=== PATIENT | male | born 1965 | race Caucasian/White ===

== ENCOUNTER 2017-11-13 15:03 | Outpatient (REF) | payer OTHER, SELFPAY ==
[2017-11-13 21:27] LABS: HCT 40.1 % (40.0-50.0); HGB 13.3 g/dL (13.5-17.5); Mean Corp. HGB Concentration 33.2 g/dL (32.0-36.0); Mean Corpuscular Hemoglobin 30.7 pg (27.0-33.0); Mean Corpuscular Volume 92.6 fL (80-95); Mean Platelet Volume 10.5 fL (8.0-11.0); Platelet Count 230 x1000/uL (130-400); RBC 4.33 m/cumm (4.50-6.00); RBC Distribution Width 15.9 % (11.8-14.1); White Blood Cell Count 6.69 k/cumm (4.4-10.8)
[2017-11-13 21:29] LABS: Magnesium 2.5 mg/dL (1.8-2.4)
== END 2017-11-13 15:23 ==
LOC: NCHCN 15:03
PROVIDERS: PCP Internal Medicine; Visit Provider Family Medicine
DX: E83.42 Hypomagnesemia (principal); D50.0 Iron deficiency anemia secondary to blood loss (chronic)
CPT/HCPCS: 85027; 83735

== ENCOUNTER 2019-12-20 12:36 | Outpatient (REF) | payer MEDICAID, SELFPAY ==
[2019-12-20 20:07] LABS: Abs Immature Grans 0.03 10^3/uL (0.0-0.06); Absolute Basophil Count 0.08 10^3/uL (0.0-0.2); Absolute Lymphocyte Count 2.28 10^3/uL (1.2-3.4); Absolute Monocyte Count 0.83 10^3/uL (0.1-0.8); Absolute Neutrophil Count 7.46 10^3/uL (1.2-6.7); Basophils % 0.7; Eosinophils % 1.8; HCT 43.8 % (40.0-50.0); Immature Grans % 0.3; MCH 30.7 pg (27.0-33.0); MCHC 34.2 % (32.0-36.0); MCV 89.6 fL (80-95); MPV 10.2 fL (8.0-11.0); Monocytes % 7.6; Neutrophils % 68.6; Nucleated RBC 0 %; Platelet Count 344 10^3/uL (130-400); RBC 4.89 10^6/uL (4.36-5.78); RDW 12.8 % (11.8-14.1); RDW-SD 42.2 fL; WBC 10.88 10^3/uL (4.4-10.8)
[2019-12-20 20:29] LABS: ALT 21 U/L (16-63); AST 18 U/L (15-37); Alkaline Phosphatase 86 U/L (46-116); BUN 11 mg/dL (7-18); Bilirubin, Total 0.7 mg/dL (0.2-1.0); CREATININE 0.96 mg/dL (0.70-1.30); Calcium 9.6 mg/dL (8.5-10.1); Calculated LDL 77 mg/dL (<100); Chloride 100 mmol/L (98-107); Cholesterol 166 mg/dL (<200); Glucose 109 mg/dL (74-106); HDL Cholesterol 80 mg/dL (40-60); Magnesium 2.2 mg/dL (1.8-2.4); Potassium 4.6 mmol/L (3.5-5.1); Sodium 137 mmol/L (136-145); TSH (W/Ref FT4) 1.24 uIU/mL (0.36-3.74); Total Protein 7.5 g/dL (6.4-8.2); Triglyceride 46 mg/dL (<150)
== END 2019-12-20 12:56 ==
LOC: NCHCN 12:36
PROVIDERS: PCP Internal Medicine; Visit Provider Physician Assistant
DX: I10 Essential (primary) hypertension (principal); D50.0 Iron deficiency anemia secondary to blood loss (chronic); E83.42 Hypomagnesemia; Z86.79 Personal history of other diseases of the circulatory system
CPT/HCPCS: 80053; 80061; 83735; 84443; 85025

== ENCOUNTER 2020-02-05 15:22 | Outpatient (REF) | payer MEDICAID, SELFPAY ==
[2020-02-05 20:54] LABS: Hemoglobin A1C 5.2 % (<5.7)
== END 2020-02-05 15:42 ==
LOC: NCHCN 15:22
PROVIDERS: PCP Internal Medicine; Visit Provider Physician Assistant
DX: R73.9 Hyperglycemia, unspecified (principal); R63.4 Abnormal weight loss; F10.10 Alcohol abuse, uncomplicated
CPT/HCPCS: 83036

== ENCOUNTER 2020-02-06 20:07 | Outpatient (REF) | payer MEDICAID, SELFPAY ==
[2020-02-06 19:20] LABS: Amylase 63 U/L (25-115); Anion Gap 8.5 mmol/L (3-11); BUN 12 mg/dL (7-18); CO2 27.5 mmol/L (21.0-32.0); CREATININE 0.94 mg/dL (0.70-1.30); Calcium 9.7 mg/dL (8.5-10.1); Chloride 102 mmol/L (98-107); Glucose 131 mg/dL (74-106); Lipase 127 U/L (73-393); Potassium 3.8 mmol/L (3.5-5.1); Sodium 138 mmol/L (136-145)
== END 2020-02-06 20:27 ==
LOC: NCHCN 20:07
PROVIDERS: PCP Internal Medicine; Visit Provider Physician Assistant
DX: R63.4 Abnormal weight loss (principal); R73.9 Hyperglycemia, unspecified; F10.10 Alcohol abuse, uncomplicated
CPT/HCPCS: 80048; 83690; 82150

== ENCOUNTER 2020-02-13 16:22 | Inpatient (IN) | payer MEDICAID, SELFPAY ==
[2020-02-13] VITALS (29 sets, daily range): BP systolic 137–211; BP diastolic 56–180; PULSE 68–90; RESP 14–21; TEMP 36–36.7; O2SAT 93–99
--- NOTE | 2020-02-13 16:15 | RT.EKG_ITS ---
APPROVED REPORT Exam: Resting ECG Patient Location: E HR:82 bpm ECG Measurements Heart Rate 82 AXIS DE 149 P 76 QRSd 103 QRS 63 QT 401 T 75 QTc 469 Conclusion Sinus rhythm...normal P axis early repol pattern.
--- NOTE | 2020-02-13 16:41 | W.ED.GENAD ---
Discharge Plan Disposition Patient Disposition: OTHER Condition: Serious Discharge Details Clinical Impression: Peripheral neuropathy, Weight loss, Weakness, Ataxia Primary Care Provider: Grant Chacon ED Provider: Kade Sanchez Medical Decision Making 54-year-old male, past medical history of tobacco use, alcohol abuse, A. fib, COPD, cardiomyopathy, hypertension, cirrhosis, prediabetes, presents to the ER after already being evaluated by neurology. Sent to the ER for further evaluation and subsequent admission. Nerve study conduction test performed earlier were quite worrisome. Differential includes but not excluded to Warnicke's encephalopathy, Guillain-[place], metabolic cephalopathy, other demyelinating process. Will obtain a cardiac work-up, CT imaging of head, C-spine, abdomen, chest, pelvis. He did present quite hypertensive, without any therapy his blood pressure began to trend down nicely. Laboratory values were unremarkable for any obvious emergent process. CT imaging of chest, abdomen, pelvis read by radiology as no acute findings. CT imaging of head and C-spine without contrast read by radiology as no acute intracranial abnormality. Chronic Shanta report in the bilateral basal ganglia and left thalamus. No acute cervical spine fracture. Degenerative changes of the cervical spine. Work-up in the ER completed, will reach out to our hospitalist team for admission. Medical Records Medical records reviewed: Yes I reviewed the patient's medical records. Lab Data Lab results reviewed: Yes I reviewed the patient's lab results. Lab results narrative: Laboratory Tests Range/Units 02/13/20 02/13/20 02/13/20 16:35 16:35 16:35 WBC (4.4-10.8) 10^3/uL RBC (4.36-5.78) 10^6/uL Hgb (13.5-17.5) g/dL Hct (40.0-50.0) % MCV (80-95) fL MCH (27.0-33.0) pg MCHC (32.0-36.0) % RDW (11.8-14.1) % Plt Count (130-400) 10^3/uL MPV (8.0-11.0) fL Immature Gran % Neutrophils % Lymphocytes % Monocytes % Eosinophils % Basophils % Nucleated RBC % % Absolute Neutrophils (1.2-6.7) 10^3/uL Absolute Lymphocytes (1.2-3.4) 10^3/uL Absolute Monocytes (0.1-0.8) 10^3/uL Absolute Eosinophils (0.0-0.7) 10^3/uL Absolute Basophils (0.0-0.2) 10^3/uL PT (9.3-11.0) sec 10.5 INR (0.9-1.1) 1.0 APTT (21.0-27.5) sec 22.5 Sodium (136-145) mmol/L 136 Potassium (3.5-5.1) mmol/L 4.3 Chloride (98-107) mmol/L 100 Carbon Dioxide (21.0-32.0) mmol/L 28.5 Anion Gap (3-11) mmol/L 7.5 BUN (7-18) mg/dL 15 Creatinine (0.70-1.30) mg/dL 0.82 Estimated GFR/1.73 m2 (mL/min/1.73m2) >= 60.00 Glucose (74-106) mg/dL 89 Calcium (8.5-10.1) mg/dL 9.4 Magnesium (1.8-2.4) mg/dL 2.3 Total Bilirubin (0.2-1.0) mg/dL 0.5 AST (15-37) U/L 19 ALT (16-63) U/L 30 Alkaline Phosphatase (46-116) U/L 74 Troponin I (<0.06) ng/mL < 0.05 Total Protein (6.4-8.2) g/dL 7.7 Albumin (3.4-5.0) g/dL 3.6 TSH (0.36-3.74) uIU/mL 1.51 Urine Color (Yellow) Urine Clarity (Clear) Urine pH (5-8) Ur Specific [place] (1.005-1.025) Urine Protein (Negative) mg/dL Urine Ketones (Negative) mg/dL Urine Blood (Negative) Urine Nitrite (Negative) Urine Bilirubin (Negative) Urine Urobilinogen (Up TO 0.2) EU/dL Ur Leukocyte Esterase (Negative) Urine Glucose (Negative) mg/dL Urine Opiates Screen (Negative) Urine Methadone Screen (Negative) Ur Barbiturates Screen (Negative) Ur Tricyclics Screen (Negative) Ur Amphetamines Screen (Negative) U Benzodiazepines Scrn (Negative) Urine Cocaine Screen (Negative) Ur THC Screen (Negative) Ethyl Alcohol (<3) mg/dL < 3.0 Range/Units 02/13/20 02/13/20 02/13/20 16:35 17:30 17:30 WBC (4.4-10.8) 10^3/uL 8.41 RBC (4.36-5.78) 10^6/uL 4.77 Hgb (13.5-17.5) g/dL 14.4 Hct (40.0-50.0) % 42.2 MCV (80-95) fL 88.5 MCH (27.0-33.0) pg 30.2 MCHC (32.0-36.0) % 34.1 RDW (11.8-14.1) % 11.8 Plt Count (130-400) 10^3/uL 350 MPV (8.0-11.0) fL 9.4 Immature Gran % 0.4 Neutrophils % 63.6 Lymphocytes % 25.3 Monocytes % 7.8 Eosinophils % 2.4 Basophils % 0.5 Nucleated RBC % % 0 Absolute Neutrophils (1.2-6.7) 10^3/uL 5.35 Absolute Lymphocytes (1.2-3.4) 10^3/uL 2.13 Absolute Monocytes (0.1-0.8) 10^3/uL 0.66 Absolute Eosinophils (0.0-0.7) 10^3/uL 0.20 Absolute Basophils (0.0-0.2) 10^3/uL 0.04 PT (9.3-11.0) sec INR (0.9-1.1) APTT (21.0-27.5) sec Sodium (136-145) mmol/L Potassium (3.5-5.1) mmol/L Chloride (98-107) mmol/L Carbon Dioxide (21.0-32.0) mmol/L Anion Gap (3-11) mmol/L BUN (7-18) mg/dL Creatinine (0.70-1.30) mg/dL Estimated GFR/1.73 m2 (mL/min/1.73m2) Glucose (74-106) mg/dL Calcium (8.5-10.1) mg/dL Magnesium (1.8-2.4) mg/dL Total Bilirubin (0.2-1.0) mg/dL AST (15-37) U/L ALT (16-63) U/L Alkaline Phosphatase (46-116) U/L Troponin I (<0.06) ng/mL Total Protein (6.4-8.2) g/dL Albumin (3.4-5.0) g/dL TSH (0.36-3.74) uIU/mL Urine Color (Yellow) Yellow Urine Clarity (Clear) Clear Urine pH (5-8) 6.5 Ur Specific [place] (1.005-1.025) 1.025 Urine Protein (Negative) mg/dL Negative Urine Ketones (Negative) mg/dL Negative Urine Blood (Negative) Negative Urine Nitrite (Negative) Negative Urine Bilirubin (Negative) Negative Urine Urobilinogen (Up TO 0.2) EU/dL 0.2 Ur Leukocyte Esterase (Negative) Negative Urine Glucose (Negative) mg/dL Negative Urine Opiates Screen (Negative) Negative Urine Methadone Screen (Negative) Negative Ur Barbiturates Screen (Negative) Negative Ur Tricyclics Screen (Negative) Negative Ur Amphetamines Screen (Negative) Negative U Benzodiazepines Scrn (Negative) Negative Urine Cocaine Screen (Negative) Negative Ur THC Screen (Negative) Negative Ethyl Alcohol (<3) mg/dL ECG Data Attestation: I personally reviewed and interpreted this ECG (s) as follows: Interpretation: Please see official report by Dr. Johnson. Sinus rhythm, ventricular of 82. Early repolarization. No STEMI HPI General Date/Time Provider Initiated Documentation: 02/13/20 16:29. Limitations to Documentation: no limitations. Information obtained by: patient. HPI Narrative: This is a 54-year-old gentleman, history of alcohol abuse, has not drank alcohol in 1 month. Cirrhosis, COPD, hypertension, current smoker, atrial fibrillation, cardiomyopathy, prediabetes, sent to the ER by neurology. He has had a 50 pound weight loss over the past few months. He reports at least 2 months of bilateral upper extremity weakness pacifically in his first and second digits. He was initially seen by orthopedics, Dr. Benites, in December, and specifically referred to neurology for nerve conduction studies. After being evaluated by neurology today, they recommended transfer to the ER, hospitalization for further work-up. Dr. Jeronimo has already spoken with Dr. Nolan, hospitalist, and Dr. Johnson, ER attending. Patient lives at home alone, states that he is typically very active but has had difficulty with daily living over the past couple of months. He reports ataxia, causing him to fall a few times although denies any distinct injuries from his fall. He denies any pain currently whatsoever. Denies recent illness. He denies headache, visual change, neck pain, chest pain, abdominal pain, nausea, vomiting, urinary or bowel incontinence and/or retention. Related Data Home Medications Medication Instructions Recorded Confirmed magnesium oxide 400 mg PO HS 07/01/16 02/13/20 thiamine HCl (vitamin B1) 100 mg PO DAILY 05/09/17 02/13/20 carvedilol 25 mg tablet 25 mg PO BID 02/13/20 02/13/20 ferrous sulfate 325 mg (65 mg 325 mg PO DAILY 02/13/20 02/13/20 iron) tablet lisinopril 20 mg tablet 20 mg PO DAILY 02/13/20 02/13/20 Allergies Allergy/AdvReac Type Severity Reaction Status Date / Time No Known Allergies Allergy Unverified 02/13/20 14:12 General Stated Complaint: GenMedical ANGIE: 3 Review of Systems Constitutional Constitutional: Denies fatigue, Denies fever(s), Denies headache(s), Reports weakness and Reports weight loss Eyes Eyes: Denies change in vision ENT Ears, Nose, Mouth, and Throat: Denies headache(s) Cardiovascular Cardiovascular: Denies chest pain and Denies dyspnea Respiratory Respiratory: Denies cough and Denies dyspnea Gastrointestinal Gastrointestinal: Denies abdominal pain, Denies nausea and Denies vomiting Genitourinary Genitourinary: Denies dysuria Musculoskeletal Musculoskeletal: Denies back pain, Denies arthralgias, Reports muscle weakness, Denies numbness, Reports stiffness and Denies tingling Integumentary/Breasts Skin/Breast: Denies rash Neurologic Neurologic: Denies headache(s), Denies numbness, Denies tingling and Reports weakness Endocrine Endocrine: Denies fatigue Hematologic/Lymphatic Hematologic/Lymphatic: Denies easy bleeding and Denies easy bruising FOR[facility]LY [facility] Medical History Alcoholism Ataxic gait Atrial fibrillation Cardiomyopathy Cirrhosis COPD with asthma GI bleed Hypertension Nicotine abuse Peripheral neuropathy Prediabetes Weakness Weight loss Social History Smoking/Tobacco Use Status: Current every day Smoking risk assessment performed?: Yes Alcohol Intake: former Drug use: Never Substance use type: does not use Household members: none Housing: house Number of Children: 3 number of grandchildren: 2 Pets and animals: Yes Pets and animals: dog(s) Current gender identity: male What type of physical activity do you participate in: none Seatbelt use: always Do you feel safe at home: Yes Do you feel safe in your relationship?: Yes Exam Const General: cooperative, comfortable and no acute distress Orientation: alert, awake and oriented x3 HENMT Head: normal to inspection, normocephalic and atraumatic Face and sinus: normal facial exam Mouth: moist mucous membranes Eyes General: appearance normal, both eyes and all related structures Alignment and Position: alignment normal Periorbital: periorbital findings normal Eyelids: eyelids normal Conjunctivae: conjunctivae normal Sclera: sclerae normal Cornea: corneas normal Pupils: PERRL EOM: EOM intact bilaterally Direct ophthalmoscopy: normal light reflex Neck Neck: normal visual inspection, full ROM, no meningeal signs, trachea midline, supple and nontender Resp Effort & Inspection: normal respiratory effort and able to speak in complete sentences Auscultation: clear to auscultation bilaterally Cardio Rate: regular rate Rhythm: regular rhythm GI Inspection: normal to inspection Palpation: soft and nontender Back/Spine/Pelvis Back: No back tenderness Skin General skin exam: no rashes or lesions noted Neuro General: patient alert, patient awake, patient oriented x3 and moves all extremities Cranial Nerves: CN's II-XI intact bilaterally Cognition: normal cognition Speech: abnormal speech (Slow, delayed, delivery fluids) Gait: other (Not tested) Motor: no pronator drift, no fasciculations and muscle tone abnormal (Bilat hand, first and second digit profound weakness) Sensory Exam: no sensory deficits noted Coordination: Does not sway with eyes open Extrem General: capillary refill normal, no pedal edema and no calf tenderness Psych Appearance: grossly normal Mental Status: mental status grossly normal Course Vital Signs Vital signs: Vital Signs Temperature 36.7 C 02/13/20 16:25 Pulse 81 02/13/20 16:25 Pulse Oximetry 98 02/13/20 16:25 Temperature 36.7 C 02/13/20 16:25 Temperature Source Temporal Artery Scan 02/13/20 16:25 Pulse 81 02/13/20 16:25 Respiratory Effort Non-Labored 02/13/20 16:32 Blood Pressure Position Sitting 02/13/20 16:25 Pulse Oximetry 98 02/13/20 16:25 Oxygen Delivery Method Room Air 02/13/20 16:25 Oxygen Flow Rate 0 02/13/20 16:25 Pain Level 1 02/13/20 16:25
[2020-02-13 17:02] LABS: Abs Immature Grans 0.03 10^3/uL (0.0-0.06); Absolute Basophil Count 0.04 10^3/uL (0.0-0.2); Absolute Lymphocyte Count 2.13 10^3/uL (1.2-3.4); Absolute Monocyte Count 0.66 10^3/uL (0.1-0.8); Absolute Neutrophil Count 5.35 10^3/uL (1.2-6.7); Basophils % 0.5; Eosinophils % 2.4; HCT 42.2 % (40.0-50.0); HGB 14.4 g/dL (13.5-17.5); Immature Grans % 0.4; Lymphocytes % 25.3; MCH 30.2 pg (27.0-33.0); MCHC 34.1 % (32.0-36.0); MCV 88.5 fL (80-95); MPV 9.4 fL (8.0-11.0); Monocytes % 7.8; Neutrophils % 63.6; Nucleated RBC 0 %; Platelet Count 350 10^3/uL (130-400); RBC 4.77 10^6/uL (4.36-5.78); RDW 11.8 % (11.8-14.1); RDW-SD 37.6 fL; WBC 8.41 10^3/uL (4.4-10.8)
[2020-02-13 17:15] LABS: PTT Activated 22.5 sec (21.0-27.5); Prothrombin Time 10.5 sec (9.3-11.0)
--- NOTE | 2020-02-13 17:15 | DI.CT_ITS ---
EXAM: CT HEAD CERVICAL SPINE WO CLINICAL HISTORY: Ataxia, multiple falls. TECHNIQUE: Imaging Protocol: Axial computed tomography images with coronal and sagittal reformatted images were created and reviewed COMPARISON: No exams were available for comparison FINDINGS: CT Head: Ventricles and Extra axial spaces: There is prominence of the ventricles and sulci consistent with gl obal cerebral atrophy. Hemorrhage: None. Cerebral parenchyma: There are areas of decreased attenuation in the white matter consistent with sma ll vessel ischemic disease. Several bilateral chronic lacunar infarcts are seen. No acute territori al infarct is seen. Midline shift: None. Brainstem/Cerebellum: Normal. Calvarium: Normal. Visualized Paranasal sinuses/Mastoids: Clear. Soft Tissues: Unremarkable. CT Cervical Spine: Bones: No acute fracture or subluxation. Multilevel degenerative changes are present with central spi nal canal and neural foraminal stenosis noted at various levels. Soft Tissues: Unremarkable. Lung Apices: Clear. IMPRESSION: 1. No acute intracranial process. 2. No acute fracture or subluxation in the cervical spine. RADIATION DOSE DELIVERED: 1,327.48mGy.cm Total DLP DATA REPOSITORY: All CT scans at this facility are submitted to the National Radiology Data Registry (NRDR) Dose Index Registry (DIR) with the [employer] (A[employer]). RADIATION OPTIMIZATION: All CT scans at this facility use at least one of these dose optimization te chniques: automated exposure control; mA and/or kV adjustment per patient size (includes targeted exa ms where dose is matched to clinical indication); or iterative reconstruction.
--- NOTE | 2020-02-13 17:15 | DI.CT_ITS ---
EXAM: CT CHEST/ABD/PEL W CLINICAL HISTORY: 50 pound weight loss, upper extremity weakness TECHNIQUE: Imaging Protocol: Axial computed tomography images with coronal and sagittal reformatted images were created and reviewed CONTRAST MATERIAL: Intravenous: Omnipaque 350 Contrast volume:100 mL Oral: No COMPARISON: CT CHEST ABD PELVIS WITH CONTRAST from 05/09/2017 FINDINGS: The examination is limited due to patient motion artifact. CHEST: Tracheobronchial tree: Patent where visualized. Pulmonary parenchyma: No consolidation or dominant measurable mass. Centrilobular emphysema. Visualized thyroid gland: Unremarkable. Mediastinum and Haylie: No dominant adenopathy or fluid collection. Pleura: No effusion or pneumothorax. Heart: The heart is not dilated. Moderate coronary artery calcification. No pericardial effusion. Aorta: Mild atherosclerosis. Lymph nodes: Within normal limits. Bones:Degenerative changes. Old left rib fractures. Soft tissues: Unremarkable. ABDOMEN: Liver: Normal density. The low-density circumscribed lesion in the liver measures 3.1 x 2.1 cm. This compares to 3 x 2.3 on the prior examination. No new hepatic lesion is identified. Portal, Superior Mesenteric, and Splenic Veins: Unremarkable. Gallbladder and Biliary Tract: No radiodense calculus or dilation. Pancreas: Normal density, no abnormal calcifications or inflammatory process. Spleen: Normal. Adrenals: No masses seen. Kidneys: Normal size, contour and axis. No radiodense stones or obstructive uropathy. Stable simple r enal cysts. Abdominal Aorta: Abdominal portion non-dilated. Atherosclerosis. Bowel: No obstruction or bowel wall thickening. Appendix is unremarkable. There is a moderate amount of stool throughout the colon. Peritoneal Cavity: No ascites, collection or mesenteric inflammatory response. No free air. Lymph Nodes: Within normal limits. Bones: Degenerative changes. Soft Tissues: Unremarkable. PELVIS: Bladder: Symmetric distention, no gross wall thickening. Reproductive Organs: Unremarkable as visualized. Lymph Nodes: Within normal limits. Bones: Degenerative changes. IMPRESSION: 1. No acute abdominal or pelvic process. 2. No acute pulmonary process. RADIATION DOSE DELIVERED: 975.27mGy.cm Total DLP DATA REPOSITORY: All CT scans at this facility are submitted to the National Radiology Data Registry (NRDR) Dose Index Registry (DIR) with the [employer] (ACR). RADIATION OPTIMIZATION: All CT scans at this facility use at least one of these dose optimization te chniques: automated exposure control; mA and/or kV adjustment per patient size (includes targeted exa ms where dose is matched to clinical indication); or iterative reconstruction.
[2020-02-13 17:17] LABS: ALT 30 U/L (16-63); AST 19 U/L (15-37); Albumin 3.6 g/dL (3.4-5.0); Alkaline Phosphatase 74 U/L (46-116); Anion Gap 7.5 mmol/L (3-11); BUN 15 mg/dL (7-18); Bilirubin, Total 0.5 mg/dL (0.2-1.0); CO2 28.5 mmol/L (21.0-32.0); CREATININE 0.82 mg/dL (0.70-1.30); Calcium 9.4 mg/dL (8.5-10.1); Chloride 100 mmol/L (98-107); Glucose 89 mg/dL (74-106); Magnesium 2.3 mg/dL (1.8-2.4); Potassium 4.3 mmol/L (3.5-5.1); Sodium 136 mmol/L (136-145); Total Protein 7.7 g/dL (6.4-8.2)
[2020-02-13 17:19] LABS: Troponin I < 0.05 ng/mL (<0.06)
[2020-02-13 17:20] LABS: TSH (W/Ref FT4) 1.51 uIU/mL (0.36-3.74)
[2020-02-13] MEDS: MAGNESIUM SULFATE 8.12 MEQ, MULTIVITAMIN 10 ML, THIAMINE 100 MG, FOLIC ACID 1 MG in Nor... 168.867 MG IV (17:25)
[2020-02-13 17:29] LABS: ETHANOL BLOOD < 3.0 mg/dL (<3)
[2020-02-13 17:39] LABS: Bilirubin Negative (Negative); Blood Negative (Negative); Clarity Clear (Clear); Glucose Negative (Negative); Ketones Negative (Negative); Leukocyte Esterase Negative (Negative); Nitrite Negative (Negative); Specific Gravity 1.025 (1.005-1.025); Urobilinogen 0.2 EU/dL (Up TO 0.2); pH 6.5 (5-8)
[2020-02-13 17:56] LABS: *AMPHETAMINES SCREEN URINE Negative (Negative); *BARBITURATES SCREEN URINE Negative (Negative); *BENZODIAZEPINES SCREEN URINE Negative (Negative); Cannabinoids THC Negative (Negative); Cocaine Screen,Urine Negative (Negative); METHADONE URINE SCREEN Negative (Negative); OPIATES URINE SCREEN Negative (Negative)
[2020-02-13 17:58] LABS: Tricyclic Antidepressants Negative (Negative)
[2020-02-13] MEDS: Omnipaque 350 MG/ML 100 ML BTL IJ (18:02)
[2020-02-13] MEDS: Normal Saline - Diluent 50 ML VIAL IV (18:03)
[2020-02-13] MEDS: Normal Saline Flush 10 ML SYR IVP (18:03)
--- NOTE | 2020-02-13 18:08 | DI.VRAD_ITS ---
PROCEDURE INFORMATION: Exam: CT Head Without Contrast Exam date and time: 02/13/2020 5:46 PM Age: 54 years old Clinical indication: Other: Ataxia; Weakness TECHNIQUE: Imaging protocol: Computed tomography of the head without contrast. COMPARISON: No relevant prior studies available. FINDINGS: Brain: No acute large territorial infarction or intracranial hemorrhage. Mild parenchymal volume loss and moderate a nonspecific white matter hypodensity, likely chronic microangiopathy. No mass effect or midline shift. Chronic lacunar infarcts in the bilateral basal ganglia and left thalamus. Cerebral ventricles: No hydrocephalus. Bones/joints: No displaced calvarial fracture. Paranasal sinuses: Visualized sinuses are unremarkable. No fluid levels. Mastoid air cells: Visualized mastoid air cells are well aerated. Vasculature: Intracranial atherosclerosis. Soft tissues: Unremarkable. IMPRESSION: 1. No acute intracranial abnormality. 2. Chronic senescent changes. Chronic lacunar infarcts in the bilateral basal ganglia and left thalamus. PROCEDURE INFORMATION: Exam: CT Cervical Spine Without Contrast Exam date and time: 02/13/2020 5:46 PM Age: 54 years old Clinical indication: Other: Ataxia; Weakness TECHNIQUE: Imaging protocol: Computed tomography images of the cervical spine without contrast. COMPARISON: No relevant prior studies available. FINDINGS: Bones/joints: No acute fracture. The vertebral body heights are within normal limits. Straightening of cervical alignment with dextroscoliosis. Discs/Spinal canal/Neural foramina: Multilevel degenerative changes of the cervical spine with disc height loss, worse at C5-C6 with broad-based central disc protrusion causing probable moderate spinal canal stenosis. Multilevel neural foraminal narrowing from facet and uncovertebral joint arthrosis, severe at left C3-C4 and bilateral C5-C6. Oropharynx: Incidental tonsilliths. Lungs: The visualized lung apex is unremarkable. Vasculature: Atherosclerotic disease at the bilateral carotid bifurcations. Soft tissues: No prevertebral soft tissue swelling. IMPRESSION: 1. No acute cervical spine fracture. 2. Degenerative changes of the cervical spine. 3. Atherosclerotic disease. Dictated and Authenticated by: Aylin Howard MD. Ordering:BOOM Braun MD
--- NOTE | 2020-02-13 19:06 | DI.VRAD_ITS ---
PROCEDURE INFORMATION: Exam: CT Chest With Contrast; Diagnostic Exam date and time: 02/13/2020 5:27 PM Age: 54 years old Clinical indication: Other: Weakness, weight loss TECHNIQUE: Imaging protocol: Diagnostic computed tomography of the chest with intravenous contrast. COMPARISON: CT CHEST ABD PELVIS WITH CONTRAST 05/09/2017 2:43 PM FINDINGS: Lungs: Mild emphysema. No consolidation. No masses. Pleural space: Unremarkable. No pneumothorax. No pleural effusion. Heart: Unremarkable. No cardiomegaly. No pericardial effusion. Aorta: Unremarkable. No aortic aneurysm. Lymph nodes: Unremarkable. No enlarged lymph nodes. Bones/joints: Unremarkable. No acute fracture. Soft tissues: Unremarkable. IMPRESSION: No acute findings. PROCEDURE INFORMATION: Exam: CT Abdomen And Pelvis With Contrast Exam date and time: 02/13/2020 5:27 PM Age: 54 years old Clinical indication: Other: Weakness, weight loss TECHNIQUE: Imaging protocol: Computed tomography of the abdomen and pelvis with intravenous contrast. COMPARISON: CT CHEST ABD PELVIS WITH CONTRAST 05/09/2017 2:43 PM FINDINGS: Liver: Cirrhosis. Stable hypoattenuating lesion measuring approximately 3 cm. Gallbladder and bile ducts: Normal. No calcified stones. No ductal dilation. Pancreas: Normal. No ductal dilation. Spleen: Normal. No splenomegaly. Adrenal glands: Normal. No mass. Kidneys and ureters: Small left renal cyst. No hydronephrosis. Stomach and bowel: Unremarkable. No obstruction. No mucosal thickening. Appendix: Normal appendix. Intraperitoneal space: Unremarkable. No free air. No significant fluid collection. Vasculature: Unremarkable. No abdominal aortic aneurysm. Lymph nodes: Unremarkable. No enlarged lymph nodes. Urinary bladder: Unremarkable as visualized. Reproductive: Unremarkable as visualized. Bones/joints: Unremarkable. No acute fracture. Soft tissues: Unremarkable. IMPRESSION: No acute findings. Dictated and Authenticated by: Brady Bull MD. Ordering:BOOM Braun MD
--- NOTE | 2020-02-13 19:48 | HPE_ITS ---
Date of service: 02/13/20 Time of Service: 19:48 Assessment and Plan Assessment and plan (1) Ataxia: Start date: 02/13/20 Status: Acute Assessment and plan: This is a 54-year-old gentleman with progressive weakness and ataxia is into the ED for evaluation with only positive imaging being bilateral lunar infarcts with left thalamus infarct which did not appear to be acute. He appeared bilaterally and diffusely weak and unable to take care of self with evidence of lack of self-care for days or months. He has lost 50 pounds. He did drink alcohol previously but has not drank for 1 month. He appears to be low risk for alcohol withdrawal. He is on thiamine but needs his vitamin B12 checked. (2) Peripheral neuropathy: Start date: 02/13/20 Status: Acute Assessment and plan: Patient has had recent onset of numbness with neurological symptoms progressing with diffuse weakness. Ongoing and neurological evaluation. Qualifiers: Peripheral neuropathy type: polyneuropathy, alcohol-induced Qualified Code(s): G62.1 - Alcoholic polyneuropathy (3) CVA (cerebral vascular accident): Status: Chronic Assessment and plan: Patient appears to have old infarcts but CT scan of the head and needs MRI of the brain in the morning. Neurology consultation is in place. Qualifiers: CVA mechanism: thrombosis Precerebral and cerebral artery: unspecified cerebral artery Qualified Code(s): I63.30 - Cerebral infarction due to thrombosis of unspecified cerebral artery (4) Weight loss: Status: Chronic Assessment and plan: Weight loss appears to have occurred over several months since the summer 2019. This most likely secondary to inability to care for self and feed self rather than the underlying disease process. Patient needs assisted living and feeding. History of Present Illness History of Present Illness Chief Complaint: Ataxia Narrative: This is a 54-year-old male patient who lives alone and has a history of alcohol abuse not drinking for the last month. He has lost about 50 pounds the last several month s since the summer. He does have a history of cirrhosis, cardiomyopathy with atrial fibrillation and hypertension, prediabetic state and COPD with smoking. He recently has had increasing problems walking with increased falls secondary to ataxia. He complains of numbness in his upper extremities bilaterally in both of his first and second digits and was being seen by orthopedics and then referred to neurology for EMGs with Dr. Jeronimo sending the patient to the ED for evaluation because of his overall deterioration and inability to live alone. The patient would become aggressive weak over his upper more than lower extremities but did have increasing motor deficits. In the ED evaluation was benign for any acute processes and suggestion was made that he be observed overnight with MRI of the brain in the morning. CT of the head did show bilateral lacunar infarcts and infarct in the left thalamus which may be contributing to the patient's aggressive neurological symptoms bilaterally. Patient has had no injuries with falls. He has not been able to do self-care such as wiping himself after going to the bathroom and has been unable to clean himself. Before the progression of neurological symptoms the patient was very active. Review of Systems Narrative: As per HPI, 13 point review of systems otherwise unrevealing or stable with patient chronically ill and failing self-care at home. [facility] Medical History Alcoholism Ataxic gait Atrial fibrillation Cardiomyopathy Cirrhosis COPD with asthma GI bleed Hypertension Nicotine abuse Peripheral neuropathy Prediabetes Weakness Weight loss Social History Smoking/Tobacco Use Status: Current every day Smoking risk assessment performed?: Yes Alcohol Intake: former Drug use: Never Substance use type: does not use Household members: none Housing: house Number of Children: 3 number of grandchildren: 2 Pets and animals: Yes Pets and animals: dog(s) Current gender identity: male What type of physical activity do you participate in: none Seatbelt use: always Do you feel safe at home: Yes Do you feel safe in your relationship?: Yes Meds Home Medications and Allergies Home Medications Medication Instructions Recorded Confirmed Type magnesium oxide 400 mg PO HS 07/01/16 02/13/20 History thiamine HCl (vitamin B1) 100 mg PO DAILY 05/09/17 02/13/20 History carvedilol 25 mg tablet 25 mg PO BID 02/13/20 02/13/20 History ferrous sulfate 325 mg (65 mg 325 mg PO DAILY 02/13/20 02/13/20 History iron) tablet lisinopril 20 mg tablet 20 mg PO DAILY 02/13/20 02/13/20 History Allergies Allergy/AdvReac Type Severity Reaction Status Date / Time No Known Allergies Allergy Unverified 02/13/20 14:12 Exam Narrative Exam Narrative: General: Patient appears older than stated age with slightly dysarthric speech, he appears alert and oriented to person place and time and is in no acute distress. He appears chronically ill and is unkempt. HEENT: Normocephalic, coarsened facial features with patient yawning occasionally during conversation, eyes with pupils equal and reactive to light symmetrically, extraocular movement intact and sclera anicteric. Oropharynx with moist mucosa and poor dentition with discoloration and multiple caries. External ears and nose normal. Neck: Supple without JVD. Back: Stooped posture without CVA tenderness. Lungs: Fair aeration and clear to auscultation and percussion. Heart: Regular rate and rhythm with no murmurs gallops appreciated. groundwater monitoring technician reveals sinus rhythm. Abdomen: Scaphoid contour, soft and nontender to palpation with no palpable hepatosplenomegaly. Genitalia: Normal external genitalia with rectal deferred. Nurse reports patient covered an old dried stool upon presentation. He is wearing adult diaper. Extremities: Without clubbing, cyanosis or pitting edema. Diffuse muscle wasting and atrophy. Peripheral pulses intact. Fingernails and toenails are opaque, long and unkempt. Skin: Decreased turgor, unkempt with old dirt over most of his body, normal color, warm and dry. Neuro: Cranial nerves II through XII appear to be grossly intact. Patient has decreased motor strength been able to move against gravity but not against resistance over his upper and lower extremities with symmetrical weakness. There are no Babinski's. Speech is dysarthric. Patient was not examined standing but appears that he is unable to walk or stand though emergency room exam stated negative Romberg. Psych: Flattened affect with depressed mood, not normal thought processes. Remote and recent memory appear intact. Results Imaging Imaging Studies: Exam: CT Chest With Contrast; Diagnostic Exam date and time: 02/13/2020 5:27 PM Age: 54 years old Clinical indication: Other: Weakness, weight loss TECHNIQUE: Imaging protocol: Diagnostic computed tomography of the chest with intravenous contrast. COMPARISON: CT CHEST ABD PELVIS WITH CONTRAST 05/09/2017 2:43 PM FINDINGS: Lungs: Mild emphysema. No consolidation. No masses. Pleural space: Unremarkable. No pneumothorax. No pleural effusion. Heart: Unremarkable. No cardiomegaly. No pericardial effusion. Aorta: Unremarkable. No aortic aneurysm. Lymph nodes: Unremarkable. No enlarged lymph nodes. Bones/joints: Unremarkable. No acute fracture. Soft tissues: Unremarkable. IMPRESSION: No acute findings. PROCEDURE INFORMATION: Exam: CT Abdomen And Pelvis With Contrast Exam date and time: 02/13/2020 5:27 PM Age: 54 years old Clinical indication: Other: Weakness, weight loss TECHNIQUE: Imaging protocol: Computed tomography of the abdomen and pelvis with intravenous contrast. COMPARISON: CT CHEST ABD PELVIS WITH CONTRAST 05/09/2017 2:43 PM FINDINGS: Liver: Cirrhosis. Stable hypoattenuating lesion measuring approximately 3 cm. Gallbladder and bile ducts: Normal. No calcified stones. No ductal dilation. Pancreas: Normal. No ductal dilation. Spleen: Normal. No splenomegaly. Adrenal glands: Normal. No mass. Kidneys and ureters: Small left renal cyst. No hydronephrosis. Stomach and bowel: Unremarkable. No obstruction. No mucosal thickening. Appendix: Normal appendix. Intraperitoneal space: Unremarkable. No free air. No significant fluid collection. Vasculature: Unremarkable. No abdominal aortic aneurysm. Lymph nodes: Unremarkable. No enlarged lymph nodes. Urinary bladder: Unremarkable as visualized. Reproductive: Unremarkable as visualized. Bones/joints: Unremarkable. No acute fracture. Soft tissues: Unremarkable. IMPRESSION: No acute findings. Dictated and Authenticated by: Brady Bull MD. Exam: CT Head Without Contrast Exam date and time: 02/13/2020 5:46 PM Age: 54 years old Clinical indication: Other: Ataxia; Weakness TECHNIQUE: Imaging protocol: Computed tomography of the head without contrast. COMPARISON: No relevant prior studies available. FINDINGS: Brain: No acute large territorial infarction or intracranial hemorrhage. Mild parenchymal volume loss and moderate a nonspecific white matter hypodensity, likely chronic microangiopathy. No mass effect or midline shift. Chronic lacunar infarcts in the bilateral basal ganglia and left thalamus. Cerebral ventricles: No hydrocephalus. Bones/joints: No displaced calvarial fracture. Paranasal sinuses: Visualized sinuses are unremarkable. No fluid levels. Mastoid air cells: Visualized mastoid air cells are well aerated. Vasculature: Intracranial atherosclerosis. Soft tissues: Unremarkable. IMPRESSION: 1. No acute intracranial abnormality. 2. Chronic senescent changes. Chronic lacunar infarcts in the bilateral basal ganglia and left thalamus. PROCEDURE INFORMATION: Exam: CT Cervical Spine Without Contrast Exam date and time: 02/13/2020 5:46 PM Age: 54 years old Clinical indication: Other: Ataxia; Weakness TECHNIQUE: Imaging protocol: Computed tomography images of the cervical spine without contrast. COMPARISON: No relevant prior studies available. FINDINGS: Bones/joints: No acute fracture. The vertebral body heights are within normal limits. Straightening of cervical alignment with dextroscoliosis. Discs/Spinal canal/Neural foramina: Multilevel degenerative changes of the cervical spine with disc height loss, worse at C5-C6 with broad-based central disc protrusion causing probable moderate spinal canal stenosis. Multilevel neural foraminal narrowing from facet and uncovertebral joint arthrosis, severe at left C3-C4 and bilateral C5-C6. Oropharynx: Incidental tonsilliths. Lungs: The visualized lung apex is unremarkable. Vasculature: Atherosclerotic disease at the bilateral carotid bifurcations. Soft tissues: No prevertebral soft tissue swelling. IMPRESSION: 1. No acute cervical spine fracture. 2. Degenerative changes of the cervical spine. 3. Atherosclerotic disease. Dictated and Authenticated by: Aylin Howard MD. Labs Result diagrams: 02/13/20 16:35 02/13/20 16:35 Labs: Laboratory Results - last 24 hr 02/13/20 02/13/20 02/13/20 16:35 16:35 16:35 WBC RBC Hgb Hct MCV MCH MCHC RDW Plt Count MPV Immature Gran % Neutrophils % Lymphocytes % Monocytes % Eosinophils % Basophils % Nucleated RBC % Absolute Neutrophils Absolute Lymphocytes Absolute Monocytes Absolute Eosinophils Absolute Basophils PT 10.5 INR 1.0 APTT 22.5 Sodium 136 Potassium 4.3 Chloride 100 Carbon Dioxide 28.5 Anion Gap 7.5 BUN 15 Creatinine 0.82 Estimated GFR/1.73 m2 >= 60.00 Glucose 89 Calcium 9.4 Magnesium 2.3 Total Bilirubin 0.5 AST 19 ALT 30 Alkaline Phosphatase 74 Troponin I < 0.05 Total Protein 7.7 Albumin 3.6 TSH 1.51 Urine Color Urine Clarity Urine pH Ur Specific [place] Urine Protein Urine Ketones Urine Blood Urine Nitrite Urine Bilirubin Urine Urobilinogen Ur Leukocyte Esterase Urine Glucose Urine Opiates Screen Urine Methadone Screen Ur Barbiturates Screen Ur Tricyclics Screen Ur Amphetamines Screen U Benzodiazepines Scrn Urine Cocaine Screen Ur THC Screen Ethyl Alcohol < 3.0 02/13/20 02/13/20 02/13/20 16:35 17:30 17:30 WBC 8.41 RBC 4.77 Hgb 14.4 Hct 42.2 MCV 88.5 MCH 30.2 MCHC 34.1 RDW 11.8 Plt Count 350 MPV 9.4 Immature Gran % 0.4 Neutrophils % 63.6 Lymphocytes % 25.3 Monocytes % 7.8 Eosinophils % 2.4 Basophils % 0.5 Nucleated RBC % 0 Absolute Neutrophils 5.35 Absolute Lymphocytes 2.13 Absolute Monocytes 0.66 Absolute Eosinophils 0.20 Absolute Basophils 0.04 PT INR APTT Sodium Potassium Chloride Carbon Dioxide Anion Gap BUN Creatinine Estimated GFR/1.73 m2 Glucose Calcium Magnesium Total Bilirubin AST ALT Alkaline Phosphatase Troponin I Total Protein Albumin TSH Urine Color Yellow Urine Clarity Clear Urine pH 6.5 Ur Specific [place] 1.025 Urine Protein Negative Urine Ketones Negative Urine Blood Negative Urine Nitrite Negative Urine Bilirubin Negative Urine Urobilinogen 0.2 Ur Leukocyte Esterase Negative Urine Glucose Negative Urine Opiates Screen Negative Urine Methadone Screen Negative Ur Barbiturates Screen Negative Ur Tricyclics Screen Negative Ur Amphetamines Screen Negative U Benzodiazepines Scrn Negative Urine Cocaine Screen Negative Ur THC Screen Negative Ethyl Alcohol Last Vital Signs Temp 36.7 C 02/13/20 16:25 Pulse 68 02/13/20 19:16 Resp 15 02/13/20 19:16 BP 141/83 H 02/13/20 19:16 Pulse Ox 93 02/13/20 19:16 COVID-19 Screening Have you, or household traveled for leisure in last 14 days?: No Had IN PERSON contact w/suspected or confirmed C-19 person: No
--- NOTE | 2020-02-13 21:10 | W.NEUROCONSU ---
Assessment and Plan Assessment and plan (1) Weakness: Status: Acute Assessment and plan: Mr. Herrera is a 54 year-old, right-handed man who was admitted with failure to thrive/inability to be cared for at home: #1. Generalized weakness, with more severe distal weakness in all extremities. He was noted to have a severe PN on NCS and by exam. 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 I recommend LP with cell count, protein, glucose, and culture looking for elevated protein. I also recommend further laboratory work-up including A1c, B12, SPEP, and HIV - pending SPEP may need anti-MAG ab. Consider initiation of IVIG 0.4g/kg daily x 5 days given clinical suspicion (not utilizing prednisone due to pre-DM history but this would also be an acceptable first line treatment at 1000mg daily IV methylprednisolone x 5 days). Needs PT and OT. Cognitive loss would not be explained by CIDP. The weight loss could be explained by muscle mass but seems excessive. #2. Abnormal CT. Appears to show numerous prior infarcts. I agree with MRI brain w/wo as further work-up. He has significant claustrophobia. Pending MRI, consider initiation of anticoagulation given known afib +/- antiplatelet agent. Would also recommend carotid ultrasound and updated TTE as further work-up. Does he need telemetry or are we certain he needs life long anticoagulation from afib? #3. Confusion/cognitive loss. This could be secondary to apparent cerebrovascular disease seen on head imaging. A Wernekce-Korsokoff's remains in the differential given know ETOH abuse and complicated by significant weight loss. I would recommend high dose thiamine supplementation. Vascular treatment as above. #4. Placement. Both he and his brother are interested in placement as he is no longer able to care for himself. Pending response to IVIG, may consider inpatient rehab. History of Present Illness Narrative: Handedness: right. Mr. Herrera is a 54 year-old man with atrial fibrillation, not on anticoagulation, s/p cardioversion in 2017 (may have f/up at [facility]), hypertension, cardiomyopathy (dialted, non-ischemic, tachy-arrhythmia related?, last EF 20-25% in 2018), COPD, prior GI bleed, and a long history of alcohol abuse. He has had no medical care in the last 2+ years. 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 Around summer 2019, he began to slow down (fatigue) and develop weakness. This progressed over time so much so that he can no longer move his hands for perform ADLs. With this he has also become significantly imbalance with falls. He had lost ~50# despite good appetite. More recently his brother has noted confusion along with dysarthria. He stopped drinking ETOH about 1 month ago. He has become increasingly reliant on his brother for care and his brother is currently struggling to care for him. He was seen in the neurology clinic yesterday after being referred for ? carpal tunnel syndrome. His exam was notable for generalized weakness, worse distally in all extremities, reduced sensation below the knees and elbows bilaterally, hyporeflexia, and an ataxic gait. NCS were performed. There was no reproducible responses in the RUE. EMG showed diffusely acute and chronic neuropathic changes. Work-up: -NCS/EMG (02/13/20): absent RUE motor and sensory response. Diffuse neuropathic changes on EMG. -Labs: normal CBC, CMP, TSH, UDS, ETOH -CT C/A/P (02/13/20): no acute/concerning findings. Stable liver lesion compared to 2018. -CT head (02/13/20): no acute findings. numerous old infarcts R casie, L brachium pontis, L thalamus x2, R BG x 2 (one rather large for a lacune), R periventricular, and then several small scattered T2 holes in the centrum semiovale/subcortex bilaterally. Mild generalized atrophy. [facility] Medical History Alcoholism Ataxic gait Atrial fibrillation Cardiomyopathy Cirrhosis COPD with asthma GI bleed Hypertension Nicotine abuse Peripheral neuropathy Prediabetes Weakness Weight loss Social History Smoking/Tobacco Use Status: Current every day Smoking risk assessment performed?: Yes Alcohol Intake: former Drug use: Never Substance use type: does not use Household members: none Housing: house Number of Children: 3 number of grandchildren: 2 Pets and animals: Yes Pets and animals: dog(s) Current gender identity: male What type of physical activity do you participate in: none Seatbelt use: always Do you feel safe at home: Yes Do you feel safe in your relationship?: Yes Visit Medication and Allergies Active Medications Generic Name Dose Route Start Last Admin Trade Name Freq PRN Reason Stop Dose Admin Acetaminophen 650 mg 02/13/20 19:40 Acetaminophen 325 Mg Tab PO Q4H PRN PRN Al Hydrox/Mg Hydrox/Simethicone 30 ml 02/13/20 19:40 Mylanta Suspension 30 Ml Cup PO Q2H PRN PRN Carvedilol 25 mg 02/13/20 20:00 Carvedilol 25 Mg Tab PO BID BLADIMIR Dimethicone/Zinc Oxide 0 gm 02/13/20 19:36 Bello Protect Cream 142 Gm Tube TP PRN PRN Docusate Sodium 100 mg 02/13/20 19:40 Docusate Sodium 100 Mg Cap PO TID PRN PRN Ferrous Sulfate 325 mg 02/14/20 08:30 Ferrous Sulfate 325 Mg Tab PO DAILY [facility] Heparin Sodium (Porcine) 5,000 units 02/13/20 19:45 Heparin 5,000 Units/Ml Vial SC Q8H [facility] Magnesium Sulfate 8.12 meq/ 1,013.2 mls @ 168.867 mls/hr 02/13/20 16:43 02/13/20 17:25 Multivitamins 10 ml/ Thiamine IV 02/13/20 22:42 168.867 mls/hr HCl 100 mg/ Folic Acid 1 mg/ INFUSION ONE Administration Sodium Chloride IV Miscellaneous Supplies 1 each 02/13/20 16:45 Iv Access IV DIRECTED [facility] Iohexol 100 ml 02/13/20 18:15 02/13/20 18:02 Omnipaque 350 Mg/Ml 100 Ml Btl IJ 03/14/20 23:59 100 ml DIRECTED [facility] Administration Lisinopril 20 mg 02/14/20 08:30 Lisinopril 20 Mg Tab PO DAILY BLADIMIR Magnesium Hydroxide 30 ml 02/13/20 19:40 Milk Of Magnesia 30 Ml Cup PO DAILY PRN PRN Magnesium Oxide 400 mg 02/13/20 22:00 Magnesium Oxide 400 Mg Tab PO HS [facility] Non-Formulary Medication 100 mg 02/14/20 08:30 Thiamine Hcl (Vitamin B1) PO DAILY [facility] Polyethylene Glycol 17 gm 02/13/20 19:40 Polyethylene Glycol 3350 17 Gm Packet PO DAILY PRN PRN Constipation Sodium Chloride 0 ml 02/13/20 16:43 02/13/20 18:03 Normal Saline Flush 10 Ml Syr IVP 10 ml PRN PRN Administration Sodium Chloride 50 ml 02/13/20 18:15 02/13/20 18:03 Normal Saline - Diluent 50 Ml Vial IV 50 ml .FOR DI USE BLADIMIR Administration Allergies No Known Allergies Allergy (Unverified 02/13/20 14:12) Results Last Vital Signs Temp 36.7 C 02/13/20 16:25 Pulse 68 02/13/20 20:13 Resp 21 02/13/20 20:13 BP 137/56 L 02/13/20 20:13 Pulse Ox 93 02/13/20 19:16 Labs Result diagrams: 02/13/20 16:35 02/13/20 16:35 Labs: Laboratory Results - last 24 hr 02/13/20 02/13/20 02/13/20 16:35 16:35 16:35 WBC RBC Hgb Hct MCV MCH MCHC RDW Plt Count MPV Immature Gran % Neutrophils % Lymphocytes % Monocytes % Eosinophils % Basophils % Nucleated RBC % Absolute Neutrophils Absolute Lymphocytes Absolute Monocytes Absolute Eosinophils Absolute Basophils PT 10.5 INR 1.0 APTT 22.5 Sodium 136 Potassium 4.3 Chloride 100 Carbon Dioxide 28.5 Anion Gap 7.5 BUN 15 Creatinine 0.82 Estimated GFR/1.73 m2 >= 60.00 Glucose 89 Calcium 9.4 Magnesium 2.3 Total Bilirubin 0.5 AST 19 ALT 30 Alkaline Phosphatase 74 Troponin I < 0.05 Total Protein 7.7 Albumin 3.6 TSH 1.51 Urine Color Urine Clarity Urine pH Ur Specific [place] Urine Protein Urine Ketones Urine Blood Urine Nitrite Urine Bilirubin Urine Urobilinogen Ur Leukocyte Esterase Urine Glucose Urine Opiates Screen Urine Methadone Screen Ur Barbiturates Screen Ur Tricyclics Screen Ur Amphetamines Screen U Benzodiazepines Scrn Urine Cocaine Screen Ur THC Screen Ethyl Alcohol < 3.0 02/13/20 02/13/20 02/13/20 16:35 17:30 17:30 WBC 8.41 RBC 4.77 Hgb 14.4 Hct 42.2 MCV 88.5 MCH 30.2 MCHC 34.1 RDW 11.8 Plt Count 350 MPV 9.4 Immature Gran % 0.4 Neutrophils % 63.6 Lymphocytes % 25.3 Monocytes % 7.8 Eosinophils % 2.4 Basophils % 0.5 Nucleated RBC % 0 Absolute Neutrophils 5.35 Absolute Lymphocytes 2.13 Absolute Monocytes 0.66 Absolute Eosinophils 0.20 Absolute Basophils 0.04 PT INR APTT Sodium Potassium Chloride Carbon Dioxide Anion Gap BUN Creatinine Estimated GFR/1.73 m2 Glucose Calcium Magnesium Total Bilirubin AST ALT Alkaline Phosphatase Troponin I Total Protein Albumin TSH Urine Color Yellow Urine Clarity Clear Urine pH 6.5 Ur Specific [place] 1.025 Urine Protein Negative Urine Ketones Negative Urine Blood Negative Urine Nitrite Negative Urine Bilirubin Negative Urine Urobilinogen 0.2 Ur Leukocyte Esterase Negative Urine Glucose Negative Urine Opiates Screen Negative Urine Methadone Screen Negative Ur Barbiturates Screen Negative Ur Tricyclics Screen Negative Ur Amphetamines Screen Negative U Benzodiazepines Scrn Negative Urine Cocaine Screen Negative Ur THC Screen Negative Ethyl Alcohol
[2020-02-13] MEDS: Carvedilol 25 MG TAB PO (21:37)
[2020-02-13] MEDS: Magnesium Oxide 400 MG TAB PO (21:37)
[2020-02-13] MEDS: Heparin 5,000 UNITS/ML VIAL 5000 UNITS SC (21:37)
[2020-02-13 21:59] LABS: Troponin I < 0.05 ng/mL (<0.06)
[2020-02-14] VITALS (15 sets, daily range): BP systolic 117–205; BP diastolic 80–135; PULSE 55–75; RESP 14–18; TEMP 36.3–36.9; O2SAT 95–100
--- NOTE | 2020-02-14 | DI.MRI_ITS ---
EXAM: MR BRAIN WO/W CLINICAL HISTORY: Advancing ataxia TECHNIQUE: Multiplanar multisequence MRI of the brain was performed. CONTRAST MATERIAL: IV Contrast: 11 ML of Dotarem contrast administered. COMPARISON: CT CT HEAD CERVICAL SPINE WO from 02/13/2020 FINDINGS: The examination is limited due to patient motion artifact. VENTRICLES AND EXTRA AXIAL SPACES: There is prominence of the ventricles and sulci consistent with ce rebral and cerebellar atrophy HEMORRHAGE: On the gradient images, there are several areas of hypointense signal in the subcortical white matter distributed throughout the cerebrum. CEREBRAL PARENCHYMA: There are few scattered areas of restricted diffusion noted. Areas include both cerebellar hemispheres the brainstem and both cerebellar hemispheres. These are consistent with multi ple acute/subacute infarcts. No space-occupying lesion identified. There is extensive hyperintense si gnal in the white matter on the T2 and FLAIR images consistent with microvascular ischemic change. Ol d bilateral lacunar infarcts are seen. MIDLINE SHIFT: None. BRAINSTEM/CEREBELLUM: Normal. CALVARIUM: Normal. ENHANCEMENT: No suspicious enhancement identified. VISUALIZED PARANASAL SINUSES/MASTOIDS: Clear. [place]: Normal flow void. PITUITARY GLAND: Unremarkable. OTHER FINDINGS: IMPRESSION: 1. Multiple foci of restricted diffusion in the brain consistent with multiple acute/subacute infarct . 2. Multiple areas of hypointense signal on the gradient images throughout the cerebrum. 3. These findings raise a question of multiple infarcts. This may related to hypertensive microhemorr hages or cerebral amyloid disease. Multiple emboli or thrombotic disease should be considered. 4. Global cerebral and cerebellar atrophy with extensive small vessel ischemic disease. 5. Old bilateral lacunar infarcts. 6. Findings were discussed with the primary care provider on the date of the examination. DATA REPOSITORY:
[2020-02-14] MEDS: Normal Saline Flush 10 ML SYR IVP ×3 (00:15→09:21)
[2020-02-14] MEDS: Lisinopril 20 MG TAB PO ×2 (04:08→08:19)
[2020-02-14] MEDS: Heparin 5,000 UNITS/ML VIAL 5000 UNITS SC (05:50)
[2020-02-14 06:47] LABS: Abs Immature Grans 0.02 10^3/uL (0.0-0.06); Absolute Basophil Count 0.04 10^3/uL (0.0-0.2); Absolute Eosinophil Count 0.26 10^3/uL (0.0-0.7); Absolute Lymphocyte Count 1.91 10^3/uL (1.2-3.4); Absolute Monocyte Count 0.64 10^3/uL (0.1-0.8); Absolute Neutrophil Count 4.89 10^3/uL (1.2-6.7); Basophils % 0.5; Eosinophils % 3.4; HCT 37.7 % (40.0-50.0); HGB 12.9 g/dL (13.5-17.5); Immature Grans % 0.3; Lymphocytes % 24.6; MCH 30.3 pg (27.0-33.0); MCHC 34.2 % (32.0-36.0); MCV 88.5 fL (80-95); MPV 9.4 fL (8.0-11.0); Monocytes % 8.2; Nucleated RBC 0 %; Platelet Count 299 10^3/uL (130-400); RBC 4.26 10^6/uL (4.36-5.78); RDW 11.5 % (11.8-14.1); RDW-SD 37.2 fL; WBC 7.76 10^3/uL (4.4-10.8)
[2020-02-14 07:03] LABS: ALT 25 U/L (16-63); AST 17 U/L (15-37); Albumin 2.9 g/dL (3.4-5.0); Alkaline Phosphatase 65 U/L (46-116); Anion Gap 8.6 mmol/L (3-11); BUN 15 mg/dL (7-18); Bilirubin, Total 0.3 mg/dL (0.2-1.0); CO2 26.4 mmol/L (21.0-32.0); CREATININE 0.72 mg/dL (0.70-1.30); Calcium 8.6 mg/dL (8.5-10.1); Chloride 104 mmol/L (98-107); Glucose 89 mg/dL (74-106); Potassium 3.6 mmol/L (3.5-5.1); Sodium 139 mmol/L (136-145); Total Protein 6.5 g/dL (6.4-8.2)
[2020-02-14 07:47] LABS: Vitamin B12 631 pg/mL (193-986)
--- NOTE | 2020-02-14 08:07 | W.PM.PROGNOT ---
Date of Service Date of service: 02/14/20 Time of Service: 08:07 Assessment and Plan Assessment and plan (1) CVA (cerebral vascular accident): Status: Chronic Assessment and plan: Patient appears to have old infarcts on CT scan of the head MRI shows multiple areas of infarct most consistent with cardioembolic. will start on heparin drip and transition to oral when appropriate continue telemetry monitoring Neurology consultation, see note -continue asa daily -will need statin Qualifiers: CVA mechanism: thrombosis Precerebral and cerebral artery: unspecified cerebral artery Qualified Code(s): I63.30 - Cerebral infarction due to thrombosis of unspecified cerebral artery (2) CIDP (chronic inflammatory demyelinating polyneuropathy): Status: Acute Assessment and plan: neurology following with recommendations. LP results pending IVIG daily for 5 days. (3) Ataxia: Status: Acute Assessment and plan: This is a 54-year-old gentleman with progressive weakness and ataxia is into the ED for evaluation with only positive imaging being bilateral lunar infarcts with left thalamus infarct which did not appear to be acute. He appeared bilaterally and diffusely weak and unable to take care of self with evidence of lack of self-care for days or months. He has lost 50 pounds. He did drink alcohol previously but has not drank for 1 month. He appears to be low risk for alcohol withdrawal. high dose thiamine b12 level pending (4) Weight loss: Status: Chronic Assessment and plan: Weight loss appears to have occurred over several months since the summer 2019. This most likely secondary to inability to care for self and feed self rather than the underlying disease process. Patient needs assisted living and feeding. chest/abd/pelvis CT negative for obvious source, will need further outpatient workup: ie colonoscopy, etc. (5) Hypertension: Status: Acute Assessment and plan: will monitor continue with carvedilol and lisinopril, adjust as needed (6) Discharge planning issues: Status: Acute Assessment and plan: case management following. anticipate placement need. discussed with Dr Nolan Subjective Subjective Patient reports: no new complaints Interval history since last seen: sedate from ativan given as premed for claustrophobia prior ot MRI. no new reported issues Exam Const General: comfortable, no acute distress, frail appearing and ill appearing chronically Nutritional Appearance: cachectic Orientation: oriented x3 HENMT Head: normal to inspection, normocephalic and atraumatic Resp Effort & Inspection: normal respiratory effort Auscultation: clear to auscultation bilaterally Cardio Rate: regular rate Rhythm: regular rhythm (SR in 60-70) GI Inspection: normal to inspection Palpation: soft Auscultation: normal bowel sounds Extrem General: abnormal to inspection (bilateral foot drop, ) and muscle atrophy (profound weakness) of the right upper extremity, of the right lower extremity, of the left upper extremity and of the left lower extremity Objective Last Vital Signs Temp 36.9 C 02/14/20 07:57 Pulse 68 02/14/20 07:57 Resp 18 02/14/20 07:57 BP 178/98 H 02/14/20 07:57 Pulse Ox 97 02/14/20 07:57 Laboratory Results - last 24 hr 02/13/20 02/13/20 02/13/20 16:35 16:35 16:35 WBC RBC Hgb Hct MCV MCH MCHC RDW Plt Count MPV Immature Gran % Neutrophils % Lymphocytes % Monocytes % Eosinophils % Basophils % Nucleated RBC % Absolute Neutrophils Absolute Lymphocytes Absolute Monocytes Absolute Eosinophils Absolute Basophils PT 10.5 INR 1.0 APTT 22.5 Sodium 136 Potassium 4.3 Chloride 100 Carbon Dioxide 28.5 Anion Gap 7.5 BUN 15 Creatinine 0.82 Estimated GFR/1.73 m2 >= 60.00 Glucose 89 Calcium 9.4 Magnesium 2.3 Total Bilirubin 0.5 AST 19 ALT 30 Alkaline Phosphatase 74 Troponin I < 0.05 Total Protein 7.7 Albumin 3.6 Vitamin B12 TSH 1.51 Urine Color Urine Clarity Urine pH Ur Specific [place] Urine Protein Urine Ketones Urine Blood Urine Nitrite Urine Bilirubin Urine Urobilinogen Ur Leukocyte Esterase Urine Glucose Urine Opiates Screen Urine Methadone Screen Ur Barbiturates Screen Ur Tricyclics Screen Ur Amphetamines Screen U Benzodiazepines Scrn Urine Cocaine Screen Ur THC Screen Ethyl Alcohol < 3.0 02/13/20 02/13/20 02/13/20 16:35 17:30 17:30 WBC 8.41 RBC 4.77 Hgb 14.4 Hct 42.2 MCV 88.5 MCH 30.2 MCHC 34.1 RDW 11.8 Plt Count 350 MPV 9.4 Immature Gran % 0.4 Neutrophils % 63.6 Lymphocytes % 25.3 Monocytes % 7.8 Eosinophils % 2.4 Basophils % 0.5 Nucleated RBC % 0 Absolute Neutrophils 5.35 Absolute Lymphocytes 2.13 Absolute Monocytes 0.66 Absolute Eosinophils 0.20 Absolute Basophils 0.04 PT INR APTT Sodium Potassium Chloride Carbon Dioxide Anion Gap BUN Creatinine Estimated GFR/1.73 m2 Glucose Calcium Magnesium Total Bilirubin AST ALT Alkaline Phosphatase Troponin I Total Protein Albumin Vitamin B12 TSH Urine Color Yellow Urine Clarity Clear Urine pH 6.5 Ur Specific [place] 1.025 Urine Protein Negative Urine Ketones Negative Urine Blood Negative Urine Nitrite Negative Urine Bilirubin Negative Urine Urobilinogen 0.2 Ur Leukocyte Esterase Negative Urine Glucose Negative Urine Opiates Screen Negative Urine Methadone Screen Negative Ur Barbiturates Screen Negative Ur Tricyclics Screen Negative Ur Amphetamines Screen Negative U Benzodiazepines Scrn Negative Urine Cocaine Screen Negative Ur THC Screen Negative Ethyl Alcohol 02/13/20 02/14/20 02/14/20 21:31 06:18 06:18 WBC 7.76 RBC 4.26 L Hgb 12.9 L Hct 37.7 L MCV 88.5 MCH 30.3 MCHC 34.2 RDW 11.5 L Plt Count 299 MPV 9.4 Immature Gran % 0.3 Neutrophils % 63.0 Lymphocytes % 24.6 Monocytes % 8.2 Eosinophils % 3.4 Basophils % 0.5 Nucleated RBC % 0 Absolute Neutrophils 4.89 Absolute Lymphocytes 1.91 Absolute Monocytes 0.64 Absolute Eosinophils 0.26 Absolute Basophils 0.04 PT INR APTT Sodium 139 Potassium 3.6 Chloride 104 Carbon Dioxide 26.4 Anion Gap 8.6 BUN 15 Creatinine 0.72 Estimated GFR/1.73 m2 >= 60.00 Glucose 89 Calcium 8.6 Magnesium Total Bilirubin 0.3 AST 17 ALT 25 Alkaline Phosphatase 65 Troponin I < 0.05 Total Protein 6.5 Albumin 2.9 L Vitamin B12 TSH Urine Color Urine Clarity Urine pH Ur Specific [place] Urine Protein Urine Ketones Urine Blood Urine Nitrite Urine Bilirubin Urine Urobilinogen Ur Leukocyte Esterase Urine Glucose Urine Opiates Screen Urine Methadone Screen Ur Barbiturates Screen Ur Tricyclics Screen Ur Amphetamines Screen U Benzodiazepines Scrn Urine Cocaine Screen Ur THC Screen Ethyl Alcohol 02/14/20 06:18 WBC RBC Hgb Hct MCV MCH MCHC RDW Plt Count MPV Immature Gran % Neutrophils % Lymphocytes % Monocytes % Eosinophils % Basophils % Nucleated RBC % Absolute Neutrophils Absolute Lymphocytes Absolute Monocytes Absolute Eosinophils Absolute Basophils PT INR APTT Sodium Potassium Chloride Carbon Dioxide Anion Gap BUN Creatinine Estimated GFR/1.73 m2 Glucose Calcium Magnesium Total Bilirubin AST ALT Alkaline Phosphatase Troponin I Total Protein Albumin Vitamin B12 631 TSH Urine Color Urine Clarity Urine pH Ur Specific [place] Urine Protein Urine Ketones Urine Blood Urine Nitrite Urine Bilirubin Urine Urobilinogen Ur Leukocyte Esterase Urine Glucose Urine Opiates Screen Urine Methadone Screen Ur Barbiturates Screen Ur Tricyclics Screen Ur Amphetamines Screen U Benzodiazepines Scrn Urine Cocaine Screen Ur THC Screen Ethyl Alcohol
[2020-02-14] MEDS: LORazepam 2 MG/ML VIAL 1 MG IVP (08:19)
[2020-02-14] MEDS: Carvedilol 25 MG TAB PO ×2 (08:20→18:04)
[2020-02-14] MEDS: Ferrous Sulfate 325 MG TAB PO (08:20)
[2020-02-14] MEDS: Gadoterate meglumine 20 ML VIAL 11 ML IVP (09:22)
[2020-02-14] MEDS: THIAMINE 500 MG in Normal Saline 100 ML 200 MG IVPB ×2 (09:47→16:41)
[2020-02-14] MEDS: Aspirin 81 MG CHEW 324 MG CH (09:55)
--- NOTE | 2020-02-14 09:55 | NCONE_ITS ---
Date of service: 02/14/20 Time of Service: 09:55 Assessment and Plan Assessment and plan (1) CIDP (chronic inflammatory demyelinating polyneuropathy): Status: Acute (2) Weight loss: Status: Chronic (3) Weakness: Status: Acute (4) Ataxia: Status: Acute (5) Atrial fibrillation: Status: Acute (6) Alcohol abuse: Status: Chronic Assessment and plan: Mr. Herrera is a 54 year-old, right-handed man who was admitted with failure to thrive/inability to be cared for at home: #1. Generalized weakness, with more severe distal weakness in all extremities. He was noted to have a severe PN on NCS and by exam. 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 I recommend LP with cell count, protein, glucose, and culture looking for elevated protein. I also recommend further laboratory work-up including A1c, B12, SPEP, and HIV - pending SPEP may need anti-MAG ab and paraneoplastic panel. Consider initiation of IVIG 0.4g/kg daily x 5 days given clinical suspicion and not waiting for LP to be done (not utilizing prednisone due to pre-DM history but this would also be an acceptable first line treatment at 1000mg daily IV methylprednisolone x 5 days). Needs PT and OT. Cognitive loss would not be explained by CIDP. The weight loss could be explained by muscle mass but seems excessive. #2. Abnormal CT. Appears to show numerous prior infarcts. I agree with MRI brain w/wo as further work-up. He has significant claustrophobia. Pending MRI, consider initiation of anticoagulation given known afib +/- antiplatelet agent. Would also recommend carotid ultrasound and updated TTE as further work-up. Does he need telemetry or are we certain he needs life long anticoagulation from afib? #3. Confusion/cognitive loss. This could be secondary to apparent cerebrovascular disease seen on head imaging. A Wernekce-Korsokoff's remains in the differential given know ETOH abuse and complicated by significant weight loss. I would recommend high dose thiamine supplementation. Vascular treatment as above. #4. Placement. Both he and his brother are interested in placement as he is no longer able to care for himself. Pending response to IVIG, may consider inpatient rehab. History of Present Illness History of Present Illness Chief Complaint: weakness Narrative: Handedness: right. Mr. Herrera is a 54 year-old man with atrial fibrillation, not on anticoagulation, s/p cardioversion in 2017 (may have f/up at [facility]???), hypertension, cardiomyopathy (dialted, non-ischemic, tachy-arrhythmia related?, last EF 20-25% in 2018), COPD, prior GI bleed, and a long history of alcohol abuse. He has had no medical care in the last 2+ years. 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 Around summer 2019, he began to slow down (fatigue) and develop weakness. This progressed over time so much so that he can no longer move his hands for perform ADLs. With this he has also become significantly imbalance with falls. He had lost ~50# despite good appetite. More recently his brother has noted confusion along with dysarthria. He stopped drinking ETOH about 1 month ago. He has become increasingly reliant on his brother for care and his brother is currently struggling to care for him. He was seen in the neurology clinic yesterday after being referred for ? carpal tunnel syndrome. His exam was notable for generalized weakness, worse distally in all extremities, reduced sensation below the knees and elbows bilaterally, hyporeflexia, and an ataxic gait. NCS were performed. There was no reproducible responses in the RUE. EMG showed diffusely acute and chronic neuropathic changes. Work-up: -NCS/EMG (02/13/20): absent RUE motor and sensory response. Diffuse neuropathic changes on EMG. -Labs: normal CBC, CMP, TSH, UDS, ETOH -CT C/A/P (02/13/20): no acute/concerning findings. Stable liver lesion compared to 2018. -CT head (02/13/20): no acute findings. numerous old infarcts R casie, L brachium pontis, L thalamus x2, R BG x 2 (one rather large for a lacune), R periventricular, and then several small scattered T2 holes in the centrum semiovale/subcortex bilaterally. Mild generalized atrophy. Consults Requesting physician: Armand Rutledge Review of Systems All systems reviewed & are unremarkable except as noted in HPI and below COUNT INCLUDES THE [facility] Medical History Alcoholism Ataxic gait Atrial fibrillation Cardiomyopathy Cirrhosis COPD with asthma GI bleed Hypertension Nicotine abuse Peripheral neuropathy Prediabetes Weakness Weight loss Social History Smoking/Tobacco Use Status: Current every day Smoking risk assessment performed?: Yes Alcohol Intake: former Drug use: Never Substance use type: does not use Household members: none Housing: house Number of Children: 3 number of grandchildren: 2 Pets and animals: Yes Pets and animals: dog(s) Current gender identity: male What type of physical activity do you participate in: none Seatbelt use: always Do you feel safe at home: Yes Do you feel safe in your relationship?: Yes Visit Medication and Allergies Active Medications Generic Name Dose Route Start Last Admin Trade Name Freq PRN Reason Stop Dose Admin Acetaminophen 650 mg 02/13/20 19:40 Acetaminophen 325 Mg Tab PO Q4H PRN PRN Al Hydrox/Mg Hydrox/Simethicone 30 ml 02/13/20 19:40 Mylanta Suspension 30 Ml Cup PO Q2H PRN PRN Carvedilol 25 mg 02/13/20 20:00 02/14/20 08:20 Carvedilol 25 Mg Tab PO 25 mg BID@0830,1700 BLADIMIR Administration Dimethicone/Zinc Oxide 0 gm 02/13/20 19:36 Bello Protect Cream 142 Gm Tube TP PRN PRN Docusate Sodium 100 mg 02/13/20 19:40 Docusate Sodium 100 Mg Cap PO TID PRN PRN Ferrous Sulfate 325 mg 02/14/20 08:30 02/14/20 08:20 Ferrous Sulfate 325 Mg Tab PO 325 mg DAILY BLADIMIR Administration Gadoterate Meglumine 11 ml 02/14/20 09:30 02/14/20 09:22 Gadoterate Meglumine 20 Ml Vial IVP 02/14/20 16:00 11 ml DIRECTED BLADIMIR Administration Thiamine HCl 500 mg/ Sodium 105 mls @ 200 mls/hr 02/14/20 08:00 02/14/20 09:47 Chloride IVPB 02/17/20 00:32 200 mls/hr Q8H BLADIMIR Administration IV Miscellaneous Supplies 1 each 02/13/20 16:45 Iv Access IV DIRECTED BLADIMIR Iohexol 100 ml 02/13/20 18:15 02/13/20 18:02 Omnipaque 350 Mg/Ml 100 Ml Btl IJ 03/14/20 23:59 100 ml DIRECTED BLADIMIR Administration Lisinopril 20 mg 02/14/20 08:30 02/14/20 08:19 Lisinopril 20 Mg Tab PO 20 mg DAILY BLADIMIR Administration Lorazepam 1 mg 02/14/20 08:06 Lorazepam 2 Mg/Ml Vial IVP 02/14/20 12:00 DIRECTED PRN Magnesium Hydroxide 30 ml 02/13/20 19:40 Milk Of Magnesia 30 Ml Cup PO DAILY PRN PRN Magnesium Oxide 400 mg 02/13/20 22:00 02/13/20 21:37 Magnesium Oxide 400 Mg Tab PO 400 mg HS BLADIMIR Administration Polyethylene Glycol 17 gm 02/13/20 19:40 Polyethylene Glycol 3350 17 Gm Packet PO DAILY PRN PRN Constipation Sodium Chloride 0 ml 02/13/20 16:43 02/14/20 08:20 Normal Saline Flush 10 Ml Syr IVP 20 ml PRN PRN Administration Sodium Chloride 50 ml 02/13/20 18:15 02/13/20 18:03 Normal Saline - Diluent 50 Ml Vial IV 50 ml .FOR DI USE BLADIMIR Administration Sodium Chloride 10 ml 02/14/20 09:21 02/14/20 09:21 Normal Saline Flush 10 Ml Syr IVP 02/14/20 16:00 10 ml PRN PRN Administration Allergies No Known Allergies Allergy (Unverified 02/13/20 14:12) Exam Narrative Exam Narrative: Physical Exam: Constitutional: Patient appears older than stated age, no acute distress, sleeping restfully s/p Ativan for MRI; emaciated Neck: Supple, no meningismus CV: RRR, S1, S2, no murmur Resp: CTAB Abd: Soft, nontender, nondistended Neuro: MS/Language/Speech: sleeping Reflexes: absent reflexes throughout except at R brachioradialis Motor: atrophy of the hands and feet bilaterally Results Last Vital Signs Temp 36.9 C 02/14/20 07:57 Pulse 68 02/14/20 07:57 Resp 18 02/14/20 07:57 BP 178/98 H 02/14/20 07:57 Pulse Ox 97 02/14/20 07:57 Labs Result diagrams: 02/14/20 06:18 02/14/20 06:18 Labs: Laboratory Results - last 24 hr 02/13/20 02/13/20 02/13/20 16:35 16:35 16:35 WBC RBC Hgb Hct MCV MCH MCHC RDW Plt Count MPV Immature Gran % Neutrophils % Lymphocytes % Monocytes % Eosinophils % Basophils % Nucleated RBC % Absolute Neutrophils Absolute Lymphocytes Absolute Monocytes Absolute Eosinophils Absolute Basophils PT 10.5 INR 1.0 APTT 22.5 Sodium 136 Potassium 4.3 Chloride 100 Carbon Dioxide 28.5 Anion Gap 7.5 BUN 15 Creatinine 0.82 Estimated GFR/1.73 m2 >= 60.00 Glucose 89 Calcium 9.4 Magnesium 2.3 Total Bilirubin 0.5 AST 19 ALT 30 Alkaline Phosphatase 74 Troponin I < 0.05 Total Protein 7.7 Albumin 3.6 Vitamin B12 TSH 1.51 Urine Color Urine Clarity Urine pH Ur Specific [place] Urine Protein Urine Ketones Urine Blood Urine Nitrite Urine Bilirubin Urine Urobilinogen Ur Leukocyte Esterase Urine Glucose Urine Opiates Screen Urine Methadone Screen Ur Barbiturates Screen Ur Tricyclics Screen Ur Amphetamines Screen U Benzodiazepines Scrn Urine Cocaine Screen Ur THC Screen Ethyl Alcohol < 3.0 02/13/20 02/13/20 02/13/20 16:35 17:30 17:30 WBC 8.41 RBC 4.77 Hgb 14.4 Hct 42.2 MCV 88.5 MCH 30.2 MCHC 34.1 RDW 11.8 Plt Count 350 MPV 9.4 Immature Gran % 0.4 Neutrophils % 63.6 Lymphocytes % 25.3 Monocytes % 7.8 Eosinophils % 2.4 Basophils % 0.5 Nucleated RBC % 0 Absolute Neutrophils 5.35 Absolute Lymphocytes 2.13 Absolute Monocytes 0.66 Absolute Eosinophils 0.20 Absolute Basophils 0.04 PT INR APTT Sodium Potassium Chloride Carbon Dioxide Anion Gap BUN Creatinine Estimated GFR/1.73 m2 Glucose Calcium Magnesium Total Bilirubin AST ALT Alkaline Phosphatase Troponin I Total Protein Albumin Vitamin B12 TSH Urine Color Yellow Urine Clarity Clear Urine pH 6.5 Ur Specific [place] 1.025 Urine Protein Negative Urine Ketones Negative Urine Blood Negative Urine Nitrite Negative Urine Bilirubin Negative Urine Urobilinogen 0.2 Ur Leukocyte Esterase Negative Urine Glucose Negative Urine Opiates Screen Negative Urine Methadone Screen Negative Ur Barbiturates Screen Negative Ur Tricyclics Screen Negative Ur Amphetamines Screen Negative U Benzodiazepines Scrn Negative Urine Cocaine Screen Negative Ur THC Screen Negative Ethyl Alcohol 02/13/20 02/14/20 02/14/20 21:31 06:18 06:18 WBC 7.76 RBC 4.26 L Hgb 12.9 L Hct 37.7 L MCV 88.5 MCH 30.3 MCHC 34.2 RDW 11.5 L Plt Count 299 MPV 9.4 Immature Gran % 0.3 Neutrophils % 63.0 Lymphocytes % 24.6 Monocytes % 8.2 Eosinophils % 3.4 Basophils % 0.5 Nucleated RBC % 0 Absolute Neutrophils 4.89 Absolute Lymphocytes 1.91 Absolute Monocytes 0.64 Absolute Eosinophils 0.26 Absolute Basophils 0.04 PT INR APTT Sodium 139 Potassium 3.6 Chloride 104 Carbon Dioxide 26.4 Anion Gap 8.6 BUN 15 Creatinine 0.72 Estimated GFR/1.73 m2 >= 60.00 Glucose 89 Calcium 8.6 Magnesium Total Bilirubin 0.3 AST 17 ALT 25 Alkaline Phosphatase 65 Troponin I < 0.05 Total Protein 6.5 Albumin 2.9 L Vitamin B12 TSH Urine Color Urine Clarity Urine pH Ur Specific [place] Urine Protein Urine Ketones Urine Blood Urine Nitrite Urine Bilirubin Urine Urobilinogen Ur Leukocyte Esterase Urine Glucose Urine Opiates Screen Urine Methadone Screen Ur Barbiturates Screen Ur Tricyclics Screen Ur Amphetamines Screen U Benzodiazepines Scrn Urine Cocaine Screen Ur THC Screen Ethyl Alcohol 02/14/20 06:18 WBC RBC Hgb Hct MCV MCH MCHC RDW Plt Count MPV Immature Gran % Neutrophils % Lymphocytes % Monocytes % Eosinophils % Basophils % Nucleated RBC % Absolute Neutrophils Absolute Lymphocytes Absolute Monocytes Absolute Eosinophils Absolute Basophils PT INR APTT Sodium Potassium Chloride Carbon Dioxide Anion Gap BUN Creatinine Estimated GFR/1.73 m2 Glucose Calcium Magnesium Total Bilirubin AST ALT Alkaline Phosphatase Troponin I Total Protein Albumin Vitamin B12 631 TSH Urine Color Urine Clarity Urine pH Ur Specific [place] Urine Protein Urine Ketones Urine Blood Urine Nitrite Urine Bilirubin Urine Urobilinogen Ur Leukocyte Esterase Urine Glucose Urine Opiates Screen Urine Methadone Screen Ur Barbiturates Screen Ur Tricyclics Screen Ur Amphetamines Screen U Benzodiazepines Scrn Urine Cocaine Screen Ur THC Screen Ethyl Alcohol
--- NOTE | 2020-02-14 11:26 | PHA.REVIEW ---
Pharmacy Admission Review - Admission Clinical Review (Last Reviewed 02/14/20 @ 09:56 by Amina Jeronimo MD) CIDP (chronic inflammatory demyelinating polyneuropathy) (Acute) Discharge planning issues (Acute) Peripheral neuropathy (Acute) Weakness (Acute) Ataxia (Acute) Atrial fibrillation (Acute) No Known Allergies Allergy (Unverified 02/13/20 14:12) Height 5 ft 8 in Weight 55 kg - Renal Dosing Renal Dosing: BUN 15 mg/dL (7-18) 02/14/20 06:18 Creatinine 0.72 mg/dL (0.70-1.30) 02/14/20 06:18 Medications needing adjustments: Reviewed (Crcl ~84 mL/min current meds okay) - Anticoagulation Anticoagulation: Hgb 12.9 g/dL (13.5-17.5) L 02/14/20 06:18 Hct 37.7 % (40.0-50.0) L 02/14/20 06:18 Plt Count 299 10^3/uL (130-400) 02/14/20 06:18 INR 1.0 (0.9-1.1) 02/13/20 16:35 Creatinine 0.72 mg/dL (0.70-1.30) 02/14/20 06:18 DVT Prohphylaxis: Reviewed Medications: Heparin (Discontinued due to LP today, watch for resumption following this (see neurology consult for more info).) Therapeutic Anticoagulation: N/A - Opiate Usage Evaluate Pain Scale/Pains Meds: N/A - Relevant Labs Sodium 139 mmol/L (136-145) 02/14/20 06:18 Potassium 3.6 mmol/L (3.5-5.1) 02/14/20 06:18 Chloride 104 mmol/L (98-107) 02/14/20 06:18 Magnesium 2.3 mg/dL (1.8-2.4) 02/13/20 16:35 Electrolytes, C-Reactive P, ESR: Reviewed - DM Control DM Control: Glucose 89 mg/dL (74-106) 02/14/20 06:18 Insulin Dosing: N/A (Prediabetes noted in pt's medical history, A1c pending.) - Heart Failure/MO Heart Failure/MO: Troponin I < 0.05 ng/mL (<0.06) 02/13/20 21:31 EF%, SADE's, B-Blockers, Diuretics: Reviewed - BP Control BP Control: Blood Pressure 178/98 Blood Pressure 175/125 Blood Pressure 193/135 Blood Pressure 205/100 If elevated: Reviewed (BP has been elevated so far this admisson, provider aware. Pt has carvedilol order.) - Qtc Review If Elevated: N/A (QTc 469) - IV to PO Switch IV Medications: Reviewed - Home Meds Home Med List reviewed: Intervened (Updated pt's home med list, got med list from PCP office and talked to pharmacy about meds ordered from cardiology.) Relevent Home Meds Not ordered & why?: dapagliflozin and spironolactone (just added to home med list) - Current meds Current Medication Order Review: Intervened (IVIG ordered 0.4 gram/kg/day for 5 days. I talked to the provider about dosing. Given vial sizes if IVIG, the pt is to get 30 grams today then 20 grams for 4 days. Acetaminophen ordered as premedication for IVIG. DI meds discontinued as they had already been given.) - Comments Comments/Follow Ups: Watch BP, BG, labs, SCr, and for med changes (possible BP med adjustments, IV to PO).
[2020-02-14] MEDS: Acetaminophen 325 MG TAB 650 MG PO (11:55)
[2020-02-14] MEDS: Normal Saline 500 ML IV (12:18)
--- NOTE | 2020-02-14 12:26 | INITIAL_ITS ---
- If Service Date Differs Date of service: 02/14/20 Time of Service: 14:52 Care Management Initial Assess REASON FOR HOSPITALIZATION:: Ataxia PAST MEDICAL HISTORY/PAST SURGICAL HISTORY:: Alcoholism, Ataxic gait, Atrial fibrillation, Cardiomyopathy, Cirrhosis, COPD with asthma, GI bleed, Hypertension, Nicotine abuse, Peripheral neuropathy, Prediabetes, Weakness, Weight loss PREVIOUS FUNCTIONAL STATUS/SOCIAL/FAMILY SUPPORTS:: Bonifacio resides in [place], alone. His brother, Lorne has been providing his care (P#[phone], c#[phone]). He was previously very active at baseline. He is noted to have alcohol use disorder, has not had a drink in the last thirty days. He presents with inability to care for self due to increased weakness and has required multimedia services coordinator care. CURRENT FUNCTIONAL STATUS:: Bonifacio is having a full work up for acute stroke; LP planned for today. CM was unable to connect with [facility], though MD documented he and his brother are agreeable to placement. ADVANCE DIRECTIVES:: Not interested at this time. Has patient been provided with info about the portal/API?: Yes Did the patient sign up for the portal?: Yes (Previously) CODE STATUS:: Full Code INSURANCE COVERAGE / FINANCIAL ISSUES:: Medicaid PRIMARY CARE PHYSICIAN:: Grant Chacon MD. [facility]. POTENTIAL DISCHARGE NEEDS:: Neurology consult, LP, evaluation of functioning to determine discharge planning considerations. PATIENT/FAMILY EDUCATION NEEDS:: Review of discharge instructions, discuss Ask Me Three. ANTICIPATED BARRIERS TO DISCHARGE:: None identified. TRANSPORTATION:: TBD by disposition. PLAN:: Bonifacio continues work up for acute stroke likely cardioembolic etiology; per . He will have an LP this afternoon and begin IV anticoagulation. Anticipate he may require acute rehab; dependent on ability to engage in therapy. CM continues to follow.
[2020-02-14] MEDS: IMMUNE GLOBULIN 10 GM/100 ML BTL IVPB (13:14)
[2020-02-14] MEDS: IMMUNE GLOBULIN 20 GM/200 ML BTL IVPB (13:15)
[2020-02-14 13:42] LABS: PTT Activated 23.3 sec (21.0-27.5)
[2020-02-14 13:45] LABS: Hemoglobin A1C 5.2 % (<5.7)
[2020-02-14 14:22] LABS: Glucose (CSF) 53 mg/dL (40-70); Total Protein (CSF) 87 mg/dL (15-45)
[2020-02-14 14:33] LABS: Clarity Clear; RBC 2 /mm3 (0-5); WBC 0 /uL (0-5); Xanthochromia Absent
[2020-02-14 14:46] LABS: Tube # 2
--- NOTE | 2020-02-14 16:00 | PT.INNT ---
Date of service: 02/14/20 Time of Service: 16:00 PT Notes Visit Reasons: Ataxia Attempted to see patient three times for PT evalaution today. He remained sedated and not appropriate for any kind of assessment. Patient had been given a dose of Ativan at noon for his lumbar tap and MRI testing. Will apprise weekend on-call PT about re-attempting PT evaluation tomorrow morning, as ordered. Thank you for the opportunity to participate in the care of this patient. Binta Mayes PT, DPT, CLT [facility] [place], [place]
[2020-02-14] MEDS: Normal Saline Flush 10 ML SYR 20 ML IVP (19:57)
[2020-02-14 19:58] LABS: COVID-19 RT-PCR UVMMC Result Negative (Negative)
[2020-02-14 20:38] LABS: PTT Activated 29.9 sec (21.0-27.5)
[2020-02-14] MEDS: Magnesium Oxide 400 MG TAB PO (22:04)
[2020-02-15] VITALS (13 sets, daily range): BP systolic 133–178; BP diastolic 90–130; PULSE 64–81; RESP 16–18; TEMP 35.2–36.9; O2SAT 94–100
[2020-02-15] MEDS: THIAMINE 500 MG in Normal Saline 100 ML 200 MG IVPB ×3 (00:12→16:29)
[2020-02-15] MEDS: Normal Saline Flush 10 ML SYR IVP ×4 (00:13→16:40)
[2020-02-15 03:15] LABS: PTT Activated 38.1 sec (21.0-27.5)
[2020-02-15] MEDS: Normal Saline Flush 10 ML SYR 20 ML IVP ×2 (07:51→21:09)
[2020-02-15] MEDS: Lisinopril 20 MG TAB PO (07:52)
[2020-02-15] MEDS: Carvedilol 25 MG TAB PO ×2 (07:52→10:12)
[2020-02-15] MEDS: Ferrous Sulfate 325 MG TAB PO (07:52)
[2020-02-15 09:57] LABS: PTT Activated 49.2 sec (21.0-27.5)
--- NOTE | 2020-02-15 10:18 | CMPROGNOTE_ITS ---
- If Service Date Differs Date of service: 02/15/20 Time of Service: 10:18 Care Management Progress Note S/O: Bonifacio is laying in bed when CM comes to meet with him. He is pleasant and easily engages in conversation. He reports he lives alone in [place] and his brother, Lorne, helps care for him. Bonifacio has three children - 2 daughters (17 and 15 years old) and an adult son who live nearby with their mother. Bonifacio states he is looking forward to working with physical therapy, as his hope is to regain enough strength to once again be independent in the community. We talk about the possible need for rehab once he is medically cleared by provider. Bonifacio states he wishes to discuss this further with his brother and doctor before making a decision. His preference at this time is to return home. CM will continue to follow. A: Bonifacio is a 54 year old male admitted to [facility] on 02/14/20 for ataxia. P: Anticipate Bonifacio will require placement once he is medically stable, dependent on his ability to care for himself. Will await Physical Therapy's evaluation and recommendations to determine discharge planning needs. CM will continue to support patient and discharge planning considerations.
--- NOTE | 2020-02-15 11:15 | IN_ITS ---
Date of service: 02/15/20 Time of Service: 10:30 PT Notes Visit Reasons: Ataxia Inpatient Physical Therapy Evaluation Date: 02/15/20 Referring Doctor: Dr. Rutledge PT Orders: PT CONSULT: limited ability to ambulate Precautions: fall, standard Patient Profile/Admitting Diagnosis: Patient admitted from ER 02/13/20, after presenting to neurology appointment with severe weakness and ataxia. Current diagnosis of CIDP and CVA. PMHX: Alcoholism Ataxic gait Atrial fibrillation Cardiomyopathy Cirrhosis COPD with asthma GI bleed Hypertension Nicotine abuse Peripheral neuropathy Prediabetes Weakness Weight loss Social History/Home Situation: Patient lives alone in private home with 4STE. 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 He relied on a friend to complete much of the work. He admits to struggling at home for the past several weeks. He's had 2-3 significant falls, all of which occurred while attempting to manage stairs. He has never relied on an assistive device, but admits that he is fearful of falling again. Equipment Owned/DME: none Subjective: Patient states that he's been noticing progressive weakness and imbalance over the past few months. He admits to 2-3 falls at home, and progress ing difficulty walking and managing stairs. He denies pain currently, but admits to burning pain in his hands when he tries to do anything strenuous. States that he's having a hard time dealing with his current impairments, as he considers himself a very active person. Objective: General Observation: Resting in bed with IV in RUE. Patient positioned in partial right sidelying. Significant muscle wasting noted throughout the UEs, distal>proximal, L>R. Trophic changes noted distally in bilat UEs and LEs. Mental Status: A&Ox3. Pleasant and cooperative, although with notable dysarthria. Pain: none at present, although c/o burning in hands with exertion Vital Signs: monitored on telemetry throughout ROM: Right Upper Extremity: Shoulder flexion to 100 degrees, limited by pain. Elbow and wrist ROM both WNL, although with significant rigidity with passive attempts to extend elbow and flex wrist. Hand ROM is WNL passively, with tone noted on initial attempts to flex digits (most significantly 2nd digit) and oppose thumb. Forearm supination 3-/5. Pronation 3/5. Left Upper Extremity: as above- ROM and tone symmetrical, with the exception of forearm pronation and supination, which are each 3/5 on the left. Right Lower Extremity: Ankle DF allows 0 degrees, met with rigidity bilat. Ankle PF WNL. Hip and knee motion grossly WNL. Left Lower Extremity: Ankle DF allows 0 degrees, met with rigidity bilat. Ankle PF WNL. Hip and knee motion grossly WNL. Strength: Right Upper Extremity: Shoulder flexion 3-/5. Biceps 3-/5. Triceps 3+/5 Wrist extension 3-/5. Wrist flexion 3-/5. Partial active internal controls analyst, with patient unable to assist with flexion of the 2nd digit. Thumb opposition 0/5. Thumb adduction 3- /5. Left Upper Extremity: Shoulder flexion 3-/5. Biceps 3-/5. Triceps 3+/5 Wrist extension 3-/5. Wrist flexion 3-/5. Partial active internal controls analyst, with patient unable to assist with flexion of the 2nd digit. Thumb opposition 0/5. Thumb adduction 3- /5. Right Lower Extremity: Hip flexion 3/5. Quads 3-/5. HS 3+/5. Ankle DF 0/5. Left Lower Extremity: Hip flexion 3/5. Quads 3+/5. HS 3+/5. Ankle DF trace active movement, with palpable firing of the anterior tib. Sensation: patient able to identify light touch to plantar aspect of bilat feet. Bed Mobility/Transfers: scooting up in bed: independent, although with increased time to perform rolling to side: independent supine-sit: supervision, with HOB at 35 degrees Gait: unable Balance: Static Sitting: good Dynamic Sitting: good Static Standing: unable Dynamic Standing: unable Special Tests: Mobility Limitations Standardized Measure [facility] AM-PAC 6 clicks Basic Mobility Inpatient Short Form: Raw Score: 12 CMS Score: 69% impairment Informed Consent/Education: Patient instructed in purpose of PT consult and plan of care. Treatment: Today's session consisted of evaluation, followed by passive stretching and instruction in early therex activities. Patient completed seated perturbations for postural control, and completed seated LAQ for 10 reps each. He performed AA internal controls analyst activities, as well as stretching to the digits and into ankle DF. Additionally performed passive overpressure to the legs in sitting position to introduce early WBing in controlled position, with focus on achieving neutral DF during weight bearing. Assessment: Patient is a 54 year old male referred to physical therapy services with the diagnosis of CIPD. Patient presents with clinical signs and symptoms consistent with diagnosis, with severe weakness and limitations in mobility. Due to his severe limitations, combined with social factors and progressive nature of diagnosis, patient will likely require computer terminal operator care once medically stable. He currently demonstrates the following impairment level findings: 1. Severe weakness of UEs and LEs 2. UE and LE rigidity 3. muscle atrophy 4. history of multiple falls Impairments are contributing to the following functional limitations: 1. unable to ambulate 2. unable to transfer independently 3. unable to perform self-care activities requiring grasping (brushing hair, teeth, etc) 4. high fall risk Patient is assessed as Moderate 62831 complexity based on the following: History: 54 year old male presenting with severe weakness and rigidity, with diagnosis of CIPD. Complicating factors include extensive medical history, including h/o CVA, EtOH abuse, and atrial fibrillation. Social factors include patient living independently in a private home, without family present to assist with care. Examination: functional limitations as noted above Presentation: evolving Decision Making: moderate complexity Goals: Goals X1 week 1. Supine-Sit : independent 2. Sit-Supine : independent 3. Sit-Stand : mod A x 1 4. Stand-Sit : mod A x 1 5. Bed-Chair : mod A x 1 6. Chair-Bed : mod A x 1 7. Gait: mod A x 1 with LRD Plan of Care/Treatment Plan: 1-2x/day, 7 days/week x 1 week. Plan of care has been reviewed with the WHEELCHAIR VAN DRIVER providing the service under Physical Therapy direction. Initiate Physical Therapy intervention for strengthening, bed mobility, transfers, gait, stairs, balance training, use of assistive device. Recommend utilization of lift for transfers at this time, due to patient's sign ificant LE weakness, rigidity, and insufficient UE strength to manage assistive device. Patient would also benefit from Occupational Therapy consultation to address limitations in independence with ADLs. DISCHARGE RECOMMENDATIONS: Patient will likely require LTC upon discharge. TREATMENT CODE/TIME: 10:30-11:10 ([id number], [id number]) Emerita Shin, PT, DPT [facility]
[2020-02-15] MEDS: Acetaminophen 325 MG TAB 650 MG PO (11:46)
--- NOTE | 2020-02-15 11:57 | NUR.NOTE ---
Nursing Note: Called and expressed concern about infusing the patient with IVIG despite his elevated BP. Provider responded by saying to administer the medication
--- NOTE | 2020-02-15 12:02 | PGE_ITS ---
Date of Service Date of service: 02/15/20 Time of Service: 12:02 Assessment and Plan Assessment and plan (1) CVA (cerebral vascular accident): Status: Chronic Assessment and plan: Patient appears to have old infarcts on CT scan of the head MRI shows multiple areas of infarct most consistent with cardioembolic. will start on heparin drip and transition to oral when appropriate continue telemetry monitoring Neurology consultation, see note -continue asa daily -will need statin, will start the patient on low-dose atorvastatin 10 mg nightly. He just had a lipid panel done in December with a total cholesterol level of 166 and Qualifiers: CVA mechanism: thrombosis Precerebral and cerebral artery: unspecified cerebral artery Qualified Code(s): I63.30 - Cerebral infarction due to thrombosis of unspecified cerebral artery (2) CIDP (chronic inflammatory demyelinating polyneuropathy): Status: Acute Assessment and plan: neurology following with recommendations. LP results pending IVIG d#2 of 5 (3) Ataxia: Status: Acute Assessment and plan: multifactorial including alcohol, multiple strokes including cerebellar strokes. cont. P.T., I have requested O.T. consult to evaluate for adaptive strategies for feeding/dressing etc. (4) Weight loss: Status: Chronic Assessment and plan: Weight loss appears to have occurred over several months since the summer 2019. This most likely secondary to inability to care for self and feed self rather than the underlying disease process. Patient needs assisted living and feeding. chest/abd/pelvis CT negative for obvious source, will need further outpatient workup: ie colonoscopy, etc. (5) Hypertension: Status: Acute Assessment and plan: will monitor continue with carvedilol and lisinopril, adjust as needed. Carvedilol increased to 50 mg bid, lisinopril remains at 20 mg daily. We are allowing some passive hypertension in setting of acute/subacute CVA, however, he also has lacunar infarcts and microvascular ischemic changes which are d/t hypertension. Over the next 48 hr, I will try to adjust his antihypertensive regimen to bring his bp down 15%, i.e. SBP down by 15 to 20 mm. Qualifiers: Hypertension type: essential hypertension Qualified Code(s): I10 - Essential (primary) hypertension (6) Discharge planning issues: Status: Acute Assessment and plan: case management following. anticipate placement need. Subjective Subjective Interval history since last seen: Patient states that he is doing better in terms of his weakness compared to when he first came in here although his nurse feels that he is declined. Patient is able to feed himself but is very clumsy does not have fine motor control of his hands. He has left-handed and had to use a fork with a handle of fork close within the palm of his hand rather than using his fingers to hold a fork. With his right hand he can raise his hand and arm up against gravity is able to open and close his hand but has no fine motor control over his fingers or his right hand. Exam Narrative Exam Narrative: Alert and oriented x3. Lungs are clear to auscultation Heart regular rate and rhythm Abdomen soft nontender Neuro exam. Patient has significant bilateral upper and lower extremity weakness distal worse than his proximal strength. He is able to raise both arms up against gravity although the left arm is stronger than his right arm. He has no fine motor control in his hands. However he is able to use his left hand to cross fingers around eating utensils holding the fork in the palm of his hand and using a stabbing type motion is able to get the food on the fork and feed himself. With his right arm he is able to lift it up against gravity but not able to control his right hand other than close his fingers. With his legs he can not lift them off the bed or hold up against gravity. Can wiggle his feet in a plantar and dorsiflexion manner but not able to resist any force against his feet Objective Last Vital Signs Temp 36.5 C 02/15/20 11:19 Pulse 68 02/15/20 11:19 Resp 18 02/15/20 11:19 BP 152/106 H 02/15/20 11:19 Pulse Ox 98 02/15/20 11:19 Laboratory Results - last 24 hr 02/13/20 02/14/20 02/14/20 20:25 11:35 11:35 Xanthochromia APTT Hemoglobin A1c CSF Tube Number CSF Color CSF Clarity CSF WBC CSF RBC CSF Diff Comment CSF Glucose 53 CSF Total Protein 87 H SARS-CoV-2 (PCR) Negative Nasopharyn COVID-19 PCR Not Applicable Ref Test Perform Site [facility] 02/14/20 02/14/20 02/14/20 11:35 13:02 13:02 Xanthochromia Absent APTT 23.3 Hemoglobin A1c 5.2 CSF Tube Number 2 CSF Color Colorless CSF Clarity Clear CSF WBC 0 CSF RBC 2 CSF Diff Comment CSF Glucose CSF Total Protein SARS-CoV-2 (PCR) Nasopharyn COVID-19 PCR Ref Test Perform Site 02/14/20 02/15/20 02/15/20 19:50 02:50 09:34 Xanthochromia APTT 29.9 H D 38.1 H D 49.2 H D Hemoglobin A1c CSF Tube Number CSF Color CSF Clarity CSF WBC CSF RBC CSF Diff Comment CSF Glucose CSF Total Protein SARS-CoV-2 (PCR) Nasopharyn COVID-19 PCR Ref Test Perform Site
[2020-02-15] MEDS: IMMUNE GLOBULIN 20 GM/200 ML BTL IVPB (12:25)
--- NOTE | 2020-02-15 12:50 | NUR.NOTE ---
Nursing Note: increase titration on IVIG, no adverse effects
[2020-02-15] MEDS: Carvedilol 25 MG TAB 50 MG PO (16:27)
[2020-02-15] MEDS: Atorvastatin 10 MG TAB PO (21:08)
[2020-02-15] MEDS: Magnesium Oxide 400 MG TAB PO (21:09)
[2020-02-16] VITALS (12 sets, daily range): BP systolic 130–184; BP diastolic 80–128; PULSE 60–87; RESP 16–18; TEMP 36.3–36.9; O2SAT 96–99
[2020-02-16] MEDS: THIAMINE 500 MG in Normal Saline 100 ML 200 MG IVPB ×4 (00:33→23:36)
[2020-02-16] MEDS: Normal Saline Flush 10 ML SYR IVP ×4 (00:34→23:35)
[2020-02-16 07:08] LABS: HCT 36.5 % (40.0-50.0); HGB 12.3 g/dL (13.5-17.5); MCH 29.9 pg (27.0-33.0); MCHC 33.7 % (32.0-36.0); MCV 88.6 fL (80-95); MPV 9.9 fL (8.0-11.0); Platelet Count 284 10^3/uL (130-400); RBC 4.12 10^6/uL (4.36-5.78); RDW 11.8 % (11.8-14.1); RDW-SD 37.6 fL; WBC 6.63 10^3/uL (4.4-10.8)
[2020-02-16] MEDS: Normal Saline Flush 10 ML SYR 20 ML IVP ×2 (08:15→20:16)
[2020-02-16] MEDS: Carvedilol 25 MG TAB 50 MG PO ×2 (08:16→16:33)
[2020-02-16] MEDS: Lisinopril 20 MG TAB PO (08:16)
[2020-02-16] MEDS: Ferrous Sulfate 325 MG TAB PO (08:16)
--- NOTE | 2020-02-16 10:08 | CMPROGNOTE_ITS ---
- If Service Date Differs Date of service: 02/16/20 Time of Service: 10:08 Care Management Progress Note S/O: Bonifacio is laying in bed watching television when CM comes to meet with him. His breakfast tray is on a table next to him and he does not appear to have touched it. When CM inquires about the food, he states he just hasn't gotten to it yet. Nursing staff report later on in the morning that he ate approximately 75% of his food. Bonifacio had a physical therapy evaluation yesterday. PT will continue working with him while he is inpatient but they are in agreement that Bonifacio will likely require nursing home care upon discharge. Today, Bonifacio refuses PT in the morning as he is tired. Monday is day 3 of a 5-day course of IV Immune Globulin. CM will continue to follow. A: Bonifacio is a 54 year old male admitted to [facility] on 02/14/20 for ataxia. P: No change in plan. Anticipate Bonifacio will require placement once he is medically stable. CM briefly discussed LTC with him on Monday and he expressed a desire to talk with his brother and doctor further before making a decision. CM will continue to support patient and discharge planning considerations.
--- NOTE | 2020-02-16 10:27 | PT.INTREAT ---
PT Notes Visit Reasons: Ataxia Inpatient Physical Therapy Treatment Note [facility] Date: 02/16/20 PRECAUTIONS: SUBJECTIVE: Pt reports that he is tired today. OBJECTIVE: Sit-stand:Pt refused to get OOB and states that he would try later in the day. GAIT THEREX: Pt completed UE and LE strengthening ther ex as per flow sheet. ASSESSMENT: Pt fatigues fairly quickly. We will monitor pt's response and progress accordingly. PLAN: Cont as per PT POC. TREATMENT CODE/TIME: 9:55-10:20 (98) TPx2
[2020-02-16] MEDS: Spironolactone 25 MG TAB PO (10:30)
[2020-02-16] MEDS: Acetaminophen 325 MG TAB 650 MG PO (11:32)
[2020-02-16] MEDS: IMMUNE GLOBULIN 20 GM/200 ML BTL IVPB (12:26)
--- NOTE | 2020-02-16 12:55 | PGE_ITS ---
Date of Service Date of service: 02/16/20 Time of Service: 12:55 Assessment and Plan Assessment and plan (1) CVA (cerebral vascular accident): Status: Chronic Assessment and plan: MRI scan of the brain consistent with multiple areas of infarct consistent with cardioembolic. Patient is currently on heparin drip which we he will transition over to oral apixaban this evening. Rhythm is currently sinus rhythm in the 60s. Patient was started on atorvastatin 10 mg nightly yesterday. Patient was supposed to be on daily aspirin and he did receive 324 mg of aspirin on Monday but did not get a aspirin yesterday. I have corrected this and is now on 81 mg aspirin and as of this evening will be on apixaban 5 mg twice a day. Continue with PT and OT. Neurology will continue to follow patient. Qualifiers: CVA mechanism: thrombosis Precerebral and cerebral artery: unspecified cerebral artery Qualified Code(s): I63.30 - Cerebral infarction due to thrombosis of unspecified cerebral artery (2) CIDP (chronic inflammatory demyelinating polyneuropathy): Status: Acute Assessment and plan: neurology following with recommendations. LP results pending IVIG d#3 of 5 (3) Ataxia: Status: Acute Assessment and plan: multifactorial including alcohol, multiple strokes including cerebellar strokes. cont. P.T., I have requested O.T. consult to evaluate for adaptive strategies for feeding/dressing etc. (4) Weight loss: Status: Chronic Assessment and plan: Weight loss appears to have occurred over several months since the summer 2019. This most likely secondary to inability to care for self and feed self rather than the underlying disease process. Patient needs assisted living and feeding. chest/abd/pelvis CT negative for obvious source, will need further outpatient workup: ie colonoscopy, etc. (5) Hypertension: Status: Acute Assessment and plan: Carvedilol dose has been increased to 50 mg twice a day. He had a spironolactone to his regimen along with lisinopril. We will continue to monitor his blood pressure. Qualifiers: Hypertension type: essential hypertension Qualified Code(s): I10 - Essential (primary) hypertension (6) Cardiomyopathy: Status: Inactive Assessment and plan: Per hospital discharge summary from May 11, 2017 patient has a nonischemic cardiomyopathy however his last echocardiogram performed here at [facility] was from July 05, 2016. At that time his LVEF was 20 to 25% with severe diffuse hypokinesis with regional wall motion variations including akinesis and scarring of the apical myocardium and severe hypokinesis of the anteroseptal, inferior, inferoseptal myocardium with possible apical thrombus associated with an akinetic segment. I will repeat his echocardiogram tomorrow morning as part of his stroke work-up. Patient is already on a beta- carolynn carvedilol along with lisinopril and I have added spironolactone. Left carefully monitor his BUN and creatinine and electrolytes after initiation of the spironolactone. Patient will be started on apixaban. Apparently had been on apixaban before and had a GI bleed. I will put him on a good GI protection regimen of Carafate and a PPI in order to avoid complications of another GI bleed. Qualifiers: Cardiomyopathy type: unspecified Qualified Code(s): I42.9 - Car diomyopathy, unspecified (7) Discharge planning issues: Status: Acute Assessment and plan: case management following. anticipate placement need. Subjective Subjective Patient reports: no new complaints Interval history since last seen: Patient has not noticed a significant change in his strength. He uses his left hand which is his dominant side to feed himself. He lives alone and I explained to him that he will need to go for SNF for continued therapy. He is still getting IVIG for his CDIP. He remains on heparin drip for afib and embolic strokes. However he has been on this for 48 hrs and I am going to switch him to oral Apixaban this evening. I reviewed his home meds and he had been on Farxigis. However he does not have DM. His last A1c in January and again this month are 5.2%. I have request O.T. consult to assist P.T. in evaluation for adaptive devices to help him w/ his ADL's skills. Exam Narrative Exam Narrative: Middle-age male who was napping when I walked to the room. He awakens and he is alert and oriented. Lungs are clear to auscultation Heart regular rate and rhythm Abdomen soft and nontender nondistended normal bowel sounds Neuro exam normal speech pattern no facial asymmetry. Left hand and arm strength is fair although he has poor fine motor control of his left hand but he is able to open and close the hand at well and hold onto objects such as utensils. Right hand and arm is less strong than the left hand and arm but he i s able to raise the right arm up against gravity and give some mild resistance to me. He is able to curl his fingers over my hand. Again fine motor control is lacking. With respect to his legs he is unable to lift his legs up off the bed he is able to wiggle his toes of both feet. Objective Last Vital Signs Temp 36.5 C 02/16/20 12:44 Pulse 63 02/16/20 12:44 Resp 16 02/16/20 12:44 BP 143/106 H 02/16/20 12:44 Pulse Ox 97 02/16/20 12:44 Laboratory Results - last 24 hr 02/16/20 02/16/20 06:20 06:20 WBC 6.63 RBC 4.12 L Hgb 12.3 L Hct 36.5 L MCV 88.6 MCH 29.9 MCHC 33.7 RDW 11.8 Plt Count 284 MPV 9.9 APTT 63.0 H
[2020-02-16] MEDS: Aspirin E.C. 81 MG TABEC PO (14:22)
[2020-02-16 14:49] LABS: PTT Activated 71.3 sec (21.0-27.5)
[2020-02-16] MEDS: Sucralfate 1 GM TAB PO ×2 (16:33→21:39)
[2020-02-16] MEDS: Atorvastatin 10 MG TAB PO (19:22)
[2020-02-16] MEDS: Pantoprazole 40 MG TABCR PO (19:22)
[2020-02-16] MEDS: Apixaban 5 MG TAB PO (20:15)
[2020-02-16] MEDS: Magnesium Oxide 400 MG TAB PO (21:39)
[2020-02-17] VITALS (11 sets, daily range): BP systolic 124–168; BP diastolic 74–115; PULSE 53–100; RESP 17–20; TEMP 35–36.7; O2SAT 96–98
[2020-02-17 07:14] LABS: HCT 36.8 % (40.0-50.0); HGB 12.3 g/dL (13.5-17.5); MCH 30.1 pg (27.0-33.0); MCHC 33.4 % (32.0-36.0); MPV 9.8 fL (8.0-11.0); Platelet Count 260 10^3/uL (130-400); RBC 4.09 10^6/uL (4.36-5.78); RDW 11.8 % (11.8-14.1); RDW-SD 38.9 fL; WBC 7.29 10^3/uL (4.4-10.8)
[2020-02-17 07:32] LABS: Anion Gap 4.2 mmol/L (3-11); BUN 16 mg/dL (7-18); CO2 27.8 mmol/L (21.0-32.0); CREATININE 0.78 mg/dL (0.70-1.30); Calcium 8.5 mg/dL (8.5-10.1); Chloride 103 mmol/L (98-107); Glucose 78 mg/dL (74-106); Sodium 135 mmol/L (136-145)
--- NOTE | 2020-02-17 08:13 | OT.INIE ---
Occupational Therapy Notes Inpatient Occupational Therapy Evaluation Date: 02/17/20 Referring Doctor: Kade Maxwell MD OT Orders: Urgent- Eval for assistive device Precautions: fall, standard, full PATIENT PROFILE/ADMITTING DIAGNOSIS: Pt is a 54 year old male who presented to the ED with c/o weakness. Pt was admitted to [facility] with a medical dx of alcohol abuse, CIDP, CVA, peripheral neuropathy, weight loss, weakness, ataxia, HTN and A-fib. Past Medical History- Alcoholism Ataxic gait Atrial fibrillation Cardiomyopathy Cirrhosis COPD with asthma GI bleed Hypertension Nicotine abuse Peripheral neuropathy Prediabetes Weakness Weight loss Social History/Home Situation: Pt lives alone in a private home, he notes that he has a dog. Over the past couple months he has made significant modifications in his ADL routines. He notes that he has no movement of his IF and thumb of (B) UE. He states that he has been (I) over the past couple months but states that this involves wearing loose fitting clothing, decreased UE dressing he states that he has not been able to don his shirts without help. His eating routine has significantly declined as his decreased fine and gross motor has been causing notable deficits in his functional ADLs. He reports that he has 4 steps to enter in the back of his home and that he then has to go up multiple stairs to get to the first floor. Equipment owned/DME: None SUBJECTIVE: Pt was sitting in bed when OT arrived and returned after testing. He notes that he just needs some weights to be able to perform strengthening for his UE and he thinks that he will be all set. OBJECTIVE: General Observation: (B) IF/thumbs in extension able to achieve PROM when attempted, decreased UE strength. Mental Status: Cognitively declined, slower processing Pain: no c/o pain ROM: RUE IF/thumb in extension with no AROM, decreased wrist flexion/extension, elbow WNL, shoulder flexion limited but able to achieve limited shoulder flexion. L UE IF/thumb in extension with no AROM, decreased wrist flexion/extension, elbow WNL, shoulder flexion limited but able to achieve limited shoulder flexion. STRENGTH: RUE 3-/5 throughout LUE 3-/5 throughout FUNCTIONAL MOBILITY/ADLS: Transfers with fermin lift at this time BATHING NT as pt was eating post testing when OT arrived. He has (B) UE movement and is able to perform his UE movements for a light bathing. OT and pt discuss the functional control of hands/UE DRESSING NT but OT and pt discuss adaptive equipment with UE/LE which pt is receptive to. EATING sitting in bed with max (A) opening and closing containers, pt is unable to hold utensils in either UE. He licks his finger to stick the pill to his finger to place into his mouth. He is unable to cut his food, he is unable to hold a cup without a handle, and he is not able to utilize a tip pinch. He utilizes a straw for his liquids. BALANCE: Static sitting Good Dynamic Sitting Good SPECIAL TESTS: Daily Activity Limitations Standardized Measure [facility] AM -PAC ?6 clicks? Daily Activity Inpatient Short Form: Raw score: 11 Standardized score: 29.04 CMS score: 70.42% INFORMED CONSENT/EDUCATION: Pt instructed in purpose of OT Consult and plan of care. ASSESSMENT: Patient is a 54-year-old male referred to occupational therapy services with diagnosis of alcohol abuse, CIDP, CVA, peripheral neuropathy, weight loss, weakness, ataxia, HTN, A-fib. Patient presents with clinical signs and symptoms consistent with dx, as demonstrated by the following impairment level findings: Impairments in ADL/IADL And leisure impairments, decreased gross and fine motor control of (B) UE, decreased strength (B) UE, decreased AROM of (B) UE, decreased PROM of digits, no AROM of (B) IF/thumbs, decreased functional activity tolerance of (B) UE. Impairments are contributing to the following functional limitations: Decreased (B) LE dressing or bathing, decreased functional mobility, rigidity of (B) UE, cognitive decline, ataxia. AMPAC score 11 Patient is assessed as a high 68506 complexity based on the following: History: see above Examination: see functional limitations as noted above Presentation: evolving Decision Making: AMPAC score 11 GOALS Goals x1 week 1. Grooming- sitting in bed, pt will be able to brush his teeth with max (A) set up/clean up 2. Dressing- sitting in bed pt will be able to perform UE with mod (A) and LE dressing with mod (A) 3. Bathing- sitting in bed with max (A) set up/clean up pt will be (I) with UE and mod (A) with LE 4. Toileting- On commode with mod (A) 5. Eating- Pt will be able to perform eating routine with adaptive equipment (I) PLAN OF CARE/TREATMENT PLAN: 1x/day, 5 days/ week x 1week Initiate Occupational Therapy Services for bathing, dressing, grooming, toileting, eating, transfer training. DISCHARGE RECOMMENDATIONS OT recommends that pt go to [facility] vs[facility] when medically cleared per MD. Adaptive Equipment Recommendations: OT recommends that pt used a handled cup with a straw for drinking OT recommends that pt utilize utensils with handles/ foam for better facilitation of grasp patterns An outpatient evaluation for resting hand splints to decrease risk of contractures If pt does return home he will need care to assist with bathing, dressing, meals, home prep, toileting, eating. Along with a shower bench for safety for bathing routine, grab bars, raised toilet seat, meals on wheels, 24 hour care to (A) pt with his functional ADLs/IADLs on a daily basis. TREATMENT TIME/MINUTES/CODES 75990, 45 minutes (08:30) Daisy Cortez OTR/[facility]
[2020-02-17] MEDS: Aspirin E.C. 81 MG TABEC PO (08:26)
[2020-02-17] MEDS: Apixaban 5 MG TAB PO ×2 (08:27→19:25)
[2020-02-17] MEDS: Sucralfate 1 GM TAB PO ×3 (08:27→16:52)
[2020-02-17] MEDS: Lisinopril 20 MG TAB PO ×2 (08:27→11:48)
[2020-02-17] MEDS: Spironolactone 25 MG TAB PO (08:27)
[2020-02-17] MEDS: Carvedilol 25 MG TAB 50 MG PO ×2 (08:27→16:52)
[2020-02-17] MEDS: Ferrous Sulfate 325 MG TAB PO (08:28)
[2020-02-17] MEDS: Pantoprazole 40 MG TABCR PO ×2 (08:28→19:25)
[2020-02-17] MEDS: Normal Saline Flush 10 ML SYR 20 ML IVP ×2 (08:29→19:26)
--- NOTE | 2020-02-17 09:30 | PT.INTREAT ---
Date of service: 02/17/20 Time of Service: 09:30 PT Notes Visit Reasons: Ataxia Inpatient Physical Therapy Treatment Note [facility] Date: 02/17/20 PRECAUTIONS: Fall. Standard. Activity as tolerated. EF 20%-25% as of June 2016 echo. SUBJECTIVE: Patient is agreeable to participating and getting out of bed today. 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 [place] the progressive weakening and tiredness towards the end of summer. Elaborates that he feels more weak proximally in B UE with severely affected shoulders. States that the intermittent dull aching pain that he feels through his wrist and running down his fingers can get so intense it stops him at his tracks often. Agreeable to placement in a facility as needed. OBJECTIVE: General observation: Telemetry monitoring in place. IV acesss in B UE. Seems to take time being able to respond to questions. Requires prompting to finish responses. Trophic changes to R fingernails and in R palm. Strength: Weak edi programmer analyst with B thenar and hypothenar eminence, B forearm, B arm atrophy noted Bed mobility/Transfers: Rolling independent Supine to sit independent Sit to supine supervision Sit to stand CGA Stand to sit CGA Bed to chair CGA GAIT: Guided patient through in-room short distance ambulation using a FWW requiring CGA and minimal verbal cueing for hand placement, AD maneuvering/mc, and over all safety. MARGOTH Elizabeth present in room for safety. Gait slow and ataxic. Mild to moderate SOB noted. R hand slides off the R walker handle due to weak edi programmer analyst. Denies headache, dizziness, chest pain through out. Also tolerated another 5 steps forward and backward with L PF installed on FWW and handles padded. R hand continues to slide down R walker handle despite added padding and use of rubberized edi programmer analyst surface. THEREX/THERA ACT: To minimize stiffness, increase core angagement, and increase overall range 1. Gentle passive stretch to B PF'ors held for 20 seconds x 5 reps each. 2. Supine hip flexion and extension x 10 3. Supine hip abduction x 10 4. Sit<>stand x 3 from EOB 5. Bridging x 3 ASSESSMENT: Able to tolerate more today. Requires frequent, longer rests in between activity due to decreased activity tolerance. Will require bilateral platform placement to maximize walker management and increase mobility independence. PLAN: Continue with PT POC to progress functional mobility, increase strength, and reduce fall risk. may need to break treatment sessions in to two in the mornign and in the afternoon due to easy fatigability. TREATMENT CODE/TIME: 39394 x55 minutes, 59161 x 30 minutes beginning at 9:30 AM.
[2020-02-17 10:22] LABS: HIV-1/2 Ag & Ab Screen Negative (Negative)
--- NOTE | 2020-02-17 11:25 | PGE_ITS ---
Date of Service Date of service: 02/17/20 Time of Service: 11:25 Assessment and Plan Assessment and plan (1) CVA (cerebral vascular accident): Status: Chronic Assessment and plan: Multiple bilateral infarcts consistent with cardioembolic. He also has small vessel ischemic changes consistent with his history of hypertension. Given his history of cardiomyopathy and atrial fi brillation patient should remain on anticoagulation. He is now on apixaban 5 mg twice a day. Is also aspirin 81 mg daily. Neurology to continue following with further recommendations pending. I discussed with the patient the need for an intensive skilled rehabilitation stay such as [facility]. Qualifiers: CVA mechanism: thrombosis Precerebral and cerebral artery: unspecified cerebral artery Qualified Code(s): I63.30 - Cerebral infarction due to thrombosis of unspecified cerebral artery (2) CIDP (chronic inflammatory demyelinating polyneuropathy): Status: Acute Assessment and plan: neurology following with recommendations. LP results pending IVIG d#4 of 5 (3) Ataxia: Status: Acute Assessment and plan: multifactorial including alcohol, multiple strokes including cerebellar strokes. cont. P.T., I have requested O.T. consult to evaluate for adaptive strategies for feeding/dressing etc. (4) Cardiomyopathy: Status: Chronic Assessment and plan: Per hospital discharge summary from May 11, 2017 patient has a nonischemic cardiomyopathy however his last echocardiogram performed here at [facility] was from July 05, 2016. At that time his LVEF was 20 to 25% with severe diffuse hypokinesis with regional wall motion variations including akinesis and scarring of the apical myocardium and severe hypokinesis of the anteroseptal, inferior, inferoseptal myocardium with possible apical thrombus associated with an akinetic segment. I adjusted his lisinopril to 40 mg daily in addition to the adjustment of his carvedilol to 50 mg twice a day and addition of spironolactone 25 mg daily. We will consult with his primary automotive parts person Dr. Dejan Talbot at [facility] as the patient seems to think that Dr. Tablot had taken him off lisinopril. Patient should remain on anticoagulation in the setting of paroxysmal atrial fibrillation and prior LV thrombus. Qualifiers: Cardiomyopathy type: unspecified Qualified Code(s): I42.9 - Cardiomyopathy, unspecified (5) Hypertension: Status: Chronic Assessment and plan: Carvedilol dose has been increased to 50 mg twice a day. He had a spironolactone to his regimen along with lisinopril. We will continue to monitor his blood pressure. Qualifiers: Hypertension type: essential hypertension Qualified Code(s): I10 - Essential (primary) hypertension (6) Weight loss: Status: Chronic Assessment and plan: Weight loss appears to have occurred over several months since the summer 2019. This most likely secondary to inability to care for self and feed self rather than the underlying disease process. Patient needs assisted living and feeding. chest/abd/pelvis CT negative for obvious source, will need further outpatient workup: ie colonoscopy, etc. (7) Discharge planning issues: Status: Acute Assessment and plan: case management following. anticipate placement need. I am recommending referral to skilled rehab center Subjective Subjective Interval history since last seen: Patient continues to improve from his chronic demyelinating polyneuropathy. He has had improve use of his hands. He has begun PT and OT and ambulate with use of a platform walker. He denies any dyspnea or chest pain. He indicated to me that he has been seeing Dr. Dejan Talbot, automotive parts person at [facility] and reports that Dr. Talbot had taken him off lisinopril and plan to put him on new medication for his blood pressure. He also says that Dr. Talbot increase his carvedilol from once a day to twice a day. I explained to Bonifacio that I been titrating his blood pressure medicines to treat both his cardiomyopathy and his hypertension. I have increased his carvedilol to 50 mg twice a day and added spironolactone over the weekend. I am increasing his lisinopril to 40 mg daily however I told Bonifacio that I would speak with Dr. Talbot. I asked the patient if Dr. Talbot was taken him off lisinopril to put him on Entresto and he said that sounded familiar but he was not sure. With respect to his apixaban he previously been on this about 3 years ago when he was found to have the cardiomyopathy and had a left ventricular apical thrombus. However in the interim he had a GI bleed for which she was evaluated at [facility] where he says he underwent EGD and colonoscopy and was never found a source of his GI bleed. Apparently after the GI bleeding resolved he was never put back on the apixaban. He has paroxysmal atrial fibrillation and that along with his cardiomyopathy set him up for his CVAs. He is now off the heparin drip and back on apixaban. I have put him on intensive GI protection regimen so he does not have a recurrent GI bleed. Exam Narrative Exam Narrative: Middle-age male who awakened sitting up in his recliner chair Lungs are clear to auscultation Heart regular rate and rhythm Abdomen soft and nontender nondistended normal bowel sounds Neuro exam patient is able to hold both arms up against gravity and give me some resistance particularly with the proximal muscle group. Right hand is still very clumsy and weak but he is able to grasp my hand with his hand. 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 He is able to resist me. With respect to his legs still has lack of fine motor control of his feet but he is able to resist to some degree with dorsiflexion plantarflexion. Hip flexion is much stronger than his distal muscle groups. Objective Last Vital Signs Temp 36.7 C 02/17/20 07:22 Pulse 71 02/17/20 07:22 Resp 18 02/17/20 07:22 BP 168/100 H 02/17/20 07:22 Pulse Ox 97 02/17/20 07:22 Laboratory Results - last 24 hr 02/14/20 02/16/20 02/16/20 13:02 13:36 14:34 WBC RBC Hgb Hct MCV MCH MCHC RDW Plt Count MPV APTT Cancelled 71.3 H Sodium Potassium Chloride Carbon Dioxide Anion Gap BUN Creatinine Estimated GFR/1.73 m2 Glucose Calcium HIV 1&2 Ag/Ab, 4th Gen Negative 02/17/20 02/17/20 06:28 06:28 WBC 7.29 RBC 4.09 L Hgb 12.3 L Hct 36.8 L MCV 90.0 MCH 30.1 MCHC 33.4 RDW 11.8 Plt Count 260 MPV 9.8 APTT Sodium 135 L Potassium 4.0 Chloride 103 Carbon Dioxide 27.8 Anion Gap 4.2 BUN 16 Creatinine 0.78 Estimated GFR/1.73 m2 >= 60.00 Glucose 78 Calcium 8.5 HIV 1&2 Ag/Ab, 4th Gen
[2020-02-17] MEDS: Acetaminophen 325 MG TAB 650 MG PO (11:48)
[2020-02-17] MEDS: IMMUNE GLOBULIN 20 GM/200 ML BTL IVPB (12:47)
--- NOTE | 2020-02-17 14:29 | PDOC.CMPRO ---
Care Management Progress Note S/O: Bonifacio continues to be closely monitored and will have an ECHO today, per MD. CM faxed referrals for SNF/Acute Rehab on Terrence's behalf. Anticipate he will need to apply for detention medicaid as well. 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 He would like to return home and care for himself but acknowledges that he will require a period of rehab prior to returning home. CM continues to follow. A: Bonifacio is a 54 year old male admitted to [facility] on 02/14/20 for ataxia. P: Bonifacio will require placement once medically stable, CM faxed referrals to [facility]. CM will continue to support patient and discharge planning considerations.
--- NOTE | 2020-02-17 15:00 | CHAPLAIN ---
Bonifacio was sitting up in a chair when I visited. He was not watching tv, and said he bored. He lives in [place], and told me that he hasn't been in touch with family by phone since he's been her. He would like to go home, but isn't sure what the plan is currently.
[2020-02-17 15:09] LABS: Albumin 53.2 % (55.8-66.1); Comment (See Note); Total Protein 5.6 g/dL (6.3-8.2)
--- NOTE | 2020-02-17 15:32 | PT.INTREAT ---
Date of service: 02/17/20 Time of Service: 14:10 PT Notes Visit Reasons: Ataxia Inpatient Physical Therapy Treatment Note [facility] Date: 02/17/2020 PRECAUTIONS: Fall SUBJECTIVE: Bonifacio is pleasant and agreeable to participating in PT. He reports a significant fear of falling, which he attributes to his recent history of multiple falls at home. OBJECTIVE: PAIN: Patient complained of shooting pain across R palm with gentle stretching to R hand and digits. BED MOBILITY/TRANSFERS Sit-stand: CGA Stand-sit: CGA GAIT: Assistive Device: MICROSOFT ACCESS DEVELOPER x2 Weight bearing: Full Assist: CGA x2 Distance: 50' Deviation: Fear of falling, LOB x1 requiring Min A for recovery, wide MARSHA THEREX: Patient was instructed in LAQ, standing shoulder flexion, and functional hjc-[id number] exercises, as per flow sheet. He requires seated rest between exercises due to increased fatigue with activity. Performed calf stretching 3x20 seconds and PROM into flexion/extension x5 on all digits. ASSESSMENT: Patient tolerated session with increased fatigue with activity. He was able to tolerate a progression in gait distance with MICROSOFT ACCESS DEVELOPER x2 and CGA x2, although continues to demonstrate poor gait mechanics, likely due in part to his significant fear of falling. He demonstrates global weakness and would benefit from continued global strengthening and gait and transfer training. PLAN: Continue with global strengthening and gait and transfer training for continued progression toward baseline level of function. TREATMENT CODE/TIME: Session 1: 40 minutes; 45658 x2, [id number]
--- NOTE | 2020-02-17 15:39 | PGE_ITS ---
Date of Service Date of service: 02/17/20 Time of Service: 15:39 Assessment and Plan Assessment and plan (1) CVA (cerebral vascular accident): Status: Chronic Qualifiers: CVA mechanism: thrombosis Precerebral and cerebral artery: unspecified cerebral artery Qualified Code(s): I63.30 - Cerebral infarction due to thrombosis of unspecified cerebral artery (2) CIDP (chronic inflammatory demyelinating polyneuropathy): Status: Acute (3) Weight loss: Status: Chronic (4) Weakness: Status: Acute (5) Ataxia: Status: Acute (6) Atrial fibrillation: Status: Acute (7) Alcohol abuse: Status: Chronic Assessment and plan: Mr. Herrera is a 54 year-old, right-handed man who was admitted with failure to thrive/inability to be cared for at home: #1. Subacute generalized weakness, worse distally. He was noted to have a severe PN on NCS and by exam. 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 LP with elevated protein which supports dx. SPEP abnormal with BARRY pending. Pending SPEP may need anti-MAG ab and paraneoplastic panel. Perhaps subtle improvement since starting IVIG. He will get fifth dose tomorrow. Discussed that I think we should go ahead and proceed with IV 1000mg daily methylprednisolone x 5 days as well given significant weakness. Of interest, now that he has improved, he is starting to demonstrate a right hemiparesis, which is likely related to his cerebrovascular disease. Continue PT/OT. Assessment for placement: rehab vs LTAC. He should keep his [facility] Neurology outpatient appointment for March. #2. Acute and chronic stroke findings. Acute punctate ischemia in multiple vascular territory concerning for cardioemoblic phenomena. History of p. atrial fibrillation s/p ablation x 2. TTE today with normal EF and LA. No afib on tele. Still needs CUS. Consider GRAZYNA as further work-up. Continue apixaban 5mg BID with aspirin 81mg daily for stroke prevention. #3. Confusion/cognitive loss. This could be secondary to apparent cerebrovascular disease seen on head imaging. A Wernekce-Korsokoff's remains in the differential given known ETOH abuse and complicated by significant weight loss. Completed 5 days of high-dose thiamine tomorrow. Ok to transition to maintenance dose. Vascular treatment as above. #4. Placement. He knows he cannot go home. Interested in rehab if he can qualify. I spent a total of 65 minutes in in-person discussion with Mr. Herrera and phone conversation with his brother. Subjective Subjective Interval history since last seen: I was able to see Terrence again today. He is day 4/5 of IVIG. On aspirin 81mg daily and apixaban for stroke prevention - presumed etiology cardioembolic from p. afib. Though TTE as below... Believes he has had mild/subtle improvement in strength. Now demonstrating a right hemiparesis, additionally.... -TTE (02/17/20): EF 65%, no wall motion abnormalities. LA normal. No bubble study. -CUS:??? -A1c 5.2, B12 631, HIV neg -SPEP abnml with too small to quant M-spike. BARRY reflexed and pending. -LP (02/14/20): 0 WBC, 2 RBC, 87 protein, 53 glucose -B1 pending -tele: no afib Prior Work-up: -NCS/EMG (02/13/20): absent RUE motor and sensory response. Diffuse neuropathic changes on EMG. -Labs: normal CBC, CMP, TSH, UDS, ETOH -CT C/A/P (02/13/20): no acute/concerning findings. Stable liver lesion compared to 2018. -CT head (02/13/20): no acute findings. numerous old infarcts R casie, L brachium pontis, L thalamus x2, R BG x 2 (one rather large for a lacune), R periventricular, and then several small scattered T2 holes in the centrum semiovale/subcortex bilaterally. Mild generalized atrophy. -MRI brain (02/14/20): multiple areas of acute punctate ischemia in the R cerebellum, L brachium pontic, R casie, R anterior temporal lobe, and R interior frontal lobe near the ventricle. Evidence of prior infarcts as detailed in [facility] report. Severe chronic vascular disease changes. Also evidence for a few remote scattered microhemorrhages with a notable one in the right cerebellum. Exam Narrative Exam Narrative: Physical Exam: Constitutional: Patient of apparent stated age, thin/cachectic, no acute distress Resp: rare wheezing Neuro: MS/Language/Speech: Alert, oriented, clear language (fluency and comprehension), no dysarthria Motor: Signficant atrophy of the hand intrinsics with some ulnar clawing of the right hand vs contracture. Able to finger tap bilaterally now, albeit very slowly and very minimally on the right compared to the left. Deltoid 5/5 bilaterally. R biceps 4+, L 3+. Triceps R 4, L 4-. FDI 3-/5 bilaterally. R ABP 2-3-/5, L 3/5. Hip flexors R 3-, L 4-. Ankle dorsiflexion 3/5 bilaterally. Objective Last Vital Signs Temp 35.0 C L 02/17/20 11:30 Pulse 66 02/17/20 11:30 Resp 18 02/17/20 11:30 BP 150/115 H 02/17/20 11:30 Pulse Ox 97 02/17/20 11:30 Laboratory Results - last 24 hr 02/14/20 02/17/20 02/17/20 13:02 06:28 06:28 WBC 7.29 RBC 4.09 L Hgb 12.3 L Hct 36.8 L MCV 90.0 MCH 30.1 MCHC 33.4 RDW 11.8 Plt Count 260 MPV 9.8 Sodium 135 L Potassium 4.0 Chloride 103 Carbon Dioxide 27.8 Anion Gap 4.2 BUN 16 Creatinine 0.78 Estimated GFR/1.73 m2 >= 60.00 Glucose 78 Calcium 8.5 HIV 1&2 Ag/Ab, 4th Gen Negative
[2020-02-17 15:44] LABS: Immunotyping, Serum (See Note)
[2020-02-17] MEDS: Atorvastatin 10 MG TAB PO (19:25)
[2020-02-18] VITALS (15 sets, daily range): BP systolic 113–154; BP diastolic 72–107; PULSE 55–78; RESP 16–20; TEMP 36.3–36.7; O2SAT 96–100
--- NOTE | 2020-02-18 07:00 | DI.US_ITS ---
EXAM: US CAROTID CLINICAL HISTORY: CVA. TECHNIQUE: Ultrasound carotids performed using grayscale, color-flow, and spectral Doppler imaging. COMPARISON: No exams were available for comparison FINDINGS: RIGHT CAROTID ARTERY: Plaque: Minimal. Velocity elevation: None. LEFT CAROTID ARTERY: Plaque: Minimal. Velocity elevation: None. VERTEBRAL ARTERIES: Antegrade flow. Measurements: R Bulb: 31.5cm/s PS / 10.4cm/s ED R CCA: 35.2cm/s PS / 11cm/s ED R ECA: 38.7cm/s PS / 13.4cm/s ED R ICA Prox: 30.4cm/s PS /12.3cm/s ED R ICA Mid: 57.8cm/s PS / 24.5cm/s ED R ICA Distal: 61.1cm/s PS /27.3cm/s ED R Vert: 30.1cm/s PS / 9.9cm/s ED R SVR: 1.74 R DVR: 2.48 L Bulb: 19.7cm/s PS /7.4cm/s ED L CCA: 41.2cm/s PS / 14.5cm/s ED L ECA: 29.2cm/s PS /9.3cm/s ED L ICA Prox:48.1cm/s PS / 23.1cm/s ED L ICA Mid: 60.2cm/sPS / 29.5cm/s ED L ICA Distal: 81.7cm/s PS / 39cm/s ED L Vert: 45.1cm/s PS / 16.2cm/s ED L SVR: 1.98 L DVR: 2.69 IMPRESSION: No evidence for hemodynamically significant carotid stenosis. Criteria for Carotid Stenosis: Normal: ICA PSV <125 cm/s no plaque or intimal thickening is visible. <50% stenosis: ICA PSV <125 cm/s and plaque or intimal thickening is visible. 50-69% stenosis: ICA PSV is 125-250 cm/s and plaque is visible. >70% stenosis to near occlusion: ICA PSV >250 cm/s with visible plaque and luminal narrowing. DATA REPOSITORY:
[2020-02-18 07:15] LABS: Anion Gap 5.6 mmol/L (3-11); BUN 19 mg/dL (7-18); CO2 27.4 mmol/L (21.0-32.0); CREATININE 0.79 mg/dL (0.70-1.30); Calcium 8.4 mg/dL (8.5-10.1); Chloride 102 mmol/L (98-107); Glucose 90 mg/dL (74-106); Sodium 135 mmol/L (136-145)
[2020-02-18] MEDS: Sucralfate 1 GM TAB PO ×4 (07:59→21:37)
[2020-02-18] MEDS: Aspirin E.C. 81 MG TABEC PO (07:59)
[2020-02-18] MEDS: Ferrous Sulfate 325 MG TAB PO (07:59)
[2020-02-18] MEDS: Lisinopril 20 MG TAB 40 MG PO (07:59)
[2020-02-18] MEDS: Carvedilol 25 MG TAB 50 MG PO ×2 (08:00→17:19)
[2020-02-18] MEDS: Spironolactone 25 MG TAB PO (08:00)
[2020-02-18] MEDS: Apixaban 5 MG TAB PO ×2 (08:00→19:12)
[2020-02-18] MEDS: Pantoprazole 40 MG TABCR PO ×2 (08:00→19:11)
[2020-02-18] MEDS: Normal Saline Flush 10 ML SYR 20 ML IVP ×2 (08:01→19:11)
--- NOTE | 2020-02-18 08:44 | OT.INTREAT ---
Date of service: 02/18/20 Time of Service: 07:50 Occupational Therapy Notes Occupational Therapy Inpatient Treatment Note Date: 02/18/20 PRECAUTIONS: Fall, Standard, Full SUBJECTIVE: Pt was lying in bed when OT arrived. He was agreeable to OT session although required vc throughout for performance of his ADL routines. OBJECTIVE: PAIN:no c/o pain FUNCTIONAL MOBILITY Supine-sit: Min (A) Sit-stand: CGA Stand-sit: CGA BATHING: sitting on side of the bed with max (A) Set up/clean up Upper Body: Mod vc throughout (I) face, (B) UE and abdomen Lower Body: max (A) [place] area, min (A) (B) LE DRESSING: sitting on side of the bed Upper Extremity: Mod (A) [facility] gown Lower Extremity: NT GROOMING: Pt required max (A) with brushing hair as he had significant knots in his hair that he needed assistance with. TOILETING: Device: Urinal Assist: (I) *Pt was incontinent prior to OT arrival. He required max (A) for toileting hygiene. EATING: sitting in chair pt requires max (A) opening and closing containers, OT went and provided pt with a handled silverware for his eating routines. This will help with his lack of functional strength, lack of functional pinch mobility. OT will continue to monitor pts functional use of his (B) UE. OT does recommend that pt use a handled cup and silverware. ASSESSMENT/PLAN: Pt was resistant to standing ADLs today. He was able to demonstrate better control of his (B) UE for his bathing and dressing routines, however he demonstrates decreased functional activity tolerance, decrease safety awareness and decreased dynamic stability required for standing ADLs. TREATMENT CODES/TIME: [id number], 50 minutes (07:50) Daisy Cortez OTR/[facility]
[2020-02-18 10:26] LABS: Thiamine (Vitamin B1), WB 154 nmol/L (70-180)
--- NOTE | 2020-02-18 11:22 | CMPROGNOTE_ITS ---
Care Management Progress Note S/O: Bonifacio continues to be closely monitored, per MD. CM faxed referrals for SNF/Acute Rehab on Terrence's behalf. Anticipate he will need to apply for [place] medicaid as well. Terrence was talkative and fully engaged with this writer editor. He would like to return home and care for himself but acknowledges that he will require a period of rehab prior to returning home. CM discussed referral with [facility] who at first declined Terrence due to disposition concerns. They will review tomorrow, if approved for admission conditions would require [facility] contract to accept Terrence back in [facility] for disposition support for LTC planning, in the event his physical progression plateaus. CM continues to follow. A: Bonifacio is a 54 year old male admitted to [facility] on 02/14/20 for ataxia. P: Bonifacio will require placement once medically stable, CM faxed referrals to [facility], [facility], [facility], [facility], and [facility]. CM will continue to support patient and discharge planning considerations.
--- NOTE | 2020-02-18 11:22 | PDOC.CMPRO ---
Care Management Progress Note S/O: Bonifacio continues to be closely monitored, per MD. CM faxed referrals for SNF/Acute Rehab on Terrence's behalf. Anticipate he will need to apply for nursing home medicaid as well. Terrence was talkative and fully engaged with this global technical writer. He would like to return home and care for himself but acknowledges that he will require a period of rehab prior to returning home. CM discussed referral with [facility] who at first declined Terrence due to disposition concerns. They will review tomorrow, if approved for admission conditions would require [facility] contract to accept Terrence back in [facility] for disposition support for LTC planning, in the event his physical progression plateaus. CM continues to follow. A: Bonifacio is a 54 year old male admitted to [facility] on 02/14/20 for ataxia. P: Bonifacio will require placement once medically stable, CM faxed referrals to [facility], [facility], [facility], [facility], and [facility]. CM will continue to support patient and discharge planning considerations.
--- NOTE | 2020-02-18 11:59 | W.PM.PROGNOT ---
Date of Service Date of service: 02/18/20 Time of Service: 11:59 Assessment and Plan Assessment and plan (1) CVA (cerebral vascular accident): Status: Chronic Assessment and plan: Continue Eliquis 5 mg p.o. twice daily along with atorvastatin 10 mg every afternoon. Continue with PT and OT. Case management is making referrals to rehab center. Qualifiers: CVA mechanism: thrombosis Precerebral and cerebral artery: unspecified cerebral artery Qualified Code(s): I63.30 - Cerebral infarction due to thrombosis of unspecified cerebral artery (2) CIDP (chronic inflammatory demyelinating polyneuropathy): Status: Acute Assessment and plan: Patient completed day 5 out of 5 of IV immunoglobulin. We will start on prednisone 60 mg daily. Of note his SPEP is showing increased alpha-1 alpha-2 immune globulins and protein electrophoresis demonstrates an IgM kappa monoclonal protein. (3) Ataxia: Status: Acute Assessment and plan: multifactorial including alcohol, multiple strokes including cerebellar strokes. cont. P.T., I have requested O.T. consult to evaluate for adaptive strategies for feeding/dressing etc. (4) Cardiomyopathy: Status: Chronic Assessment and plan: As noted above his repeat echocardiogram from yesterday demonstrated normal left ventricular size and function and right ventricular size and function. LVEF is 65% with no wall motion abnormalities. Per my discussion with Dr. 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 Patient should be resumed on Farxiga not for diabetes mellitus but for treatment of cardiomyopathy. He also agrees with starting the patient on Entresto. Present time patient is on high-dose lisinopril as Entresto is not available here in the hospital. Upon discharge I will order Entresto to be started 3 days after discontinuation of lisinopril. He will need to have close monitoring of his BMP to ensure that he does not develop azotemia or hyperkalemia once he starts on the Entresto. Patient remains on higher dose carvedilol 50 mg twice a day along with spironolactone [address] Talbot agrees with current treatment plan and will follow up with the patient upon discharge. Because the patient has paroxysmal atrial fibrillation he should have a follow-up Holter upon discharge to assess stability of his heart rhythm. Qualifiers: Cardiomyopathy type: unspecified Qualified Code(s): I42.9 - Cardiomyopathy, unspecified (5) Atrial fibrillation: Status: Acute Assessment and plan: Patient is doing well on increased dose of carvedilol. Continue Eliquis for stroke prevention. Patient previously had been on amiodarone however given his liver disease from his alcoholism I am reluctant to put him on amiodarone for maintenance therapy. If the patient shows recurrent episodes of atrial fibrillation despite maximal carvedilol dose and consideration could be given for initiation of dofetilide. I would avoid amiodarone given his liver dysfunction. Qualifiers: Atrial fibrillation type: paroxysmal Qualified Code(s): I48.0 - Paroxysmal atrial fibrillation (6) Hypertension: Status: Chronic Assessment and plan: Carvedilol dose has been increased to 50 mg twice a day. He had a spironolactone to his regimen along with lisinopril. We will continue to monitor his blood pressure. Change to Entresto as an outpatient and discontinue lisinopril upon discharge. Qualifiers: Hypertension type: essential hypertension Qualified Code(s): I10 - Essential (primary) hypertension (7) Weight loss: Status: Chronic Assessment and plan: Weight loss appears to have occurred over several months since the summer 2019. This most likely secondary to inability to care for self and feed self rather than the underlying disease process. Patient needs assisted living and feeding. chest/abd/pelvis CT negative for obvious source, will need further outpatient workup: ie colonoscopy, etc. (8) Discharge planning issues: Status: Acute Assessment and plan: case management following. anticipate placement need. I am recommending referral to skilled rehab center Subjective Subjective Interval history since last seen: Patient continues to improve daily. I discussed this case with Dr. Jeronimo last night and she recommends that he go on corticosteroids in addition to his IV immunoglobulin. I have ordered prednisolone 60 mg daily. Today was day 5 out of 5 of his IV immunoglobulin. With respect to his strokes he is back on his Eliquis for stroke prevention. Patient has a history of GI bleeding for which I now have him on Protonix and Carafate for dual protection since the patient clearly needs anticoagulation to prevent further strokes. He has a history of paroxysmal atrial fibrillation but is currently in sinus rhythm. Rate is well controlled in the 60s to 70s. Echocardiogram from yesterday showed normal left ventricular size and function with an ejection fraction of 65%. No regional wall motion abnormalities. Right ventricular size and function was normal with normal PA systolic pressure. He has only mild aortic regurgitation and mild tricuspid regurgitation. Patient had carotid duplex study this morning that showed no hemodynamically significant stenoses. Patient has indicated interest in entering into a rehabilitation facility. Case management is making referrals. Exam Narrative Exam Narrative: Patient is alert and oriented person place time circumstance sitting up in his chair eating lunch. OT is given him some adaptive tools to use with his silverware however he continues to choose to use regular silverware to feed himself. He has left-handed but seems to be getting some of his coordination back in his left hand and is able to adequately get his food on his fork and get it into his mouth. Right hand and arm are still very paretic but he is able to lift the right arm up against gravity is able to close his hand but is not able to grasp and hold onto things. He has no fine motor control in his right hand. Lungs are clear to auscultation Heart regular rate and rhythm Objective Last Vital Signs Temp 36.3 C L 02/18/20 08:35 Pulse 73 02/18/20 08:35 Resp 16 02/18/20 08:35 BP 154/107 H 02/18/20 08:35 Pulse Ox 97 02/18/20 08:35 Laboratory Results - last 24 hr 02/13/20 02/14/20 02/18/20 16:35 13:02 06:13 Sodium 135 L Potassium 4.0 Chloride 102 Carbon Dioxide 27.4 Anion Gap 5.6 BUN 19 H Creatinine 0.79 Estimated GFR/1.73 m2 >= 60.00 Glucose 90 Calcium 8.4 L Total Protein (PEP) 5.6 L Albumin % (PEP) 53.2 L Xerkd-1-Ikrwgzdsy (%) 6.2 H Yhtaz-5-Enkohtaus (%) 15.2 H Beta Globulins (%) 11.4 Gamma Globulins (%) 14.0 M-Alverto % Not Applicable PEP Comment (see note) Whole Bld Vitamin B1 154 Serum Immunofixation (see note)
[2020-02-18] MEDS: Acetaminophen 325 MG TAB 650 MG PO (12:09)
[2020-02-18] MEDS: IMMUNE GLOBULIN 20 GM/200 ML BTL IVPB (13:22)
--- NOTE | 2020-02-18 13:22 | W.INDIABCONS ---
Date of service: 02/18/20 Time of Service: 13:22 Diabetes Inpatient Consult DESCRIPTION/ASSESSMENT: 54 year old male admitted with ataxia, ETOH abuse, CVA, polyneuropathy, cirrohsis with 50 lbs weight loss in last 6 months. Following heart healthy diet with adequate intake. Met with Terrence today. He does not want any additional supplements at this time and would like to regain his weight with food. Appetite has been good, finishing most meals. BMI and weight loss indicates severe malnutrition with muscle wasting and loss of subcutaneous fat. Terrence reports no food insecurity and states he lost weight because he was drinking heavily. Estimated needs: 1135-1056 kcal, 55-65 g protein. Currently meeting nutrient and fluid needs. recent labs indicate DM2 in remision (02/14/20 A1c: 5.2%) Diagnosis: severe malnutrition in view of significant weight loss, low BMI, muscle wasting and loss of subcutaneous fat INTERVENTION: continue current meal plan educated Terrence on nutrient needs for weight regain PLAN: monitor weight, po intake, labs Time Spent in Nutritional Counseling and Treatment: 20 min
--- NOTE | 2020-02-18 13:51 | PT.INTREAT ---
Date of service: 02/18/20 Time of Service: 11:05 PT Notes Visit Reasons: Ataxia Inpatient Physical Therapy Treatment Note [facility] Date: 02/18/2020 PRECAUTIONS: Fall SUBJECTIVE: Bonifacio reports that he is feeling better today, although he feels that he is being rushed. He states it's going to take time to rehab. OBJECTIVE: PAIN: No c/o pain BED MOBILITY/TRANSFERS Sit-supine: I with HOB flat Sit-stand: SBA Stand-sit: SBA Chair-bed: CGA x2 GAIT: Assistive Device: TEST ENG[employer]MENT x2 Weight bearing: Full Assist: CGA x2 Distance: 300' Deviation: Fear of falling, wide MARSHA, slow pace, ataxic gait THEREX: Patient was instructed in standing shoulder flexion and functional [id number] exercises, as per flow sheet. He was not able to perform standing hip flexion as he was not able to lift foot off of floor due to anxiety. ASSESSMENT: Patient tolerated session with increased fatigue with activity. He was able to tolerate a progression in gait distance with [employer] x2 and CGA x2, he demonstrates somewhat improved gait mechanics today versus yesterday. He demonstrates global weakness and ataxic gait and would benefit from continued global strengthening and gait and transfer training. PLAN: Continue with global strengthening and gait and transfer training for continued progression toward baseline level of function. TREATMENT CODE/TIME: 40 minutes; 21143 x2, [id number]
--- NOTE | 2020-02-18 16:49 | PGE_ITS ---
Date of Service Date of service: 02/18/20 Time of Service: 16:50 Assessment and Plan Assessment and plan (1) CVA (cerebral vascular accident): Status: Chronic Qualifiers: CVA mechanism: thrombosis Precerebral and cerebral artery: unspecified cerebral artery Qualified Code(s): I63.30 - Cerebral infarction due to thrombosis of unspecified cerebral artery (2) CIDP (chronic inflammatory demyelinating polyneuropathy): Status: Acute (3) Weight loss: Status: Chronic (4) Weakness: Status: Acute (5) Ataxia: Status: Acute (6) Atrial fibrillation: Status: Acute Qualifiers: Atrial fibrillation type: paroxysmal Qualified Code(s): I48.0 - Paroxysmal atrial fibrillation (7) Alcohol abuse: Status: Chronic Assessment and plan: Mr. Herrera is a 54 year-old, right-handed man who was admitted with failure to thrive/inability to be cared for at home: #1. Subacute generalized weakness, worse distally. He was noted to have a severe PN on NCS and by exam. 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 LP with elevated protein which supports dx. SPEP abnormal with iGM kappa vs gamma seen. Will discuss need for anti-MAG ab and paraneoplastic panel with [facility] Neuro (unclear if IVIG will affect results). He has had some improvement since starting IVIG. As discussed given profound weakness, we will go ahead with prednisone as well. I prefer IV 1000mg daily methylprednisolone x 5 days. Of interest, now that he has improved, he is starting to demonstrate a right hemiparesis, which is likely related to his cerebrovascular disease. Continue PT/OT. Assessment for placement: rehab vs LTAC. He should keep his [facility] Neurology outpatient appointment for March. #2. Acute and chronic stroke findings. Acute punctate ischemia in multiple vascular territory concerning for cardioemoblic phenomena. History of p. atrial fibrillation s/p ablation x 2. TTE today with normal EF and LA. No afib on tele. CUS with no stenosis. Per hospitalist ainsley with cardiology, he needs life long anticoagulation. Thus no need for GRAZYNA as further work-up. Continue apixaban 5mg BID with aspirin 81mg daily for stroke prevention. #3. Confusion/cognitive loss. This could be secondary to apparent cerebrovascular disease seen on head imaging. Amanule Fleming-Korcolekoff's remains in the differential given known ETOH abuse and complicated by significant weight loss. Completed 5 days of high-dose thiamine . Ok to transition to maintenance dose. Vascular treatment as above. #4. Placement. He knows he cannot go home. Interested in rehab if he can qualify. Subjective Subjective Interval history since last seen: I was able to see Terrence again today. He is day 5/5 of IVIG. He continues to make slow gains. PT agrees. Proximal strength most apparent. Given 60mg oral prednisolone today instead of IV MPred.... Maybe that's ok. -CUS: no significant stenosis -SPEP: IgM [place] that migrates in the gamma region Prior Work-up: -NCS/EMG (02/13/20): absent RUE motor and sensory response. Diffuse neuropathic changes on EMG. -Labs: normal CBC, CMP, TSH, UDS, ETOH -CT C/A/P (02/13/20): no acute/concerning findings. Stable liver lesion compared to 2018. -CT head (02/13/20): no acute findings. numerous old infarcts R casie, L brachium pontis, L thalamus x2, R BG x 2 (one rather large for a lacune), R periventricular, and then several small scattered T2 holes in the centrum semiovale/subcortex bilaterally. Mild generalized atrophy. -MRI brain (02/14/20): multiple areas of acute punctate ischemia in the R cerebellum, L brachium pontic, R casie, R anterior temporal lobe, and R interior frontal lobe near the ventricle. Evidence of prior infarcts as detailed in [facility] report. Severe chronic vascular disease changes. Also evidence for a few remote scattered microhemorrhages with a notable one in the right cerebellum. -TTE (02/17/20): EF 65%, no wall motion abnormalities. LA normal. No bubble study. -A1c 5.2, B12 631, HIV neg -SPEP abnml with too small to quant M-spike. BARRY reflexed and pending. -LP (02/14/20): 0 WBC, 2 RBC, 87 protein, 53 glucose -B1 pending -tele: no afib Exam Narrative Exam Narrative: Physical Exam: Constitutional: Patient of apparent stated age, thin/cachectic, no acute distress Resp: no wheezing today Neuro: MS/Language/Speech: Alert, oriented, clear language (fluency and comprehension), no dysarthria Motor: Significant atrophy of the hand intrinsics with some ulnar clawing of the right hand vs contracture. Deltoid 5/5 bilaterally. R biceps 4, L 4++. Triceps R 4-, L 4+. FDI 3/5 bilaterally. R ABP 3+/5, L 4-/5. Hip flexors R 4++, L 4++. Ankle dorsiflexion 3-/5 bilaterally. Objective Last Vital Signs Temp 36.7 C 02/18/20 15:26 Pulse 68 02/18/20 15:26 Resp 18 02/18/20 15:26 BP 129/92 H 02/18/20 15:26 Pulse Ox 98 02/18/20 15:26 Laboratory Results - last 24 hr 02/13/20 02/18/20 16:35 06:13 Sodium 135 L Potassium 4.0 Chloride 102 Carbon Dioxide 27.4 Anion Gap 5.6 BUN 19 H Creatinine 0.79 Estimated GFR/1.73 m2 >= 60.00 Glucose 90 Calcium 8.4 L Whole Bld Vitamin B1 154
--- NOTE | 2020-02-18 17:33 | PTTR_ITS ---
Date of service: 02/18/20 Time of Service: 13:21 PT Notes Visit Reasons: Ataxia Inpatient Physical Therapy Treatment Note [facility] Date: 02/18/2020 PRECAUTIONS: Fall. Standard. Activity as tolerated. SUBJECTIVE: Bonifacio is agreeable to a second PT session this afternoon. Appears to be more cheerful and energetic today compared to yesterday. Did not have any episode of tingling in B hands/feet throughout the session. Did indicate being fatigued from all that he did during the session. OBJECTIVE: PAIN: None reported BED MOBILITY/TRANSFERS Sit-stand: SBA Stand-sit: SBA Chair-bed: CGA GAIT: Assistive Device: None, but did hold onto IV pole for support with L hand. Weight bearing: Full Assist: CGA. Patient's R hand resting onto PT's hand. Distance: 260 feet + 80 feet Deviation: Mild steppage noted on R LE. Minimal pressure felt from patient's R hand throughout. Hip flexion/knee flexion decreased on L side during swing, increased on R due to mild equinus of R foot. Mild ataxia seen. Stairs: Instructed patient on negotiating 6 x 4 inch steps while holding onto B rails with CGA of 2 for safety with step-to gait pattern. R hand required manual assistance due to poor operations administrative assistant throughout. THERA EX: Guided patient with performance of bilateral leg raises with trunk unsupported on mat table x 10 and alternate hip flexion x 10 with no report of fatigue. THERA ACT: Facilitated trunk and B LE major muscle group recruitment with sit<>stand activity x 10 while seated onmat table with trunk unsupported, SBA provided. ASSESSMENT: Recovers better if given adequate rests in between tasks. Improved activity tolerance was demonstrated despite amount of tasks performed this afternoon. Continues to require assessment for best assistive device that will promote independence due to balance issues. PLAN: Will require continued skilling for exercise/strength progression, balance retraining, neuro re-education, and functional mobility retraining. DISCHARGE RECOMMENDATION: Patient will benefit from long-term facility placement for continued skilled physical therapy services in order to progress mobility level, strength, and balance in preparation for a safe discharge to home. TREATMENT CODE/TIME: 41343 x 55 minutes, 58129 x 16 minutes beginning at 13:21 PM. INCIDENT REPORT: Patient wanted his half-filled cup of coffee rewarmed so he could finish it after PT session. PT volunteered to do it for patient. Terrence appeared mildly shaky as he tried to reach for the cup from the table with his L hand. PT offered strongly to do it for him but patient was adamant that he could do it. Patient was able to lift cup and bring it group home but spilled it accidentally on himself. The hospital gown was immediately removed, a clean gown redonned, and a cold pack placed on area on patient's anterior right thigh to minimize any potential skin issue. Chair sheets were replaced and floor was cleaned afterwards. Nurse Zayda was immediately informed of said incident. SQSS incident report was also completed per protocol.
[2020-02-18] MEDS: Atorvastatin 10 MG TAB PO (19:11)
[2020-02-18] MEDS: Magnesium Oxide 400 MG TAB PO (21:37)
[2020-02-19] VITALS (9 sets, daily range): BP systolic 124–143; BP diastolic 80–97; PULSE 69–97; RESP 16–19; TEMP 36.3–37.1; O2SAT 93–98
[2020-02-19] MEDS: Pantoprazole 40 MG TABCR PO ×2 (07:52→20:03)
[2020-02-19] MEDS: Sucralfate 1 GM TAB PO ×4 (07:52→21:09)
--- NOTE | 2020-02-19 07:57 | OTTR_ITS ---
Date of service: 02/19/20 Time of Service: 07:30 Occupational Therapy Notes Occupational Therapy Inpatient Treatment Note Date: 02/18/19 PRECAUTIONS: Fall, Standard, full SUBJECTIVE: Pt was sitting in the chair when OT arrived. He was agreeable to OT session and notes that he is tired this morning. OBJECTIVE: PAIN:no c/o pain BATHING: sitting in chair with max (A) set up/clean up Upper Body: (I) face, min (A) (B) UE due to decreased ROM, (I) abdomen, max (A) back Lower Body: (I) (B) thighs and to ankles, pt denies (B) feet. Pt required mod (A) to open towel for drying an positioning for his (B) hand use. DRESSING: sitting in chair Upper Extremity: Mod (A) [facility] gown Lower Extremity: (I) (B) socks EATING: OT went over adaptive equipment for eating which pt was not receptive to. He states that he is too old for changes and he has modified for a while now. He does not like the adaptive forks and he is receptive to a cup with a cover however he states that this is bothersome to him. ASSESSMENT/PLAN: Pt is able to demonstrate his bathing and dressing routines with increased performance time. He has decreased fine motor control which is hard for him to perform his eating, dressing and bathing. Functionally pt requires adaptive equipment, however he is not always receptive to training in adaptive equipment. TREATMENT CODES/TIME: [id number], 30 minutes (07:30) Daisy Cortez OTR/L [facility]
[2020-02-19] MEDS: Aspirin E.C. 81 MG TABEC PO (08:50)
[2020-02-19] MEDS: Lisinopril 20 MG TAB 40 MG PO (08:51)
[2020-02-19] MEDS: Docusate Sodium 100 MG CAP PO (08:51)
[2020-02-19] MEDS: Spironolactone 25 MG TAB PO (08:51)
[2020-02-19] MEDS: Ferrous Sulfate 325 MG TAB PO (08:51)
[2020-02-19] MEDS: Carvedilol 25 MG TAB 50 MG PO ×2 (08:52→16:45)
[2020-02-19] MEDS: Apixaban 5 MG TAB PO ×2 (08:52→20:03)
[2020-02-19] MEDS: Normal Saline Flush 10 ML SYR IVP (08:53)
[2020-02-19] MEDS: Normal Saline Flush 10 ML SYR 20 ML IVP ×2 (09:51→20:04)
--- NOTE | 2020-02-19 11:07 | CMPROGNOTE_ITS ---
Care Management Progress Note S/O: CHERYL spoke with Aster of admissions at [facility]. She advised that she had outreached to the SALES SUPPORT CONSULTANT to prepare contract for Terrence's admission and possible return to [facility], if needed. She requested additional clinical information which CM faxed. CM will continue to provide updated clinicals as available and await notification of determination. Aster provided contract, which CM reviewed with Calista and Olayinka. Olayinka, SALES SUPPORT CONSULTANT signed contract, CM returned to Aster. The plan will be for Terrence to return to [facility] after he has completed acute rehab at [facility], if needed for disposition support and attainment of LTC Medicaid. CHERYL reviewed discharge plan with Terrence, who expressed gratitude for his admission to [facility]. He requested this headline writer notify his brother and request Lorne bring some additional belongings. Lorne also expressed gratitude and agreed to bring some personal clothing for Terrence, and his home medication, Farxiga if he is able to find it in Terrence's home. Terrence reported applying for [facility] through [facility], he remembered working closely with Griselda Appiah, and encouraged this headline writer to seek financial info rmation for LTC Medicaid through Griselda. CHERYL will follow up with Griselda to begin process of applying for LTC Medicaid. A: Bonifacio is a 54 year old male admitted to [facility] on 02/14/20 for ataxia. P: Bonifacio will transfer to [facility] acute rehab tomorrow, 02/19/19@1100. CHERYL coordinated transport with RCT private shag truck driver at [facility] advisement.
--- NOTE | 2020-02-19 11:07 | PDOC.CMPRO ---
Care Management Progress Note S/O: CHERYL spoke with Aster of admissions at [facility]. She advised that she had outreached to the MAILROOM COORDINATOR to prepare contract for Terrence's admission and possible return to [facility], if needed. She requested additional clinical information which CM faxed. CM will continue to provide updated clinicals as available and await notification of determination. Aster provided contract, which CM reviewed with Calista and Olayinka. Olayinka, MAILROOM COORDINATOR signed contract, CM returned to Aster. The plan will be for Terrence to return to [facility] after he has completed acute rehab at [facility], if needed for disposition support and attainment of LTC Medicaid. CHERYL reviewed discharge plan with Terrence, who expressed gratitude for his admission to [facility]. He requested this repairer typewriter notify his brother and request Lorne bring some additional belongings. Lorne also expressed gratitude and agreed to bring some personal clothing for Terrence, and his home medication, Farxiga if he is able to find it in Terrence's home. Terrence reported applying for [facility] through [facility], he remembered working closely with Griselda Appiah, and encouraged this repairer typewriter to seek financial information for LTC Medicaid through Griselda. CHERYL will follow up with Griselda to begin process of applying for LTC Medicaid. A: Bonifacio is a 54 year old male admitted to [facility] on 02/14/20 for ataxia. P: Bonifacio will transfer to [facility] acute rehab tomorrow, 02/19/19@1100. CHERYL coordinated transport with RCT private regional driver at [facility] advisement.
--- NOTE | 2020-02-19 11:19 | PGE_ITS ---
Date of Service Date of service: 02/19/20 Time of Service: 11:19 Assessment and Plan Assessment and plan (1) CVA (cerebral vascular accident): Status: Chronic Assessment and plan: Continue Eliquis 5 mg p.o. twice daily along with atorvastatin 10 mg every afternoon. Continue with PT and OT. Case management is making referrals to rehab center. Qualifiers: CVA mechanism: thrombosis Precerebral and cerebral artery: unspecified cerebral artery Qualified Code(s): I63.30 - Cerebral infarction due to thrombosis of unspecified cerebral artery (2) CIDP (chronic inflammatory demyelinating polyneuropathy): Status: Acute Assessment and plan: Continue methylprednisolone 1000 mg IV daily x5 days then methylprednisolone 1000 mg IV once a week for 4 weeks. Continue physical therapy and Occupational Therapy as above. (3) Ataxia: Status: Acute Assessment and plan: multifactorial including alcohol, multiple strokes including cerebellar strokes. Therapy as above. (4) Cardiomyopathy: Status: Chronic Assessment and plan: Continue high-dose lisinopril along with spironolactone and carvedilol. Consider switching his lisinopril to Entresto at discharge. Qualifiers: Cardiomyopathy type: unspecified Qualified Code(s): I42.9 - Cardiomyopathy, unspecified (5) Atrial fibrillation: Status: Acute Assessment and plan: Continue carvedilol for rate control. Rhythm remains in normal sinus rhythm. At this point we will discontinue further telemetry monitoring unless his pulse becomes tachycardic or irregular. Continue Eliquis for stroke prevention. No plans at this time to proceed with GRAZYNA. 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 Dr. Jeronimo is consulting with [facility] neurology regarding further work-up with paraneoplastic panel and anti-myelin associated antibody. I will proceed w/ urine PEP. I will also discuss w/ heme/onc as to whether he ought to have BM bx. However, I will await, Dr. Jeronimo[place] discussion w/ [place] [facility] (7) Hypertension: Status: Chronic Assessment and plan: Carvedilol dose has been increased to 50 mg twice a day. He had a spironolactone to his regimen along with lisinopril. We will continue to monitor his blood pressure. Change to Entresto as an outpatient and discontinue lisinopril upon discharge. Qualifiers: Hypertension type: essential hypertension Qualified Code(s): I10 - Essential (primary) hypertension (8) Weight loss: Status: Chronic Assessment and plan: Weight loss appears to have occurred over several months since the summer 2019. This most likely secondary to inability to care for self and feed self rather than the underlying disease process. Patient needs assisted living and feeding. chest/abd/pelvis CT negative for obvious source, will need further outpatient workup: ie colonoscopy, etc. (9) Discharge planning issues: Status: Acute Assessment and plan: case management following. anticipate placement need. I am recommending referral to skilled rehab center Subjective Subjective Interval history since last seen: Patient continues to improve daily. Methylprednisolone 1000 mg IV daily has been added. This will be continued daily for 3 days and then patient will receive 1000 mg once a week for 4 weeks. Case management is looking into referral to a skilled rehab facility such as [facility] or [facility]. However the patient needs to be able to to lerate 4 hours of physical therapy a day and furthermore if he plateaus in his therapy they want reassurance that we would take him back into our swing bed program. Patient states that prior to this hospitalization was having tingling and burning in his hands which she still gets when he uses his hands to push himself up of the chair. This seems to come and go. This is part of his polyneuropathy. I will give him a trial of gabapentin 100 mg 3 times daily. I went over his echocardiogram results and told him that I spoke with his dance costume designer Dr. Dejan Talbot who is in agreement in my management of his cardiomyopathy. Exam Narrative Exam Narrative: Middle-age male alert and oriented person place time circumstance sitting up in his chair watching TV. Lungs few end expiratory wheezes no rhonchi or rales. Heart is regular rate and rhythm. Neuro exam he continues to demonstrate increased strength particularly in his proximal muscles of his legs and his arms. Still has some issues with fine motor control in his hands but even that is getting better particularly in his left hand compared to his right hand. Objective Last Vital Signs Temp 36.8 C 02/19/20 11:14 Pulse 69 02/19/20 11:14 Resp 19 02/19/20 11:14 BP 143/89 H 02/19/20 11:14 Pulse Ox 98 02/19/20 11:14 Laboratory Results - last 24 hr 02/13/20 16:35 Whole Bld Vitamin B1 154
--- NOTE | 2020-02-19 13:48 | PTTR_ITS ---
Date of service: 02/19/20 Time of Service: 13:48 PT Notes Visit Reasons: Ataxia Inpatient Physical Therapy Treatment Note [facility] Date: 02/19/2020 PRECAUTIONS: Fall. Standard. Activity as tolerated. SUBJECTIVE: Agreeable to afternoon session. OBJECTIVE: General observation: Redness seen on R groin area where patient spilled warm coffeee. Nursing staff monitoring and treating. PAIN: None reported BED MOBILITY/TRANSFERS Sit-stand: SBA Stand-sit: SBA Chair-bed: SBA GAIT: Assistive Device: None Weight bearing: Full Assist: CGA. Patient's R hand resting onto PT's hand. Distance: 80 feet + 80 feet Deviation: Mild steppage noted on R LE. Minimal pressure felt from patient's R hand throughout. Hip flexion/knee flexion decreased on L side during swing, increased on R due to mild equinus of R foot. Mild ataxia seen. THERA EX: Guided patient with performance of exercises to maximize B UE/LE flexibility and range per flow sheet. NUStep x 15 minutes with resistance of 7 and with R hand secured by elastic netting gauze onto R handle. No increase in SOB nor complaints of pain. THERA ACT: Facilitated trunk and B LE major muscle group recruitment with static standing activity while doing B UE range of motion. Toe tapping to increase range and awareness of DF in R. Stimulated stand<>squat, squat<>scoot to R and then L while on mat table to waork on B UE/LE strength and movement transitions. ASSESSMENT: Continued improvement in B UE/LE strength, slow improvement with type disk quality control supervisor in B sides but remains lacking grasp skills which limits assistive device use. B UE/LE strength improving. Balance skills/awareness increasing. Cognitive level, motivation, and alertness level limits activity focus/performance. PLAN: Will require continued skilling for exercise/strength progression, balance retraining, neuro re-education, and functional mobility retraining. DISCHARGE RECOMMENDATION: Patient will benefit from acute rehabilitation vs. halfway facility placement for continued skilled physical therapy services in order to progress mobility level, strength, and balance in preparation for a safe discharge to home. He will require a hand specialist in order to maximize hand dexterity for increased efficiency with mobility aid management. TREATMENT CODE/TIME: 32921 x 55 minutes, 13455 x 25 minutes beginning at 13:48 PM.
[2020-02-19] MEDS: Gabapentin 100 MG CAP PO ×2 (14:07→20:03)
--- NOTE | 2020-02-19 15:11 | PTTR_ITS ---
Date of service: 02/19/20 Time of Service: 11:45 PT Notes Visit Reasons: Ataxia Inpatient Physical Therapy Treatment Note [facility] Date: 02/19/2020 PRECAUTIONS:Fall SUBJECTIVE: Terrence is agreeable to participating in PT. OBJECTIVE: PAIN: No c/o pain BED MOBILITY/TRANSFERS Sit-stand: SBA Stand-sit: SBA GAIT Assistive Device: FWW with R platform SILL WORKER x1 Weight bearing: Full Assist: CGA Distance: 6' with FWW with R PF 250' with SILL WORKER x1 Deviation: Slow pace, R foot drop ASSESSMENT: Patient continues to demonstrate unsteady gait, requiring SILL WORKER x1 and CGA. He is unable to maintain appropriate telecommunications network engineer on FWW with platform on R, as well as on SPC. PLAN: Continue with global strengthening and gait training, as well as balance retraining. TREATMENT CODE/TIME: 45 minutes; 72833 x3
--- NOTE | 2020-02-19 17:16 | W.PM.PROGNOT ---
Date of Service Date of service: 02/19/20 Time of Service: 17:16 Assessment and Plan Assessment and plan (1) CVA (cerebral vascular accident): Status: Chronic Qualifiers: CVA mechanism: thrombosis Precerebral and cerebral artery: unspecified cerebral artery Qualified Code(s): I63.30 - Cerebral infarction due to thrombosis of unspecified cerebral artery (2) CIDP (chronic inflammatory demyelinating polyneuropathy): Status: Acute (3) Weight loss: Status: Chronic (4) Weakness: Status: Acute (5) Ataxia: Status: Acute (6) Atrial fibrillation: Status: Acute Qualifiers: Atrial fibrillation type: paroxysmal Qualified Code(s): I48.0 - Paroxysmal atrial fibrillation (7) Alcohol abuse: Status: Chronic Assessment and plan: Mr. Herrera is a 54 year-old, right-handed man who was admitted with failure to thrive/inability to be cared for at home: #1. Subacute generalized weakness, worse distally. He was noted to have a severe PN on NCS and by exam. 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 LP with elevated protein which supports dx. SPEP abnormal with iGM kappa vs gamma seen. Will discuss need for anti-MAG ab and paraneoplastic panel with [facility] Neuro (unclear if IVIG will affect results). He has had some improvement since starting IVIG, mainly proximally, but now able to move fingers which he could not do at admission. Given profound weakness, treated with IV steroids as well. D/c to rehab tomorrow. Ok to give 3rd dose tomorrow and leave it at that - no need for 5 full doses. Long-term treatment is to continue IVIG 0.4g/kg daily x 5 days every 6 weeks for the next 3-6 months after which we can start spacing out treatments pending response. Next 5 day treatment to be week of 03/30/20. He should keep his [facility] Neurology outpatient appointment in March. #2. Acute and chronic stroke findings. Acute punctate ischemia in multiple vascular territory concerning for cardioemoblic phenomena. History of p. atrial fibrillation s/p ablation x 2. Updated TTE with normal EF and LA. No afib on tele. CUS with no stenosis. Per hospitalist covno with cardiology, he needs life long anticoagulation. Thus no need for GRAZYNA as further work-up. Continue apixaban 5mg BID with aspirin 81mg daily for stroke prevention. No statin due to significant weakness. #3. Confusion/cognitive loss. This could be secondary to apparent cerebrovascular disease seen on head imaging. A Wernekce-Korsokoff's remains in the differential given known ETOH abuse and complicated by significant weight loss. Completed 5 days of high-dose thiamine . Ok to transition to maintenance dose 100mg daily. Vascular treatment as above. #4. SW/CM. Patient needs assistance with applying for disabilty, unemployment, and related services. He should follow-up in the [facility] Neurology clinic in ~3months (will be seen at [facility] in interim). Subjective Subjective Interval history since last seen: I was able to see Terrence again today. He is s/p 5/5 of IVIG. Day 2 of high dose IV steroids. No changes overnight. He has been accepted at [facility] for inpatient rehab. Neuropathy Work-up: -NCS/EMG (02/13/20): absent RUE motor and sensory response. Diffuse neuropathic changes on EMG. -Labs: normal CBC, CMP, TSH, UDS, ETOH -CT C/A/P (02/13/20): no acute/concerning findings. Stable liver lesion compared to 2018. -A1c 5.2, B12 631, HIV neg -SPEP abnml with too small to quant M-spike. BARRY reflexed: IgM [place] that migrates in the gamma region -LP (02/14/20): 0 WBC, 2 RBC, 87 protein, 53 glucose -B1 154 Stroke Work-up: -CT head (02/13/20): no acute findings. numerous old infarcts R casie, L brachium pontis, L thalamus x2, R BG x 2 (one rather large for a lacune), R periventricular, and then several small scattered T2 holes in the centrum semiovale/subcortex bilaterally. Mild generalized atrophy. -MRI brain (02/14/20): multiple areas of acute punctate ischemia in the R cerebellum, L brachium pontic, R casie, R anterior temporal lobe, and R interior frontal lobe near the ventricle. Evidence of prior infarcts as detailed in [facility] report. Severe chronic vascular disease changes. Also evidence for a few remote scattered microhemorrhages with a notable one in the right cerebellum. -TTE (02/17/20): EF 65%, no wall motion abnormalities. LA normal. No bubble study. -tele: no afib -CUS: no significant stenosis Exam Narrative Exam Narrative: Physical Exam: Constitutional: Patient of apparent stated age, thin/cachectic, no acute distress Resp: some wheezing again today Neuro: MS/Language/Speech: Alert, oriented, clear language (fluency and comprehension), no dysarthria Motor: Significant atrophy of the hand intrinsics with some ulnar clawing of the right hand vs contracture. Deltoid 5/5 bilaterally. R biceps 4, L 4++. Triceps R 4-, L 4+. FDI 3/5 bilaterally. R ABP 3+/5, L 4-/5. Hip flexors R 4++, L 4++. Ankle dorsiflexion 2-3-/5 bilaterally. Objective Last Vital Signs Temp 36.3 C L 02/19/20 15:28 Pulse 97 H 02/19/20 16:44 Resp 18 02/19/20 15:28 BP 126/97 H 02/19/20 16:44 Pulse Ox 98 02/19/20 15:28
[2020-02-19] MEDS: Atorvastatin 10 MG TAB PO (20:03)
[2020-02-19] MEDS: Magnesium Oxide 400 MG TAB PO (21:09)
[2020-02-20] MEDS: Normal Saline Flush 10 ML SYR IVP (05:39)
[2020-02-20] MEDS: Normal Saline Flush 10 ML SYR 20 ML IVP ×2 (07:36→20:29)
[2020-02-20] MEDS: Pantoprazole 40 MG TABCR PO ×2 (07:37→20:29)
[2020-02-20] MEDS: Aspirin E.C. 81 MG TABEC PO (07:37)
[2020-02-20] MEDS: Spironolactone 25 MG TAB PO (07:38)
[2020-02-20] MEDS: Carvedilol 25 MG TAB 50 MG PO ×2 (07:38→16:17)
[2020-02-20] MEDS: Sucralfate 1 GM TAB PO ×4 (07:38→21:22)
[2020-02-20] MEDS: Apixaban 5 MG TAB PO ×2 (07:38→20:29)
[2020-02-20] MEDS: Lisinopril 20 MG TAB 40 MG PO (07:38)
[2020-02-20] MEDS: Gabapentin 100 MG CAP PO ×3 (07:38→20:29)
[2020-02-20] MEDS: Ferrous Sulfate 325 MG TAB PO (07:39)
[2020-02-20 07:58] VITALS: BP 160/110; PULSE 72; RESP 19; TEMP 36.7; O2SAT 98
--- NOTE | 2020-02-20 08:00 | DI.CT_ITS ---
EXAM: CT HEAD - STROKE PROTOCOL CLINICAL HISTORY: acute mental status change, hx CVA. TECHNIQUE: Imaging Protocol: Axial computed tomography images with coronal and sagittal reformatted images were created and reviewed COMPARISON: CT CT HEAD CERVICAL SPINE WO from 02/13/2020 FINDINGS: There is moderate generalized cerebral atrophy and there are patchy areas of decreased attenuation in periventricular white matter bilaterally consistent with microvascular ischemic changes. There are small bilateral lacunar infarcts noted. No evidence of acute intracranial hemorrhage, mass effect, or midline shift. The orbital structures are unremarkable. The temporal bone structures appear intact. Calvarium: Normal. Visualized Paranasal sinuses/Mastoids: Clear. IMPRESSION: No evidence of acute intracranial process. No gross interval change from February 12 study. RADIATION DOSE DELIVERED: 733.35mGy.cm Total DLP 733.35mGy.cm Total DLP DATA REPOSITORY: All CT scans at this facility are submitted to the National Radiology Data Registry (NRDR) Dose Index Registry (DIR) with the [employer] (A[employer]). RADIATION OPTIMIZATION: All CT scans at this facility use at least one of these dose optimization te chniques: automated exposure control; mA and/or kV adjustment per patient size (includes targeted exa ms where dose is matched to clinical indication); or iterative reconstruction.
--- NOTE | 2020-02-20 10:21 | W.PM.PROGNOT ---
Date of Service Date of service: 02/20/20 Time of Service: 10:22 Assessment and Plan Assessment and plan (1) Transient confusion: Status: Acute Assessment and plan: It is unclear whether the episode was real or not but talking with his nurse it sounds like it was a very real event. I cannot discount that he may have been fooling around with the nurse and making a joke out of it. It also could be that he is trying to mask this at the present time by presenting is being coherent. I think it is a little early in his steroid course to be exhibiting steroid-induced metabolic encephalopathy as the event happened shortly after the infusion of the methylprednisolone. Nevertheless I think it bears watching him for 24 hours before discharging him to a rehab facility. At this point he has had 3 days worth of corticosteroids I am going to stop the high-dose steroids. Per my discussion with Dr. Jeronimo he is supposed to have 5 days of IV corticosteroids every 6 weeks for 6 months. (2) CVA (cerebral vascular accident): Status: Chronic Assessment and plan: Continue Eliquis 5 mg p.o. twice daily along with atorvastatin 10 mg every afternoon. Continue with PT and OT. Patient has been referred to [facility] and was accepted for transfer was delayed as noted above.. Qualifiers: CVA mechanism: thrombosis Precerebral and cerebral artery: unspecified cerebral artery Qualified Code(s): I63.30 - Cerebral infarction due to thrombosis of unspecified cerebral artery (3) CIDP (chronic inflammatory demyelinating polyneuropathy): Status: Acute Assessment and plan: Methylprednisolone has been discontinued. I will talk with Dr. Jeronimo about continuing treatments. Continue physical therapy and Occupational Therapy as above. (4) Ataxia: Status: Acute Assessment and plan: multifactorial including alcohol, multiple strokes including cerebellar strokes. Therapy as above. (5) Cardiomyopathy: Status: Chronic Assessment and plan: Continue high-dose lisinopril along with spironolactone and carvedilol. Consider switching his lisinopril to Entresto at discharge. Qualifiers: Cardiomyopathy type: unspecified Qualified Code(s): I42.9 - Cardiomyopathy, unspecified (6) Atrial fibrillation: Status: Acute Assessment and plan: Continue carvedilol for rate control. Rhythm remains in normal sinus rhythm. At this point we will discontinue further telemetry monitoring unless his pulse becomes tachycardic or irregular. Continue Eliquis for stroke prevention. No plans at this time to proceed with GRAZYNA. Qualifiers: Atrial fibrillation type: paroxysmal Qualified Code(s): I48.0 - Paroxysmal atrial fibrillation (7) Monoclonal gammopathy: Status: Acute Assessment and plan: SPEP demonstrated a kappa light chain monoclonal gammopathy. Dr. Jeronimo is consulting with [facility] neurology regarding further work-up with paraneoplastic panel and anti-myelin associated antibody. I will proceed w/ urine PEP. I will also discuss w/ heme/onc as to whether he ought to have BM bx. However, I will await, Dr. Jeronimo's discussion w/ neuro at [facility]. (8) Hypertension: Status: Chronic Assessment and plan: Carvedilol dose has been increased to 50 mg twice a day. He had a spironolactone to his regimen along with lisinopril. We will continue to monitor his blood pressure. Change to Entresto as an outpatient and discontinue lisinopril upon discharge. Qualifiers: Hypertension type: essential hypertension Qualified Code(s): I10 - Essential (primary) hypertension (9) Weight loss: Status: Chronic Assessment and plan: Weight loss appears to have occurred over several months since the summer 2019. This most likely secondary to inability to care for self and feed self rather than the underlying disease process. Patient needs assisted living and feeding. chest/abd/pelvis CT negative for obvious source, will need further outpatient workup: ie colonoscopy, etc. (10) Discharge planning issues: Status: Acute Assessment and plan: case management following. Transfer to [facility] on hold for 24 hours. Subjective Subjective Interval history since last seen: Patient's nurse reports that he was confused this morning. Unable to answer her questions about his name or where he was at and that he was just sit and stare at the toilet when he got up to the bathroom. Because of his prior history of multiple CVAs and being on Eliquis he was sent for stat CT scan of the head without contrast to rule out an intracranial bleed. Noncontrast CT scan of the head showed no acute changes. When he came back to the room I evaluated him and he seems to be acting totally appropriate. He is oriented to person place time and circumstance. When I asked him if he was having any visual or auditory hallucinations he laughed and said no. When I asked him why the nurse thought he was confused he indicated to me he was just playing with her. I explained to him that this is not a choking matter and that I have some concerns that perhaps the high-dose methylprednisolone may be causing some confusion. At this point I am to discontinue the high-dose methylprednisolone. He has had 3 days of corticosteroids. Unfortunately this is necessitated canceling his transfer to [facility] for today. If his mental status remains clear throughout the rest of today he could potentially be a transfer to [facility] tomorrow. Exam Narrative Exam Narrative: Patient is alert and oriented x3 Lungs are clear to auscultation Heart regular rate and rhythm Abdomen is soft nondistended nontender Neuro exam speech is clear and coherent he has no facial asymmetry no dysarthric speech. Extremities show improvement in his proximal muscle strength. He is able to raise his arms up over gravity above his head and even able to resist my pulling his arms down to some degree although the right arm is weaker than the left and does give way when I give him some added resistance. As far as distal muscle strength he still somewhat clumsy but the left hand is improving. I think his right-sided deficits are related to his strokes. With respect to his legs proximal muscle strength again is improving faster than the distal muscle groups. Objective Last Vital Signs Temp 36.7 C 02/20/20 07:58 Pulse 72 02/20/20 07:58 Resp 19 02/20/20 07:58 BP 160/110 H 02/20/20 07:58 Pulse Ox 98 02/20/20 07:58
--- NOTE | 2020-02-20 12:50 | CMPROGNOTE_ITS ---
Care Management Progress Note S/O: Discharge delay due to concerns around Terrence's presentation this morning, per RN and MD report Bonifacio had a period of confusion. He will be monitored through the day to observe his mental status. CM spoke with Aster of admissions at [facility], who advised if Terrence remains stable through the day, he could possibly still admit to their facility tomorrow. CM will follow up with Aster at the beginning of the day tomorrow to ensure he is medically ready, and the facility is able to accept him in transfer. Terrence reported applying for [place]AM through [facility], he remembered working closely with Griselda Appiah, and encouraged this marketing underwriter to seek financial information for LTC Medicaid through Griselda. CHERYL attempted to follow up with Griselda to begin process of applying for LTC Medicaid, and was advised that Griselda is no longer an insurance navigator. CHERYL completed long term acute care registered nurse medicaid application, collected Terrence's signature and submitted to [facility]. A: Bonifacio is a 54 year old male admitted to [facility] on 02/14/20 for ataxia. P: CM continues to coordinate Bonifacio will transfer to [facility] acute rehab tomorrow. CM will coordinate transport with [facility] for facility to facility transfer.
--- NOTE | 2020-02-20 15:23 | PTTR_ITS ---
Date of service: 02/20/20 Time of Service: 11:15 PT Notes Visit Reasons: Ataxia Inpatient Physical Therapy Treatment Note [facility] Date: 02/20/2020 PRECAUTIONS: Fall SUBJECTIVE: Terrence is agreeable to participating in PT. Terrence discusses being discouraged by his current functional limitations. 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 OBJECTIVE: PAIN: No complaints of pain BED MOBILITY/TRANSFERS Sit-stand: SBA Stand-sit: SBA GAIT Assistive Device: OFFICE MACHINE PUNCH OPERATOR in a.m.; OFFICE MACHINE PUNCH OPERATOR x2 in p.m. Weight bearing: Full Assist: CGA in a.m.; CGA x2 in p.m. Distance: 200' +350' in a.m.; 150' x2 in p.m. Deviation: Path deviation, right foot drop, LOB x2 requiring min a for recovery due to distraction in a.m.; patient donned sneakers in p.m. causing LOB x3 requiring min a for recovery as well as constant cueing for increased step height on right for safety THEREX: Patient completed a lower extremity strengthening program, in both a.m. and p.m., while standing on Airex pad with B UE support, as per flow sheet. Encouraged focus on B pedigree researcher strength with all exercises. Patient also completes NuStep biking on level 7 x 10 minutes, requiring SBA and occasionally min a to recover R hand on handle due to weak pedigree researcher. Patient also performs functional step ups on 4 step x5 each. NEURO RE-ED: Patient was instructed in a dynamic balance retraining program, including lateral high step and walking lunges, requiring CGA and B UE support for safety. STAIRS: Up/down 3x4 and 2x6 using B rails and a step to pattern with CGA ASSESSMENT: Patient tolerated session without complaint. He required several seated rests between activities due to fatigue. He continues to demonstrate path deviation and LOB with gait training. He is still unable to grasp handle of SPC or FWW for effective use with gait training. PLAN: Continue with balance reeducation, gait training, and global strengthening for improved mobility TREATMENT CODE/TIME: Session 1: 45 minutes; 24128, [id number] x2 Session 2: 55 minutes; 65127, [id number] x3
[2020-02-20 15:39] VITALS: BP 156/95; PULSE 60; RESP 18; TEMP 36.3; O2SAT 98
--- NOTE | 2020-02-20 16:58 | W.PM.PROGNOT ---
Date of Service Date of service: 02/20/20 Time of Service: 16:59 Assessment and Plan Assessment and plan (1) Transient confusion: Status: Acute (2) CVA (cerebral vascular accident): Status: Chronic Qualifiers: CVA mechanism: thrombosis Precerebral and cerebral artery: unspecified cerebral artery Qualified Code(s): I63.30 - Cerebral infarction due to thrombosis of unspecified cerebral artery (3) CIDP (chronic inflammatory demyelinating polyneuropathy): Status: Acute (4) Weight loss: Status: Chronic (5) Weakness: Status: Acute (6) Ataxia: Status: Acute (7) Atrial fibrillation: Status: Acute Qualifiers: Atrial fibrillation type: paroxysmal Qualified Code(s): I48.0 - Paroxysmal atrial fibrillation (8) Alcohol abuse: Status: Chronic Assessment and plan: Mr. Herrera is a 54 year-old, right-handed man who was admitted with failure to thrive/inability to be cared for at home: #1. Subacute generalized weakness, worse distally. He was noted to have a severe PN on NCS and by exam. 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 LP with elevated protein which supports dx. SPEP abnormal with iGM kappa vs gamma seen. Will discuss need for anti-MAG ab and paraneoplastic panel with [facility] Neuro (unclear if IVIG will affect results). He has had some improvement since starting IVIG, mainly proximally, but now able to move fingers which he could not do at admission. Given profound weakness, treated with IV steroids as well x 3 days. Event this am. See description below. I agree stopping steroids is the right thing to do. D/c to rehab tomorrow. Long-term treatment is to continue IVIG 0.4g/kg daily x 5 days every 6 weeks for the next 3-6 months after which we can start spacing out treatments pending response. Next 5 day treatment to be week of 03/30/20. He should keep his [facility] Neurology outpatient appointment in March. #2. Acute and chronic stroke findings. Acute punctate ischemia in multiple vascular territory concerning for cardioemoblic phenomena. History of p. atrial fibrillation s/p ablation x 2. Updated TTE with normal EF and LA. No afib on tele. CUS with no stenosis. Per hospitalist covno with cardiology, he needs life long anticoagulation. Thus no need for GRAZYNA as further work-up. Continue apixaban 5mg BID with aspirin 81mg daily for stroke prevention. No statin due to significant weakness. #3. Confusion/cognitive loss. This could be secondary to apparent cerebrovascular disease seen on head imaging. A Wernekce-Korsokoff's remains in the differential given known ETOH abuse and complicated by significant weight loss. Completed 5 days of high-dose thiamine . Ok to transition to maintenance dose 100mg daily. Vascular treatment as above. Will plan to perform cognitive testing as an outpatient. #4. Spell this am. Not sure what to make of this. It doesn't sound like seizure and too short to be ADR from steroids. Behavioral? Agree with d/c to rehab if stable. #5. SW/CM. Patient needs assistance with applying for disabilty, unemployment, and related services. He should follow-up in the [facility] Neurology clinic in ~3months (will be seen at [facility] in interim). Subjective Subjective Interval history since last seen: I was able to see Terrence again today. He is s/p 5/5 of IVIG. Day 3 of high dose IV steroids. This am had an event. Nurse witnessed odd behavior - laughing at the wall, confused, could only remember his name. Symptoms lasted only a few minutes. Back to normal once hospitalist arrived. No staring. No post-ictal symptoms. When asked about it, he says that the thought the nurse was joking and so he was joking around with her... Apparently has had similar behavior at home per brother. PT overheard patient mumble not if I am crazy again when told plan is to go to rehab tomorrow. Underwent stat CT head this am because of event. I reviewed the images personally. No acute findings. Neuropathy Work-up: -NCS/EMG (02/13/20): absent RUE motor and sensory response. Diffuse neuropathic changes on EMG. -Labs: normal CBC, CMP, TSH, UDS, ETOH -CT C/A/P (02/13/20): no acute/concerning findings. Stable liver lesion compared to 2018. -A1c 5.2, B12 631, HIV neg -SPEP abnml with too small to quant M-spike. BARRY reflexed: IgM [place] that migrates in the gamma region -LP (02/14/20): 0 WBC, 2 RBC, 87 protein, 53 glucose -B1 154 Stroke Work-up: -CT head (02/13/20): no acute findings. numerous old infarcts R casie, L brachium pontis, L thalamus x2, R BG x 2 (one rather large for a lacune), R periventricular, and then several small scattered T2 holes in the centrum semiovale/subcortex bilaterally. Mild generalized atrophy. -MRI brain (02/14/20): multiple areas of acute punctate ischemia in the R cerebellum, L brachium pontic, R casie, R anterior temporal lobe, and R interior frontal lobe near the ventricle. Evidence of prior infarcts as detailed in [facility] report. Severe chronic vascular disease changes. Also evidence for a few remote scattered microhemorrhages with a notable one in the right cerebellum. -TTE (02/17/20): EF 65%, no wall motion abnormalities. LA normal. No bubble study. -tele: no afib -CUS: no significant stenosis Exam Narrative Exam Narrative: Physical Exam: Constitutional: Patient of apparent stated age, thin/cachectic, no acute distress Resp: some wheezing again today Neuro: MS/Language/Speech: Alert, oriented, clear language (fluency and comprehension), no dysarthria Motor: Significant atrophy of the hand intrinsics with some ulnar clawing of the right hand vs contracture. Deltoid 5/5 bilaterally. R biceps 4, L 4++. Triceps R 4-, L 4+. FDI 3/5 bilaterally. R ABP 3+/5, L 4-/5. Hip flexors R 4++, L 4++. Ankle dorsiflexion 2/5 on right and 3/5 on left. Objective Last Vital Signs Temp 36.3 C L 02/20/20 15:39 Pulse 60 02/20/20 15:39 Resp 18 02/20/20 15:39 BP 156/95 H 02/20/20 15:39 Pulse Ox 98 02/20/20 15:39
[2020-02-20] MEDS: Atorvastatin 10 MG TAB PO (20:29)
[2020-02-20] MEDS: Magnesium Oxide 400 MG TAB PO (21:22)
[2020-02-20 23:59] VITALS: BP 154/78; PULSE 63; RESP 20; TEMP 36.3; O2SAT 98
[2020-02-21 05:37] VITALS: BP 145/88; PULSE 60; RESP 18; TEMP 36; O2SAT 95
[2020-02-21 06:43] LABS: BUN 24 mg/dL (7-18); Calcium 8.9 mg/dL (8.5-10.1); Chloride 105 mmol/L (98-107); Glucose 100 mg/dL (74-106); Potassium 3.8 mmol/L (3.5-5.1); Sodium 139 mmol/L (136-145)
[2020-02-21 07:22] VITALS: BP 167/94; PULSE 64; RESP 19; TEMP 36.7; O2SAT 98
--- NOTE | 2020-02-21 07:52 | OTTR_ITS ---
Date of service: 02/21/20 Time of Service: 07:35 Occupational Therapy Notes Occupational Therapy Inpatient Treatment Note Date: 02/21/20 PRECAUTIONS: fall, standard, Full SUBJECTIVE: Pt was lying in bed when OT arrived. He was resistant to performance of ADLs although agreed to washing his face and (B) UE. He states that he was woken up multiple times throughout the night and washed up. OBJECTIVE: PAIN:no c/o pain FUNCTIONAL MOBILITY Rolling L/R: (I) BATHING: Lying in bed, pt was (I) with washing face and with vc throughout washed his (B) UE DRESSING: Pt refused at this time, reporting that he has washed himself multiple times this morning and already changed his gown. EATING: (I) with holding cup and bringing to mouth to drink his coffee, He does require a handled cup in order to perform this (I). ASSESSMENT/PLAN: Pt is not receptive to performing his ADLs fully today, he was able to wash his face and (B) UE. He required max (A) for opening up the washcloth as well as mod (A) for placing on his body due to decreased gross and fine motor control of (B) UE. TREATMENT CODES/TIME: 10906, 15 minutes (07:35) Daisy Cortez OTR/[facility]
[2020-02-21] MEDS: Aspirin E.C. 81 MG TABEC PO (08:18)
[2020-02-21] MEDS: Gabapentin 100 MG CAP PO (08:19)
[2020-02-21] MEDS: Carvedilol 25 MG TAB 50 MG PO (08:19)
[2020-02-21] MEDS: Lisinopril 20 MG TAB 40 MG PO (08:19)
[2020-02-21] MEDS: Sucralfate 1 GM TAB PO ×2 (08:19→11:21)
[2020-02-21] MEDS: Spironolactone 25 MG TAB PO (08:19)
[2020-02-21] MEDS: Pantoprazole 40 MG TABCR PO (08:19)
[2020-02-21] MEDS: Apixaban 5 MG TAB PO (08:20)
[2020-02-21] MEDS: Ferrous Sulfate 325 MG TAB PO (08:20)
[2020-02-21] MEDS: Normal Saline Flush 10 ML SYR 20 ML IVP (08:20)
[2020-02-21 08:22] VITALS: O2SAT 98
--- NOTE | 2020-02-21 09:58 | DSE_ITS ---
Date of service: 02/21/20 Time of Service: 09:58 DS: Diagnosis Discharge Diagnosis (1) Transient confusion: Status: Acute (2) CVA (cerebral vascular accident): Status: Chronic (3) CIDP (chronic inflammatory demyelinating polyneuropathy): Status: Acute (4) Weight loss: Status: Chronic (5) Weakness: Status: Acute (6) Ataxia: Status: Acute (7) Atrial fibrillation: Status: Acute (8) Alcohol abuse: Status: Chronic Discharge Plan Disposition Patient Disposition: OTHER Condition: Serious Discharge Details Reason For Visit: ATAXIA Admit Date/Time: 02/14/20 15:03 Admit Provider: Armand Rutledge Attending Provider: Armand Rutledge Primary Care Provider: Charley Joseph Hospital Course Hospital Course: This is a 54 year old male with history of alcohol abuse who was referred to the ED with failure to thrive and inability to care for himself at home after presenting for a neurology appointment for his symptoms which were most concerning for CIDP. His work up included CT scans, MRI brain as well as a cardiac work up. HIs symptoms started slowly improving after starting IVIG. Long-term treatment is to continue IVIG 0.4g/kg daily x 5 days every 6 weeks for the next 3-6 months after which can be spaced out by neurology pending response. Next 5 day treatment to be week of 03/30/20. He should keep his [facility] Neurology outpatient appointment scheduled in March. His imaging showed acute punctate ischemia in multiple vascular territory concerning for cardioemoblic phenomena. He has a history of paroxysmal atrial fibrillation s/p ablation x 2 and had no evidence of atrial fibrillation on telemetry while hospitalized. TTE showed normal left ventricular function with no significant valvular disease. Cartotid ultrasound with no stenosis. He will need life long anticoagulation per cardiology, thus no need for GRAZYNA as further work-up. He should continue apixaban 5mg BID with aspirin 81mg daily for stroke prevention. He has been medically stable and is ready for discharge to rehabilitation. He has been eating and drinking and bowels and bladder functioning. He will be discharged to [facility] for acute rehabilitation. discharge discussed with Dr Maxwell. Home Meds and New Rx's Prescriptions: New sucralfate 1 gram Tablet 1 g PO AC & HS Qty: 120 RF: 0 pantoprazole 40 mg Tablet,Delayed Release (Dr/Ec) 40 mg PO BID@0730,2000 Qty: 60 RF: 0 gabapentin 100 mg Capsule 100 mg PO TID Qty: 90 RF: 0 atorvastatin [Lipitor] 10 mg Tablet 10 mg PO QPM Qty: 30 RF: 0 aspirin 81 mg Tablet,Delayed Release (Dr/Ec) 81 mg PO DAILY Qty: 30 RF: 0 Eliquis 5 mg Tablet 5 mg PO BID Qty: 60 RF: 0 lisinopril 20 mg Tablet 40 mg PO DAILY Qty: 60 RF: 0 Continued ferrous sulfate 325 mg (65 mg iron) tablet 325 mg PO DAILY RF: 0 magnesium oxide 400 MG tablet 400 mg PO HS RF: 0 thiamine HCl (vitamin B1) 100 MG tablet 100 mg PO DAILY RF: 0 Changed carvedilol 25 mg tablet 50 mg PO BID Qty: 0 RF: 0 spironolactone 25 mg tablet 25 mg PO DAILY Qty: 0 RF: 0 Discontinued Farxiga 10 mg tablet 10 mg PO DAILY RF: 0 Discharge Instructions Instructions: Stroke (DC) Stand Alone Forms: Nursing Discharge Form Referrals: Amina Jeronimo MD [ [facility] STAFF PHYSICIAN] - (has neurology appointment in march at [facility] he should keep as well. ) Activity:: Activity as Tolerated Equipment/Supplies:: No Equipment Needed Diet:: Carb Counting Discharge Orders Discharge Orders: Discharge Order (Routine); Ordered 02/21/20 Ordered By: Carole Beth DS: Summary Status at Discharge Functional status at discharge: uses cane/walker Overall status at discharge: patient is not back to baseline Mental Status: mental status grossly normal Speech and Movement: speech and movement normal Mood: congruent mood Affect: normal affect Exam Const General: comfortable, no acute distress, frail appearing and ill appearing chronically Nutritional Appearance: cachectic Orientation: oriented x3 HENMT Head: normal to inspection, normocephalic and atraumatic Resp Effort & Inspection: normal respiratory effort Auscultation: clear to auscultation bilaterally Cardio Rate: regular rate Rhythm: regular rhythm (SR in 60-70) GI Inspection: normal to inspection Palpation: soft Auscultation: normal bowel sounds Extrem General: abnormal to inspection (bilateral foot drop, ) and muscle atrophy (profound weakness) of the right upper extremity, of the right lower extremity, of the left upper extremity and of the left lower extremity Psych Mental Status: mental status grossly normal Speech and Movement: speech and movement normal Mood: congruent mood Affect: normal affect DS: Data Vitals/I&O Vitals and I&O: Vital Signs Temperature 36.7 C 02/21/20 07:22 Temperature Source Tympanic 02/21/20 07:22 Pulse 64 02/21/20 07:22 Pulse Rhythm Regular 02/21/20 08:23 Respiratory Rate 19 02/21/20 07:22 Respiratory Effort Non-Labored 02/21/20 08:23 Respiratory Depth Normal 02/21/20 08:23 Respiratory Pattern Normal 02/21/20 08:23 Blood Pressure 167/94 H 02/21/20 07:22 Blood Pressure Mean 121 02/13/20 17:31 Blood Pressure Position Sitting 02/13/20 16:25 Pulse Oximetry 98 02/21/20 08:22 Oxygen Delivery Method Room Air 02/21/20 08:22 Oxygen Flow Rate 0 02/21/20 08:22 Pain Level 0 02/21/20 05:37 Comment 02/18/20 05:00 Intake & Output 02/20/20 02/20/20 02/21/20 11:59 23:59 11:59 Intake Total 600 / 1300 700 / 1300 140 / 140 Output Total 300 / 300 Balance 300 / 1000 700 / 1000 140 / 140 Weight 55.7 kg 55.6 kg Intake: IV 120 / 140 20 / 140 40 / 40 Oral 480 / 1160 680 / 1160 100 / 100 Output: Urine 300 / 300 Other: Urine Color Yellow Yellow Urine Appearance Clear Clear Clear Urine Odor Normal Stool Occult Blood Negative Stool Size Small Large Stool Characteristics Soft Soft Black Voiding Methods Diaper Toilet Incontinent Diaper Incontinent Data Completed and Pending Labs on day of discharge: Labs from last 24 hours 02/21/20 06:20 Sodium 139 Potassium 3.8 Chloride 105 Carbon Dioxide 28.0 Anion Gap 6.0 BUN 24 H Creatinine 0.80 Estimated GFR/1.73 m2 >= 60.00 Glucose 100 Calcium 8.9 PFSH Medical History (Updated 02/20/20 @ 10:26 by Kade Maxwell) Alcoholism Ataxic gait Atrial fibrillation Cardiomyopathy Cirrhosis COPD with asthma GI bleed Hypertension Nicotine abuse Peripheral neuropathy Prediabetes Weakness Weight loss Social History Smoking/Tobacco Use Status: Current every day Smoking risk assessment performed?: Yes Alcohol Intake: former Drug use: Never Substance use type: does not use Household members: none Housing: house Number of Children: 3 number of grandchildren: 2 Pets and animals: Yes Pets and animals: dog(s) Current gender identity: male What type of physical activity do you participate in: none Seatbelt use: always Do you feel safe at home: Yes Do you feel safe in your relationship?: Yes
--- NOTE | 2020-02-21 11:04 | PT.INTREAT ---
Date of service: 02/21/20 Time of Service: 09:50 PT Notes Visit Reasons: Ataxia Inpatient Physical Therapy Treatment Note [facility] Date: 02/21/2020 PRECAUTIONS: Fall SUBJECTIVE: Terrence is agreeable to participating in PT. Terrence reports that he is feeling frustrated today. OBJECTIVE: Per patient request, assist with donning pants and shirt, patient required set up for the shirt and Mod A for his pants. PAIN: Patient c/o burning pain in R hand with use of handle on NuStep BED MOBILITY/TRANSFERS Sit-stand: SBA Stand-sit: SBA GAIT Assistive Device: No AD Weight bearing: Full Assist: CGA Distance: 350' x2 Deviation: Path deviation, right foot drop requiring cueing for increased step height on R, LOB x3 (when turning corners) requiring CGA for recovery THEREX: Patient completed a lower extremity strengthening program, as per flow sheet. Encouraged focus on B working manager strength with all exercises. Patient also completes NuStep biking on level 5 x 10 minutes, requiring cueing to recover R hand on handle due to weak working manager. Patient also performs functional step ups on 6 step x5 each and functional [id number]. ASSESSMENT: Patient tolerated session with complaint of burning in R hand. He continues to demonstrate path deviation and LOB with gait training. He is still unable to grasp handle of SPC or FWW for effective use with gait training. PLAN: Continue with balance reeducation, gait training, and global strengthening for improved mobility TREATMENT CODE/TIME: 70 minutes; 94368 x3, [id number] x2
[2020-02-21] MEDS: Bacitracin 1 PACKET TP (11:21)
--- NOTE | 2020-02-21 11:36 | CMDISCH_ITS ---
LACE Index Scoring Tool - Questions: Length of Stay (in days): 7 - 13 Acuity (Admit via E.D.?): Yes Comorbidities: Chronic Pulmonary Disease, Liver or Renal Disease E.D. Visits: 1 - Answers: Total Score: 14 Risk of Readmission: High Risk Care Management Discharge Reason for Hospitalization: Ataxia Discharge Plan: Terrence will discharge to [facility] for acute rehab, he will tranport via [facility] W/C van, coordinated by this copywriter. Anticipate Terrence will return to [facility] once he has met his goals at [facility] if unable to safely return home. Patient/Family Education Needs: Review discharge instructions, discuss acute rehab placement, petroleum terminal plant operator medicaid, placement options, self care needs, Ask Me Three. Services Needed at Discharge: [facility] ([facility])
--- NOTE | 2020-02-21 11:36 | PDOC.CMDIS ---
LACE Index Scoring Tool - Questions: Length of Stay (in days): 7 - 13 Acuity (Admit via E.D.?): Yes Comorbidities: Chronic Pulmonary Disease, Liver or Renal Disease E.D. Visits: 1 - Answers: Total Score: 14 Risk of Readmission: High Risk Care Management Discharge Reason for Hospitalization: Ataxia Discharge Plan: Terrence will discharge to [facility] for acute rehab, he will tranport via [facility] W/C van, coordinated by this typewriter assembler. Anticipate Terrence will return to [facility] once he has met his goals at [facility] if unable to safely return home. Patient/Family Education Needs: Review discharge instructions, discuss acute rehab placement, terminal superintendent medicaid, placement options, self care needs, Ask Me Three. Services Needed at Discharge: [facility] ([facility])
--- NOTE | 2020-02-21 12:55 | PT.INDS ---
Date of service: 02/21/20 Time of Service: 12:55 PT Notes Visit Reasons: Ataxia Physical Therapy Inpatient Discharge Summary Date: 02/21/2020 Dates of service 02/15/2020 through 02/21/2020 This is a clinical summary of care provided on the duration of dates listed above. No charge was made in the completion of this documentation. Referring Doctor: Dr. Rutledge PT Orders: PT CONSULT: limited ability to ambulate Precautions: fall, standard Patient Profile/Admitting Diagnosis: Patient admitted from ER 02/13/20, after presenting to neurology appointment with severe weakness and ataxia. Current diagnosis of CIDP and CVA. PMHX: Alcoholism Ataxic gait Atrial fibrillation Cardiomyopathy Cirrhosis COPD with asthma GI bleed Hypertension Nicotine abuse Peripheral neuropathy Prediabetes Weakness Weight loss Social History/Home Situation: Patient lives alone in private home with 4STE. 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 He relied on a friend to complete much of the work. He admits to struggling at home for the past several weeks. He's had 2-3 significant falls, all of which occurred while attempting to manage stairs. He has never relied on an assistive device, but admits that he is fearful of falling again. Equipment Owned/DME: none Subjective: NT. See most recent SNACK STEWARDESS notes. Objective: General Observation: NT. See most recent SNACK STEWARDESS notes. Mental Status: NT. See most recent SNACK STEWARDESS notes. Pain: NT. See most recent SNACK STEWARDESS notes. Vital Signs: NT. See most recent SNACK STEWARDESS notes. ROM: Right Upper Extremity: Shoulder flexion to 100 degrees, limited by pain. Elbow and wrist ROM both WNL, although with significant rigidity with passive attempts to extend elbow and flex wrist. Hand ROM is WNL passively, with tone noted on initial attempts to flex digits (most significantly 2nd digit) and oppose thumb. Forearm supination 3-/5. Pronation 3/5. Left Upper Extremity: as above- ROM and tone symmetrical, with the exception of forearm pronation and supination, which are each 3/5 on the left. Right Lower Extremity: Ankle DF allows 0 degrees, met with rigidity bilat. Ankle PF WNL. Hip and knee motion grossly WNL. Left Lower Extremity: Ankle DF allows 0 degrees, met with rigidity bilat. Ankle PF WNL. Hip and knee motion grossly WNL. Strength: Right Upper Extremity: Shoulder flexion 3-/5. Biceps 3-/5. Triceps 3+/5 Wrist extension 3-/5. Wrist flexion 3-/5. Partial active charge entry specialist, with patient unable to assist with flexion of the 2nd digit. Thumb opposition 0/5. Thumb adduction 3-/5. Left Upper Extremity: Shoulder flexion 3-/5. Biceps 3-/5. Triceps 3+/5 Wrist extension 3-/5. Wrist flexion 3-/5. Partial active charge entry specialist, with patient unable to assist with flexion of the 2nd digit. Thumb opposition 0/5. Thumb adduction 3-/5. Right Lower Extremity: Hip flexion 3/5. Quads 3-/5. HS 3+/5. Ankle DF 0/5. Left Lower Extremity: Hip flexion 3/5. Quads 3+/5. HS 3+/5. Ankle DF trace active movement, with palpable firing of the anterior tib. Sensation: patient able to identify light touch to plantar aspect of bilat feet. Bed Mobility/Transfers: Rolling independent Supine to sit independent Sit to supine independent Sit to stand standby assist Stand to sit standby assist Bed to chair standby assist Chair to bed standby assist Gait: With no assistive device and with hand-held assist of 1 patient is able to tolerate 350 feet x 2 level surface ambulation with right step patch gait. A platform walker and single-point cane with modifications have been attempted with the patient but due to limited charge entry specialist no mobility device is safe at this time to be used. Balance: Static Sitting: Normal Dynamic Sitting: Normal Static Standing: Fair Dynamic Standing: Fair Assessment: Patient is a 54 year old male referred to physical therapy services with the diagnosis of CIPD. Patient presents with clinical signs and symptoms consistent with diagnosis, with severe weakness and limitations in mobility. Patient will benefit from a hand specialist and placement in an acute stroke rehab facility in order to maximize mobility device management and porogress ambulation level. He currently demonstrates the following impairment level findings: 1. Severe weakness of UEs and LEs 2. UE and LE rigidity 3. muscle atrophy 4. history of multiple falls Impairments are continuing to contribute to the following functional limitations: 1. unable to transfer independently 2. unable to perform self-care activities requiring grasping (brushing hair, teeth, etc) 3. high fall risk Goals: Goals X1 week 1. Supine-Sit : independent MET 2. Sit-Supine : independent MET 3. Sit-Stand : mod A x 1 MET 4. Stand-Sit : mod A x 1 MET 5. Bed-Chair : mod A x 1 MET 6. Chair-Bed : mod A x 1 MET 7. Gait: mod A x 1 with LRD MET DISCHARGE RECOMMENDATIONS: Patient will benefit from skilled acute stroke rehabilitation for continued skilled physical therapy services in order to maximize hand function, progress mobility level, strength, and balance in preparation for a safe discharge to home. TREATMENT CODE/TIME: NC. Thank you for the opportunity to participate in the care of this patient. Binta Mayes PT, DPT, CLT [facility] [place], [place]
[2020-02-21 23:20] LABS: Beta-2-Microglobulin 2.31 mcg/mL
== END 2020-02-21 11:41 | disposition other institution (70) | DRG 73 ==
LOC: ER 19:28 → MS 20:33
PROVIDERS: General Practice; Internal Medicine; Nurse Practitioner Acute Care; Nurse Practitioner Family; Admitting Provider Family Medicine; Emergency Provider Physician Assistant; PCP Physician Assistant; Visit Provider Family Medicine
DX: G61.81 Chronic inflammatory demyelinating polyneuritis (principal); I63.30 Cerebral infarction due to thrombosis of unspecified cerebral artery; Z68.1 Body mass index [BMI] 19.9 or less, adult; I42.0 Dilated cardiomyopathy; G81.91 Hemiplegia, unspecified affecting right dominant side; R63.4 Abnormal weight loss; R53.1 Weakness; J44.9 Chronic obstructive pulmonary disease, unspecified; I10 Essential (primary) hypertension; R73.03 Prediabetes; K74.60 Unspecified cirrhosis of liver; F17.210 Nicotine dependence, cigarettes, uncomplicated; I48.0 Paroxysmal atrial fibrillation; R27.0 Ataxia, unspecified; D47.2 Monoclonal gammopathy; F10.10 Alcohol abuse, uncomplicated
CPT/HCPCS: 36410; 36415; 70553; 74177; 80048; 80053; 80307; 82945; 85027; 87389; 89050; 89051; 93005; 94200; 96365; 96366; 97110; 97162; 97167; 97530; 97535; 99220; 99232; 99233; 99239; 99285; U0003; 70450; 71260; 72125; 80320; 81003; 82232; 82607; 83036; 83735; 84157; 84165; 84425; 84443; 84484; 85025; 85610; 85730; 86320; 87070; 87205; 93010; 93306; 93880; G0378; J1459; J1644; J2060; J2930; J3490

== ENCOUNTER 2020-03-12 14:29 | Inpatient (IN) | payer MEDICAID, SELFPAY ==
--- NOTE | 2020-03-12 09:35 | CMSCP_ITS ---
- If Service Date Differs Date of service: 03/12/20 Time of Service: 09:35 Swingbed Plan of Care Plan of care: SWING BED PROGRAM ACTIVITIES/DISCHARGE PLAN OF CARE ACTIVITIES PLAN Date: 03/12/20 Identified Need: Life Enrichment during extended hospitalization. Intervention/Plan: Bonifacio will be offered CART items, Television, patient laptop, tele-visits with family. Initials: BJ DISCHARGE PLAN Date: 03/12/20 Identified Need: dedicated intermodal truck driver care services, possible placement, continued rehabilitation. Intervention/Plan: SNF coordination, Drywall Applicator Medicaid coordination. Initials: BJ
--- NOTE | 2020-03-12 10:54 | CM.SBPSYCH ---
- If Service Date Differs Date of service: 03/12/20 Time of Service: 10:54 SB Psychosocial/Act.Assessment - Hospital Admission Admission Date: 03/12/20 Admission From:: [facility] acute rehab Diagnosis:: Post CVA rehab - Swing Bed Admission Swing Bed Admit Date:: 03/12/20 Swing Bed Level of Care: Level 1/SNF - Social Supports PREVIOUS FUNCTIONAL STATUS/SOCIAL/FAMILY SUPPORTS:: Bonifacio resides in [place], alone. His brother, Lorne has been providing his care (P#[phone], c#[phone]). He was previously very active at baseline. He is noted to have alcohol use disorder, has not had a drink in the last thirty days. He presents with inability to care for self due to increased weakness and has required time analysis clerk care. - Prior to Admission Living Arrangements/Environment Prior to Admission:: Terrence was admitted acutely to [facility] on 02/14/20-02/21/20. He was then transferred to [facility] for acute rehab. He will return today, 03/12/20 for continued rehabiliation and disposition support. - Work History Employment Status:: Disabled-undetermined status at this time. 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 Communication:: A+Ox4, appropriate in communication Sensory Systems: Slightly limited Behavior:: Depressed at times due to new lower level of functioning. - Medical History PAST MEDICAL HISTORY/PAST SURGICAL HISTORY:: Alcoholism, Ataxic gait, Atrial fibrillation, Cardiomyopathy, Cirrhosis, COPD with asthma, GI bleed, Hypertension, Nicotine abuse, Peripheral neuropathy, Prediabetes, Weakness, Weight loss - Admission Data Reason for Swing Bed Admission:: Continued rehabiliation and disposition support. Discharge Plan:: Home with increased [id number] placement. vermin exterminator medicaid in process. Assessment: Continued rehab, disposition support, long term care administrator medicaid. Housing Assistant: Cathy Carvalho Date Assessment was completed:: 03/12/20
[2020-03-12 14:33] VITALS: BP 127/93; PULSE 95; RESP 18; TEMP 36.7; O2SAT 99
--- NOTE | 2020-03-12 14:43 | HPE_ITS ---
Date of service: 03/12/20 Time of Service: 14:43 Assessment and Plan Assessment and plan (1) CVA (cerebral vascular accident): Start date: 03/12/20 Start time: 14:53 Status: Chronic Assessment and plan: Multiple CVA, acute punctate stroke last admission 02/13-02/20, was discharged to acute rehab, returns for SB admission today. Will consult PT/OT Continue regimen from ct agusto He will likely need halfway placement RT sided deficits to RUE and RLE along with some cognitive deficits, however I did not see any when assessing patient he was able to follow all commands and answer all questions appropriately. Qualifiers: CVA mechanism: thrombosis Precerebral and cerebral artery: unspecified cerebral artery Qualified Code(s): I63.30 - Cerebral infarction due to thrombosis of unspecified cerebral artery (2) Ambulatory dysfunction: Start date: 03/12/20 Start time: 14:55 Status: Acute Assessment and plan: as above will work with PT/OT (3) CIDP (chronic inflammatory demyelinating polyneuropathy): Start date: 03/12/20 Start time: 14:56 Status: Acute Assessment and plan: Long-term treatment is to continue IVIG 0.4g/kg daily x 5 days every 6 weeks for the next 3-6 months after which can be spaced out by neurology pending response. Next 5 day treatment to be week of 03/30/20. He should keep his [facility] Neurology outpatient appointment scheduled in March. (4) Cognitive dysfunction: Start date: 03/12/20 Start time: 14:57 Status: Acute Assessment and plan: As above per [facility] provider above reviewed with Dr. Funes History of Present Illness History of Present Illness Chief Complaint: Ambulatory dysfunction, Cognitive dysfunction Narrative: 54 year old male with history of alcohol abuse who was referred to the ED 02/14/20 on with failure to thrive and inability to care for himself at home after presenting for a neurology appointment for his symptoms which were most concerning for CIDP. His work up included CT scans, MRI brain as well as a cardiac work up. His symptoms started slowly improving after starting IVIG. Long-term treatment is to continue IVIG 0.4g/kg daily x 5 days every 6 weeks for the next 3-6 months after which can be spaced out by neurology pending response. Next 5 day treatment to be week of 03/30/20. He should keep his [facility] Neurology outpatient appointment scheduled in March. Imaging showed acute punctate ischemia in multiple vascular territory concerning for cardioemoblic phenomena. He has a history of paroxysmal atrial fibrillation s/p ablation x 2 and had no evidence of atrial fibrillation on telemetry while hospitalized from 02/13 until 02/20. TTE showed normal left ventricular function with no significant valvular disease. Cartotid ultrasound with no stenosis. He will need life long anticoagulation per cardiology, thus no need for GRAZYNA as further work-up. He should continue apixaban 5mg BID with aspirin 81mg daily for stroke prevention. He has been medically stable and is ready for discharge to rehabilitation. He has been eating and drinking and bowels and bladder functioning. He was discharged to [facility] for acute rehab. Today he returns for admission to status 1 after weeks of rehab. His right side has not progressed much. Rehabilitation provider does not feel he can go home he will need halfway placement, his right arm is a 1/5 grade in tone and RLE is 2/5 LUE is 4/5 and RLE is 4/5, he is being admitted to for PT/OT. He denies pain, n/v/d. He is able to swallow without difficutly. Review of Systems Constitutional Constitutional: Reports system reviewed and no additional complaints, except as documented [facility] Medical History Alcoholism Ataxic gait Atrial fibrillation Cardiomyopathy Cirrhosis COPD with asthma GI bleed Hypertension Nicotine abuse Peripheral neuropathy Prediabetes Weakness Weight loss Social History Smoking/Tobacco Use Status: Current every day Smoking risk assessment performed?: Yes Alcohol Intake: former Drug use: Never Substance use type: does not use Household members: none Housing: house Number of Children: 3 number of grandchildren: 2 Pets and animals: Yes Pets and animals: dog(s) Current gender identity: male What type of physical activity do you participate in: none Seatbelt use: always Do you feel safe at home: Yes Do you feel safe in your relationship?: Yes Meds Home Medications and Allergies Home Medications Medication Instructions Recorded Confirmed Type magnesium oxide 400 mg PO HS 07/01/16 03/12/20 History thiamine HCl (vitamin B1) 100 mg PO DAILY 05/09/17 03/12/20 History ferrous sulfate 325 mg (65 mg 325 mg PO DAILY 02/13/20 03/12/20 History iron) tablet apixaban [Eliquis] 5 mg PO BID #60 tab 02/21/20 03/12/20 Rx aspirin 81 mg PO DAILY #30 tab 02/21/20 Rx atorvastatin [Lipitor] 10 mg PO QPM #30 tab 02/21/20 03/12/20 Rx gabapentin 100 mg PO TID #90 cap 02/21/20 03/12/20 Rx pantoprazole 40 mg PO BID@0730,2000 #60 tab 02/21/20 03/12/20 Rx sucralfate 1 g PO AC & HS #120 tab 02/21/20 03/12/20 Rx acetaminophen 650 mg PO Q4H PRN PRN 03/12/20 03/12/20 History albuterol 180 mcg INHALATION Q6H PRN PRN 03/12/20 03/12/20 History carvedilol 6.25 mg PO BID 03/12/20 03/12/20 History dapagliflozin 10 mg PO DAILY 03/12/20 03/12/20 History lisinopril 5 mg PO DAILY 03/12/20 03/12/20 History nicotine 1 patch TRANSDERMAL DAILY 03/12/20 03/12/20 History psyllium 3.4 g PO DAILY 03/12/20 03/12/20 History spironolactone 12.5 mg PO DAILY 03/12/20 03/12/20 History Allergies Allergy/AdvReac Type Severity Reaction Status Date / Time No Known Allergies Allergy Unverified 02/13/20 14:12 Exam Const General: cooperative, comfortable, no acute distress, frail appearing and ill appearing chronically Nutritional Appearance: malnourished Orientation: alert, awake and oriented x3 HENMT Head: normal to inspection, normocephalic and atraumatic Mouth: moist mucous membranes Eyes Conjunctivae: conjunctivae normal Pupils: PERRL EOM: EOM intact bilaterally Neck Neck: normal visual inspection, full ROM and no JVD Lymphatic: no lymphadenopathy noted and no lymphedema noted Chest Chest: normal inspection of the chest Resp Effort & Inspection: normal respiratory effort Auscultation: clear to auscultation bilaterally Cardio Jugular venous pressure: no JVD Rate: regular rate Rhythm: regular rhythm Heart Sounds: S1 normal and S2 normal GI Palpation: soft and no hepatosplenomegaly Auscultation: normal bowel sounds General: deferred Skin General skin exam: no rashes or lesions noted Neuro General: patient alert, patient awake, patient oriented x3, gait abnormal, tone abnormal, moves all extremities and deep tendon reflexes not 2+ bilaterally Cognition: normal cognition Motor: strength not 5/5 throughout Extrem General: abnormal ROM and no clubbing, cyanosis or edema Right upper extremity: ROM limited Left upper extremity: normal to inspection Right lower extremity: ROM limited Left lower extremity: normal to inspection Psych Appearance: grossly normal Mental Status: mental status grossly normal Speech and Movement: speech and movement normal Mood: congruent mood Affect: normal affect Attitude: cooperative Results Last Vital Signs Temp 36.7 C 03/12/20 14:33 Pulse 95 H 03/12/20 14:33 Resp 18 03/12/20 14:33 BP 127/93 H 03/12/20 14:33 Pulse Ox 99 03/12/20 14:33 COVID-19 Screening Have you, or household traveled for leisure in last 14 days?: No
--- NOTE | 2020-03-12 15:05 | PT.INIE ---
Date of service: 03/12/20 Time of Service: 15:05 PT Notes Visit Reasons: AMBULATORY DYSFUNTION, COGNITIVE DYSFUNCTION Swing Bed Level 1 Physical Therapy Evaluation Date: 03/12/20 Referring Doctor: Angelique Cedeño NP PT Orders: PT CONSULT: Eval/Treat. Precautions: Fall. Standard. Activity as tolerated. AFO in R LE when OOB. Patient Profile/Admitting Diagnosis: Terrence is 54-year-old male with past medical history significant for tobacco and ETOH abuse, multiple strokes including cerebellar strokes, and AF who initially presented to the [facility] ED on 02/13/2020 for further work up after having a worrisome neurology appointment. Previously received PT services from 02/15/2020 through 02/21/2020 with diagnosis of CIDP. Today, patient returns from acute neurologic rehabilitation from [facility] under swing bed level 1 of care for continued rehabilitation. 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 PMHX: Medical History Alcoholism Ataxic gait Atrial fibrillation Cardiomyopathy Cirrhosis COPD with asthma GI bleed Hypertension Nicotine abuse Peripheral neuropathy Prediabetes Weakness Weight loss Social History/Home Situation: Terrence lives alone in private home with 4 STEVE. 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 He relied on a friend to complete much of the work. He admits to struggling at home for the past several weeks. He's had 2-3 significant falls, all of which occurred while attempting to manage stairs. He has never relied on an assistive device, but admits that he is fearful of falling again. Equipment Owned/DME: none Subjective: Agreeable to continued PT services. He feels that the stay at [facility] has helped with his ability to move. His limited grasp in the R side continues to mildly frustrate him. Did not report pain, tingling, and burning sensation during session. Objective: General Observation: Seated on bedside chair with AFO in R LE. No lines. Nurse Linda in the room concurrently doing assessment. B fingers with clawing deformity. Trophic skin changes in distal B UE. Atrophic thenar and hypothenar muscles in B sides. Mental Status: Alert and oriented x 4. Pleasant and cooperative. Pain: None reported. Complains of pain in fingers when Pt attempted gentle stretching. ROM: Right Upper Extremity: Shoulder WNL. Elbow WNL. Forearm pronation limited at the last 5 degrees. Wrist flexion lacks the last 10 degrees or so. Lacks the last 5 degrees or so of wrist extension. Thumb abduction about 5 degrees. Unable to do thumb flexion/extension. Unable to do thumb opposition with all finger. Finger abduction absent. Digits 3,4,5 with flexion contracture at the PIP of up to 45 degrees with active PIP extension of less than 10 degrees. No flexion/extension in IPs of digit 2. Left Upper Extremity: Shoulder WNL. Elbow WNL. FA pronation WNL. Wrist flexion WNL. Wrist flexion WNL. Wrist extension WNL. Thumb abduction about 5 degrees. Unable to do thumb opposition with all finger. Finger abduction absent. Digits 3,4,5 with flexion contracture at the PIP of up to 45 degrees with active PIP extension of less than 10 degrees. No flexion/extension in IPs of digit 2. Right Lower Extremity: Hip WNL. Knee with 5 degree flexion contracture. Ankle DF absent. Left Lower Extremity: Hip and knee WNL. DF of up to 20 degrees beyond neutral. PF WNL. Strength: Right Upper Extremity: Shoulder flexors 4/5. Shoulder abductors 4/5. Elbow flexors 4/5. FA pronators 3-/5. FA supinators 4/5. Elbow extensors 4/5. Wrist extensors 3-/5. Wrist flexors 4/5. Thumb musculature 1/5. Digit flexors 2-/5. Digit extensors 1/5. Partner weak and minimally functional. Left Upper Extremity: Shoulder flexors 4/5. Shoulder abductors 4/5. Elbow flexors 4/5. FA pronators 3-/5. FA supinators 4/5. Elbow extensors 4/5. Wrist extensors 3-/5. Wrist flexors 4/5. Thumb musculature 1/5. Digit flexors 2-/5. Digit extensors 1/5. Partner weak and minimally functional. Right Lower Extremity: Hip flexors 4/5. Hip abductors 4/5. Knee flexors 4/5. Knee extensors 3-/5. Ankle dorsiflexors 1/5. Ankle plantarflexors 3-/5. Left Lower Extremity: Hip flexors 4/5. Hip abductors 4/5. Knee flexors 4/5. Knee extensors 3-/5. Ankle dorsiflexors 3-/5. Ankle plantarflexors 3-/5. Sensation: Intact as to pain sensation in B LE Transfers: Sit to stand standby assist Stand to sit standby assist Bed to chair standby assist Chair to bed standby assist Gait: unable standby assist Balance: Static Sitting: Normal Dynamic Sitting: Normal Static Standing: Good Dynamic Standing: Fair Special Tests: Mobility Limitations Standardized Measure [facility] 6 clicks Basic Mobility Inpatient Short Form: Raw Score: 23 CMS Score: 11% impairment Informed Consent/Education: Patient instructed in purpose of PT consult and plan of care. 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 Will need continued work in finger/hand dexterity, B UE/LE strengthening, balance retraining, and ambulation progression to maximize functional mobility performance. He will benefit from hand rehabilitation using electrical stimulation with direct/galvanic current to facilitate re-innervation to muscles of the hand and fingers. With adaptive equipment, he may be able to function at home with extensive community/ support for meals, self-care, and medical transportation. May also consider short-term placement for progression to unassisted ambulation. Patient presents with clinical signs and symptoms consistent with current/admitting diagnoses that have resulted to mobility limitations, gait instability, generalized weakness, and impairment of motor control as demonstrated by the following impairment level findings: 1. Decreased strength to B hand and finger (IP) extension muscle groups 2. Impaired standing balance 3. Limitation of joint range of motion in B hands, fingers, R knee, and R foot 4. Decreased grasp with R>>L 5. IP flexion contracture to digits 3, 4, and 5 on B sides Impairments are contributing to the following functional limitations: 1. Inability to safely ambulate without assistive device 2. Increase completion time for mobility ADL performance 3. Increased fall risk 4. Inability to negotiate steps alone safely 5. Limited ability to manage AD due to poor grasp/nonfarm animal caretaker on the R Patient is assessed as a 40428 moderate complexity based on the following: History: 54-year-old male with impairment level findings, functional limitations, and past medical history as indicated above Examination: Demonstrable impairment in strength, balance, and mobility level with underlying impairments and functional limitations as documented above Presentation:Evolving Decision Makin moderate complexity Goals: Goals X1 week 1. Supine-Sit independent 2. Sit-Supine independent 3. Sit-Stand independent 4. Stand-Sit independent 5. Bed-Chair independent 6. Chair-Bed independent 7. Independent gait on level surface without an assistive device vs. the use of 4WW/forearm crutch for at least 500 feet without report of pain nor dyspnea 8. Independent stair negotiation while holding onto unilateral rail for at least 5 steps without report of pain nor dyspnea 9. Normal static and dynamic standing balance/tolerance Plan of Care/Treatment Plan: 1-2x/day, 7 days/week x 1 week. Plan of care has been reviewed with the [employer] providing the service under Physical Therapy direction. Initiate Physical Therapy intervention for strengthening, bed mobility, transfers, gait, stairs, balance training, use of assistive device. Recommend utilization of lift for transfers at this time, due to patient's significant LE weakness, rigidity, and insufficient UE strength to manage assistive device. DISCHARGE RECOMMENDATIONS: Assess benefit of skilled services in one week and apprise CM of continued PT plan of care. Will continue to assess appropriateness of SNF vs OP PT/OT for hand rehabilitation with adequate community/ support. TREATMENT CODE/TIME: 27354 x 25 minutes, 11994 x 9 minutes beginning at 15:05 PM. Thank you for the opportunity to participate in the care of this patient. Binta Mayes PT, DPT, CLT [facility] [place], [place]
[2020-03-12 15:19] VITALS: BP 127/93; PULSE 95; RESP 18; TEMP 36.7; O2SAT 99
[2020-03-12 15:20] VITALS: BP 113/69; PULSE 94; RESP 17; O2SAT 96
[2020-03-12 15:42] VITALS: BP 122/90; PULSE 94; RESP 17; O2SAT 98
[2020-03-12 15:47] VITALS: TEMP 36.6
[2020-03-12] MEDS: Sucralfate 1 GM TAB PO ×2 (16:30→21:12)
[2020-03-12] MEDS: Atorvastatin 10 MG TAB PO (19:29)
[2020-03-12] MEDS: Magnesium Oxide 400 MG TAB PO (19:29)
[2020-03-12] MEDS: Apixaban 5 MG TAB PO (19:29)
[2020-03-12] MEDS: Gabapentin 100 MG CAP PO (19:30)
[2020-03-12] MEDS: Pantoprazole 40 MG TABCR PO (19:30)
[2020-03-12] MEDS: Carvedilol 6.25 MG TAB PO (19:37)
[2020-03-12 23:30] VITALS: BP 105/72; PULSE 59; RESP 18; TEMP 36.7; O2SAT 96
[2020-03-13 00:28] LABS: COVID-19 RT-PCR UVMMC Result Negative (Negative)
[2020-03-13 07:13] LABS: Abs Immature Grans 0.01 10^3/uL (0.0-0.06); Absolute Basophil Count 0.02 10^3/uL (0.0-0.2); Absolute Eosinophil Count 0.15 10^3/uL (0.0-0.7); Absolute Lymphocyte Count 1.43 10^3/uL (1.2-3.4); Absolute Monocyte Count 0.55 10^3/uL (0.1-0.8); Absolute Neutrophil Count 4.17 10^3/uL (1.2-6.7); Basophils % 0.3; Eosinophils % 2.4; HCT 31.9 % (40.0-50.0); HGB 10.5 g/dL (13.5-17.5); Immature Grans % 0.2; Lymphocytes % 22.6; MCH 30.3 pg (27.0-33.0); MCHC 32.9 % (32.0-36.0); MCV 92.2 fL (80-95); MPV 9.5 fL (8.0-11.0); Monocytes % 8.7; Neutrophils % 65.8; Nucleated RBC 0 %; Platelet Count 272 10^3/uL (130-400); RBC 3.46 10^6/uL (4.36-5.78); RDW-SD 43.2 fL; WBC 6.33 10^3/uL (4.4-10.8)
[2020-03-13 07:57] VITALS: BP 123/93; PULSE 87; RESP 18; TEMP 36.6; O2SAT 97
[2020-03-13] MEDS: Nicotine 14 MG/24 HR PATCH TD (08:18)
[2020-03-13] MEDS: Thiamine 100 MG TAB PO (08:19)
[2020-03-13] MEDS: Spironolactone 25 MG TAB 12.5 MG PO (08:19)
[2020-03-13] MEDS: Gabapentin 100 MG CAP PO ×3 (08:19→20:02)
[2020-03-13] MEDS: Apixaban 5 MG TAB PO ×2 (08:19→20:01)
[2020-03-13] MEDS: Ferrous Sulfate 325 MG TAB PO (08:19)
[2020-03-13] MEDS: Sucralfate 1 GM TAB PO ×4 (08:19→20:01)
[2020-03-13] MEDS: Pantoprazole 40 MG TABCR PO ×2 (08:20→20:02)
[2020-03-13] MEDS: Carvedilol 6.25 MG TAB PO ×2 (08:20→20:02)
[2020-03-13] MEDS: Magnesium Oxide 400 MG TAB PO ×2 (08:20→20:02)
[2020-03-13] MEDS: Lisinopril 5 MG TAB PO (08:21)
--- NOTE | 2020-03-13 10:16 | OT.INIE ---
Occupational Therapy Notes Inpatient Occupational Therapy Evaluation Date: 03/13/20 Referring Doctor: Angelique Cedeño NP OT Orders: Non-Urgent Precautions: fall, standard, full PATIENT PROFILE/ADMITTING DIAGNOSIS: Pt is a 54 year old male who presented to the ED with c/o weakness. Pt was previously admitted to [facility] with a medical dx of alcohol abuse, CIDP, CVA, peripheral neuropathy, weight loss, weakness, ataxia, HTN and A-fib. Pt transitioned ot [facility] and has returned to [facility] for [facility] B1 rehabitation. Past Medical History- Alcoholism Ataxic gait Atrial fibrillation Cardiomyopathy Cirrhosis COPD with asthma GI bleed Hypertension Nicotine abuse Peripheral neuropathy Prediabetes Weakness Weight loss Social History/Home Situation: Pt lives alone in a private home, he notes that he has a dog. Over the past couple months he has made significant modifications in his ADL routines. He notes that he has no movement of his IF and thumb of (B) UE. He states that he has been (I) over the past couple months but states that this involves wearing loose fitting clothing, decreased UE dressing he states that he has not been able to don his shirts without help. His eating routine has significantly declined as his decreased fine and gross motor has been causing notable deficits in his functional ADLs. He reports that he has 4 steps to enter in the back of his home and that he then has to go up multiple stairs to get to the first floor. Equipment owned/DME: None SUBJECTIVE: Pt was sitting in chair when OT arrived. He was agreeable to OT session and notes that he feels that he has made some improvements at [facility]. OBJECTIVE: General Observation: (B) IF/thumbs in extension able to achieve PROM when attempted, decreased UE strength. Mental Status: A&Ox3 Pain: no c/o pain ROM: RUE IF/thumb in extension with minimal AROM, decreased wrist flexion/extension, elbow WNL, shoulder flexion limited but able to achieve limited shoulder flexion. L UE IF/thumb in extension with minimal AROM, decreased wrist flexion/extension, elbow WNL, shoulder flexion limited but able to achieve limited shoulder flexion. STRENGTH: RUE 3+/5 throughout LUE 4/5 throughout Manual Therapy [id number]: BALANCE: Static sitting Good Dynamic Sitting Good SPECIAL TESTS: Daily Activity Limitations [facility]? Daily Activity Inpatient Short Form: Raw score: 14 Standardized score: 33.39 CMS score: 59.67% INFORMED CONSENT/EDUCATION: Pt instructed in purpose of OT Consult and plan of care. ASSESSMENT: Patient is a 54-year-old male referred to occupational therapy services with hx of alcohol abuse, CIDP, CVA, peripheral neuropathy, weight loss, weakness, ataxia, HTN, A-fib he is admitted for [facility] B1 after going to [facility] for continued rehabilitation services . Patient presents with clinical signs and symptoms consistent with dx, as demonstrated by the following impairment level findings: Impairments in ADL/IADL And leisure impairments, decreased gross and fine motor control of (B) UE, decreased strength (B) UE, decreased AROM of (B) UE, decreased PROM of digits, no AROM of (B) IF/thumbs, decreased functional activity tolerance of (B) UE. Impairments are contributing to the following functional limitations: Decreased (B) LE dressing or bathing, decreased functional mobility, rigidity of (B) UE, cognitive decline, ataxia. AMPAC score 14 Patient is assessed as a high 42010 complexity based on the following: History: see above Examination: see functional limitations as noted above Presentation: evolving Decision Making: AMPAC score 14 GOALS Goals x1 week 1. Pt will be able to functionally grasp and hold items of all sizes without dropping them to facilitate increased 9I) in his ADL/IADL Routines. 2. Dressing- sitting in bed pt will be able to perform UE with mod (A) and LE dressing with mod (A) 3. Bathing- sitting in chair with max (A) set up/clean up pt will be (I) with UE and mod (A) with LE 4. Toileting- On commode with mod (A) 5. Eating- Pt will be able to perform eating routine with adaptive equipment (I) PLAN OF CARE/TREATMENT PLAN: 1x/day, 5 days/ week x 1week Initiate Occupational Therapy Services for bathing, dressing, grooming, toileting, eating, transfer training. DISCHARGE RECOMMENDATIONS OT recommends that pt go home with DME recommendations below and HH. Adaptive Equipment Recommendations: An outpatient evaluation and referral for continued care for his (B) UE If pt does return home he will need care to assist with bathing, dressing, meals, home prep, toileting, eating. Along with a shower bench for safety for bathing routine, grab bars, raised toilet seat, meals on wheels and HH OT. TREATMENT TIME/MINUTES/CODES [id number], [id number], 45 minutes (09:05) Daisy Cortez OTR/[facility]
--- NOTE | 2020-03-13 11:55 | PHA.REVIEW ---
Pharmacy Admission Review - Admission Clinical Review (Last Updated 03/12/20 @ 14:53 by Angelique Cedeño NP) Cognitive dysfunction (Acute) Ambulatory dysfunction (Acute) CIDP (chronic inflammatory demyelinating polyneuropathy) (Acute) No Known Allergies Allergy (Unverified 02/13/20 14:12) Height 5 ft 8 in Weight 59.647 kg Ambulatory dysfunction, cognitive dysfunction, CIDP (on IVIG)-[facility] level-1 - Comments Comments/Follow Ups: Care management working on terminal operator placement, came from [facility]. Initial H&P mentions IVIG daily for 5 days, but since then has recommended Privigen 1g/kg as one infusion, once a month (60kg=60gram) which has been set up for 03/17/2020 (Last infusion was the week of 02/14/2020, sent a bulk bottle of Metamucil/Fiber powder due to back order of Metamucil packets. Using patient's own Farxiga (Dapagliflozin) 10mg daily...return at discharge - Anticoagulation Anticoagulation: Hgb 10.5 g/dL (13.5-17.5) L 03/13/20 06:40 Hct 31.9 % (40.0-50.0) L 03/13/20 06:40 Plt Count 272 10^3/uL (130-400) 03/13/20 06:40 Therapeutic Anticoagulation: Reviewed Medications: Apixaban (s/p CVA) - Heart Failure/PR EF%, SADE's, B-Blockers, Diuretics: Reviewed (Coreg, Lisinopril, Spironolactone) - BP Control BP Control: Blood Pressure 123/93 If elevated: Reviewed
--- NOTE | 2020-03-13 15:01 | CMPROGNOTE_ITS ---
Care Management Progress Note Terrence was sitting up in his chair when CM met with him. He appeared in much better spirits and higher functioning then when he discharged to [facility] mid- February. He reported enjoying the food at the acute rehab and stated that he often had second helpings with meals and gained 13 lbs during his stay. He reported speaking to Dejan and agreeing that he would require more support at home. CM coordinated contact between Terrence and Nellie Castillo, Clinical JARROD interviewer. Nellie provided confirmation of clinical eligibility for Terrence to receive buttermaker helper medicaid later in the day. Nellie shared concerns that for people under the age of 55, [employer] may require disability determination prior to approving coverage. MEDICAL INSURANCE CLAIMS PROCESSOR: Fatoumata, reports Terrence is doing well and may have the opportunity to return home upon discharge.
[2020-03-13 15:32] VITALS: BP 112/76; PULSE 84; RESP 17; TEMP 36.7; O2SAT 96
--- NOTE | 2020-03-13 15:33 | PT.INTREAT ---
Date of service: 03/13/20 Time of Service: 15:33 PT Notes Visit Reasons: AMBULATORY DYSFUNTION, COGNITIVE DYSFUNCTION Swing Bed Level 1 Physical Therapy Treatment Note Date: 03/13/20 Precautions: Fall. Standard. Activity as tolerated. AFO in R LE when OOB. Subjective: Complained of R knee discomfort after cycling activity. Pain report during rock tape removal in the afternoon. Objective: General Observation: Seated on bedside chair with AFO in R LE. No lines. Rock tape to B hands and fingers done previously by HEIDI Villa. B fingers with clawing deformity. Trophic skin changes in distal B UE. Atrophic thenar and hypothenar muscles in B sides. Mental Status: Alert and oriented x 4. Pleasant and cooperative. Pain: R knee pain complaint to about 3-4/5 after NuStep activity. Reported burning.tingling through both distal forearm and hands with tape removal and weight bearing through B hands. Sensation: Intact as to pain sensation in B LE Transfers: Sit to stand supervision Stand to sit supervision Bed to chair supervision Chair to bed supervision Gait: unable supervision GAIT: 300 feet x 2 with 4WW in the morning and the afternoon with R hand staying on R walker handle, no slipping seen. Increased swing time in R LE after NuSEP activity. THERA ACT: With 2.5 AW in B sides, worked on increasing lateral stability with sidestepping to R x 8 steps and then to L x 8 steps for 3 sets without assistive device but with CGA to min A of PT MOISES EX: With 2.5 AW around broth wrists and both ankles: 1. LAQ x10 2. diagonal punches x 10 3. seated hip flexion x 10 4. R hand and L hand hand to opposite knee and opposite shoulder x 10 each 5. seated hip abduction x 10 6. elbow flexion/extension 7. NuStep with R=7 and duation of 5 minutes with report of discomfort in R knee that subsided with rest Balance: Static Sitting: Normal Dynamic Sitting: Normal Static Standing: Good Dynamic Standing: Fair Assessment: Terrence demonstrates better handling of 4WW today with no incidence of R hand slipping off the walker handle. His performance were limited today by complaint of R knee pain and increased burning/tingling in B UE with exercise performance. Increased thumb flexion/extension, forearm pronation, and wrist flexion bilaterally has helped with walker management. Taping by OT Daisy of weakened distal UE muscles facilitated hand/finger control. Also responded positively to balance training initiation. He demonstrates potential for unassisted ambulation with continued B LE strengthening and balance progression. DISCHARGE RECOMMENDATIONS: Assess benefit of skilled services in one week and apprise CM of continued PT plan of care. Will continue to assess appropriateness of SNF vs OP PT/OT for hand rehabilitation with adequate community/ support. TREATMENT CODE/TIME: Session 1??[id number] x 30 minutes, [id number] x 14 minutes beginning at 10:16 AM. Session 2??[id number] x 15 minutes, [id number] x 32 minutes beginning at 15:33 PM.
[2020-03-13] MEDS: Atorvastatin 10 MG TAB PO (20:02)
[2020-03-13 23:05] VITALS: BP 98/66; PULSE 90; RESP 17; TEMP 36.6; O2SAT 100
[2020-03-14 06:46] LABS: Abs Immature Grans 0.02 10^3/uL (0.0-0.06); Absolute Basophil Count 0.02 10^3/uL (0.0-0.2); Absolute Eosinophil Count 0.19 10^3/uL (0.0-0.7); Absolute Lymphocyte Count 1.66 10^3/uL (1.2-3.4); Absolute Monocyte Count 0.55 10^3/uL (0.1-0.8); Absolute Neutrophil Count 2.92 10^3/uL (1.2-6.7); Basophils % 0.4; Eosinophils % 3.5; HGB 10.8 g/dL (13.5-17.5); Immature Grans % 0.4; MCH 30.9 pg (27.0-33.0); MCHC 33.8 % (32.0-36.0); MCV 91.7 fL (80-95); MPV 9.8 fL (8.0-11.0); Monocytes % 10.3; Neutrophils % 54.4; Nucleated RBC 0 %; Platelet Count 261 10^3/uL (130-400); RBC 3.49 10^6/uL (4.36-5.78); RDW 13.1 % (11.8-14.1); WBC 5.36 10^3/uL (4.4-10.8)
[2020-03-14] MEDS: Sucralfate 1 GM TAB PO ×4 (07:38→20:06)
[2020-03-14] MEDS: Nicotine 14 MG/24 HR PATCH TD (07:38)
[2020-03-14] MEDS: Gabapentin 100 MG CAP PO ×3 (07:38→20:06)
[2020-03-14] MEDS: Pantoprazole 40 MG TABCR PO ×2 (07:39→20:06)
[2020-03-14] MEDS: Apixaban 5 MG TAB PO ×2 (07:39→20:06)
[2020-03-14] MEDS: Magnesium Oxide 400 MG TAB PO ×2 (07:39→20:06)
[2020-03-14] MEDS: Thiamine 100 MG TAB PO (07:39)
[2020-03-14] MEDS: Lisinopril 5 MG TAB PO (07:40)
[2020-03-14] MEDS: Spironolactone 25 MG TAB 12.5 MG PO (07:40)
[2020-03-14] MEDS: Ferrous Sulfate 325 MG TAB PO (07:40)
[2020-03-14] MEDS: Carvedilol 6.25 MG TAB PO ×2 (07:40→20:06)
[2020-03-14 07:52] VITALS: BP 110/79; PULSE 91; RESP 18; TEMP 36.8; O2SAT 96
--- NOTE | 2020-03-14 10:24 | PTTR_ITS ---
PT Notes Visit Reasons: AMBULATORY DYSFUNTION, COGNITIVE DYSFUNCTION Inpatient Physical Therapy Treatment Note [facility] Date: 03/14/20 PRECAUTIONS: WBAT B UE/LE AFO on R LE when OOB SUBJECTIVE: Pt reports that he is always stiff until he gets moving and then he feels better after his workouts. OBJECTIVE: Sit-stand: SBA Stand-sit: SBA GAIT Assistive Device: SBA Weight bearing: WBAT B UE/LE Assist: SBA Distance: Approx 450ft all together THEREX: Pt completed UE and LE ther ex as per flow sheet, functional sit to stands without the use of his hands, cone taps as per flow sheet, feet close together with e.c. 30 sec with COMBATANT DIVER OFFICER vs walker as needed, and the Nu Step for 5 min. ASSESSMENT: Pt tolerated today's session well. Pt had some minor knee pain with the Nu Step today. PLAN: Cont as per PT POC. TREATMENT CODE/TIME: 11-15:10:35 (35) GOLDY LIM
[2020-03-14 15:14] VITALS: BP 118/86; PULSE 94; RESP 18; TEMP 36.4; O2SAT 98
[2020-03-14] MEDS: Atorvastatin 10 MG TAB PO (20:06)
[2020-03-14 23:18] VITALS: BP 110/71; PULSE 83; RESP 20; TEMP 36.1; O2SAT 97
[2020-03-15 07:18] VITALS: BP 102/70; PULSE 80; RESP 18; TEMP 36.1; O2SAT 96
[2020-03-15] MEDS: Nicotine 14 MG/24 HR PATCH TD (07:54)
[2020-03-15] MEDS: Sucralfate 1 GM TAB PO ×4 (07:55→21:23)
[2020-03-15] MEDS: Gabapentin 100 MG CAP PO ×3 (07:55→20:31)
[2020-03-15] MEDS: Spironolactone 25 MG TAB 12.5 MG PO (07:55)
[2020-03-15] MEDS: Apixaban 5 MG TAB PO ×2 (07:55→20:31)
[2020-03-15] MEDS: Lisinopril 5 MG TAB PO (07:55)
[2020-03-15] MEDS: Thiamine 100 MG TAB PO (07:55)
[2020-03-15] MEDS: Pantoprazole 40 MG TABCR PO ×2 (07:55→20:31)
[2020-03-15] MEDS: Ferrous Sulfate 325 MG TAB PO (07:55)
[2020-03-15] MEDS: Magnesium Oxide 400 MG TAB PO ×2 (07:56→20:31)
[2020-03-15] MEDS: Carvedilol 6.25 MG TAB PO ×2 (07:56→20:31)
--- NOTE | 2020-03-15 10:29 | PT.INTREAT ---
PT Notes Visit Reasons: AMBULATORY DYSFUNTION, COGNITIVE DYSFUNCTION Inpatient Physical Therapy Treatment Note [facility] Date: 03/15/20 PRECAUTIONS:WBAT B UE/LE AFO on R LE when OOB OBJECTIVE: Sit-stand: SBA Stand-sit: SBA GAIT Assistive Device: 4WW Weight bearing: WBAT Assist: SBA Distance: 400ft THEREX: Pt completed UE and LE ther ex as per flow sheet with 2.5# and the Nu Step for 5 min. ASSESSMENT: PT tolerated today's session fairly well. PLAN: Cont as per PT POC. TREATMENT CODE/TIME: 10-10:30 (30) GOLDY LIM
[2020-03-15 15:34] VITALS: BP 124/82; PULSE 88; RESP 15; TEMP 36.8; O2SAT 98
[2020-03-15] MEDS: Atorvastatin 10 MG TAB PO (20:31)
[2020-03-15 22:30] VITALS: BP 107/75; PULSE 91; RESP 18; TEMP 37; O2SAT 98
[2020-03-16 05:48] VITALS: BP 130/90; PULSE 77; RESP 18; TEMP 36.2; O2SAT 96
[2020-03-16 07:22] VITALS: BP 128/90; PULSE 90; RESP 17; TEMP 36.1; O2SAT 98
[2020-03-16] MEDS: Nicotine 14 MG/24 HR PATCH TD (08:26)
[2020-03-16] MEDS: Ferrous Sulfate 325 MG TAB PO (08:27)
[2020-03-16] MEDS: Magnesium Oxide 400 MG TAB PO ×2 (08:27→20:17)
[2020-03-16] MEDS: Sucralfate 1 GM TAB PO ×4 (08:27→21:55)
[2020-03-16] MEDS: Thiamine 100 MG TAB PO (08:27)
[2020-03-16] MEDS: Gabapentin 100 MG CAP PO ×3 (08:27→20:17)
[2020-03-16] MEDS: Pantoprazole 40 MG TABCR PO ×2 (08:27→20:17)
[2020-03-16] MEDS: Carvedilol 6.25 MG TAB PO ×2 (08:27→20:17)
[2020-03-16] MEDS: Apixaban 5 MG TAB PO ×2 (08:27→20:18)
[2020-03-16] MEDS: Lisinopril 5 MG TAB PO (08:27)
[2020-03-16] MEDS: Spironolactone 25 MG TAB 12.5 MG PO (08:30)
--- NOTE | 2020-03-16 09:45 | OT.INTREAT ---
Date of service: 03/16/20 Time of Service: 09:15 Occupational Therapy Notes Occupational Therapy Inpatient Treatment Note Date: 03/16/20 PRECAUTIONS: Fall, standard, Full SUBJECTIVE: Pt was sitting in chair when OT arrived, he was agreeable to OT session. OBJECTIVE: PAIN:no c/o except for this PROM To digits on (B) UE when going into flexion FUNCTIONAL MOBILITY Sit-stand: (S) Stand-sit: (S) Bathroom-Chair: (S) Chair-bathroom: (S) Self Care Training [id number]: OT educated pt on functional grasp of cup and use of his (B) UE during his eating routines. He lacks gross and fine motor control of his digits which limits him throughout. He is able to use the toilet (I). He requires (A) with his (R) UE on FWW for functional mobility. Manual Therapy [id number]: OT placed pts (B) UE in the pronated position and passively stretched pts digits into extension which pt had pain in his (R) UE due to his MF, RF and SF staying in the flexed position at all times. He did not like the Rock tape from last session and would like to hold on this for today. Then with max (A) of rolling his (B) UE into supination, OT passively mobilized pt into flexion utilizing joint blocking techniques and low load long duration holds. Pt is able to demonstrate slight AROM of (B) thumbs although this is limited to flexion and extension but no active abduction or adduction. ASSESSMENT/PLAN: Pt is limited into flexion and extension of his digits at the IP joints. He has pain in his IP joints on his (R) UE when going into flexion and extension and slight edema in his digits. On his (L) he has no AROM of (L) IF into flexion, PROM he was able to achieve full flexion. His limited ROM of his digits are significantly limiting his gross and fine motor control during his ADL/IADL routines. TREATMENT CODES/TIME: [id number], [id number], 30 minutes (09:15) Daisy Cortez OTR/[facility]
[2020-03-16 10:09] LABS: IgA 242 mg/dL (85-499)
--- NOTE | 2020-03-16 11:26 | W.NUTRFU ---
Date of service: 03/16/20 Time of Service: 11:26 Nutritional Follow up NOTE: 54 year old male with hx of CVA, with demyelinating polyneuropathy with ambulatory and cognitive dysfunction. BMI on low end of normal. States weight has been stable > 1 year. Following regular meal plan with excellent intake (75-100%), ordered magic cup TID. Terrence does not like magic cup but is willing to have milkshakes (made with magic cup) BID to supplement po intake to help with weight regain. No c/o swallowing issues and reports good appetite prior to admission. Does not appear at nutritional risk at this time. Will continue to follow. Time Spent in Nutritional Counseling and Treatment: 10 min
[2020-03-16 15:30] VITALS: BP 116/84; PULSE 98; RESP 18; TEMP 36.7; O2SAT 99
--- NOTE | 2020-03-16 15:58 | PT.INTREAT ---
Date of service: 03/16/20 Time of Service: 14:40 PT Notes Visit Reasons: AMBULATORY DYSFUNTION, COGNITIVE DYSFUNCTION Inpatient Physical Therapy Treatment Note [facility] Date: 03/16/2020 PRECAUTIONS: Fall SUBJECTIVE: Terrence is requesting to walk in the hallways. 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 She was able to tolerate a progression in gait distance with FWW support and CGA-SBA. She requires cueing for FWW management due to several instances of path deviations which led to hitting stationary items. PLAN: Patient would benefit from continued gait and transfer training, as well as continued global strengthening for improved mobility. TREATMENT CODE/TIME: 15 minutes; [id number] (14:40)
--- NOTE | 2020-03-16 17:00 | PT.INTREAT ---
Date of service: 03/16/20 Time of Service: 17:00 PT Notes Visit Reasons: AMBULATORY DYSFUNTION, COGNITIVE DYSFUNCTION Swing Bed Level 1 Physical Therapy Treatment Note Date: 03/16/20 Precautions: Fall. Standard. Activity as tolerated. AFO in R LE when OOB. Subjective: Complained of L knee discomfort after unassisted ambulation activity. Objective: General Observation: Seated on bedside chair with AFO in R LE. Mental Status: Alert and oriented x 4. Pleasant and cooperative. Pain: L knee pain complaint to about 1-2/5 after ambulation activity Sensation: Intact as to pain sensation in B LE Transfers: Sit to stand supervision Stand to sit supervision Bed to chair standby assist Chair to bed standby assist GAIT: In the am, 400 feet + 150 feet with 4WW with SBA with R hand staying on R handle, no insicdence of slipping. In the afternoon, 150 feet with 4WW in the morning and the afternoon with R hand staying on R walker handle, no slipping seen. Also tolerated unsassisted ambulation from therapy room to room 207 with CGA of PT with report of minimal apin in L knee. ABIMAEL Ham provided ambulation retraining for part of the afternoon session for 15 minutes. THERA EX: In the morning session, with weights totaling 18 pounds placed in a rectangular container, patient worked on pushing container sideways working on shoulder abduction/adduction and forearm pronation/supination x 12 reps for 3 sets with 2.5 ankle weights placed around B UE while patient sidesteps along the full perimeter of the mat table with 2.5 ankle weights in B legs to work on hip abduction/external rotation and hip adduction/internal rotation x 12 steps for 3 sets. In the afternoon, with 2.5 AW in B sides, worked on increasing stability and safety of unassisted level surface ambulation requiring CGA and minimal cues of PT. While trunk is flexed and with forearms resting on mat, worked on increasing hip extension x 10 with a 5-sec-hold done each time; bilateral heel raises x 10, and partial knee bends x 10. Patient reported minimal discomfort in B hands that subsided with rest. Balance: Static Sitting: Normal Dynamic Sitting: Normal Static Standing: Good Dynamic Standing: Fair Assessment: Mobility level and balance skills continue to progress with a potential for achieving unassisted ambulation with PT skilling at the SNF level. B LE strength has contributed to increased independence and tolerance to ambulation performance. Remains in need of balance retraining to reduce falls. Persistent limitation in hand function and dexterity preclude attainment of basic and intrumental ADL goals at this time. Will require longer hand rehabilitation in the SNF to facilitate re-innervation and improved motor control in B hands. DISCHARGE RECOMMENDATIONS: Due to remaining impairments with bilateral hand function and dexterity limiting basic and instrumental ADL performance, patient will require SNF placement. TREATMENT CODE/TIME: Session 1??[id number] x 30 minutes, 09488 x 20 minutes. Session 2??[id number] x 15 minutes (provided by ABIMAEL Ham), 38850 x 34 minutes.
[2020-03-16] MEDS: Atorvastatin 10 MG TAB PO (20:17)
[2020-03-16 22:59] VITALS: BP 126/87; PULSE 86; RESP 16; TEMP 36.8; O2SAT 95
[2020-03-17] VITALS (12 sets, daily range): BP systolic 114–144; BP diastolic 80–91; PULSE 65–110; RESP 14–22; TEMP 36.3–36.9; O2SAT 96–100
[2020-03-17] MEDS: Gabapentin 100 MG CAP PO ×3 (08:41→20:19)
[2020-03-17] MEDS: Magnesium Oxide 400 MG TAB PO ×2 (08:41→22:08)
[2020-03-17] MEDS: Pantoprazole 40 MG TABCR PO ×2 (08:41→20:19)
[2020-03-17] MEDS: Sucralfate 1 GM TAB PO ×4 (08:41→22:08)
[2020-03-17] MEDS: Thiamine 100 MG TAB PO (08:41)
[2020-03-17] MEDS: Nicotine 14 MG/24 HR PATCH TD (08:41)
[2020-03-17] MEDS: Ferrous Sulfate 325 MG TAB PO (08:42)
[2020-03-17] MEDS: Spironolactone 25 MG TAB 12.5 MG PO (08:42)
[2020-03-17] MEDS: Lisinopril 5 MG TAB PO (08:42)
[2020-03-17] MEDS: Carvedilol 6.25 MG TAB PO ×2 (08:42→20:19)
[2020-03-17] MEDS: Apixaban 5 MG TAB PO ×2 (08:42→20:19)
[2020-03-17] MEDS: Acetaminophen 500 MG TAB 1000 MG PO (09:50)
--- NOTE | 2020-03-17 09:53 | OT.INTREAT ---
Date of service: 03/17/20 Time of Service: 09:40 Occupational Therapy Notes Occupational Therapy Inpatient Treatment Note Date: 03/17/20 PRECAUTIONS: Fall, standard, Full SUBJECTIVE: Pt was sitting in chair when OT arrived, he was agreeable to OT session. He notes that his hands and fingers are sore and stiff today. OBJECTIVE: PAIN:no c/o pain today just stiffness Manual Therapy [id number]: OT placed pts (B) UE in hot and cold water for edema management and contrast baths in the pronated position and passively stretched pts digits into extension which pt had pain in his (R) UE due to his MF, RF and SF staying in the flexed position at all times. Then with max (A) of rolling his (B) UE into supination, OT passively mobilized pt into flexion utilizing joint blocking techniques and low load long duration holds. Pt tolerated this well with good reduction of pain compared to other sessions. OT will monitor pts response and progress accordingly. ASSESSMENT/PLAN: Pt is again limited into flexion and extension of his digits at the IP joints. He has pain in his IP joints on his (R) UE when going into flexion and extension and slight edema in his digits. On his (L) he has no AROM of (L) IF into flexion, PROM he was able to achieve full flexion. OT will continue to work with pt on his ROM and pain management for his (B) UE to increase his functional (I) in his ADL/IADL routines. TREATMENT CODES/TIME: [id number], 15 minutes (09:40) Daisy Cortez, HEIDIR/[facility]
--- NOTE | 2020-03-17 10:39 | CMPROGNOTE_ITS ---
Care Management Progress Note Terrence continues to work with PT/OT. PT is recommending SNF upon discharge. At Terrence's request, CHERYL faxed referrals to [facility] in [place] and [facility] in [place]; awaiting determination. CHERYL sent follow up email to Millicent Salomon ([email or web address]) as no response was received from the voicemail left last week-inquiring as to financial status of his [facility] medicaid application. CHERYL rec'd response via email from Millicent who provided two forms for completion: 204REC, 201B. Nellie Robertson also requested completion of a release of information form. Both were completed by Terrence and returned to their respective requestors.
[2020-03-17] MEDS: IMMUNE GLOBULIN 20 GM/200 ML BTL IVPB (10:59)
[2020-03-17] MEDS: IMMUNE GLOBULIN 40 GM/400 ML BTL IVPB (13:16)
--- NOTE | 2020-03-17 14:35 | PT.INTREAT ---
Date of service: 03/17/20 Time of Service: 14:35 PT Notes Visit Reasons: AMBULATORY DYSFUNTION, COGNITIVE DYSFUNCTION Swing Bed Level 1 Physical Therapy Treatment Note Date: 03/17/20 Precautions: Fall. Standard. Activity as tolerated. AFO in R LE when OOB. Subjective: Agreeable to doing bed level strengthening exercises for the morning session while IVIG was being hooked up and vital signs being monitored by Nurse Machuca. Objective: General Observation: Supine in bed. Mental Status: Alert and oriented x 4. Continues ot be pleasant and cooperative. Pain: None reported BED MOBILITY/TRANSFERS: Supine to sit modified independent Sit to supine modified independent Sit to stand supervision Stand to sit supervision Bed to chair supervision Chair to bed supervision GAIT: Patient is able to tolerate up to 400 feet of level surface ambulation with just supervision assist using front wheeled walker. Also walk with nursing staff at this time in order to increase activity tolerance for ambulation activity. Without an assistive device patient is able to tolerate 150 feet +150 feet with just contact-guard assist of PT with increased postural sway on the left but no LOB x 2. No complaint of increased pain in the knees today. THERA EX: In the morning session, with 2.5 pound ankle weights in bilateral distal legs patient performed straight leg raises x10 long arc quads x10 with PT supporting each thigh, supine hip flexion x10, supine knee flexion x10, and bridging with 5-second hold each time x 10. Minimal discomfort in bilateral hands reported after bridging activity. In the afternoon with 2.5 AW in B legs, with trunk flexed and with forearms resting on mat, patient worked on increasing hip extension x 10 with a 5-sec-hold. In the afternoon, NuStep machine x 6 minutes with R=6 with no pain complaint in B knees. THERA ACT: Worked on increasing trunk stability while patient is in standing position utilizing rhythmic stabilization to trunk rotators, trunk flexors, trunk extensors, and trunk lateral flexors for 5 sec each x 10 reps. Balance: Static Sitting: Normal Dynamic Sitting: Normal Static Standing: Good Dynamic Standing: Fair Assessment: Decreasing report of knee pain in B sides despite increase in activity level. Mobility level and balance skills continue to progress with a potential for achieving unassisted ambulation. B LE strength has contributed to increased independence and tolerance to ambulation performance. Remains in need of balance retraining to reduce falls. Persistent limitation in hand function and dexterity continue to increase difficulty with walker management and increase fall risk. DISCHARGE RECOMMENDATIONS: SNF for continued mobility training and hand rehabilitation. TREATMENT CODE/TIME: Session 1??[id number] x 33 beginning at 11:10 AM. Session 2??[id number] x 55 minutes beginning at 14:35 PM.
--- NOTE | 2020-03-17 15:49 | CHAPLAIN ---
Terrence was up in a chair when I visited. We remembered meeting when he was here in February. He transferred to the [facility] rehab and said he worked hard there with PT and made progress. He's been back here two days. Terrence lives in [place], so feel closer to home here.
[2020-03-17] MEDS: Atorvastatin 10 MG TAB PO (20:19)
[2020-03-17] MEDS: Normal Saline Flush 10 ML SYR IVP (20:20)
[2020-03-18] MEDS: Nicotine 14 MG/24 HR PATCH TD (08:45)
[2020-03-18] MEDS: Pantoprazole 40 MG TABCR PO ×2 (08:47→19:46)
[2020-03-18] MEDS: Spironolactone 25 MG TAB 12.5 MG PO (08:47)
[2020-03-18] MEDS: Sucralfate 1 GM TAB PO ×4 (08:47→21:48)
[2020-03-18] MEDS: Ferrous Sulfate 325 MG TAB PO (08:47)
[2020-03-18] MEDS: Gabapentin 100 MG CAP PO ×3 (08:47→19:46)
[2020-03-18] MEDS: Thiamine 100 MG TAB PO (08:47)
[2020-03-18] MEDS: Carvedilol 6.25 MG TAB PO ×2 (08:49→19:46)
[2020-03-18] MEDS: Lisinopril 5 MG TAB PO (08:49)
[2020-03-18] MEDS: Apixaban 5 MG TAB PO ×2 (08:49→19:46)
[2020-03-18] MEDS: Normal Saline Flush 10 ML SYR IVP ×2 (08:52→19:46)
[2020-03-18 09:15] VITALS: BP 133/100; PULSE 76; RESP 15; TEMP 36.1; O2SAT 99
--- NOTE | 2020-03-18 09:30 | OT.INTREAT ---
Date of service: 03/18/20 Time of Service: 09:15 Occupational Therapy Notes Occupational Therapy Inpatient Treatment Note Date: 03/18/20 PRECAUTIONS: Fall, standard, Full SUBJECTIVE: Pt was sitting in chair when OT arrived, he states that his hands are sore, and he notes that he finds his motion of his digits to be uncomfortable at times. OBJECTIVE: PAIN:no c/o pain today just stiffness Manual Therapy [id number]: OT placed pts (B) UE in the pronated position and passively stretched pts digits into extension which pt had pain in his (R) UE due to his MF, RF and SF staying in the flexed position at all times this is due to the tone in his (R) and the decreased ROM in his (L). Then with max (A) of rolling his (B) UE into supination, OT passively mobilized pt into flexion utilizing joint blocking techniques and low load long duration holds. OT worked with pt on a functional grasp position and taped pts (B) UE with Rock tape into digit flexion or extension based on the specific ROM of the digit vs. tolerance to ROM. Pt is better able to grasp round objects post mobilization. OT will monitor pts response and progress accordingly. ASSESSMENT/PLAN: Pt has edema in his (B) hands which OT feel is contributing to the pain in his IP joints. The goal is for pt to get more functional use of his (B) UE to increase his functional(I) in his ADLs. He is demonstrating a more functional hand position with the ROck tape and OT will work with pt on strengthening with rock tape in place at next session. TREATMENT CODES/TIME: 31083, 15 minutes (09:15) Daisy Cortez OTR/[facility]
[2020-03-18] MEDS: Magnesium Oxide 400 MG TAB PO ×2 (10:17→21:48)
--- NOTE | 2020-03-18 10:40 | PTTR_ITS ---
Date of service: 03/18/20 Time of Service: 10:40 PT Notes Visit Reasons: AMBULATORY DYSFUNTION, COGNITIVE DYSFUNCTION Swing Bed Level 1 Physical Therapy Treatment Note Date: 03/18/20 Precautions: Fall. Standard. Activity as tolerated. AFO in R LE when OOB. Subjective: Agreeable to continued PT session. Amenable to seeing PT visit to 1 time a day with plan of having nursing staff walk with the patient at least once in the afternoon. Agreeable to doing a seated level and bed level range of motion exercises. Objective: General Observation: Seated on chair. Rock tape on bilateral hands and fingers. Mental Status: Alert and oriented x 4. Continues ot be pleasant and cooperative. Pain: None reported BED MOBILITY/TRANSFERS: Supine to sit modified independent Sit to supine modified independent Sit to stand modified independent Stand to sit modified independent Bed to chair supervision Chair to bed supervision GAIT: Today patient tolerated 300 feet +150 feet of level surface ambulation without an assistive device requiring standby assist but would require contact- guard assist during directional changes for safety. There is tendency for increased postural swaying on the left side which can potentially cause patient to lose balance in that direction. Peyton improving. Step height and length increasing. No report of knee pain received. THERA EX: In the morning session, with 2.5 pound ankle weights in bilateral distal legs patient performed straight leg raises x10 long arc quads x10 with PT supporting each thigh, supine hip flexion x10, supine knee flexion x10, and bridging with 5-second hold each time x 10. Minimal discomfort in bilateral hands reported after bridging activity. In the afternoon with 2.5 AW in B legs, with trunk flexed and with forearms resting on mat, patient worked on increasing hip extension x 10 with a 5-sec-hold. In the afternoon, NuStep machine x 6 minutes with R=6 with no pain complaint in B knees. THERA ACT: Worked on increasing trunk stability while patient is in standing position utilizing rhythmic stabilization to trunk rotators, trunk flexors, trunk extensors, and trunk lateral flexors for 5 sec each x 10 reps. Balance: Static Sitting: Normal Dynamic Sitting: Normal Static Standing: Good Dynamic Standing: Fair Assessment: Improving grasp and B UE strength increase ability to manage 4WW during ambulation performance. Continues to demonstrate balance impairment as evidenced by increased postural sway and limited awareness with left lateral balance reaction resulting to minimal LOBs x 3. Terrence will continue to benefit from neuromuscular reeducation, balance retraining, and strength progression to achieve mobility ADL goals. Spoke with nurse Roberts today about ensuring that the patient is walked by nursing staff at least once in the afternoon using 4- wheeled walker in order to maximize functional mobility gains. DISCHARGE RECOMMENDATIONS: SNF for continued mobility training and hand rehabilitation. TREATMENT CODE/TIME: Session 1??[id number] x 40 minutes, 38077 x 10 minutes beginning at 10:40 AM.
[2020-03-18 16:02] VITALS: BP 130/96; PULSE 81; RESP 16; TEMP 36; O2SAT 100
[2020-03-18] MEDS: Atorvastatin 10 MG TAB PO (19:46)
[2020-03-18 23:40] VITALS: BP 125/82; PULSE 86; RESP 17; TEMP 36.6; O2SAT 95
[2020-03-19 07:19] VITALS: BP 134/82; PULSE 74; RESP 18; TEMP 36.8; O2SAT 98
[2020-03-19] MEDS: Spironolactone 25 MG TAB 12.5 MG PO (07:50)
[2020-03-19] MEDS: Ferrous Sulfate 325 MG TAB PO (07:51)
[2020-03-19] MEDS: Apixaban 5 MG TAB PO ×2 (07:51→20:03)
[2020-03-19] MEDS: Gabapentin 100 MG CAP PO ×3 (07:51→20:02)
[2020-03-19] MEDS: Thiamine 100 MG TAB PO (07:51)
[2020-03-19] MEDS: Pantoprazole 40 MG TABCR PO ×2 (07:51→20:02)
[2020-03-19] MEDS: Nicotine 14 MG/24 HR PATCH TD (07:51)
[2020-03-19] MEDS: Carvedilol 6.25 MG TAB PO ×2 (07:51→20:02)
[2020-03-19] MEDS: Sucralfate 1 GM TAB PO ×4 (07:51→21:08)
[2020-03-19] MEDS: Lisinopril 5 MG TAB PO (07:52)
[2020-03-19] MEDS: Normal Saline Flush 10 ML SYR IVP ×2 (07:52→20:02)
--- NOTE | 2020-03-19 08:54 | W.PM.PROGNOT ---
Date of Service Date of service: 03/19/20 Time of Service: 08:54 Assessment and Plan Assessment and plan (1) CVA (cerebral vascular accident): Status: Chronic Assessment and plan: Multiple CVA, acute punctate stroke last admission 02/13-02/20, was discharged to acute rehab, returns here for swing bed admission. continue PT/OT He may need senior living placement RT sided deficits to RUE and RLE along with some cognitive deficits. Qualifiers: CVA mechanism: thrombosis Precerebral and cerebral artery: unspecified cerebral artery Qualified Code(s): I63.30 - Cerebral infarction due to thrombosis of unspecified cerebral artery (2) Ambulatory dysfunction: Status: Acute Assessment and plan: as above will work with PT/OT (3) CIDP (chronic inflammatory demyelinating polyneuropathy): Status: Acute Assessment and plan: Long-term treatment is to continue IVIG 0.4g/kg monthly, which will be overseen by Dr Xavier. He should keep his [facility] Neurology outpatient appointment scheduled in March. (4) Cognitive dysfunction: Status: Acute Assessment and plan: stable and improving above reviewed with Dr. vickers Subjective Subjective Patient reports: no new complaints, tolerating liquids well, tolerating a regular diet and voiding w/o difficulty Interval history since last seen: has been continent of bowel and bladder now, up ambulating with one stand by assist. slowly progressing. Exam Const General: cooperative, comfortable, no acute distress, frail appearing and ill appearing chronically Nutritional Appearance: malnourished Orientation: alert, awake and oriented x3 HENMT Head: normal to inspection, normocephalic and atraumatic Mouth: moist mucous membranes Eyes Conjunctivae: conjunctivae normal Pupils: PERRL EOM: EOM intact bilaterally Neck Neck: normal visual inspection and full ROM Chest Chest: normal inspection of the chest Resp Effort & Inspection: normal respiratory effort Auscultation: clear to auscultation bilaterally Cardio Jugular venous pressure: no JVD Rate: regular rate Rhythm: regular rhythm Heart Sounds: S1 normal and S2 normal GI Palpation: soft and no hepatosplenomegaly Auscultation: normal bowel sounds General: deferred Skin General skin exam: no rashes or lesions noted Neuro General: patient alert, patient awake, patient oriented x3 and moves all extremities Cognition: normal cognition Motor: strength not 5/5 throughout Extrem General: abnormal ROM and no clubbing, cyanosis or edema Right upper extremity: ROM limited Left upper extremity: normal to inspection Right lower extremity: ROM limited Left lower extremity: normal to inspection Psych Appearance: grossly normal Mental Status: mental status grossly normal Speech and Movement: speech and movement normal Mood: congruent mood Affect: normal affect Attitude: cooperative Objective Last Vital Signs Temp 36.8 C 03/19/20 07:19 Pulse 74 03/19/20 07:19 Resp 18 03/19/20 07:19 BP 134/82 03/19/20 07:19 Pulse Ox 98 03/19/20 07:19
--- NOTE | 2020-03-19 09:08 | OT.INNT ---
Date of service: 03/19/20 Time of Service: 08:05 Occupational Therapy Notes 03/19/20 OT went to see pt who reports that his hands and digits are sore. OT does feel that this is directly related to pts hands and digits being placed in the extended position throughout the day. OT and pt discuss keeping his digits in the functional position throughout the day and OT will resume services tomorrow. Daisy Cortez, OTR/[facility]
--- NOTE | 2020-03-19 10:48 | INPN_ITS ---
Date of service: 03/19/20 Time of Service: 10:48 PT Notes Visit Reasons: AMBULATORY DYSFUNTION, COGNITIVE DYSFUNCTION Swing Bed Level 1 Physical Therapy Progress Note Date: 03/19/20 Dates of service: 03/12/2020 through 03/19/2020 Referring Doctor: Angelique Cedeño NP PT Orders: PT CONSULT: Eval/Treat. Subjective: Agreeable to continued PT services. No report of new pain in B UE/LE. Stated that he has been following recommendations of resting in the afternoon and of doing bed exercises along with chair exercises written on the white board in his room. Feels that he is continuously gaining in terms of mobility performance and hand function. Hopeful that he can continue to avail of services in the SNF as his goal is to ultimately go home and manage at home as he did 6 months ago. Objective: General Observation: Seated on bedside chair without AFO in R LE. No lines. Trophic skin changes in B hands and fingers with R>>L. R thumb nail now with increased thickening and yellowing. Atrophic thenar and hypothenar muscles in B sides. Mental Status: Alert and oriented x 4. Pleasant and cooperative. Pain: None reported. Reported some soreness in B hands while holding onto rails during therapeutic exercise. ROM: Right Upper Extremity: OT providing services to manage hand and fingers, please see OT progress notes for this. Left Upper Extremity: OT providing services to manage hand and fingers, please see OT progress notes for this. Right Lower Extremity: Hip WNL. Knee with 5 degree flexion contracture. Ankle DF about 10 degrees beyond neutral. Left Lower Extremity: Hip and knee WNL. Knee WNL. DF of up to 20 degrees beyond neutral. PF WNL. Strength: Right Upper Extremity: OT providing services to manage hand and fingers, please see OT progress notes for this. Left Upper Extremity: OT providing services to manage hand and fingers, please see OT progress notes for this. Right Lower Extremity: Hip flexors 4/5. Hip abductors 4/5. Knee flexors 4/5. Knee extensors 3-/5. Ankle dorsiflexors 1/5. Ankle plantarflexors 3-/5. Left Lower Extremity: Hip flexors 4/5. Hip abductors 4/5. Knee flexors 4/5. Knee extensors 4-/5. Ankle dorsiflexors 3-/5. Ankle plantarflexors 4-/5. Sensation: Intact as to pain sensation in B LE BED MOBILITY/TRANSFERS: Supine to sit modified independent Sit to supine modified independent Sit to stand modified independent Stand to sit modified independent Bed to chair supervision Chair to bed supervision GAIT: Today, patient tolerated 200 feet + 200 feet of level surface ambulation without an assistive device requiring standby assist but would require contact- guard assist during directional changes for safety. There is tendency for increased postural swaying on the left side which can potentially cause patient to lose balance in that direction. Peyton improving. Step height and length increasing. No report of knee pain received for the past two days. THERA EX: 1) with 3 lb AW, forward lunge onto 2nd step with 5sh x 10 on each side while B hands are holding onto B rails 2) with 3 lb AW, step ups x 10 with R foot up/down x 10 and then L foot up/down x 10 while B hands are holding onto B rails 3) B heeel raises x 10 with 5sh THERA ACT: Worked on engaging R quadriceps and abdominals to limit postural sway posteriorly and to the left while maintaining COG forward as L LE advances during ambulation activity without AD Balance: Static Sitting: Normal Dynamic Sitting: Normal Static Standing: Good Dynamic Standing: Fair Special Tests: Mobility Limitations Standardized Measure [facility] 6 clicks Basic Mobility Inpatient Short Form: Raw Score: 23 CMS Score: 11% impairment Informed Consent/Education: Patient instructed in purpose of PT continued consult and plan of care. Assessment: Terrence demonstrates increasing grasp and B UE strength which has helped with ability to secure assistive device handles during mobility tasks. Continues to demonstrate balance impairment as evidenced by increased postural sway to L and limited awareness with left lateral balance reaction resulting to minimal LOBs. Terrence will continue to benefit from neuromuscular reeducation, balance retraining, and strength progression to achieve mobility ADL goals. Room Exercise program of seated hip flexion, LAQs, and ankle pumps x 10 each along with bed exercises consisting of straight leg raises, bridging, and alternate knee-to chest x 10 each have been given to patient in order to maximize trunk and B LE strength/stability gains. Patient continues to present with clinical signs and symptoms consistent with current/admitting diagnoses that have resulted to mobility limitations, gait instability, generalized weakness, and impairment of motor control as demonstrated by the following impairment level findings: 1. Decreased strength to B hand and finger (IP) extension muscle groups 2. Impaired standing balance 3. Limitation of joint range of motion in B hands, fingers, R knee, and R foot 4. Decreased grasp with R>>L 5. IP flexion contracture to digits 3, 4, and 5 on B sides with R>>L 6. Postural sway to L increasing LOB risk Impairments are contributing to the following functional limitations: 1. Inability to safely ambulate without assistive device 2. Increase completion time for mobility ADL performance 3. Increased fall risk 4. Inability to negotiate steps alone safely 5. Limited ability to manage AD due to poor grasp/radar scientist on the R Patient is assessed as a 54815 moderate complexity based on the following: History: 54-year-old male with impairment level findings, functional limitations, and past medical history as indicated above Examination: Demonstrable impairment in strength, balance, and mobility level with underlying impairments and functional limitations as documented above Presentation:Evolving Decision Makin moderate complexity Goals: Goals X1 week 1. Supine-Sit independent MET 2. Sit-Supine independent MET 3. Sit-Stand independent MET 4. Stand-Sit independent MET 5. Bed-Chair independent NOT MET 6. Chair-Bed independent NOT MET 7. Independent gait on level surface without an assistive device vs. the use of 4WW/forearm crutch for at least 500 feet without report of pain nor dyspnea NOT MET 8. Independent stair negotiation while holding onto unilateral rail for at least 5 steps without report of pain nor dyspnea NOT MET 9. Normal static and dynamic standing balance/tolerance NOT MET Plan of Care/Treatment Plan: 1x/day, 7 days/week x 1 week. Plan of care has been reviewed with the GOVERNMENT OPERATIONS CONSULTANT providing the service under Physical Therapy direction. Initiate Physical Therapy intervention for strengthening, bed mobility, transfers, gait, stairs, balance training, use of assistive device. Recommend utilization of lift for transfers at this time, due to patient's significant LE weakness, rigidity, and insufficient UE strength to manage assistive device. DISCHARGE RECOMMENDATIONS: SNF for continued mobility training and hand rehabilitation. TREATMENT CODE/TIME: 37165 x 16 minutes, 65166 x 25 minutes beginning at 10:48 PM. Thank you for the opportunity to participate in the care of this patient. Binta Mayes PT, DPT, CLT [facility] [place], [place]
[2020-03-19] MEDS: Magnesium Oxide 400 MG TAB PO ×2 (11:40→21:08)
--- NOTE | 2020-03-19 14:16 | CHAPLAIN ---
eTrrence was resting in bed when I visited this morning. He seemed more reluctant for a conversation than in the past. He talked about his PT and OT work. I will continue to visit.
[2020-03-19 15:08] VITALS: BP 115/86; PULSE 59; RESP 18; TEMP 36.7; O2SAT 99
[2020-03-19] MEDS: Atorvastatin 10 MG TAB PO (20:02)
[2020-03-19 23:27] VITALS: BP 115/65; PULSE 70; RESP 18; TEMP 37.2; O2SAT 97
[2020-03-20 07:51] VITALS: BP 122/90; PULSE 91; RESP 17; TEMP 36.5; O2SAT 98
[2020-03-20] MEDS: Nicotine 14 MG/24 HR PATCH TD (08:49)
[2020-03-20] MEDS: Normal Saline Flush 10 ML SYR IVP ×2 (08:49→20:04)
[2020-03-20] MEDS: Carvedilol 6.25 MG TAB PO ×2 (08:50→20:02)
[2020-03-20] MEDS: Thiamine 100 MG TAB PO (08:50)
[2020-03-20] MEDS: Lisinopril 5 MG TAB PO (08:50)
[2020-03-20] MEDS: Spironolactone 25 MG TAB 12.5 MG PO (08:50)
[2020-03-20] MEDS: Ferrous Sulfate 325 MG TAB PO (08:50)
[2020-03-20] MEDS: Apixaban 5 MG TAB PO ×2 (08:50→20:03)
[2020-03-20] MEDS: Sucralfate 1 GM TAB PO ×4 (08:50→21:46)
[2020-03-20] MEDS: Gabapentin 100 MG CAP PO ×2 (08:50→13:33)
[2020-03-20] MEDS: Pantoprazole 40 MG TABCR PO ×2 (08:50→20:02)
--- NOTE | 2020-03-20 09:36 | OT.INTREAT ---
Date of service: 03/20/20 Time of Service: 09:20 Occupational Therapy Notes Occupational Therapy Inpatient Treatment Note Date: 03/20/20 PRECAUTIONS: Fall, standard, Full SUBJECTIVE: Pt was sitting in chair when OT arrived, he is quiet and agreeable to OT session. OBJECTIVE: PAIN:no c/o pain today just stiffness Manual Therapy [id number]: OT placed pts (B) UE in the pronated position and passively stretched pts digits into extension which pt had pain in his (R) UE due to his MF, RF and SF staying in the flexed position at all times this is due to the tone in his (R) and the decreased ROM in his (L). OT facilitated tone management and OT does feel that is gaining but is sore as his hands have stayed in one position for so long. Then with max (A) of rolling his (B) UE into supination, OT passively mobilized pt into flexion utilizing joint blocking techniques and low load long duration holds. OT worked with pt on a functional grasp position and taped pts (B) UE with Rock tape into digit flexion or extension based on the specific ROM of the digit vs. tolerance to ROM. ASSESSMENT/PLAN: Pt has soreness in his (B) UE, he has decreased digit ROM And stiffness. He is making progress in his functional grasp however would benefit from continued OT care for hand therapy, facilitation of grap and increased gross and fine digit motor control of (B) hands/digits. TREATMENT CODES/TIME: 92841, 10 minutes (09:20) Daisy Cortez OTR/L [facility]
[2020-03-20] MEDS: Magnesium Oxide 400 MG TAB PO ×2 (10:37→21:46)
--- NOTE | 2020-03-20 12:36 | PDOC.CMACT ---
Care Management Activity Note Terrence continues to work with PT/OT and continues to progress in strength and mobility. He shares pride at gaining weight and is enjoying the food. He continues to decline additional activities but enjoys watching television and talking with family over the phone. 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
--- NOTE | 2020-03-20 13:01 | CMPROGNOTE_ITS ---
Care Management Progress Note CHERYL connected with [facility]-Carole Hagen who reported [employer]'s application was flagged for prior investment accounts specifically in 2017 and 2018. She requested multiple sales representative wire rope forms be completed for this policy writer sales and Terrence's brother, Dejan and reported she will need support in collecting Terrence's prior taxes to show [place] outs of his investment accounts. She also requested this policy writer sales provide Dejan's email for further document requests to streamline process. CM left VM for Dejan outlining the above information. CM supported Terrence in completing signatures on both requested Authorized sales representative wire rope forms and scanned back to Carole. Millicent Salomon Pellet Machine Operator Restaurant Front Manager II LTC Medicaid Choices for Care [facility] ([facility]) Office:
--- NOTE | 2020-03-20 13:01 | PDOC.CMPRO ---
Care Management Progress Note CHERYL connected with [facility]-Carole Hagen who reported [employer]'s application was flagged for prior investment accounts specifically in 2017 and 2018. She requested multiple fulfillment representative forms be completed for this conventional underwriter and Terrence's brother, Dejan and reported she will need support in collecting Terrence's prior taxes to show [place] outs of his investment accounts. She also requested this conventional underwriter provide Dejan's email for further document requests to streamline process. CM left VM for Dejan outlining the above information. CM supported Terrence in completing signatures on both requested Authorized fulfillment representative forms and scanned back to Carole. Millicent Salomon Motor Adjuster [employer] Sales Manager II LTC Medicaid Choices for Care [facility] ([facility]) Office:
--- NOTE | 2020-03-20 14:15 | PTTR_ITS ---
Date of service: 03/20/20 Time of Service: 14:15 PT Notes Visit Reasons: AMBULATORY DYSFUNTION, COGNITIVE DYSFUNCTION Swing Bed Level 1 Physical Therapy Treatment Note Date: 03/20/20 PT Orders: PT CONSULT: Eval/Treat. Subjective: Agreeable to continued PT services. Continues to report some soreness in B hands while holding onto rails during therapeutic exercise. Objective: Pain: Continues to report some soreness in B hands while holding onto rails during therapeutic exercise. BED MOBILITY/TRANSFERS: Supine to sit modified independent Sit to supine modified independent Sit to stand modified independent with 4WW Stand to sit modified independent with 4WW Bed to chair modified independent with 4WW Chair to bed modified independent with 4WW GAIT: Today, patient tolerated 520 of level surface ambulation without an assistive device requiring standby assist, contact-guard assist provided during directional changes for safety. There is continued tendency for increased postural swaying on the left side which can potentially cause mild path deviation as well as loss of balance in that direction. Peyton improving. Step height and length increasing. No report of knee pain received for the past two week. THERA EX: 1) with 3 lb AW, forward lunge onto 2nd step with 5sh x 10 on each side while B hands are holding onto B rails 2) with 3 lb AW, step ups x 10 with R foot up/down x 10 and then L foot up/down x 10 while B hands are holding onto B rails 3) B heel raises x 10 with 5sh THERA ACT: Worked on reinforcing engagement of R quadriceps and abdominals to limit postural sway posteriorly and to the left while maintaining COG forward as L LE advances during ambulation activity without AD. Worked on increasing trunk stability with sit<>stand movement transition incorporating sidestepping to increase B hip abductors while increasing dynamic standing balance utilizing 3 lb AW to B sides x 10 reps for 2 sets. Balance: Static Sitting: Normal Dynamic Sitting: Normal Static Standing: Good Dynamic Standing: Fair Assessment: Terrence demonstrates increasing grasp and B UE strength which has helped with ability to secure assistive device handles during mobility tasks. Continues to demonstrate balance impairment as evidenced by increased postural sway to L and limited awareness with left lateral balance reaction resulting to minimal LOBs. Terrence will continue to benefit from neuromuscular re-education, balance retraining, and strength progression to achieve mobility ADL goals. Room Exercise program of seated hip flexion, LAQs, and ankle pumps x 10 each along with bed exercises consisting of straight leg raises, bridging, and alternate kn ee-to chest x 10 each have been given to patient in order to maximize trunk and B LE strength/stability gains. DISCHARGE RECOMMENDATIONS: SNF for continued mobility training and hand rehabilitation. TREATMENT CODE/TIME: 18020 x 30 minutes, 00803 x 35 minutes beginning at 14:15 PM.
[2020-03-20 15:30] VITALS: BP 123/87; PULSE 84; RESP 16; TEMP 36.9; O2SAT 97
--- NOTE | 2020-03-20 16:25 | W.PALLCONSUL ---
Date of service: 03/20/20 Time of Service: 15:45 History of Present Illness History of Present Illness Chief Complaint: BUE weakness Narrative: Terrence is a 54 year old man, currently on swing bed level of care for PT after being discharged from [facility]. He has a history of ETOH abuse, cirrhosis, A-fib, COPD, CVA, chronic inflammatory demyelinating polyneuropathy with ambulatory and cognitive dysfunction. He reports that his hand weakness began in October,. A palliative consult was ordered to discuss goals of care. Terrence was seen in his hospital room. He reports bilateral hand pain, he gets shooting pains in his knuckles. He is taking Gabapenin 100 mg TID, we discussed increasing the dose. He denies SOB, coughing or wheezing. He denies CP/pressure. He reports that he is eating well, no N/V/D. He is moving his bowels regularly. He reports that he is progressing with PT. He is doing OK overall. He is working on getting stronger. He is planning on going home when he leaves here, the other option is rehab. We discussed CODE status. He remains a full code. He was able to name his brother, Dejan, as his health care agent, paperwork was completed today to reflect this. Assessment and Plan Assessment and plan (1) CIDP (chronic inflammatory demyelinating polyneuropathy): Status: Acute (2) CVA (cerebral vascular accident): Status: Chronic Qualifiers: CVA mechanism: thrombosis Precerebral and cerebral artery: unspecified cerebral artery Qualified Code(s): I63.30 - Cerebral infarction due to thrombosis of unspecified cerebral artery (3) Atrial fibrillation: Status: Acute Qualifiers: Atrial fibrillation type: paroxysmal Qualified Code(s): I48.0 - Paroxysmal atrial fibrillation (4) COPD (chronic obstructive pulmonary disease): Status: Acute (5) Ambulatory dysfunction: Status: Acute (6) Cognitive dysfunction: Status: Acute (7) Cardiomyopathy: Status: Chronic Qualifiers: Cardiomyopathy type: unspecified Qualified Code(s): I42.9 - Cardiomyopathy, unspecified (8) Alcohol abuse: Status: Chronic (9) Palliative care patient: Status: Acute Assessment and plan: Terrence is a 54 year old man, currently on swing bed level of care for PT after being discharged from [facility]. He has a history of ETOH abuse, cirrhosis, A-fib, COPD, CVA, chronic inflammatory demyelinating polyneuropathy with ambulatory and cognitive dysfunction. He reports that his hand weakness began in October,. A palliative consult was ordered to discuss goals of care. We discussed CODE status, he remains a FULL code. He was able to name his brother, Dejan Herrera, to be his health care agent. Health care agent/DPOA form completed and scanned to chart. He would benefit from ongoing palliative care to continue to discuss goals of care in the setting of progressive demyelinating disease. Follow up Palliative as an outpatient. Review of Systems All systems reviewed & are unremarkable except as noted in HPI and below PFSH Medical History Alcoholism Ataxia Ataxic gait Atrial fibrillation Cardiomyopathy Cirrhosis COPD with asthma GI bleed Hypertension Nicotine abuse Peripheral neuropathy Prediabetes Weakness Weight loss Social History Smoking/Tobacco Use Status: Former Tobacco Use Quit Date: 02/13/20 Smoking risk assessment performed?: Yes Alcohol Intake: former Drug use: Never Substance use type: does not use Household members: none Housing: house Number of Children: 3 number of grandchildren: 2 Pets and animals: Yes Pets and animals: dog(s) Current gender identity: male What type of physical activity do you participate in: none Seatbelt use: always Do you feel safe at home: Yes Do you feel safe in your relationship?: Yes Exam Narrative Exam Narrative: General: Very pleasant 54 year old man, sitting up in a chair in his hospital room, awake, alert and appropriate. Answers questions appropriately. HEENT: normocephalic, atraumatic, pupils equal and round, mucous membranes moist. Neck: supple, no JVD. Cardiovascular: heart sounds regular, nontachycardic. Respiratory: respirations appear even and unlabored, lung sounds clear bilaterally. GI: abdomen soft, +BS, nontender on palpation, nondistended. Extremities: no edema, brace to right ankle. Results Last Vital Signs Temp 36.9 C 03/20/20 15:30 Pulse 84 03/20/20 15:30 Resp 16 03/20/20 15:30 BP 123/87 03/20/20 15:30 Pulse Ox 97 03/20/20 15:30 Labs Result diagrams: 03/14/20 06:13
[2020-03-20] MEDS: Atorvastatin 10 MG TAB PO (20:03)
[2020-03-20] MEDS: Gabapentin 300 MG CAP PO (20:03)
[2020-03-20 23:15] VITALS: BP 136/71; PULSE 81; RESP 18; TEMP 36.9; O2SAT 97
[2020-03-21 07:55] VITALS: BP 119/85; PULSE 87; RESP 18; TEMP 37.2; O2SAT 97
[2020-03-21] MEDS: Thiamine 100 MG TAB PO (08:03)
[2020-03-21] MEDS: Carvedilol 6.25 MG TAB PO ×2 (08:03→19:44)
[2020-03-21] MEDS: Sucralfate 1 GM TAB PO ×4 (08:03→21:25)
[2020-03-21] MEDS: Lisinopril 5 MG TAB PO (08:03)
[2020-03-21] MEDS: Ferrous Sulfate 325 MG TAB PO (08:03)
[2020-03-21] MEDS: Pantoprazole 40 MG TABCR PO ×2 (08:03→19:44)
[2020-03-21] MEDS: Gabapentin 300 MG CAP PO ×3 (08:03→19:44)
[2020-03-21] MEDS: Spironolactone 25 MG TAB 12.5 MG PO (08:04)
[2020-03-21] MEDS: Nicotine 14 MG/24 HR PATCH TD (08:04)
[2020-03-21] MEDS: Apixaban 5 MG TAB PO ×2 (08:04→19:44)
[2020-03-21] MEDS: Normal Saline Flush 10 ML SYR IVP ×2 (08:04→19:45)
--- NOTE | 2020-03-21 10:21 | PTTR_ITS ---
PT Notes Visit Reasons: AMBULATORY DYSFUNTION, COGNITIVE DYSFUNCTION 03/21/2020 SUBJECTIVE: No new complaints today. He notes he is not sleeping well and has been a little tired. OBJECTIVE: 47195, [id number] TRANSFERS Sit to stand: I STand to sit: I GAIT Device: No AD Weight bearing: Full Assist: CGA Distance: 450' Deviation: AFO donned on right LE. Multiple sways during gait and he recovers with CGA and support of the wall. THEREX: Balance and LE strengthening activities performed. See flow sheet. ASSESSMENT: Tolerates PT well today. He is performing his independent exercises often throughout the day. I did remove the Rock tape that was applied to his hands. PLAN: Continue current POC. Treatment time: 35 minutes [place] Eric PTA Clinic location: [facility] [place], [place]
[2020-03-21] MEDS: Magnesium Oxide 400 MG TAB PO ×2 (10:26→21:25)
[2020-03-21 15:25] VITALS: BP 117/79; PULSE 98; RESP 17; TEMP 37; O2SAT 98
[2020-03-21] MEDS: Atorvastatin 10 MG TAB PO (19:44)
[2020-03-21 23:36] VITALS: BP 105/73; PULSE 84; RESP 17; TEMP 36.5; O2SAT 96
[2020-03-22 07:38] VITALS: BP 119/84; PULSE 83; RESP 17; TEMP 36; O2SAT 98
[2020-03-22] MEDS: Apixaban 5 MG TAB PO ×2 (09:10→19:53)
[2020-03-22] MEDS: Thiamine 100 MG TAB PO (09:10)
[2020-03-22] MEDS: Lisinopril 5 MG TAB PO (09:10)
[2020-03-22] MEDS: Nicotine 14 MG/24 HR PATCH TD (09:10)
[2020-03-22] MEDS: Pantoprazole 40 MG TABCR PO ×2 (09:11→19:54)
[2020-03-22] MEDS: Sucralfate 1 GM TAB PO ×4 (09:11→21:28)
[2020-03-22] MEDS: Carvedilol 6.25 MG TAB PO ×2 (09:11→19:53)
[2020-03-22] MEDS: Gabapentin 300 MG CAP PO ×3 (09:11→19:53)
[2020-03-22] MEDS: Spironolactone 25 MG TAB 12.5 MG PO (09:11)
[2020-03-22] MEDS: Ferrous Sulfate 325 MG TAB PO (09:11)
[2020-03-22] MEDS: Normal Saline Flush 10 ML SYR IVP ×2 (09:12→19:53)
--- NOTE | 2020-03-22 09:50 | PT.INNT ---
Date of service: 03/22/20 Time of Service: 09:50 PT Notes Visit Reasons: AMBULATORY DYSFUNTION, COGNITIVE DYSFUNCTION 03/22/2020 Patient refused morning PT session, reporting that he is waiting for his breakfast and wants to eat first. He states that he will complete HEP today, and plans to walk with nursing several times throughout the day today. Nursing aware of the plan.
[2020-03-22] MEDS: Magnesium Oxide 400 MG TAB PO ×2 (10:03→21:28)
--- NOTE | 2020-03-22 11:03 | CMPROGNOTE_ITS ---
Care Management Progress Note Terrence reports his previous significant other filed his taxes through [employer]. He remembers having physical copies at home. He states his investment account is worth a few hundred dollars and has not ever made much in dividends. He reports it was bought out by [employer] and he does receive mail from the account. CHERYL left message for Dejan with his , requesting email for [employer] correspondence and to request support in collecting documents. CHERYL spoke with Dejan at length who shared concerns for determining Bonifacio's cognitive functioning baseline and possible underlying depression. CHERYL discussed with MD who entered a Psych consult with Dr. Esquivel. CHERYL discussed referral at length with Dr. Esquivel who reported Dr. Carver's intention of determining Terrence's cog functioning. She also recommended this greeting card writer utilize PHQ-9, or Hospital ADS (anxiety and depression scale) and ask Terrence directly if he is feeling depressed, and then providing that information to Dr. Baptiste to determine possible treatment recommendations.
[2020-03-22 15:19] VITALS: BP 107/62; PULSE 95; RESP 16; TEMP 37.4; O2SAT 95
[2020-03-22] MEDS: Atorvastatin 10 MG TAB PO (19:53)
[2020-03-22 23:28] VITALS: BP 99/65; PULSE 82; RESP 16; TEMP 36.4; O2SAT 95
[2020-03-23 07:35] VITALS: BP 101/75; PULSE 74; RESP 18; TEMP 36.9; O2SAT 95
[2020-03-23] MEDS: Nicotine 14 MG/24 HR PATCH TD (07:59)
[2020-03-23] MEDS: Carvedilol 6.25 MG TAB PO ×2 (08:00→20:02)
[2020-03-23] MEDS: Pantoprazole 40 MG TABCR PO ×2 (08:00→20:02)
[2020-03-23] MEDS: Thiamine 100 MG TAB PO (08:00)
[2020-03-23] MEDS: Sucralfate 1 GM TAB PO ×4 (08:00→21:21)
[2020-03-23] MEDS: Apixaban 5 MG TAB PO ×2 (08:00→20:02)
[2020-03-23] MEDS: Ferrous Sulfate 325 MG TAB PO (08:00)
[2020-03-23] MEDS: Lisinopril 5 MG TAB PO (08:00)
[2020-03-23] MEDS: Gabapentin 300 MG CAP PO ×3 (08:00→20:02)
[2020-03-23] MEDS: Normal Saline Flush 10 ML SYR IVP ×2 (08:04→20:03)
[2020-03-23] MEDS: Spironolactone 25 MG TAB 12.5 MG PO (08:04)
[2020-03-23] MEDS: Magnesium Oxide 400 MG TAB PO ×2 (09:35→21:21)
--- NOTE | 2020-03-23 14:15 | PT.INTREAT ---
Date of service: 03/23/20 Time of Service: 14:15 PT Notes Visit Reasons: AMBULATORY DYSFUNTION, COGNITIVE DYSFUNCTION Inpatient Physical Therapy Treatment Note [facility] Date: 03/23/2020 PRECAUTIONS: Fall SUBJECTIVE: Terrence is pleasant and agreeable to participating in PT. he reports that he has been complaining his HEP within his room and has been compliant with walking with nursing daily. OBJECTIVE: PAIN: Patient reports R hand soreness with gripping activities BED MOBILITY/TRANSFERS Sit-stand: I Stand-sit: I GAIT Assistive Device: No AD Weight bearing: Full Assist: SBA Distance: 150' +300' Deviation: Minimal path deviation, several instances of LOB with self correction THEREX: Patient was instructed step-up to lunge using 6 step, functional sit?to?stand exercise with sidestep x6' to L/R, forward lunge with forward reach to varying heights (requiring CGA-Min A), and wheelchair travel F/B x100'. ASSESSMENT: Patient tolerated session well with minimal complaint of R hand soreness with gripping activities. He was able to tolerate the addition of new LE strengthening exercises. PLAN: Continue with global strengthening and gait training without use of assistive device for continued progression toward baseline level of function. TREATMENT CODE/TIME: 40 minutes; 47075, 83430x8 (14:15)
[2020-03-23 15:20] VITALS: BP 121/91; PULSE 107; RESP 16; TEMP 37.1; O2SAT 99
--- NOTE | 2020-03-23 17:21 | CMACTNOTE_ITS ---
Care Management Activity Note Bonifacio requested magazines today, specifically Men's Health, outdoors or fishing. CM provided [employer], [facility] Journal and additional books for Terrence to look through to see if anything seemed of interest, and agreed to collect some magazines for him to enjoy. He reported some stiffness from working with PT and reported he is making progress and working hard.
[2020-03-23] MEDS: Atorvastatin 10 MG TAB PO (20:02)
[2020-03-23] MEDS: Acetaminophen 325 MG TAB 650 MG PO (21:21)
[2020-03-23 23:00] VITALS: BP 98/62; PULSE 83; RESP 16; TEMP 36.7; O2SAT 98
[2020-03-24 07:02] VITALS: BP 121/86; PULSE 89; RESP 16; TEMP 35.9; O2SAT 100
--- NOTE | 2020-03-24 08:34 | OT.INPN ---
Date of service: 03/24/20 Time of Service: 07:35 Occupational Therapy Notes Occupational Therapy Inpatient Progress Note Date: 03/24/20 Dates of Service: 03/17/20-03/24/20 PRECAUTIONS: Fall, standard, Full SUBJECTIVE: Pt was sitting in chair when OT arrived, he is agreeable to OT session and notes that he had an ok weekend, his fingers are in a claw like position but not as contracted as previously. OBJECTIVE: PAIN:no c/o pain today just stiffness Manual Therapy [id number]: OT placed pts (B) UE in the pronated position and passively stretched pts digits into extension which pt had pain in his (R) UE due to his MF, RF and SF staying in the flexed position at all times this is due to the tone in his (R) and the decreased ROM in his (L). OT facilitated tone management techniques and education on self tone management and OT does feel that is gaining. Then with max (A) of rolling his (B) UE into supination, OT passively mobilized pt into flexion utilizing joint blocking techniques and low load long duration holds. OT worked with pt on a functional grasp position and taped pts (B) UE with Rock tape into digit flexion or extension based on the specific ROM of the digit. Pt is able to tolerate this better. ASSESSMENT: OT feels that pt is gaining in terms of his functional control of his digits but he is still limited in grasp and performance of his ADLS. GOALS (met/not met) Goals x1 week 1. Pt will be able to functionally grasp and hold items of all sizes without dropping them to facilitate increased 9I) in his ADL/IADL Routines.- progressing towards 2. Dressing- sitting in bed pt will be able to perform UE with mod (A) and LE dressing with mod (A)- met UE/ progressing LE 3. Bathing- sitting in chair with max (A) set up/clean up pt will be (I) with UE and mod (A) with LE- met 4. Toileting- On commode with mod (A)- NT 5. Eating- Pt will be able to perform eating routine with adaptive equipment (I)- met PLAN: Continue to work with pt for (I) in his ADL routines. He continues to require (A) as he has limited ROM and tolerance to (B) UE use. TREATMENT CODES/TIME: [id number], 25 minutes (07:35) Daisy Cortez OTR/L [facility]
[2020-03-24] MEDS: Nicotine 14 MG/24 HR PATCH TD (09:09)
[2020-03-24] MEDS: Spironolactone 25 MG TAB 12.5 MG PO (09:11)
[2020-03-24] MEDS: Apixaban 5 MG TAB PO ×2 (09:11→20:40)
[2020-03-24] MEDS: Lisinopril 5 MG TAB PO (09:11)
[2020-03-24] MEDS: Sucralfate 1 GM TAB PO ×4 (09:12→21:44)
[2020-03-24] MEDS: Carvedilol 6.25 MG TAB PO ×2 (09:12→20:39)
[2020-03-24] MEDS: Gabapentin 300 MG CAP PO ×3 (09:12→20:40)
[2020-03-24] MEDS: Thiamine 100 MG TAB PO (09:12)
[2020-03-24] MEDS: Ferrous Sulfate 325 MG TAB PO (09:12)
[2020-03-24] MEDS: Pantoprazole 40 MG TABCR PO ×2 (09:12→20:40)
[2020-03-24] MEDS: Normal Saline Flush 10 ML SYR IVP ×2 (09:13→20:40)
[2020-03-24] MEDS: Magnesium Oxide 400 MG TAB PO ×2 (11:12→21:45)
[2020-03-24 15:23] VITALS: BP 107/78; PULSE 76; RESP 18; TEMP 36.8; O2SAT 93
--- NOTE | 2020-03-24 15:39 | PT.INTREAT ---
Date of service: 03/24/20 Time of Service: 14:25 PT Notes Visit Reasons: AMBULATORY DYSFUNTION, COGNITIVE DYSFUNCTION Inpatient Physical Therapy Treatment Note [facility] Date: 03/24/2020 PRECAUTIONS: Fall SUBJECTIVE: Terrence is pleasant and agreeable to participating in PT. He reports that he has been complaining his HEP within his room and has been compliant with walking with nursing daily. OBJECTIVE: PAIN: No c/o pain BED MOBILITY/TRANSFERS Sit-stand: I Stand-sit: I GAIT Assistive Device: No AD Weight bearing: Full Assist: SBA Distance: 150' +300' Deviation: Minimal path deviation, several instances of LOB with self correction, LOB x1 with Mod A THEREX: Patient was instructed in high knee march with/without UE support, functional sit?to?stand exercise with high knee march, step-over objects of varying heights (requiring CGA-Min A), wheelchair travel F/B x100', and walking with cervical flexion/extension and rotation to L/R x150'. STAIRS: Up/down 3x4 and 2x6 using B rails and a step-to pattern with SBA ASSESSMENT: Patient tolerated session well without complaint. He was able to tolerate the addition of new LE strengthening exercises. PLAN: Continue with global strengthening and gait training without use of assistive device for continued progression toward baseline level of function. TREATMENT CODE/TIME: 45 minutes; 01099 x2, 07008 (14:25)
[2020-03-24 19:40] VITALS: BP 125/74; PULSE 80; RESP 17; TEMP 36.6; O2SAT 93
[2020-03-24] MEDS: Atorvastatin 10 MG TAB PO (20:40)
[2020-03-25 07:20] VITALS: BP 107/78; PULSE 90; RESP 16; TEMP 36.3; O2SAT 97
[2020-03-25] MEDS: Normal Saline Flush 10 ML SYR IVP ×2 (07:40→20:13)
[2020-03-25] MEDS: Nicotine 14 MG/24 HR PATCH TD (07:40)
[2020-03-25] MEDS: Sucralfate 1 GM TAB PO ×4 (07:41→21:27)
[2020-03-25] MEDS: Carvedilol 6.25 MG TAB PO ×2 (07:41→20:13)
[2020-03-25] MEDS: Ferrous Sulfate 325 MG TAB PO (07:41)
[2020-03-25] MEDS: Thiamine 100 MG TAB PO (07:41)
[2020-03-25] MEDS: Pantoprazole 40 MG TABCR PO ×2 (07:41→20:12)
[2020-03-25] MEDS: Spironolactone 25 MG TAB 12.5 MG PO (07:41)
[2020-03-25] MEDS: Gabapentin 300 MG CAP PO ×3 (07:41→20:12)
[2020-03-25] MEDS: Lisinopril 5 MG TAB PO (07:42)
[2020-03-25] MEDS: Apixaban 5 MG TAB PO ×2 (07:42→20:13)
[2020-03-25] MEDS: Magnesium Oxide 400 MG TAB PO ×2 (10:53→21:27)
--- NOTE | 2020-03-25 12:07 | PT.INTREAT ---
Date of service: 03/25/20 Time of Service: 10:10 PT Notes Visit Reasons: AMBULATORY DYSFUNTION, COGNITIVE DYSFUNCTION Inpatient Physical Therapy Treatment Note [facility] Date: 03/25/2020 PRECAUTIONS: Fall SUBJECTIVE: Terrence is pleasant and agreeable to participating in PT. He reports some soreness today from new exercises. OBJECTIVE: PAIN: Patient c/o R hand pain with gripping activities BED MOBILITY/TRANSFERS Supine-sit: I Sit-stand: I Stand-sit: I GAIT Assistive Device: No AD Weight bearing: Full Assist: SBA Distance: 350' Deviation: Minimal path deviation, several instances of LOB with self correction THEREX: Patient was instructed in functional [id number] with high knee march without UE support, wheelchair travel Fwd x200' and Bwd x75', SLS squat on Airex x5 each, cone weave 2x8 cones, cone step over fwd/R/L 2x2 each, and walking with cervical flexion/extension and rotation to L/R x200'. ASSESSMENT: Patient tolerated session well with complaint of pain in R hand with gripping activities. He was able to tolerate the addition of new LE strengthening exercises. PLAN: Continue with global strengthening and gait training without use of assistive device for continued progression toward baseline level of function. TREATMENT CODE/TIME: 50 minutes; 87682 x2, 51413 (10:10)
--- NOTE | 2020-03-25 12:16 | OTTR_ITS ---
Date of service: 03/25/20 Time of Service: 08:55 Occupational Therapy Notes Occupational Therapy Inpatient Treatment Note Date: 03/25/20 PRECAUTIONS: Fall, standard, Full SUBJECTIVE: Pt was sitting in chair when OT arrived, he is agreeable to OT session and states that his hands specifically his (R) hand feels sore. OBJECTIVE: PAIN:no c/o pain today just stiffness in IP joints of (B) MF, RF, SF Manual Therapy 94754x4: OT placed pts (B) UE in the pronated position and passively stretched pts digits into extension which pt had pain in his (R) UE due to his MF, RF and SF staying in the flexed position at all times this is due to the tone in his (R) and the decreased ROM in his (L). OT facilitated tone management with rotational positioning and providing tactile feedback to his dorsal hand. Then with max (A) of rolling his (B) UE into supination, OT passively mobilized pt into flexion utilizing joint blocking techniques and low load long duration holds. OT worked with pt on a functional grasp position which he is able to demonstrate extension of his digits actively post removal of tape. OT worked with pt on gross motor control of his digits as this will be necessary to perform dressing as bathing as well as a modified fine motor control. Pt has difficulty holding a fork at this time and this is limiting him with his eating routines. ASSESSMENT/PLAN: Pt has soreness in his (B) UE, he has decreased digit ROM And stiffness. He is making progress in his functional grasp, he would benefit from continued skilled OT care for tone mangement, functional hand use for ADL/IADL Routines, pain management, strengthening for gross and fine motor control. TREATMENT CODES/TIME: [id number], 25 minutes (08:55) Daisy Cortez OTR/[facility]
[2020-03-25 15:24] VITALS: BP 111/75; PULSE 91; RESP 16; TEMP 37.2; O2SAT 98
[2020-03-25 20:08] VITALS: BP 109/74; PULSE 93; RESP 16; TEMP 37.1; O2SAT 98
[2020-03-25] MEDS: Atorvastatin 10 MG TAB PO (20:13)
[2020-03-25 23:42] VITALS: BP 96/65; PULSE 75; RESP 18; TEMP 36.8; O2SAT 97
[2020-03-26 07:20] VITALS: BP 105/74; PULSE 81; RESP 18; TEMP 36.9; O2SAT 96
[2020-03-26] MEDS: Nicotine 14 MG/24 HR PATCH TD (08:01)
[2020-03-26] MEDS: Normal Saline Flush 10 ML SYR IVP ×2 (08:01→20:06)
[2020-03-26] MEDS: Lisinopril 5 MG TAB PO (08:02)
[2020-03-26] MEDS: Spironolactone 25 MG TAB 12.5 MG PO (08:02)
[2020-03-26] MEDS: Apixaban 5 MG TAB PO ×2 (08:02→20:07)
[2020-03-26] MEDS: Sucralfate 1 GM TAB PO ×4 (08:02→21:43)
[2020-03-26] MEDS: Gabapentin 300 MG CAP PO ×3 (08:02→20:07)
[2020-03-26] MEDS: Carvedilol 6.25 MG TAB PO ×2 (08:02→20:07)
[2020-03-26] MEDS: Thiamine 100 MG TAB PO (08:03)
[2020-03-26] MEDS: Pantoprazole 40 MG TABCR PO ×2 (08:03→20:07)
[2020-03-26] MEDS: Ferrous Sulfate 325 MG TAB PO (08:03)
--- NOTE | 2020-03-26 09:00 | PGE_ITS ---
Date of Service Date of service: 03/26/20 Time of Service: 09:00 Assessment and Plan Assessment and plan (1) CVA (cerebral vascular accident): Status: Chronic Assessment and plan: Multiple CVA, acute punctate stroke last admission 02/13-02/20, was discharged to acute rehab, returns here for swing bed admission. continue PT/OT He may need penitentiary placement RT sided deficits to RUE and RLE along with some cognitive deficits. Qualifiers: CVA mechanism: thrombosis Precerebral and cerebral artery: unspecified cerebral artery Qualified Code(s): I63.30 - Cerebral infarction due to thrombosis of unspecified cerebral artery (2) Ambulatory dysfunction: Status: Acute Assessment and plan: as above will work with PT/OT (3) CIDP (chronic inflammatory demyelinating polyneuropathy): Status: Acute Assessment and plan: Long-term treatment is to continue IVIG 0.4g/kg monthly, which will be overseen by Dr Xavier. He should keep his [facility] Neurology outpatient appointment scheduled in March. (4) Cognitive dysfunction: Status: Acute Assessment and plan: stable and improving above reviewed with Dr. Maxwell Subjective Subjective Patient reports: no new complaints, feels better, tolerating liquids well, tolerating a regular diet, voiding w/o difficulty, bowel movement and afebrile Exam Const General: cooperative, comfortable, no acute distress, frail appearing and ill appearing chronically Nutritional Appearance: malnourished Orientation: alert, awake and oriented x3 HENMT Head: normal to inspection, normocephalic and atraumatic Mouth: moist mucous membranes Eyes Conjunctivae: conjunctivae normal Pupils: PERRL EOM: EOM intact bilaterally Neck Neck: normal visual inspection and full ROM Lymphatic: no lymphadenopathy noted and no lymphedema noted Chest Chest: normal inspection of the chest Resp Effort & Inspection: normal respiratory effort Auscultation: clear to auscultation bilaterally Cardio Jugular venous pressure: no JVD Rate: regular rate Rhythm: regular rhythm Heart Sounds: S1 normal and S2 normal GI Palpation: soft and no hepatosplenomegaly Auscultation: normal bowel sounds General: deferred Skin General skin exam: no rashes or lesions noted Neuro General: patient alert, patient awake, patient oriented x3 and moves all extremities Cognition: normal cognition Motor: strength not 5/5 throughout Extrem General: abnormal ROM and no clubbing, cyanosis or edema Right upper extremity: ROM limited Left upper extremity: normal to inspection Right lower extremity: ROM limited Left lower extremity: normal to inspection Psych Appearance: grossly normal Mental Status: mental status grossly normal Speech and Movement: speech and movement normal Mood: congruent mood Affect: normal affect Attitude: cooperative Objective Last Vital Signs Temp 36.9 C 03/26/20 07:20 Pulse 81 03/26/20 07:20 Resp 18 03/26/20 07:20 BP 105/74 03/26/20 07:20 Pulse Ox 96 03/26/20 07:20
[2020-03-26] MEDS: Magnesium Oxide 400 MG TAB PO ×2 (10:35→21:43)
--- NOTE | 2020-03-26 10:49 | W.NUTRFU ---
Date of service: 03/26/20 Time of Service: 10:49 Nutritional Follow up NOTE: Diet changed to regular in beginning of week with increase in po intake, currently meeting nutrient needs for weight regain, BMI now wnl. Has gained 2 lbs during this admission. Terrence admitted as palliative care patient and to be discharged soon. Time Spent in Nutritional Counseling and Treatment: 0
--- NOTE | 2020-03-26 10:56 | OTTR_ITS ---
Date of service: 03/26/20 Time of Service: 10:00 Occupational Therapy Notes Occupational Therapy Inpatient Treatment Note Date: 03/26/20 PRECAUTIONS: Fall, standard, Full SUBJECTIVE: Pt was lying in bed when OT arrived. He was agreeable to OT session and notes that his (R) arm continues to feel weak. OBJECTIVE: PAIN:c/o pain in (R) shoulder, forearm and (B) hands/digits. Therapeutic Activities [id number]: OT had pt perform fine and gross motor dynamic movements with (B) UE to facilitate (I) in his dressing, bathing, eating and grooming routines. OT worked with pt on functional dynamic reaching with (B) UE for donning and doffing a shirt, pt is notably fatigued and unable to tolerate this for long. He becomes sore in his (R) UE and notable fatigue starts to form. OT did tape pts MF,RF and SF for functional extension and OT will monitor pts response to todays session and progress accordingly. ASSESSMENT/PLAN: OT will work with pt on progression of functional dynamic movements of his (B) UE to facilitate increased (I) in his ADL/IADL routines. TREATMENT CODES/TIME: [id number], 25 minutes (10:00) SUSIE Adair/[facility]
--- NOTE | 2020-03-26 11:15 | INPN_ITS ---
Date of service: 03/26/20 Time of Service: 11:15 PT Notes Visit Reasons: AMBULATORY DYSFUNTION, COGNITIVE DYSFUNCTION Swing Bed Level 1 Physical Therapy Progress Note #2 Date: 03/26/20 Dates of service: 03/20/2020 through 03/26/2020 Precautions:Fall. Standard. Activity as tolerated. AFO in R LE when OOB. Subjective: Agreeable to continued PT services. No report of new pain in B UE/LE. Stated that he continues to comply with recommendations of of resting in the afternoon and of doing bed exercises along with chair exercises written on the white board in his room. Feels that he is continuously gaining, albeit slowly, in terms of mobility performance and hand function. Indicated today that he hopes to go home stating that his brother will be readily available to help him as needed. Complains of soreness in R hand and shoulders. Random burning sensation in B wrists radiating to fingers on B sides no longer randomly happens. Objective: Pain: None new reported. ROM: Right Upper Extremity: OT providing services to manage hand and fingers, please see OT progress notes for this. Left Upper Extremity: OT providing services to manage hand and fingers, please see OT progress notes for this. Right Lower Extremity: Hip WNL. Knee with 5 degree flexion contracture. Ankle DF about 10 degrees beyond neutral. Left Lower Extremity: Hip and knee WNL. Knee WNL. DF of up to 20 degrees beyond neutral. PF WNL. Strength: Right Upper Extremity: OT providing services to manage hand and fingers, please see OT progress notes for this. Left Upper Extremity: OT providing services to manage hand and fingers, please see OT progress notes for this. Right Lower Extremity: Hip flexors 4/5. Hip abductors 4/5. Knee flexors 4/5. Knee extensors 3-/5. Ankle dorsiflexors 1/5. Ankle plantarflexors 3-/5. Left Lower Extremity: Hip flexors 4/5. Hip abductors 4/5. Knee flexors 4/5. Knee extensors 4-/5. Ankle dorsiflexors 3-/5. Ankle plantarflexors 4-/5. Sensation: Intact as to pain sensation in B LE BED MOBILITY/TRANSFERS: Supine to sit modified independent Sit to supine modified independent Sit to stand modified independent with front wheeled walker Stand to sit modified independent with front wheeled walker Bed to chair modified independent with front wheeled walker Chair to bed modified independent with front wheeled walker GAIT: Up to 500 feet of long distance ambulation without an assistive device with contact-guard provided only to avoid potential L obese and scissoring. For this week, patient averaged 1-3 postursl sway to L and 1-2 episodes of scissoring of B LE. Peyton continues to. Step height and length increasing. No report of knee pain received for the past week. THERA EX: Continued global strengthening and to increase BLE major muscle strength per exercise flow sheet to achieve mobility ADL progression. THERA ACT: Worked on activities to increase static and dynamic sitting/standing balance and tolerance for exercise flow sheet. Balance: Static Sitting: Normal Dynamic Sitting: Normal Static Standing: Good Dynamic Standing: Fair Assessment: Continues to demonstrate balance impairment as evidenced by increased postural sway to L and limited awareness with left lateral balance reaction resulting to minimal LOBs. Terrence will continue to benefit from neuromuscular reeducation, balance retraining, and strength progression to achieve mobility ADL goals. Room Exercise program of seated hip flexion, LAQs, and ankle pumps x 10 each along with bed exercises consisting of straight leg raises, bridging, and alternate knee-to chest x 10 each have been given to patient in order to maximize trunk and B LE strength/stability gains. Patient continues to present with clinical signs and symptoms consistent with current/admitting diagnoses that have resulted to mobility limitations, gait instability, generalized weakness, and impairment of motor control as demonstrated by the following impairment level findings: 1. Decreased strength to B hand and finger (IP) extension muscle groups 2. Impaired standing balance 3. Limitation of joint range of motion in B hands, fingers, R knee, and R foot 4. Decreased grasp with R>>L 5. IP flexion contracture to digits 3, 4, and 5 on B sides with R>>L 6. Postural sway to L increasing LOB risk Impairments are contributing to the following functional limitations: 1. Limited ability safely ambulate without assistive device 2. Increase completion time for mobility ADL performance 3. Increased fall risk 4. Inability to negotiate steps alone safely Patient is assessed as a 79120 moderate complexity based on the following: History: 54-year-old male with impairment level findings, functional limitations, and past medical history as indicated above Examination: Demonstrable impairment in strength, balance, and mobility level with underlying impairments and functional limitations as documented above Presentation:Evolving Decision Makin moderate complexity Goals: Goals X1 week 1. Supine-Sit independent MET as of 03/19/2020. D/C as of 03/19/2020. 2. Sit-Supine independent MET as of 03/19/2020. D/C as of 03/19/2020. 3. Sit-Stand independent MET as of 03/19/2020. D/C as of 03/19/2020. 4. Stand-Sit independent MET as of 03/19/2020. D/C as of 03/19/2020. 5. Bed-Chair independent MET as of 03/26/2020. D/C as of 03/26/2020. 6. Chair-Bed independent MET as of 03/26/2020. D/C as of 03/26/2020. 7. Independent gait on level surface without an assistive device vs. the use of 4WW/forearm crutch for at least 500 feet without report of pain nor dyspnea NOT MET. CONTINUE. 8. Independent stair negotiation while holding onto unilateral rail for at least 5 steps without report of pain nor dyspnea NOT MET. . CONTINUE. 9. Normal static and dynamic standing balance/tolerance NOT MET. . CONTINUE. Plan of Care/Treatment Plan: 1x/day, 5 days/week x 2 weeks. Plan of care has been reviewed with the PEDIATRIC NEUROLOGIST providing the service under Physical Therapy direction. Initiate Physical Therapy intervention for strengthening, bed mobility, transfers, gait, stairs, balance training, use of assistive device. Recommend utilization of lift for transfers at this time, due to patient's significant LE weakness, rigidity, and insufficient UE strength to manage assistive device. DISCHARGE RECOMMENDATIONS: SNF for continued mobility training and hand rehabilitation. TREATMENT CODE/TIME: 29791 x 40 minutes, 75725 x 15 minutes beginning at 11:15 AM. Thank you for the opportunity to participate in the care of this patient. Binta Mayes PT, DPT, CLT [facility] [place], [place]
[2020-03-26 15:40] VITALS: BP 113/82; PULSE 97; RESP 17; TEMP 37.3; O2SAT 99
[2020-03-26] MEDS: Atorvastatin 10 MG TAB PO (20:07)
[2020-03-26 23:10] VITALS: BP 122/84; PULSE 79; RESP 17; TEMP 37.1; O2SAT 96
[2020-03-27 07:44] VITALS: BP 114/80; PULSE 72; RESP 19; TEMP 36.9; O2SAT 97
[2020-03-27] MEDS: Sucralfate 1 GM TAB PO ×4 (08:40→21:26)
[2020-03-27] MEDS: Apixaban 5 MG TAB PO ×2 (08:40→19:57)
[2020-03-27] MEDS: Thiamine 100 MG TAB PO (08:40)
[2020-03-27] MEDS: Carvedilol 6.25 MG TAB PO ×2 (08:40→19:57)
[2020-03-27] MEDS: Ferrous Sulfate 325 MG TAB PO (08:41)
[2020-03-27] MEDS: Spironolactone 25 MG TAB 12.5 MG PO (08:41)
[2020-03-27] MEDS: Gabapentin 300 MG CAP PO ×3 (08:41→19:57)
[2020-03-27] MEDS: Pantoprazole 40 MG TABCR PO ×2 (08:41→19:57)
[2020-03-27] MEDS: Lisinopril 5 MG TAB PO (08:41)
[2020-03-27] MEDS: Normal Saline Flush 10 ML SYR IVP (08:43)
[2020-03-27] MEDS: Nicotine 14 MG/24 HR PATCH TD (08:43)
--- NOTE | 2020-03-27 08:45 | OTTR_ITS ---
Date of service: 03/27/20 Time of Service: 08:00 Occupational Therapy Notes Occupational Therapy Inpatient Treatment Note Date: 03/27/20 PRECAUTIONS: Fall, standard, Full SUBJECTIVE: Pt was lying in bed when OT arrived. He was agreeable to OT session and notes that he would like to perform his ADLs although is resistant at times throughout session. OBJECTIVE: PAIN:c/o pain in (R) shoulder and bicep FUNCTIONAL MOBILITY Rolling L/R: (I) Supine-sit: (I) Sit-stand: (S) Stand-sit: (S) Bed-Chair: (S) Chair-bed: (S) BATHING: sitting in chair pt with set up (A) (I) legs and warren area, max (A) (B) UE DRESSING: sitting in chair Upper Extremity: Mod (A) don and doffing t-shirt Lower Extremity: Min (A) donning underwear, mod (A) donning pants TOILETING: Device: toilet Assist: (I) ASSESSMENT/PLAN: Pt requires (A) throughout for his ADLs, he is able to perform with (A) although is particular about how he wants to perform them. His limited UE ROM seems to be the biggest limiting factor at this time. OT will continue to work with pt on progressing his functional (I). TREATMENT CODES/TIME: [id number], 40 minutes (08:00) SUSIE Adair/[facility]
--- NOTE | 2020-03-27 09:38 | NUR.NOTE ---
Nursing Note: 09:38 03/27/20 Patient reports to nurse that he was left in his room all night and that you guys are lying to me nobody works here. Nurse informed patient that Kayla, an RN, took care of him last night. Patient responded that he knows that and she came running every time he rang his call fuller. Nurse reminded patient that we are here to help patients and keep them all safe. Patient reports he knows there are no patients on this floor because when he goes for walks all of the room are empty, no beds even in there!. Nurse informed patient that we do have other patients here on med/surg that we care for. Patient was appeared frustrated, with eyebrows raised and voice raised, throughout conversation with nurse. Nurse will continue to support patient, help him understand all aspects of his care, and remind him that we strive to provide safe care to him and other patients. Charge nurse notified of patient's concerns.
[2020-03-27] MEDS: Magnesium Oxide 400 MG TAB PO ×2 (10:50→21:27)
--- NOTE | 2020-03-27 13:17 | PDOC.CMPRO ---
Care Management Progress Note CHERYL requested updated financial documentation from Terrence and Dejan on 03/22/20. No documents have been provided at this time. Terrence reports reaching out to his brother this week, but not hearing back. CM provided contact info for Terrence, to confirm cell phone number for his brother; it was as he remembered. CM emailed [place] requests to Dejan, encouraging submission of documents as not to delay disposition, as we continue to await financial eligibility for [employer] Medicaid. Terrence remains cooperative and agreeable, and has begun to build relationships with staff. He likes to joke around and is pleasant in interaction. CM continues to support attainment of LTM and disposition for Terrence to discharge to SNF for LTC once insurance is in place.
--- NOTE | 2020-03-27 13:52 | PT.INTREAT ---
Date of service: 03/27/20 Time of Service: 13:52 PT Notes Visit Reasons: AMBULATORY DYSFUNTION, COGNITIVE DYSFUNCTION Swing Bed Level 1 Physical Therapy Treatment Note [facility] Date: 03/27/2020 PRECAUTIONS: Activity as tolerated. SUBJECTIVE: Agreeable to this afternoon session. Continues to report soreness and right hand and right shoulder. OBJECTIVE: PAIN: Patient c/o R shoulder and hand pain with there ex BED MOBILITY/TRANSFERS Supine-sit: Independent Sit-stand: Independent with front-wheeled walker Stand-sit: Independent with front-wheeled walker Bed?chair: Independent with front-wheeled walker Chair?bed: Independent with front-wheeled walker GAIT Assistive Device: No AD Weight bearing: Full Assist: SBA Distance: 300 feet +200 feet' Deviation: Minimal path deviation. LOB x1. Scissoring episode x1 THEREX: High marches with a 5-second hold x5 using 3 pound ankle weight, wall squats held for 5 counts x7, standing wall push-ups on bilateral forearms x5 with report of discomfort in right shoulder. THERA ACT: Worked on activities to increase trunk dynamic stability while seated on Airex mat combined with B hip flexion strengthening with 3 pound ankle weights to both legs held for 5 pounds each x10 reps without UEs support. ASSESSMENT: Increased focus on minimizing excessive postural sway on the left and on quality of unilateral limb advancement during ambulation activity. Activity tolerance increasing. Step length and height increasing. PLAN: Continue with global strengthening and gait training without use of assistive device for continued progression toward baseline level of function. TREATMENT CODE/TIME: 71296 x 30 minutes, 55448 x 18 minutes beginning at 13:52 PM.
[2020-03-27 15:41] VITALS: BP 105/80; PULSE 86; RESP 17; TEMP 36.5; O2SAT 98
[2020-03-27] MEDS: Atorvastatin 10 MG TAB PO (19:57)
[2020-03-28 00:30] VITALS: BP 126/71; PULSE 69; RESP 16; TEMP 36.5; O2SAT 95
[2020-03-28 07:11] VITALS: BP 121/88; PULSE 69; RESP 18; TEMP 36.4; O2SAT 97
[2020-03-28] MEDS: Nicotine 14 MG/24 HR PATCH TD (08:20)
[2020-03-28] MEDS: Lisinopril 5 MG TAB PO (08:21)
[2020-03-28] MEDS: Thiamine 100 MG TAB PO (08:21)
[2020-03-28] MEDS: Sucralfate 1 GM TAB PO ×4 (08:21→20:23)
[2020-03-28] MEDS: Spironolactone 25 MG TAB 12.5 MG PO (08:21)
[2020-03-28] MEDS: Gabapentin 300 MG CAP PO ×3 (08:21→20:23)
[2020-03-28] MEDS: Ferrous Sulfate 325 MG TAB PO (08:21)
[2020-03-28] MEDS: Apixaban 5 MG TAB PO ×2 (08:21→20:24)
[2020-03-28] MEDS: Pantoprazole 40 MG TABCR PO ×2 (08:21→20:24)
[2020-03-28] MEDS: Normal Saline Flush 10 ML SYR IVP (08:21)
[2020-03-28] MEDS: Carvedilol 6.25 MG TAB PO ×2 (08:21→20:24)
[2020-03-28] MEDS: Magnesium Oxide 400 MG TAB PO ×2 (09:46→20:23)
[2020-03-28 15:00] VITALS: BP 114/81; PULSE 76; RESP 17; TEMP 37.1; O2SAT 99
[2020-03-28] MEDS: Atorvastatin 10 MG TAB PO (20:24)
[2020-03-28 23:27] VITALS: BP 120/78; PULSE 78; RESP 18; TEMP 37.1; O2SAT 99
[2020-03-29 07:43] VITALS: BP 110/73; PULSE 72; RESP 18; TEMP 36.5; O2SAT 94
[2020-03-29] MEDS: Ferrous Sulfate 325 MG TAB PO (08:52)
[2020-03-29] MEDS: Pantoprazole 40 MG TABCR PO ×2 (08:52→19:40)
[2020-03-29] MEDS: Spironolactone 25 MG TAB 12.5 MG PO (08:52)
[2020-03-29] MEDS: Sucralfate 1 GM TAB PO ×4 (08:52→21:51)
[2020-03-29] MEDS: Thiamine 100 MG TAB PO (08:52)
[2020-03-29] MEDS: Carvedilol 6.25 MG TAB PO ×2 (08:52→19:41)
[2020-03-29] MEDS: Lisinopril 5 MG TAB PO (08:53)
[2020-03-29] MEDS: Nicotine 14 MG/24 HR PATCH TD (08:53)
[2020-03-29] MEDS: Apixaban 5 MG TAB PO ×2 (08:53→19:40)
[2020-03-29] MEDS: Gabapentin 300 MG CAP PO ×3 (08:53→19:41)
[2020-03-29] MEDS: Magnesium Oxide 400 MG TAB PO ×2 (09:40→21:51)
[2020-03-29 14:54] VITALS: BP 115/80; PULSE 98; RESP 18; TEMP 37.3; O2SAT 97
[2020-03-29] MEDS: Atorvastatin 10 MG TAB PO (19:39)
[2020-03-29 23:46] VITALS: BP 106/74; PULSE 94; RESP 18; TEMP 36.9; O2SAT 95
[2020-03-30 07:22] VITALS: BP 117/79; PULSE 71; RESP 18; TEMP 36.9; O2SAT 98
[2020-03-30] MEDS: Sucralfate 1 GM TAB PO ×4 (07:27→21:12)
[2020-03-30] MEDS: Pantoprazole 40 MG TABCR PO ×2 (07:27→19:30)
[2020-03-30] MEDS: Nicotine 14 MG/24 HR PATCH TD (08:44)
[2020-03-30] MEDS: Spironolactone 25 MG TAB 12.5 MG PO (08:45)
[2020-03-30] MEDS: Carvedilol 6.25 MG TAB PO ×2 (08:45→19:31)
[2020-03-30] MEDS: Gabapentin 300 MG CAP PO ×3 (08:45→19:30)
[2020-03-30] MEDS: Apixaban 5 MG TAB PO ×2 (08:45→19:30)
[2020-03-30] MEDS: Thiamine 100 MG TAB PO (08:45)
[2020-03-30] MEDS: Lisinopril 5 MG TAB PO (08:46)
[2020-03-30] MEDS: Ferrous Sulfate 325 MG TAB PO (08:46)
--- NOTE | 2020-03-30 09:38 | OTTR_ITS ---
Date of service: 03/30/20 Time of Service: 09:15 Occupational Therapy Notes Occupational Therapy Inpatient Treatment Note Date: 03/30/20 PRECAUTIONS: Fall, standard, Full SUBJECTIVE: Pt was lying in bed when OT arrived. He was agreeable to OT session but notes that he is extremely sore today. He has Rock tape on his digits from Monday and reports that his hands are sore. OBJECTIVE: PAIN:c/o pain in (B) hands. Manual Therapy [id number]: OT performed PROM to pts (B) digits into flexion and extension with notable tension and stiffness in the IP joints on (B) hands. OT then performed joint blocking techniques with passive support. OT worked with pt on tone management and removal of Rock tape. Pts IPs were sore and OT will hold on further mobilization at this time and resume tomorrow pending pts pain at that time. ASSESSMENT/PLAN: Pt is sore, he hands are both stiff and after PROM it was decided to hold on strengthening to decrease any more pain in pts hands. Next session, OT will work with pt to perform functional dynamic stretching and progressed (B) hand use during ADLs. TREATMENT CODES/TIME: 20555, 10 minutes (09:15) SUSIE Adair[facility]
[2020-03-30] MEDS: Magnesium Oxide 400 MG TAB PO ×2 (10:13→21:12)
--- NOTE | 2020-03-30 10:30 | PT.INTREAT ---
Date of service: 03/30/20 Time of Service: 10:30 PT Notes Visit Reasons: AMBULATORY DYSFUNTION, COGNITIVE DYSFUNCTION Swing Bed Level 1 Physical Therapy Treatment Note [facility] Date: 03/30/2020 PRECAUTIONS: Activity as tolerated. SUBJECTIVE: Agreeable to session. Continues to report soreness of right hand and right shoulder. Determined about going home once discharged from here. Agreeable to working with PT/OT to demonstrate achieved level of independence. Understands that PT/OT needs to be able to observe and document actual level of independence/dependence with all ADLs that may help him determine readiness for discharge to home. OBJECTIVE: PAIN: Patient reports R shoulder and hand pain with there ex BED MOBILITY/TRANSFERS Supine-sit: Independent Sit-stand: Independent with front-wheeled walker Stand-sit: Independent with front-wheeled walker Bed?chair: Independent with front-wheeled walker Chair?bed: Independent with front-wheeled walker GAIT Assistive Device: No AD Weight bearing: Full Assist: SBA Distance: 300 feet +200 feet' Deviation: Minimal path deviation. No LOB. No scissoring episode. THEREX: Treatment for today focused on mat exercises to increase core strength, shoulder girdle/pelvic girdle stability, trunk stabilizers strength, and neuromuscular re-education: 1) prone on forearms x5 minutes, 2) planking while prone on forearms held for 10 seconds x 3 reps with report of pain in right shoulder and 6-7/10, 3) bridging held for 5 seconds x 3 reps, 4) mine bridging with alternating me just x 3 reps done for 5 sets. ASSESSMENT: No LOB and decreasing path deviation tendency with patient demosntrating increased focus on minimizing excessive postural sway on the left and on quality of unilateral limb advancement during ambulation activity. Activity tolerance continuing to increasing. Step length and height continuing to increasing. PLAN: Continue with global strengthening and gait training to achieve highest mobility level TREATMENT CODE/TIME: 97776 x 10 minutes, 08671 x 30 minutes beginning at 10:30 AM.
[2020-03-30 15:37] VITALS: BP 102/73; PULSE 79; RESP 18; TEMP 36.7; O2SAT 98
[2020-03-30] MEDS: Atorvastatin 10 MG TAB PO (19:30)
[2020-03-31] MEDS: Nicotine 14 MG/24 HR PATCH TD (09:11)
[2020-03-31] MEDS: Magnesium Oxide 400 MG TAB PO ×2 (09:12→21:09)
[2020-03-31] MEDS: Lisinopril 5 MG TAB PO (09:12)
[2020-03-31] MEDS: Carvedilol 6.25 MG TAB PO ×2 (09:12→20:01)
[2020-03-31] MEDS: Thiamine 100 MG TAB PO (09:12)
[2020-03-31] MEDS: Apixaban 5 MG TAB PO ×2 (09:12→20:01)
[2020-03-31] MEDS: Sucralfate 1 GM TAB PO ×4 (09:12→21:09)
[2020-03-31] MEDS: Spironolactone 25 MG TAB 12.5 MG PO (09:12)
[2020-03-31] MEDS: Ferrous Sulfate 325 MG TAB PO (09:12)
[2020-03-31] MEDS: Gabapentin 300 MG CAP PO ×3 (09:12→20:01)
[2020-03-31] MEDS: Normal Saline Flush 10 ML SYR IVP (09:13)
[2020-03-31] MEDS: Pantoprazole 40 MG TABCR PO ×2 (09:13→20:01)
--- NOTE | 2020-03-31 11:06 | OT.INTREAT ---
Date of service: 03/31/20 Time of Service: 10:05 Occupational Therapy Notes Occupational Therapy Inpatient Treatment Note Date: 03/31/20 PRECAUTIONS: Fall, standard, Full SUBJECTIVE: Pt was lying in bed when OT arrived, he states that he is getting frustrated with his hands and would like to return home. OBJECTIVE: PAIN:c/o pain in pts digits and (R) UE FUNCTIONAL MOBILITY Sit-supine: (S) Sit-stand: (S) Stand-sit: (S) Bed-Chair: (S) Chair-bed: (S) DRESSING: sitting on side of the bed Upper Extremity: Mod (A) don and doffing t-shirt as pt is unable to (I) perform at this time with getting his shirt over his head Lower Extremity: Max (A) don and doffing (B) socks, mod (A) with pants post toileting routine. Ot educates pt on use of sock aid for increased functional (I) with his LE dressing. Pt is going to work on (I) donning the sock as step one. GROOMING: standing at the sink with min vc pt was able to (I) wash his hands TOILETING: Device: toilet Assist: (I) with urinating, (A) with pants post ADL Manual Therapy [id number]: OT placed pts (B) UE in the pronated position and passively stretched pts digits into extension which pt had pain in his (R) UE due to his MF, RF and SF staying in the flexed position at all times this is due to the tone in his (R) and the decreased ROM in his (L). OT facilitated functional (B) hand management with rotational positioning and providing tactile feedback to his dorsal hand. Then with max (A) of rolling his (B) UE into supination, OT passively mobilized pt into flexion utilizing joint blocking techniques to (B) UE and low load long duration holds. ASSESSMENT/PLAN: OT will continue to work with pt on functional use of his (B) UE, he was able to tolerate manual therapy and mobilization well but pain behaviors noted throughout with mobilization into extension. ADLs pt is unable to demonstrate with (I). Goal is for pt to be able to perform mod (I) dressing of (B) socks at tomorrows session. TREATMENT CODES/TIME: 42231b3, 78506j1, 55 minutes (10:05) Daisy Cortez, OTR/L [facility]
[2020-03-31 15:07] VITALS: BP 113/81; PULSE 108; RESP 21; TEMP 36.7; O2SAT 100
--- NOTE | 2020-03-31 15:34 | PT.INTREAT ---
Date of service: 03/31/20 Time of Service: 14:15 PT Notes Visit Reasons: AMBULATORY DYSFUNTION, COGNITIVE DYSFUNCTION Inpatient Physical Therapy Treatment Note [facility] Date: 03/31/2020 PRECAUTIONS: Fall SUBJECTIVE: Terrence states that he is excited to be going outside today during PT. OBJECTIVE: PAIN: No c/o pain BED MOBILITY/TRANSFERS Supine-sit: I Sit-stand: I Stand-sit: I Bed-Chair: I Chair-bed: I GAIT Assistive Device: No AD 4WW Weight bearing: WBAT B Assist: SBA without AD S with 4WW Distance: 400' without AD 10 minute outdoor walk with 4WW Deviation: No LOB THEREX: Patient was instructed in modified plank on forearm, bent-over kickbacks while supported on forearms, and single-leg squat on Airex foam, as per flow sheet. Patient was unable to assume quadruped position due to R shoulder pain. ASSESSMENT: Patient tolerated session well without complaint. He was unable to assume quadruped position due to R shoulder pain. He tolerated outdoor walk with 4WW well without any instances of LOB. PLAN: Continue with global strengthening for continued progression toward achieving modified independence with daily functional tasks. TREATMENT CODE/TIME: 50 minutes; 20625 x2, 17799 (14:15)
[2020-03-31] MEDS: Atorvastatin 10 MG TAB PO (20:01)
[2020-03-31 23:28] VITALS: BP 106/76; PULSE 84; RESP 18; TEMP 36.8; O2SAT 98
[2020-04-01 07:10] VITALS: BP 115/92; PULSE 82; RESP 19; TEMP 36.9; O2SAT 96
[2020-04-01] MEDS: Nicotine 14 MG/24 HR PATCH TD (07:42)
[2020-04-01] MEDS: Thiamine 100 MG TAB PO (07:43)
[2020-04-01] MEDS: Lisinopril 5 MG TAB PO (07:43)
[2020-04-01] MEDS: Apixaban 5 MG TAB PO ×2 (07:43→19:53)
[2020-04-01] MEDS: Pantoprazole 40 MG TABCR PO ×2 (07:43→19:53)
[2020-04-01] MEDS: Spironolactone 25 MG TAB 12.5 MG PO (07:43)
[2020-04-01] MEDS: Gabapentin 300 MG CAP PO ×3 (07:43→19:53)
[2020-04-01] MEDS: Carvedilol 6.25 MG TAB PO ×2 (07:43→19:53)
[2020-04-01] MEDS: Sucralfate 1 GM TAB PO ×4 (07:43→21:15)
[2020-04-01] MEDS: Ferrous Sulfate 325 MG TAB PO (07:43)
--- NOTE | 2020-04-01 09:21 | OT.INTREAT ---
Date of service: 04/01/20 Time of Service: 09:00 Occupational Therapy Notes Occupational Therapy Inpatient Treatment Note Date: 04/01/20 PRECAUTIONS: Fall, standard, full SUBJECTIVE: Pt states that he wants to return home and is requesting to leave today or tomorrow. OT discusses with pt that this is a conversation with care management and MD. OBJECTIVE: PAIN:4/10 pain with pain in his (B) UE at times but not consistently. Manual Therapy [id number]: OT performed PROM To pts digits into flexion and extension as well as application of Rock tape to facilitate a more functional grasping pattern for pts gross motor skills. DRESSING: sitting on side of the bed Upper Extremity: OT and pt discuss don and doffing t-shirt with (B) hand use. He is able to perform with increased performance time. Lower Extremity: OT went over use of sock aid and donning sock which pt required mod vc throughout for hand use. He has decreased motor control of his (B) UE but was able to tolerate this well. ASSESSMENT/PLAN: Pt was able to tolerate education well, he is receptive to education provided and performance of it but is limited with his ROM and strength in his (B) UE. He reported multiple times throughout session that he would like to return home within the next couple says. OT will monitor pts response to todays session and progress as symptoms allow. TREATMENT CODES/TIME: 36719, 20 minutes (09:00) SUSIE Adair/[facility]
[2020-04-01] MEDS: Magnesium Oxide 400 MG TAB PO ×2 (10:48→21:15)
--- NOTE | 2020-04-01 11:40 | PT.INTREAT ---
PT Notes Visit Reasons: AMBULATORY DYSFUNTION, COGNITIVE DYSFUNCTION Inpatient Physical Therapy Treatment Note [facility] Date: 04/01/20 SUBJECTIVE: Terrence states that he would like to go home. He is waiting to talk with before and after school daycare worker and come up with a plan. OBJECTIVE: [] BED MOBILITY/TRANSFERS Sit-stand: I Stand-sit: I Bed-Chair: I Chair-bed: I GAIT Assistive Device: 4ww Weight bearing:AT Assist: SBA Distance: 400' THEREX: performed a global LE strength and stabilization routine, see flowsheet for details. Held on UE ex, due to c/o right shld pain. ASSESSMENT: tolerated session well, without LOB. Independent with functional mobility. PLAN: will continue to progress following PT POC. TREATMENT CODE/TIME: 40 min. [id number], [id number]
[2020-04-01 15:13] VITALS: BP 112/78; PULSE 86; RESP 17; TEMP 36.4; O2SAT 99
[2020-04-01] MEDS: Atorvastatin 10 MG TAB PO (19:53)
[2020-04-01 23:51] VITALS: BP 110/78; RESP 17; TEMP 36.7; O2SAT 97
[2020-04-02 07:24] VITALS: BP 129/90; PULSE 80; RESP 22; TEMP 36.3; O2SAT 98
--- NOTE | 2020-04-02 07:41 | OT.INTREAT ---
Date of service: 04/02/20 Time of Service: 08:00 Occupational Therapy Notes Occupational Therapy Inpatient Treatment Note Date: 04/02/20 PRECAUTIONS: Fall, Standard, DNR/DNI SUBJECTIVE: Pt was lying in bed when OT arrived. He is upset that he was woken up at 5am and notes that he is willing to participate but would like to sleep after. OBJECTIVE: Manual Therapy [id number]: OT removed ROck tape on pts (B) digits and performed joint blocking techniques to pts (B) digits, wrist and carpal row. Then OT passively stretched (B) digits into flexion and extension, wrist into flexion and extension as well as elbow into flexion and extension. Pt has notable tone in his (R) UE which OT required tone management techniques to facilitate an active extension. Pt performed his ADLs with [employer] MANAGER prior to OT arrival, manual Therapy allows pt to increase pts (B) UE gross and fine motor control and increase his functional (I) in his ADLs. He has significant edema which increases his pain with ADLs. OT discusses with pt positional placement of (B) UE at rest and body awareness. ASSESSMENT/PLAN: Pt remains limited in terms of his (B) hand use, he requires (A) with his ADLs at this time. He is unable to perform his toileting routine including hygiene (I), he requires (A) For LE dressing and bathing, he takes increased performance time for his donning and doffing of shirt and UE dressing. Pt is adamant that he would like to return home at this time regardless of his current level of status. OT feels that if pt return homes recommendations for the following DME are suggested: Raised toilet- Due to pts decreased ability to use his (B) UE and decreased grasp pt will require a raised toilet seat for safety and for increased functional (I) in the home setting. Commode- Pt at times is incontinent, a commode would allow safe and increased (I) with toileting throughout the night time. Safety for this is important as pt lives alone and with his decreased motor control this would improve his safety with his toileting routine at night. Shower seat- Pt would benefit from a shower seat for safety awareness and decreased fall risk. He has decreased motor control of his (B) UE and inability to grab on to grab bars. Sitting would be the safest option for pt allowing him to perform his bathing with increased (I). A removable shower head- This would allow pt to perform his bathing (I), he will require a smaller handled head as pt has decreased grasp and motor control of his digits. Meals on wheels- For (A) with meals as pt lives alone. Pt would benefit from a toilet wand for (A) with toileting hygiene. Pt is unable to (I) perform toileting hygiene at this time. OT for assessment and (A) of pts ADLs in the home setting and assessment of further training and DME needs. TREATMENT CODES/TIME: 15487, 20 minutes (08:00) Daisy Cortez OTR/[facility]
--- NOTE | 2020-04-02 07:42 | CMACTNOTE_ITS ---
Care Management Activity Note Terrence is making good progress towards independence and has begun to advocate for returning home. He has identified needed DME including a shower chair, raised toilet seat and FWW. He reports his spirits are high and he is looking forward to returning home, after an extended hospitalization. He also reports he will be better able to gather needed documentation for LTM from his home. 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 He is making good connections with the staff, keeping up with his family over the telephone and enjoys walking the hallways and outside when the sun is out.
[2020-04-02] MEDS: Nicotine 14 MG/24 HR PATCH TD (08:56)
[2020-04-02] MEDS: Pantoprazole 40 MG TABCR PO ×2 (08:57→19:33)
[2020-04-02] MEDS: Ferrous Sulfate 325 MG TAB PO (08:57)
[2020-04-02] MEDS: Sucralfate 1 GM TAB PO ×4 (08:57→21:49)
[2020-04-02] MEDS: Carvedilol 6.25 MG TAB PO ×2 (08:57→19:32)
[2020-04-02] MEDS: Lisinopril 5 MG TAB PO (08:57)
[2020-04-02] MEDS: Apixaban 5 MG TAB PO ×2 (08:57→19:33)
[2020-04-02] MEDS: Thiamine 100 MG TAB PO (08:57)
[2020-04-02] MEDS: Spironolactone 25 MG TAB 12.5 MG PO (08:58)
[2020-04-02] MEDS: Gabapentin 300 MG CAP PO ×3 (09:01→19:33)
[2020-04-02] MEDS: Magnesium Oxide 400 MG TAB PO ×2 (09:02→21:49)
--- NOTE | 2020-04-02 09:35 | W.PM.PROGNOT ---
Date of Service Date of service: 04/02/20 Time of Service: 09:35 Assessment and Plan Assessment and plan (1) CVA (cerebral vascular accident): Start date: 04/02/20 Start time: 10:00 Status: Chronic Assessment and plan: Multiple CVA, acute punctate stroke last admission 02/13-02/20, answer all questions appropriately. Doing well with PT Denies Pain Will be dishcarged home next week with home health services Qualifiers: CVA mechanism: thrombosis Precerebral and cerebral artery: unspecified cerebral artery Qualified Code(s): I63.30 - Cerebral infarction due to thrombosis of unspecified cerebral artery (2) Ambulatory dysfunction: Start date: 04/02/20 Start time: 10:15 Status: Acute Assessment and plan: as above continue to work with PT/OT (3) CIDP (chronic inflammatory demyelinating polyneuropathy): Start date: 04/02/20 Start time: 10:15 Status: Acute Assessment and plan: Long-term treatment is to continue IVIG 0.4g/kg daily x 5 days every 6 weeks for the next 3-6 months after which can be spaced out by neurology pending response. He should keep his [facility] Neurology outpatient appointment scheduled in March. (4) Cognitive dysfunction: Start date: 04/02/20 Start time: 10:16 Status: Acute Assessment and plan: due to multiple strokes from ETOH abuse above reviewed with Dr. Funes Subjective Subjective Patient reports: no new complaints Interval history since last seen: Terrence is doing well, he seems cheerful. I have seen him ambulating in the kate with PT and he was doing well. He is projected to go home in the next week. He denies CP, SOB, N/V/D Exam Const General: cooperative, comfortable, no acute distress, frail appearing and ill appearing chronically Nutritional Appearance: malnourished Orientation: alert, awake and oriented x3 HENMT Head: normal to inspection, normocephalic and atraumatic Mouth: moist mucous membranes Eyes Conjunctivae: conjunctivae normal Pupils: PERRL EOM: EOM intact bilaterally Neck Neck: normal visual inspection, full ROM and no JVD Lymphatic: no lymphadenopathy noted and no lymphedema noted Chest Chest: normal inspection of the chest Resp Effort & Inspection: normal respiratory effort Auscultation: clear to auscultation bilaterally Cardio Jugular venous pressure: no JVD Rate: regular rate Rhythm: regular rhythm Heart Sounds: S1 normal and S2 normal GI Palpation: soft and no hepatosplenomegaly Auscultation: normal bowel sounds General: deferred Skin General skin exam: no rashes or lesions noted Neuro General: patient alert, patient awake, patient oriented x3, gait abnormal, tone abnormal, moves all extremities and deep tendon reflexes not 2+ bilaterally Cognition: normal cognition Motor: strength not 5/5 throughout Extrem General: abnormal ROM and no clubbing, cyanosis or edema Right upper extremity: ROM limited Left upper extremity: normal to inspection Right lower extremity: ROM limited Left lower extremity: normal to inspection Psych Appearance: grossly normal Mental Status: mental status grossly normal Speech and Movement: speech and movement normal Mood: congruent mood Affect: normal affect Attitude: cooperative Objective Last Vital Signs Temp 36.3 C L 04/02/20 07:24 Pulse 80 04/02/20 07:24 Resp 22 04/02/20 07:24 BP 129/90 04/02/20 07:24 Pulse Ox 98 04/02/20 07:24
--- NOTE | 2020-04-02 13:44 | PT.INPN ---
Date of service: 04/02/20 Time of Service: 13:44 PT Notes Visit Reasons: AMBULATORY DYSFUNTION, COGNITIVE DYSFUNCTION Swing Bed Level 1 Physical Therapy Progress Note #3 Date: 04/02/20 Dates of service: 03/27/2020 through 04/02/2020 Precautions: Fall. Standard. Activity as tolerated. AFO in R LE when OOB. Subjective: Agreeable to continued PT services. No report of new pain in B UE/LE. Stated that he continues to comply with recommendations of of resting in the afternoon and of doing bed exercises along with chair exercises written on the white board in his room. Feels that he is continuously gaining, albeit slowly, in terms of mobility performance and hand function. Indicated today that he hopes to go home stating that his brother will be readily available to help him as needed. Complains of soreness in R hand and shoulders. Objective: Pain: R shoulder at 3-4/10. B hands burning pain but of less intensity and frequency as of last PN period. ROM: Right Upper Extremity: OT providing services to manage hand and fingers, please see OT progress notes for this. Left Upper Extremity: OT providing services to manage hand and fingers, please see OT progress notes for this. Right Lower Extremity: Hip WNL. Knee with 5 degree flexion contracture. Ankle DF about 10 degrees beyond neutral. Left Lower Extremity: Hip and knee WNL. Knee WNL. DF of up to 20 degrees beyond neutral. PF WNL. Strength: Right Upper Extremity: OT providing services to manage hand and fingers, please see OT progress notes for this. Left Upper Extremity: OT providing services to manage hand and fingers, please see OT progress notes for this. Right Lower Extremity: Hip flexors 4/5. Hip abductors 4/5. Knee flexors 4/5. Knee extensors 3-/5. Ankle dorsiflexors 1/5. Ankle plantarflexors 3-/5. Left Lower Extremity: Hip flexors 4/5. Hip abductors 4/5. Knee flexors 4/5. Knee extensors 4-/5. Ankle dorsiflexors 3-/5. Ankle plantarflexors 4-/5. Sensation: Intact as to pain sensation in B LE BED MOBILITY/TRANSFERS: Supine to sit modified independent Sit to supine modified independent Sit to stand modified independent with front wheeled walker Stand to sit modified independent with front wheeled walker Bed to chair modified independent with front wheeled walker Chair to bed modified independent with front wheeled walker GAIT: Up to 520 feet of long distance ambulation without an assistive device with contact-guard provided only to avoid potential LOBs and scissoring. For this week, patient averaged 1-2 postural sways to L and 1 episodes of scissoring of B LE. Peyton continues to increase. Step height and length increasing. No report of knee pain received for this week. THERA EX/THERA ACT: 1) To increase strength to B LE and core, alternate hip flexion and extension while on modified plantigrade position with B forearms resting on elevated mat table with 4 lb AW on L and 2 Lb Aw on R; 2) To increase lateral stability, dynamic standing balance, and B hip abductor strength, sidestep>>SLS>>opposite leg closes in>>sidestep x 8 to the R and x 8 to the L with CGA of PT 3) To increase stability of walking and increase B LE strength, walking around [employer] long loop x 2 with 4 lb AW on R and 2 lb AW on L with report of B hip discomfort at end of activity but subsided with rest Balance: Static Sitting: Normal Dynamic Sitting: Normal Static Standing: Good Dynamic Standing: Fair Assessment: Clarified with nurse Ordnance Equipment Worker Ivory that patient may now be modified independent inside room with either the FWW or the 4WW. Barriers to achieving goals at this time include continued limited grasp in R, persistent pain in B hands and R shoulder, weakness of B hip flexors, long-term effect of cerebellar stroke leading to LOB and ocasional scissoring during walking activity without assistive device. Terrence will continue to benefit from neuromuscular reeducation, balance retraining, and strength progression to achieve mobility ADL goals. Progression of bridging exercise with alternate [id number] added to patient's room exercises. Patient continues to present with clinical signs and symptoms consistent with current/admitting diagnoses that have resulted to mobility limitations, gait instability, generalized weakness, and impairment of motor control as demonstrated by the following impairment level findings: 1. Decreased strength to R hip flexor, B hand, and finger (IP) extension muscle groups 2. Impaired standing balance 3. Limitation of joint range of motion in B hands, fingers, R knee, and R foot 4. Decreased grasp with R>>L 5. IP flexion contracture to digits 3, 4, and 5 on B sides with R>>L 6. Pain complaint on R shoulder Impairments are contributing to the following functional limitations: 1. Occasional LOB and scissoring during ambulation without assistive device 2. Increase completion time for mobility ADL performance 3. Increased fall risk 4. Inability to negotiate steps alone safely Patient is assessed as a 68221 moderate complexity based on the following: History: 54-year-old male with impairment level findings, functional limitations, and past medical history as indicated above Examination: Demonstrable impairment in strength, balance, and mobility level with underlying impairments and functional limitations as documented above Presentation:Evolving Decision Makin moderate complexity Goals: Goals X1 week 1. Independent gait on level surface without an assistive device using AFO on R for at least 500 feet without report of pain nor dyspnea NOT MET. CONTINUE. 2. Independent gait on pavement using 4WW for at least 100 feet without pain nor dyspnea. NEW GOAL as of 04/02/2020. 3. Independent stair negotiation while holding onto unilateral rail for at least 5 steps without report of pain nor dyspnea NOT MET. CONTINUE. 4. Normal static and dynamic standing balance/tolerance NOT MET. CONTINUE. Plan of Care/Treatment Plan: 1x/day, 5 days/week x 2 weeks. Plan of care has been reviewed with the LEAD MANUFACTURING ENGINEERING TECH providing the service under Physical Therapy direction. Initiate Physical Therapy intervention for strengthening, bed mobility, transfers, gait, stairs, balance training, use of assistive device. Recommend utilization of lift for transfers at this time, due to patient's significant LE weakness, rigidity, and insufficient UE strength to manage assistive device. DISCHARGE RECOMMENDATIONS: SNF for continued mobility training and hand rehabilitation. If insistent on going home, will need the following to reduce fall risk: 1) 4WW for all indoor and outdoor ambulation 2) HH PT to continue with mobility and balance progression 3) HH PT to facilitate home modifications for safety and accessibility 4) Emergency alert device TREATMENT CODE/TIME: 72040 x 16 minutes, 97531 x 30 minutes beginning at 13:44 PM. Thank you for the opportunity to participate in the care of this patient. Binta Mayes PT, DPT, CLT [facility] [place], [place]
[2020-04-02 15:22] VITALS: BP 115/89; PULSE 109; RESP 20; TEMP 36.5; O2SAT 99
[2020-04-02] MEDS: Atorvastatin 10 MG TAB PO (19:32)
[2020-04-02 23:30] VITALS: BP 124/81; PULSE 81; RESP 20; TEMP 36.3; O2SAT 98
[2020-04-03 07:20] VITALS: BP 117/83; PULSE 71; RESP 17; TEMP 36; O2SAT 97
--- NOTE | 2020-04-03 07:25 | NUR.NOTE ---
Nursing Note: Pt slept all night, when approached , he will keep his eyes closed like sleeping still. At 0700, offered to be changed but he stated that I don't care but you guys are changing me the whole day and with 3 people. His behavior is showing not to be disturbed until this time. MARGOTH Dominguez promised to come and deal with him. Pt checked and brief is soaking with urine. Pt said that he is trying to make up the 3 months that he didn't sleep that good. Endorsed to day shift nurse.
[2020-04-03] MEDS: Sucralfate 1 GM TAB PO ×4 (09:21→21:15)
[2020-04-03] MEDS: Ferrous Sulfate 325 MG TAB PO (09:21)
[2020-04-03] MEDS: Carvedilol 6.25 MG TAB PO ×2 (09:22→19:50)
[2020-04-03] MEDS: Pantoprazole 40 MG TABCR PO ×2 (09:22→19:50)
[2020-04-03] MEDS: Spironolactone 25 MG TAB 12.5 MG PO (09:22)
[2020-04-03] MEDS: Apixaban 5 MG TAB PO ×2 (09:22→19:50)
[2020-04-03] MEDS: Lisinopril 5 MG TAB PO (09:22)
[2020-04-03] MEDS: Gabapentin 300 MG CAP PO ×3 (09:23→19:49)
[2020-04-03] MEDS: Thiamine 100 MG TAB PO (09:23)
[2020-04-03] MEDS: Magnesium Oxide 400 MG TAB PO ×2 (09:23→21:15)
[2020-04-03] MEDS: Nicotine 14 MG/24 HR PATCH TD (09:24)
--- NOTE | 2020-04-03 11:27 | W.NUTRFU ---
Date of service: 04/03/20 Time of Service: 11:28 Nutritional Follow up NOTE: Terrence continues on regular meal plan with adequate intake to maintain his weight. No new nutritional concerns at this time. Will continue to follow. Time Spent in Nutritional Counseling and Treatment: 0
--- NOTE | 2020-04-03 13:03 | PT.INTREAT ---
Date of service: 04/03/20 Time of Service: 13:03 PT Notes Visit Reasons: AMBULATORY DYSFUNTION, COGNITIVE DYSFUNCTION Swing Bed Level 1 Physical Therapy Treatment Note Date: 04/03/20 Precautions: Fall. Standard. Activity as tolerated. AFO in R LE when OOB. Now indepedent with mobility inside room with FWW/4WW. Subjective: Agreeable to continued PT services. Pain and soreness in B hands persists with R>>L. During care team meeting at 9:30 am today with CHERYL Morgan, ROSIE Merino, OT Daisy and myself, Terrence is determined to proceed with going home despite advice of care team to transfer to SNF for continued rehabilitation. Emphasizes that brother will be there to assist him as needed. Agreeable to HH services. Stresses that he has some personal business that he needs to attend to at home. Objective: Pain: R shoulder pain persists at 3-05/16 BED MOBILITY/TRANSFERS: Supine to sit modified independent Sit to supine modified independent Sit to stand modified independent with front wheeled walker Stand to sit modified independent with front wheeled walker Bed to chair modified independent with front wheeled walker Chair to bed modified independent with front wheeled walker GAIT: Guided and instructed patient with outdoor ambulation on varied ground services using 4WW outside building. Needed walker assistance and CGA with negotiating upsloping/downsloping wet paved pathway and with crossing the street with total covered surface of about 1000 feet. Had significant difficulty holding onto R walker handle during ground upslope and downslope transition from level ground. Mildly SOB. Needed to slow down over thresholds to manage 4WW. THERA EX/THERA ACT: 1) To increase strength to B LE and core, alternate hip flexion and extension while on modified plantigrade position with B forearms resting on window sill in room with 4 lb AW on L and 2 Lb Aw on R x 15 2) To increase lateral stability, dynamic standing balance, and B hip abductor strength, hid abduction x 15 4 lb AW on L and 2 Lb Aw on R x 15 Balance: Static Sitting: Normal Dynamic Sitting: Normal Static Standing: Good Dynamic Standing: Fair Assessment: Required assistance with variable level surface negotiation outdoors due to continued R hand weak grasp and change in walking surface. Will require continued PT for mobility progression and fall reduction. Still recommend SNF placement at this time. DISCHARGE RECOMMENDATIONS: SNF for continued mobility training and hand rehabilitation. If insistent on going home, will need the following to reduce fall risk: 1) 4WW for all indoor and outdoor ambulation 2) HH PT to continue with mobility and balance progression 3) HH PT to facilitate home modifications for safety and accessibility 4) Emergency alert device TREATMENT CODE/TIME: 26859 x 40 minutes, 06756 x 16 minutes beginning at 13:03 PM.
[2020-04-03 15:28] VITALS: BP 121/81; PULSE 69; RESP 18; TEMP 37.4; O2SAT 95
--- NOTE | 2020-04-03 15:51 | CMPROGNOTE_ITS ---
Care Management Progress Note CM coordinated meeting with Terrence, OT: Daisy, PT: Milka, FREIGHT BRAKE OPERATOR: Sylvia. Terrence and team members shared concerns for discharge. Discharge considerations discussed: Services [facility]: Nursing, Physical Therapy, Occupational Therapy, Social Work (to support completion of LTC application and assess for additional needs-depression, PATRICIO, etc). [facility]: Primary Care Provider: follow home health orders, human resource manager to support attainment of ongoing service supports. [employer] Raised toilet seat, commode Additional DME to be provided upon discharge: FWW and Urinal Confirm access at home to hand held shower, walkie-talkie, and natural support. Review medications and follow up treatment plan: neurology.
[2020-04-03] MEDS: Atorvastatin 10 MG TAB PO (19:50)
--- NOTE | 2020-04-04 00:48 | NUR.NOTE ---
Nursing Note: PT sleeping on his back snoring softly. repositioned himself.
[2020-04-04 08:30] VITALS: BP 116/76; PULSE 82; RESP 18; TEMP 36.9; O2SAT 98
[2020-04-04] MEDS: Thiamine 100 MG TAB PO (08:34)
[2020-04-04] MEDS: Lisinopril 5 MG TAB PO (08:34)
[2020-04-04] MEDS: Ferrous Sulfate 325 MG TAB PO (08:34)
[2020-04-04] MEDS: Pantoprazole 40 MG TABCR PO ×2 (08:34→19:48)
[2020-04-04] MEDS: Carvedilol 6.25 MG TAB PO ×2 (08:34→19:48)
[2020-04-04] MEDS: Apixaban 5 MG TAB PO ×2 (08:34→19:48)
[2020-04-04] MEDS: Spironolactone 25 MG TAB 12.5 MG PO (08:34)
[2020-04-04] MEDS: Sucralfate 1 GM TAB PO ×4 (08:34→22:43)
[2020-04-04] MEDS: Gabapentin 300 MG CAP PO ×2 (08:34→19:48)
[2020-04-04] MEDS: Nicotine 14 MG/24 HR PATCH TD (08:35)
[2020-04-04] MEDS: Magnesium Oxide 400 MG TAB PO ×2 (10:55→22:43)
[2020-04-04 15:28] VITALS: BP 124/85; PULSE 97; RESP 21; TEMP 37.2; O2SAT 100
[2020-04-04] MEDS: Atorvastatin 10 MG TAB PO (19:49)
[2020-04-04 23:15] VITALS: BP 110/73; PULSE 89; RESP 17; TEMP 37.1; O2SAT 96
[2020-04-05 08:05] VITALS: BP 121/89; PULSE 87; RESP 16; TEMP 36.5; O2SAT 96
[2020-04-05] MEDS: Sucralfate 1 GM TAB PO ×4 (08:09→21:37)
[2020-04-05] MEDS: Pantoprazole 40 MG TABCR PO ×2 (08:09→20:19)
[2020-04-05] MEDS: Lisinopril 5 MG TAB PO (08:09)
[2020-04-05] MEDS: Thiamine 100 MG TAB PO (08:09)
[2020-04-05] MEDS: Carvedilol 6.25 MG TAB PO ×2 (08:09→20:19)
[2020-04-05] MEDS: Ferrous Sulfate 325 MG TAB PO (08:09)
[2020-04-05] MEDS: Nicotine 14 MG/24 HR PATCH TD (08:09)
[2020-04-05] MEDS: Apixaban 5 MG TAB PO ×2 (08:09→20:19)
[2020-04-05] MEDS: Spironolactone 25 MG TAB 12.5 MG PO (08:09)
[2020-04-05] MEDS: Gabapentin 300 MG CAP PO ×3 (08:09→20:19)
[2020-04-05] MEDS: Magnesium Oxide 400 MG TAB PO ×2 (11:19→21:37)
[2020-04-05] MEDS: Atorvastatin 10 MG TAB PO (20:19)
[2020-04-05 23:00] VITALS: BP 103/68; PULSE 87; RESP 16; TEMP 37; O2SAT 97
[2020-04-06 06:55] VITALS: BP 123/62; PULSE 72; RESP 25; TEMP 36.6; O2SAT 98
[2020-04-06] MEDS: Nicotine 14 MG/24 HR PATCH TD (08:04)
[2020-04-06] MEDS: Apixaban 5 MG TAB PO ×2 (08:04→20:03)
[2020-04-06] MEDS: Lisinopril 5 MG TAB PO (08:04)
[2020-04-06] MEDS: Pantoprazole 40 MG TABCR PO ×2 (08:04→20:03)
[2020-04-06] MEDS: Sucralfate 1 GM TAB PO ×4 (08:05→22:20)
[2020-04-06] MEDS: Gabapentin 300 MG CAP PO ×3 (08:05→20:03)
[2020-04-06] MEDS: Ferrous Sulfate 325 MG TAB PO (08:05)
[2020-04-06] MEDS: Thiamine 100 MG TAB PO (08:05)
[2020-04-06] MEDS: Spironolactone 25 MG TAB 12.5 MG PO (08:05)
[2020-04-06] MEDS: Carvedilol 6.25 MG TAB PO ×2 (08:05→20:04)
--- NOTE | 2020-04-06 09:45 | OTPN_ITS ---
Date of service: 04/06/20 Time of Service: 09:15 Occupational Therapy Notes Occupational Therapy Inpatient Progress Note Date: 04/06/20 Dates of Service: 03/24/20-04/06/20 PRECAUTIONS: Fall, standard, Full SUBJECTIVE: Pt was sitting on side of the bed. He reports that he is going home tomorrow and can't wait. OBJECTIVE: PAIN:no c/o pain today just stiffness Therapeutic Exercise [id number]: OT had pt performed (B) UE strengthening today post mobilization to his digits and wrists with 2# ankle weight on his arms he performed bicep strengthening, shoulder flexion, abduction, PNF patterns and facilitated lifting from floor similar to strengthening for donning pants. The purpose of strengthening is to progress pts functional (I) in his ADL routines. ASSESSMENT: OT feels that pt is progressing slowly with his stiffness in his hands and ADLs. Plan is to prepare pt to return home per his request with services. GOALS (met/not met) Goals x1 week 1. Pt will be able to functionally grasp and hold items of all sizes without dropping them to facilitate increased (I) in his ADL/IADL Routines.- progressing towards 2. Dressing- sitting in bed pt will be able to perform UE with mod (A) and LE dressing with mod (A)- met UE/ progressing LE 3. Bathing- sitting in chair with max (A) set up/clean up pt will be (I) with UE and mod (A) with LE- met 4. Toileting- On commode with mod (A)- Met he requires set up for toileting hygiene 5. Eating- Pt will be able to perform eating routine with adaptive equipment (I)- met PLAN: Continue to work with pt for (I) in his ADL routines and the functional (I) of his (B) hands. He continues to require (A) as he has limited ROM and tolerance to (B) UE use and is limited in his ADL/IADL routines presenting with the need for (A) with his ADL routines at this time. TREATMENT CODES/TIME: 59573m1, 25 minutes (09:15) SUSIE Adair/[facility]
--- NOTE | 2020-04-06 10:04 | PTTR_ITS ---
Date of service: 04/06/20 Time of Service: 09:40 PT Notes Visit Reasons: AMBULATORY DYSFUNTION, COGNITIVE DYSFUNCTION Inpatient Physical Therapy Treatment Note [facility] Date: 04/06/20 PRECAUTIONS: standard SUBJECTIVE: Terrence states that he's feeling well. He's anxious to get washed up, and would prefer to do his exercises in his room versus the PT room today in case his MEDICAL CENTER REPRESENTATIVE comes. OBJECTIVE: PAIN: denies BED MOBILITY/TRANSFERS Rolling L/R: independent Supine-sit: independent Sit-supine: independent Sit-stand:independent Stand-sit: independent Bed-Chair:independent Chair-bed: independent GAIT Assistive Device: 4WW; R AFO Weight bearing: WBAT Assist: SBA Distance: 700' Deviation: no losses of balance or path deviation THEREX: Patient was instructed in LE strengthening and balance retraining activities as noted in his flowsheet. Added standing balance activities as noted in flowsheet. ASSESSMENT: Terrence showed improvements in gait quality today, and tolerated addition of balance retraining activities well. PLAN: Continue PT intervention. TREATMENT CODE/TIME: 20 minutes (9:40-10:00), [id number] Emerita Shin, PT, DPT [facility]
[2020-04-06] MEDS: Magnesium Oxide 400 MG TAB PO ×2 (10:59→22:20)
--- NOTE | 2020-04-06 12:09 | W.PM.PROGNOT ---
Date of Service Date of service: 04/06/20 Time of Service: 12:09 Subjective Subjective Interval history since last seen: Team meeting with PT/OT CM and myself and Terrence discussing safety and Bens needs at home. At this time it is not felt that Terrence will be safe at home. He will likely progressively decline. He is unable to wipe himself after a BM which could lead to wound infection and more serious complications. There was also concern for severe swelling in his hands and inability to move them. He will only have his brother around, but his brother will be working outside all day. We suggested that he have a walkie talkie so his brother and himself can have communication at all times in case Terrence needs something as Terrence admitted poor cell service. There is also concern that at this time he will not be getting PT, OT every day. There is a high probability that Terrence will be going home and failing. He is not safe due to his limitations, he states he understands this and is adamant about going home. Therefore he will be going home AMA. CM will set up as many services to help Terrence succeed. He would benefit from further rehabilitation or longer care facility. I also spoke with Dr. Jeronimo today. She would like Terrence to receive monthly IVIG infusions; around the of every month. 1g/kg of IVIG with 1000 mg tylenol 30 min prior to infusion. He will receive a dose prior to discharge. He will then receive them through either home infusion or the infusion center. I will write for monthly infusions through the infusion center as he has been compliant with all appointments. Objective Last Vital Signs Temp 36.6 C 04/06/20 06:55 Pulse 72 04/06/20 06:55 Resp 25 H 04/06/20 06:55 BP 123/62 04/06/20 06:55 Pulse Ox 98 04/06/20 06:55
[2020-04-06 15:04] VITALS: BP 115/77; PULSE 87; RESP 18; TEMP 36.9; O2SAT 96
--- NOTE | 2020-04-06 15:55 | PDOC.CMPRO ---
Care Management Progress Note Terrence was sitting in bed when CM met with him. CM reviewed discharge plan; Terrence reported being agreeable
[2020-04-06 19:52] VITALS: BP 110/77
[2020-04-06] MEDS: Atorvastatin 10 MG TAB PO (20:03)
[2020-04-06 23:44] VITALS: BP 120/68; PULSE 80; RESP 18; TEMP 36.7; O2SAT 98
[2020-04-07 07:20] VITALS: BP 112/78; PULSE 92; RESP 20; TEMP 37; O2SAT 99
[2020-04-07] MEDS: Apixaban 5 MG TAB PO ×2 (07:57→21:07)
[2020-04-07] MEDS: Ferrous Sulfate 325 MG TAB PO (07:57)
[2020-04-07] MEDS: Carvedilol 6.25 MG TAB PO ×2 (07:57→21:06)
[2020-04-07] MEDS: Gabapentin 300 MG CAP PO ×3 (07:57→21:06)
[2020-04-07] MEDS: Nicotine 14 MG/24 HR PATCH TD (07:58)
[2020-04-07] MEDS: Lisinopril 5 MG TAB PO (07:58)
[2020-04-07] MEDS: Pantoprazole 40 MG TABCR PO ×2 (07:58→21:06)
[2020-04-07] MEDS: Spironolactone 25 MG TAB 12.5 MG PO (07:59)
[2020-04-07] MEDS: Thiamine 100 MG TAB PO (07:59)
[2020-04-07] MEDS: Sucralfate 1 GM TAB PO ×4 (07:59→21:06)
--- NOTE | 2020-04-07 09:53 | OT.INTREAT ---
Date of service: 04/07/20 Time of Service: 09:15 Occupational Therapy Notes Occupational Therapy Inpatient Treatment Note Date: 04/07/20 PRECAUTIONS: Fall, standard, full SUBJECTIVE: Pt states that he is going to return home with services. OBJECTIVE: Therapeutic Exercise [id number]: OT educated pt on (B) UE strengthening with 2# weight which he was able to tolerate well. His (R) shoulder is sore and he required rest periods throughout. His hands were placed in extended position with Rock Tape and he is tolerating his passive ROM to his digits well. ASSESSMENT/PLAN: Pt was able to tolerate (B) UE strengthening well, he is able to make good movements his fingers were less contracted today and he was receptive to education and training. TREATMENT CODES/TIME: 60839i9, 30 minutes (09:15) SUSIE Adair/[facility]
[2020-04-07] MEDS: Magnesium Oxide 400 MG TAB PO ×2 (10:32→21:05)
--- NOTE | 2020-04-07 12:07 | PT.INTREAT ---
Date of service: 04/07/20 Time of Service: 10:25 PT Notes Visit Reasons: AMBULATORY DYSFUNTION, COGNITIVE DYSFUNCTION Inpatient Physical Therapy Treatment Note [facility] Date: 04/07/20 PRECAUTIONS: standard SUBJECTIVE: Terrence states that he's feeling good. He states that he walked with nursing early this morning. OBJECTIVE: PAIN: denies BED MOBILITY/TRANSFERS Rolling L/R: independent Supine-sit: independent Sit-supine: independent Sit-stand: independent Stand-sit: independent GAIT Assistive Device: FWW Weight bearing: WBAT Assist: SBA Distance: 700' Deviation: no losses of balance or path deviation THEREX: Patient was instructed in standing LE strengthening activities with UE support to shelf. He performed all activities with 4# weight to right ankle, 2# weight to left ankle. He requires cues to maintain pelvic stability, and fatigues quickly with correction. ASSESSMENT: Patient demonstrating improving safety and stability. PLAN: Continue progressing strengthening and balance activities. Emerita Shin, PT, DPT [facility] TREATMENT CODE/TIME: []
[2020-04-07 15:10] VITALS: BP 115/82; PULSE 100; RESP 19; TEMP 37; O2SAT 99
[2020-04-07] MEDS: Atorvastatin 10 MG TAB PO (21:06)
[2020-04-07 23:42] VITALS: BP 101/67; PULSE 79; RESP 18; TEMP 37; O2SAT 97
[2020-04-08 07:21] VITALS: BP 104/67; PULSE 73; RESP 19; TEMP 36.7; O2SAT 97
[2020-04-08] MEDS: Nicotine 14 MG/24 HR PATCH TD (07:45)
[2020-04-08] MEDS: Gabapentin 300 MG CAP PO ×3 (07:45→21:09)
[2020-04-08] MEDS: Ferrous Sulfate 325 MG TAB PO (07:45)
[2020-04-08] MEDS: Sucralfate 1 GM TAB PO ×4 (07:45→21:09)
[2020-04-08] MEDS: Apixaban 5 MG TAB PO ×2 (07:45→21:08)
[2020-04-08] MEDS: Pantoprazole 40 MG TABCR PO ×2 (07:45→21:08)
[2020-04-08] MEDS: Lisinopril 5 MG TAB PO (07:46)
[2020-04-08] MEDS: Thiamine 100 MG TAB PO (07:46)
[2020-04-08] MEDS: Carvedilol 6.25 MG TAB PO ×2 (07:46→21:09)
[2020-04-08] MEDS: Spironolactone 25 MG TAB 12.5 MG PO (07:49)
[2020-04-08] MEDS: Magnesium Oxide 400 MG TAB PO ×2 (09:26→21:10)
--- NOTE | 2020-04-08 09:53 | OTTR_ITS ---
Date of service: 04/08/20 Time of Service: 09:15 Occupational Therapy Notes Occupational Therapy Inpatient Treatment Note Date: 04/08/20 PRECAUTIONS: Fall, standard, full SUBJECTIVE: Pt states that he is anxious to return home and is more than ready. He notes that he feels well supported by Care management and is hoping to return home with services in place. OBJECTIVE: Therapeutic Exercise [id number]: OT educated pt on (B) UE strengthening with 2# weight which he was able to tolerate well. His (R) shoulder is sore and he required rest periods throughout as this was tender with bed mobility as well. Exercises her performed were bicep curls, tricep curls, PNF patterns, flexion and extension of shoulders, abduction, wrist flexion and extension as well as AA supination to pronation 10x each (B). ASSESSMENT/PLAN: Pt was able to tolerate (B) UE strengthening well, he is progressing. His (R) shoulder is sore as his functional mobility and ADLs/IADLs are requiring him to utilize his (B) UE more throughout the day. TREATMENT CODES/TIME: [id number], 30 minutes (09:15) Daisy Cortez OTR/[facility]
--- NOTE | 2020-04-08 14:36 | PTTR_ITS ---
Date of service: 04/08/20 Time of Service: 14:36 PT Notes Visit Reasons: AMBULATORY DYSFUNTION, COGNITIVE DYSFUNCTION Swing Bed Level 1 Physical Therapy Treatment Note Date: 04/07/20 Precautions: Fall. Standard. Activity as tolerated. AFO in R LE when OOB. Now in depedent with mobility inside room with FWW/4WW. Subjective: Feels confident about managing well at home with support services. Terrence states that since he has given himself chance to improve for the past month at this hospital working with therapy, he beleives that he is ready to go home and manage some unfinished business he has at home with the help of his brother. He hopes to continue to work with home health PT/OT for as long as he needs to and looks forward to doing outpatient PT/OT whenever cleared to do so. Objective: Pain: R shoulder pain persists at BED MOBILITY/TRANSFERS: Supine to sit modified independent Sit to supine modified independent Sit to stand modified independent with front wheeled walker Stand to sit modified independent with front wheeled walker Bed to chair modified independent with front wheeled walker Chair to bed modified independent with front wheeled walker GAIT: Assessed safety of upgrading patient to modified independence with 4WW on level surfaces for this session as he only required distant supervision with no LOB, scissoring, walker management issues, and SOB. Will continue to assess tomorrow. THERA ACT: Reviewed and observed patient in performing HEP with 100% mastery. Advised patient to work with HH PT regarding the use of AW to B UE and LE for strength and mobility progression. Balance: Static Sitting: Normal Dynamic Sitting: Normal Static Standing: Good Dynamic Standing: Fair Assessment: Distant supervision with level surface ambulation using the FWW for 800 feet with no LOB. Trialled [place] crutch on the L side but patient did present some AD management issues due to limited grasp. Demonstrates 100% mastery of bed level and seated level exercises. DISCHARGE RECOMMENDATIONS: SNF for continued mobility training and hand rehabilitation. If insistent on going home, will need the following to reduce fall risk: 1) 4WW for all indoor and outdoor ambulation 2) HH PT to continue with mobility and balance progression 3) HH PT to facilitate home modifications for safety and accessibility 4) Emergency alert device TREATMENT CODE/TIME: 38371 x 59 minutes beginning at 14:36 PM.
--- NOTE | 2020-04-08 14:36 | PT.INDS ---
Date of service: 04/08/20 Time of Service: 14:36 PT Notes Visit Reasons: AMBULATORY DYSFUNTION, COGNITIVE DYSFUNCTION Swing Bed Level 1 Physical Therapy Discharge Summary Date: 04/08/2020 Dates of service: 03/12/2020 through 04/08/2020 This is a clinical summary of care provided on the duration of dates listed above. No charge was made in the completion of this documentation. Precautions: Fall. Standard. Activity as tolerated. AFO in R LE when OOB. Subjective: Eager to go home tomorrow. Considering to go to OP PT/OT once discharged from HH therapy services. Objective: Pain: R shoulder at -05/16. B hands burning pain but of less intensity and frequency as of last PN period. ROM: Right Upper Extremity: OT providing services to manage hand and fingers, please see OT progress notes for this. Left Upper Extremity: OT providing services to manage hand and fingers, please see OT progress notes for this. Right Lower Extremity: Hip WNL. Knee with 5 degree flexion contracture. Ankle DF about 10 degrees beyond neutral. Left Lower Extremity: Hip and knee WNL. Knee WNL. DF of up to 20 degrees beyond neutral. PF WNL. Strength: Right Upper Extremity: OT providing services to manage hand and fingers, please see OT progress notes for this. Left Upper Extremity: OT providing services to manage hand and fingers, please see OT progress notes for this. Right Lower Extremity: Hip flexors 4/5. Hip abductors 4/5. Knee flexors 4/5. Knee extensors 3-/5. Ankle dorsiflexors 1/5. Ankle plantarflexors 3-/5. Left Lower Extremity: Hip flexors 4/5. Hip abductors 4/5. Knee flexors 4/5. Knee extensors 4-/5. Ankle dorsiflexors 3-/5. Ankle plantarflexors 4-/5. Sensation: Intact as to pain sensation in B LE BED MOBILITY/TRANSFERS: Supine to sit modified independent Sit to supine modified independent Sit to stand modified independent with front wheeled walker Stand to sit modified independent with front wheeled walker Bed to chair modified independent with front wheeled walker Chair to bed modified independent with front wheeled walker GAIT: Up to 800 feet of long distance ambulation without an assistive device with contact-guard provided only to avoid potential LOBs and scissoring. For paved outdoor ground surfaces, up to 1000 feet using 4WW with CGA for safety and walker management. 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 HEP reviewed. Forearm crutch trialled. Terrence is unable to manage forearm crutches at this time due to limited grasp on R UE. Barriers to achieving goals at this time include continued limited grasp in R, persistent pain in B hands and R shoulder, weakness of B hip flexors, long-term effect of cerebellar stroke leading to LOB and ocassional scissoring during walking activity without assistive device. Terrence will continue to benefit from neuromuscular re-education, balance retraining, and strength progression to achieve mobility ADL goals. Patient continues to present with clinical signs and symptoms consistent with current/admitting diagnoses that have resulted to mobility limitations, gait instability, generalized weakness, and impairment of motor control as demonstrated by the following impairment level findings: 1. Decreased strength to R hip flexor, B hand, and finger (IP) extension muscle groups 2. Impaired standing balance 3. Limitation of joint range of motion in B hands, fingers, R knee, and R foot 4. Decreased grasp with R>>L 5. IP flexion contracture to digits 3, 4, and 5 on B sides with R>>L 6. Pain complaint on R shoulder Impairments are continuing to contribute to the following functional limitations: 1. Occasional LOB and scissoring during ambulation without assistive device 2. Increase completion time for mobility ADL performance 3. Increased fall risk 4. Inability to negotiate steps alone safely Goals: Goals X1 week 1. Independent gait on level surface without an assistive device using AFO on R for at least 500 feet without report of pain nor dyspnea NOT MET. 2. Independent gait on pavement using 4WW for at least 100 feet without pain nor dyspnea. NOT MET 3. Independent stair negotiation while holding onto unilateral rail for at least 5 steps without report of pain nor dyspnea NOT MET 4. Normal static and dynamic standing balance/tolerance NOT MET. Plan of Care/Treatment Plan: 1x/day, 5 days/week x 2 weeks. Plan of care has been reviewed with the MAINTENANCE WORKER HOUSE TRAILER providing the service under Physical Therapy direction. Initiate Physical Therapy intervention for strengthening, bed mobility, transfers, gait, stairs, balance training, use of assistive device. Recommend utilization of lift for transfers at this time, due to patient's significant LE weakness, rigidity, and insufficient UE strength to manage assistive device. DISCHARGE RECOMMENDATIONS: SNF for continued mobility training and hand rehabilitation. If insistent on going home, will need the following to reduce fall risk: 1) 4WW for all indoor and outdoor ambulation 2) HH PT to continue with mobility and balance progression 3) HH PT to facilitate home modifications for safety and accessibility 4) Emergency alert device TREATMENT CODE/TIME: 65683 x 59 minutes beginning at 14:36 PM. Thank you for the opportunity to participate in the care of this patient. Binta Mayes PT, DPT, CLT [facility] [place], [place]
[2020-04-08 15:58] VITALS: BP 120/86; PULSE 99; RESP 20; TEMP 36.9; O2SAT 99
[2020-04-08] MEDS: Atorvastatin 10 MG TAB PO (21:00)
[2020-04-08 22:51] VITALS: BP 118/82; PULSE 83; RESP 16; TEMP 36.4; O2SAT 97
[2020-04-09] VITALS (8 sets, daily range): BP systolic 111–134; BP diastolic 80–93; PULSE 80–97; RESP 16–18; TEMP 36.1–37; O2SAT 94–100
[2020-04-09] MEDS: Gabapentin 300 MG CAP PO ×2 (08:26→14:16)
[2020-04-09] MEDS: Sucralfate 1 GM TAB PO ×2 (08:26→11:25)
[2020-04-09] MEDS: Carvedilol 6.25 MG TAB PO (08:27)
[2020-04-09] MEDS: Apixaban 5 MG TAB PO (08:27)
[2020-04-09] MEDS: Pantoprazole 40 MG TABCR PO (08:27)
[2020-04-09] MEDS: Ferrous Sulfate 325 MG TAB PO (08:27)
[2020-04-09] MEDS: Thiamine 100 MG TAB PO (08:27)
[2020-04-09] MEDS: Lisinopril 5 MG TAB PO (08:27)
[2020-04-09] MEDS: Spironolactone 25 MG TAB 12.5 MG PO (08:27)
[2020-04-09] MEDS: Nicotine 14 MG/24 HR PATCH TD (08:28)
[2020-04-09] MEDS: Acetaminophen 500 MG TAB 1000 MG PO (09:36)
[2020-04-09] MEDS: Magnesium Oxide 400 MG TAB PO (09:39)
--- NOTE | 2020-04-09 09:39 | OT.INTREAT ---
Date of service: 04/09/20 Time of Service: 08:30 Occupational Therapy Notes Occupational Therapy Inpatient Treatment Note 04/09/20 PRECAUTIONS: Fall, standard, full SUBJECTIVE: Pt states that he is returning home today, he notes that he is happy to be going home. OBJECTIVE: Therapeutic Activities [id number]: OT educated pt on (B) UE strengthening with 2# weight which he was able to tolerate well. His (R) shoulder is sore and he required rest periods throughout as this was tender with bed mobility as well. Exercises her performed were bicep curls, tricep curls, PNF patterns, flexion and extension of shoulders, abduction, wrist flexion and extension as well as AA supination to pronation 10x each (B) with functional dynamic gross motor control and movements to progress his functional (I) in ADL/IADL routines. Pt did go to the bathroom and required max (A) for toileting hygiene. ASSESSMENT/PLAN: Plan is for pt to return home today after IV placement. TREATMENT CODES/TIME: [id number], 30 minutes (08:30) [facility]
[2020-04-09] MEDS: Normal Saline Flush 10 ML SYR (09:52)
[2020-04-09] MEDS: IMMUNE GLOBULIN 20 GM/200 ML BTL IV (10:09)
--- NOTE | 2020-04-09 10:48 | W.PM.DS.N ---
Date of service: 04/09/20 Time of Service: 10:48 DS: Diagnosis Discharge Diagnosis (1) CVA (cerebral vascular accident): Status: Chronic (2) Ambulatory dysfunction: Status: Acute (3) CIDP (chronic inflammatory demyelinating polyneuropathy): Status: Acute (4) Cognitive dysfunction: Status: Acute Discharge Plan Disposition Patient Disposition: HOME W/HOME HEALTH SERVICE Condition: Improving Discharge Details Reason For Visit: AMBULATORY DYSFUNTION, COGNITIVE DYSFUNCTION Admit Date/Time: 03/12/20 14:29 Admit Provider: Sridhar Funes Attending Provider: Sridhar Funes Primary Care Provider: Charley Joseph Hospital Course Hospital Course: This is a 54 year old male, with complex medical history who first presented to the ED in Feb 2020 after a neurology visit for failure to thrive and inability to care for himself. He had a history of alcohol abuse and had been cared for by his brother. He was admitted to med/surg with neurology consultation and was treated with IVIG for CIDP which he responded to. His work up included CT scans, MRI brain as well as a cardiac work up. Imaging showed acute punctate ischemia in multiple vascular territory concerning for cardioemoblic phenomena. He has a history of paroxysmal atrial fibrillation s/p ablation x 2 and had no evidence of atrial fibrillation on telemetry while hospitalized from 02/13 until 02/20. TTE showed normal left ventricular function with no significant valvular disease. Cartotid ultrasound with no stenosis. He will need life long anticoagulation per cardiology, thus no need for GRAZYNA as further work-up. He should also continue apixaban 5mg BID with aspirin 81mg daily for stroke prevention. He was then discharged to [facility] for acute rehabilitation and met his goals. He was not safe for discharge to home so returned here for further rehabilitation. He has now completed all his IVIG infusions and is deemed safe for discharge to home with further home rehabilitation and home health services referral has been placed. discharged discussed with DR Nolan Home Meds and New Rx's Prescriptions: Continued ferrous sulfate 325 mg (65 mg iron) tablet 325 mg PO DAILY RF: 0 magnesium oxide 400 MG tablet 400 mg PO HS RF: 0 sucralfate 1 gram Tablet 1 g PO AC & HS Qty: 120 RF: 0 pantoprazole 40 mg Tablet,Delayed Release (Dr/Ec) 40 mg PO BID@0730,1999 Qty: 60 RF: 0 gabapentin 100 mg Capsule 100 mg PO TID Qty: 90 RF: 0 atorvastatin [Lipitor] 10 mg Tablet 10 mg PO QPM Qty: 30 RF: 0 aspirin 81 mg Tablet,Delayed Release (Dr/Ec) 81 mg PO DAILY Qty: 30 RF: 0 Eliquis 5 mg Tablet 5 mg PO BID Qty: 60 RF: 0 thiamine HCl (vitamin B1) 100 MG tablet 100 mg PO DAILY RF: 0 carvedilol 25 mg tablet 6.25 mg PO BID RF: 0 lisinopril 20 mg tablet 5 mg PO DAILY RF: 0 spironolactone 25 mg tablet 12.5 mg PO DAILY RF: 0 acetaminophen 325 mg Tablet 650 mg PO Q4H PRN PRNRF: 0 nicotine 14 mg/24 hr Patch 24 Hour 1 patch TRANSDERMAL DAILY RF: 0 albuterol 90 mcg/actuation Aerosol 180 mcg INHALATION Q6H PRN PRNRF: 0 psyllium 3.4 gram/5.8 gram Powder 3.4 g PO DAILY RF: 0 dapagliflozin 10 mg Tablet 10 mg PO DAILY RF: 0 Discharge Instructions Instructions: Autoimmune Disease (ED), Blood Thinners (DC), Safe Use of Anticoagulants (DC) Additional Instructions: you were treated with IVIG for chronic inflammatory demyelinating polyneuropathy you should continue to avoid alcohol completely home health services as directed. you are on a blood thinner for history of atrial fibrillation and stroke and should not stop taking it. It places you at increased risk for bleeding and any symptoms of bleeding, lightheadedness, dizziness or new symptoms should be reported. fall prevention should be discussed with physical therapy Stand Alone Forms: Nursing Discharge Form Referrals: Charley Joseph [Primary Care Provider] - 04/27/20 1:00 pm Activity:: Activity as Tolerated Equipment/Supplies:: No Equipment Needed Diet:: As Tolerated Discharge Orders Discharge Orders: Discharge Order (Routine); Ordered 04/09/20 Ordered By: Carole Beth DS: Summary Time Spent with Patient providing and/or coordinating discharge services: Greater than 30 minutes Status at Discharge Functional status at discharge: uses cane/walker Overall status at discharge: patient is progressing back to baseline Mental Status: mental status grossly normal Speech and Movement: speech and movement normal Mood: congruent mood Affect: normal affect Exam Const General: cooperative, comfortable, no acute distress, frail appearing and ill appearing chronically Nutritional Appearance: malnourished Orientation: alert, awake and oriented x3 HENMT Head: normal to inspection, normocephalic and atraumatic Mouth: moist mucous membranes Eyes Conjunctivae: conjunctivae normal Pupils: PERRL EOM: EOM intact bilaterally Neck Neck: normal visual inspection and full ROM Lymphatic: no lymphadenopathy noted and no lymphedema noted Chest Chest: normal inspection of the chest Resp Effort & Inspection: normal respiratory effort Auscultation: clear to auscultation bilaterally Cardio Jugular venous pressure: no JVD Rate: regular rate Rhythm: regular rhythm Heart Sounds: S1 normal and S2 normal GI Palpation: soft and no hepatosplenomegaly Auscultation: normal bowel sounds Skin General skin exam: no rashes or lesions noted Neuro General: patient alert, patient awake, patient oriented x3 and moves all extremities Cognition: normal cognition Motor: strength not 5/5 throughout Extrem General: abnormal ROM and no clubbing, cyanosis or edema Right upper extremity: ROM limited Left upper extremity: normal to inspection Right lower extremity: ROM limited Left lower extremity: normal to inspection Psych Appearance: grossly normal Mental Status: mental status grossly normal Speech and Movement: speech and movement normal Mood: congruent mood Affect: normal affect Attitude: cooperative DS: Data Vitals/I&O Vitals and I&O: Vital Signs Temperature 37 C 04/09/20 10:30 Temperature Source Tympanic 04/09/20 10:30 Pulse 90 04/09/20 10:30 Pulse Rhythm Regular 04/09/20 08:30 Respiratory Rate 16 04/09/20 10:30 Respiratory Effort Non-Labored 04/09/20 08:30 Respiratory Depth Normal 04/09/20 08:30 Respiratory Pattern Normal 04/09/20 08:30 Blood Pressure 118/83 04/09/20 10:30 Pulse Oximetry 94 04/09/20 10:30 Oxygen Delivery Method Room Air 04/09/20 10:30 Oxygen Flow Rate 0 04/09/20 10:30 Pain Level 0 04/09/20 07:30 Comment 03/30/20 23:00 Intake & Output 04/08/20 04/08/20 04/09/20 11:59 23:59 11:59 Intake Total 600 / 1320 720 / 1320 250.85 / 250.85 Output Total 700 / 700 300 / 300 Balance -100 / 620 720 / 620 -49.15 / -49.15 Weight 61.292 kg Intake: IV 10.85 / 10.85 Oral 600 / 1320 720 / 1320 240 / 240 Output: Urine 700 / 700 300 / 300 Other: Urine Color Pale Yellow Yellow Yellow Urine Appearance Clear Clear Clear Urine Odor Normal Normal Stool Size Moderate Moderate Stool Characteristics Soft Formed Formed Brown Brown Voiding Methods Diaper Toilet Urinal Incontinent PFS Medical History (Updated 03/20/20 @ 17:02 by Brandi Damico NP) Alcoholism Ataxia Ataxic gait Atrial fibrillation Cardiomyopathy Cirrhosis COPD with asthma GI bleed Hypertension Nicotine abuse Palliative care patient Peripheral neuropathy Prediabetes Weakness Weight loss Social History Smoking/Tobacco Use Status: Former Tobacco Use Quit Date: 02/13/20 Smoking risk assessment performed?: Yes Alcohol Intake: former Drug use: Never Substance use type: does not use Household members: none Housing: house Number of Children: 3 number of grandchildren: 2 Pets and animals: Yes Pets and animals: dog(s) Current gender identity: male What type of physical activity do you participate in: none Seatbelt use: always Do you feel safe at home: Yes Do you feel safe in your relationship?: Yes
--- NOTE | 2020-04-09 10:56 | CMPROGNOTE_ITS ---
Care Management Progress Note CM reviewed the following discharge planning considerations with Terrence, provided outline of services and contact information and folder with following: Services Meals On Wheels: [facility]: [phone] daily deliveries requested for 60 days; between [phone] seven days a week from IP meal site. [facility]: [phone] Nursing, Physical Therapy, Occupational Therapy, Social Work (to support completion of LTC application and assess for additional needs-depression, PATRICIO, etc). [facility]: [phone] Charley Joseph: follow home health orders, divisional human resources director to support attainment of ongoing service supports. Appointment: 04/27/20@1:00 PM. Prescriptions: [facility] in [place] [phone] [facility] [phone] Raised toilet seat, commode, and shower chair. Additional DME to be provided upon discharge: FWW and Urinal Folder provided for follow up: Folder contains Disability application LTC Medicaid Application [facility] Clinical Certification statement Diagnosis codes Contact info for VNA, DME, PCP, and Volunteer Services Assistant Brochures for additional resources Terrence
--- NOTE | 2020-04-09 10:56 | PDOC.CMPRO ---
Care Management Progress Note CM reviewed the following discharge planning considerations with Terrence, provided outline of services and contact information and folder with following: Services Meals On Wheels: [facility]: [phone] daily deliveries requested for 60 days; between [phone] seven days a week from IP meal site. [facility]: [phone] Nursing, Physical Therapy, Occupational Therapy, Social Work (to support completion of LTC application and assess for additional needs-depression, PATRICIO, etc). [facility]: [phone] Charley Joseph: follow home health orders, community resource officer to support attainment of ongoing service supports. Appointment: 04/27/20@1:00 PM. Prescriptions: [facility] in [place] [phone] [facility] [phone] Raised toilet seat, commode, and shower chair. Additional DME to be provided upon discharge: FWW and Urinal Folder provided for follow up: Folder contains Disability application LTC Medicaid Application [facility] Clinical Certification statement Diagnosis codes Contact info for VNA, DME, PCP, and Bowling Or Skating Front Desk Clerk Brochures for additional resources Terrence
--- NOTE | 2020-04-09 11:12 | PDOC.HHF2F_ITS ---
Home Health Certification Home Health Certification: 1. Encounter Date and Reason I certify that EMILIE IZAGUIRRE was seen by Carole Beth on 04/09/20 and that I had a [id number] encounter with this patient that meets the physician face to face encounter requirements. 2. Clinical Findings Supporting Skilled Need and Homebound Status I certify that home health services are medically necessary, include either intermittent senior living and/or physical/speech therapy, and that this pat ient is homebound in that absences from the home require considerable and taxing effort and are infrequent or of short duration, or are attributable to the need to receive medical care. [X] (a) Attached documentation from encounter provides clinical findings supporting skilled need and homebound status (including what assistance patient requires to leave the home). The encounter with the patient was in whole, or in part, for the following medical condition, which is the primary reason for home health care: AMBULATORY DYSFUNCTION, COGNITIVE DYSFUNCTION Senior Living:routine nursing evaluation, medication oversight Physical and Occupational Therapy:routine evaluation and treatment, falls prevention, gait training and stability 1) 4WW for all indoor and outdoor ambulation 2) HH PT to continue with mobility and balance progression 3) HH PT to facilitate home modifications for safety and accessibility 4) Emergency alert device FACILITIES MAINTENANCE SUPERVISOR: routine evaluation and management Homebound: patient is unable to leave home unassisted due to unsteady gait, inability to negotiate stairs unassisted, cognitive impairment, 3. Certification and Authentication I certify that I composed the above information based on my clinical judgement relating to this patient's medical condition and, if applicable, clinical findings communicated to me by the NPP or inpatient physician who performed the Home Health Referral. All further orders will be obtained through (Community Based Physician - PCP)
[2020-04-09] MEDS: IMMUNE GLOBULIN 40 GM/400 ML BTL IVPB (11:48)
--- NOTE | 2020-04-09 16:32 | PDOC.CMDIS ---
- If Service Date Differs Date of service: 04/09/20 Time of Service: 16:51 LACE Index Scoring Tool - Questions: Length of Stay (in days): 14 or more Acuity (Admit via E.D.?): Yes Comorbidities: Chronic Pulmonary Disease, Connective Tissue Disease, Liver or Renal Disease E.D. Visits: 1 - Answers: Total Score: 16 Risk of Readmission: High Risk Care Management Discharge Reason for Hospitalization: Ambulatory dysfunction, cognitive dysfunction Discharge Plan: Bonifacio will return home when ready per MD. He will have new orders for RN/PT/OT/PHYSICAL THERAPY TECHNICIAN through [facility], CM notified agency and Electronic Industrial Controls Mechanic. CM provided FWW, coordinated orders for shower chair, raised toilet seat and commode through [facility] in [place]: Terrence's brother will transport and retrieve DME from [facility] upon discharge. CM notified [facility] of discharge and coordinated new MOW through [facility]. See progress note for full discharge planning details. Patient/Family Education Needs: Review of discharge instructions, discuss Ask Me Three. Services Needed at Discharge: DME Agency ([facility]), Home Delivered Meals ([facility]), Home Health Care Services ([facility] RN/PT/OT/PHYSICAL THERAPY TECHNICIAN), Homemaking Services ([facility] Medicaid Application for follow up. )
== END 2020-04-09 14:36 | disposition home health service (06) | DRG 57 ==
PROVIDERS: Nurse Practitioner Family; Admitting Provider Family Medicine; PCP Physician Assistant; Visit Provider Family Medicine
DX: I69.351 Hemiplegia and hemiparesis following cerebral infarction affecting right dominant side (principal); G61.81 Chronic inflammatory demyelinating polyneuritis; I42.9 Cardiomyopathy, unspecified; I69.398 Other sequelae of cerebral infarction; Z20.822 Contact with and (suspected) exposure to COVID-19; I48.0 Paroxysmal atrial fibrillation; F10.20 Alcohol dependence, uncomplicated; R26.0 Ataxic gait; J44.9 Chronic obstructive pulmonary disease, unspecified; I10 Essential (primary) hypertension; F17.210 Nicotine dependence, cigarettes, uncomplicated; G62.9 Polyneuropathy, unspecified; R73.03 Prediabetes; R53.1 Weakness; K74.60 Unspecified cirrhosis of liver
CPT/HCPCS: 36415; 82784; 97110; 97140; 97162; 97167; 97530; 97535; 99220; 99254; 99308; 99309; 99316; NC; U0003; 85025; 99223; J1459

== ENCOUNTER 2020-05-20 02:38 | Outpatient (RCR) | payer MEDICAID, SELFPAY ==
[2020-05-20] MEDS: Normal Saline Flush 10 ML SYR IVP (10:05)
[2020-05-20] MEDS: Acetaminophen 500 MG TAB 1000 MG PO (10:06)
[2020-05-20 10:24] VITALS: BP 142/100; PULSE 85; RESP 12; TEMP 37; O2SAT 100
[2020-05-20] MEDS: IMMUNE GLOBULIN 20 GM/200 ML BTL IV (10:24)
[2020-05-20 10:39] VITALS: BP 122/104; PULSE 93; RESP 12; TEMP 37; O2SAT 100
[2020-05-20 11:10] VITALS: BP 124/94; PULSE 56; RESP 16; TEMP 37; O2SAT 100
[2020-05-20 11:39] VITALS: BP 138/100; PULSE 79; RESP 16; TEMP 36.7; O2SAT 100
[2020-05-20] MEDS: IMMUNE GLOBULIN 40 GM/400 ML BTL IVPB (12:04)
[2020-05-20 12:09] VITALS: BP 139/103; PULSE 80; RESP 12; TEMP 36.7; O2SAT 100
== END 2020-06-05 23:59 | disposition home or self-care (01) ==
LOC: INF 02:38
PROVIDERS: PCP Physician Assistant; Visit Provider Internal Medicine
DX: G61.81 Chronic inflammatory demyelinating polyneuritis (principal)
CPT/HCPCS: 96365; 96366; J1459

== ENCOUNTER 2020-06-09 13:52 | Outpatient (CLI) | payer MEDICAID, SELFPAY ==
--- NOTE | 2020-06-09 13:45 | DI.RAD_ITS ---
Exam(s) XR SHOULDER RT COMPLETE 2+V EXAM: XR SHOULDER RT COMPLETE 2+V CLINICAL HISTORY: right shoulder pain. TECHNIQUE: 2D digital imaging was performed. COMPARISON: CR PORTABLE CHEST ONE VIEW from 08/01/2016 FINDINGS: BONES: There is now a deformity of the proximal right humerus consistent with a subacute surgical nec k fracture. No bony destructive lesion is seen. JOINTS: Mild inferior subluxation of the humeral head relative to the glenoid. SOFT TISSUE: Normal. IMPRESSION: Subacute fracture of the surgical neck of the right humerus. DATA REPOSITORY: RADIATION DOSE DELIVERED:
== END 2020-06-09 13:53 | disposition home or self-care (01) ==
LOC: DIORS 13:52
PROVIDERS: PCP Physician Assistant; Referring Provider Physician Assistant; Visit Provider Student in an Organized Health Care Education/Training Program
DX: M25.511 Pain in right shoulder (principal); S42.211A Unspecified displaced fracture of surgical neck of right humerus, initial encounter for closed fracture; S43.031A Inferior subluxation of right humerus, initial encounter
CPT/HCPCS: 73030

== ENCOUNTER 2020-06-17 02:32 | Outpatient (RCR) | payer MEDICAID, SELFPAY ==
[2020-06-06 00:15] VITALS: BP 139/103; PULSE 80; RESP 12; TEMP 36.7
[2020-06-17] MEDS: IMMUNE GLOBULIN 20 GM/200 ML BTL IV (10:17)
[2020-06-17] MEDS: Normal Saline Flush 10 ML SYR IVP (10:18)
[2020-06-17 10:20] VITALS: BP 123/93; PULSE 78; RESP 16; TEMP 36.4; O2SAT 100
[2020-06-17 10:35] VITALS: BP 124/99; PULSE 77; RESP 16; TEMP 36.4; O2SAT 98
[2020-06-17 11:03] VITALS: BP 128/95; PULSE 80; RESP 16; TEMP 36.6; O2SAT 99
[2020-06-17 11:34] VITALS: BP 119/91; PULSE 81; RESP 16; TEMP 36.7; O2SAT 99
[2020-06-17] MEDS: IMMUNE GLOBULIN 40 GM/400 ML BTL IVPB (11:59)
[2020-06-17 12:01] VITALS: BP 114/79; PULSE 79; RESP 16; TEMP 36.6; O2SAT 100
[2020-06-17 13:50] VITALS: BP 117/83; PULSE 84; RESP 18; TEMP 36.6; O2SAT 100
== END 2020-07-06 23:59 | disposition home or self-care (01) ==
LOC: INF 02:32
PROVIDERS: PCP Physician Assistant; Visit Provider Internal Medicine
DX: G90.09 Other idiopathic peripheral autonomic neuropathy (principal)
CPT/HCPCS: 96365; 96366; J1459

== ENCOUNTER 2020-07-15 01:54 | Outpatient (RCR) | payer MEDICAID, SELFPAY ==
[2020-07-07 00:06] VITALS: BP 117/83; PULSE 84; RESP 18; TEMP 36.6
[2020-07-15 10:15] VITALS: BP 108/88; PULSE 69; RESP 18; TEMP 36.6; O2SAT 100
[2020-07-15] MEDS: IMMUNE GLOBULIN 20 GM/200 ML BTL IV (10:16)
[2020-07-15] MEDS: Normal Saline Flush 10 ML SYR IVP (10:16)
[2020-07-15 10:30] VITALS: BP 119/80; PULSE 68; RESP 16; TEMP 36.7; O2SAT 100
[2020-07-15 10:57] VITALS: BP 114/80; PULSE 75; RESP 18; TEMP 36.6; O2SAT 100
[2020-07-15 11:28] VITALS: BP 106/87; PULSE 72; RESP 16; TEMP 36.7; O2SAT 99
[2020-07-15 11:59] VITALS: BP 119/85; PULSE 68; RESP 16; TEMP 36.6; O2SAT 100
[2020-07-15] MEDS: IMMUNE GLOBULIN 40 GM/400 ML BTL IVPB (12:05)
[2020-07-15 12:33] VITALS: BP 141/88; PULSE 60; RESP 16; TEMP 36.6; O2SAT 100
== END 2020-08-05 23:59 | disposition home or self-care (01) ==
LOC: INF 01:54
PROVIDERS: PCP Physician Assistant; Visit Provider Internal Medicine
DX: G90.09 Other idiopathic peripheral autonomic neuropathy (principal)
CPT/HCPCS: 96365; 96366; J1459

== ENCOUNTER 2020-08-12 02:07 | Outpatient (RCR) | payer MEDICAID, SELFPAY ==
[2020-08-06 00:18] VITALS: BP 141/88; PULSE 60; RESP 16; TEMP 36.6
[2020-08-12 10:17] VITALS: BP 131/96; PULSE 64; RESP 18; TEMP 36.4; O2SAT 99
[2020-08-12] MEDS: IMMUNE GLOBULIN 20 GM/200 ML BTL IV (10:21)
[2020-08-12] MEDS: Normal Saline Flush 10 ML SYR IVP (10:23)
[2020-08-12 10:36] VITALS: BP 129/90; PULSE 67; RESP 19; TEMP 36.2; O2SAT 99
[2020-08-12 11:05] VITALS: BP 124/88; PULSE 84; RESP 18; TEMP 36; O2SAT 99
[2020-08-12 11:35] VITALS: BP 149/96; PULSE 64; RESP 18; TEMP 36.2; O2SAT 98
[2020-08-12] MEDS: IMMUNE GLOBULIN 40 GM/400 ML BTL IVPB (12:04)
[2020-08-12 12:05] VITALS: BP 143/101; PULSE 67; RESP 18; TEMP 36; O2SAT 98
== END 2020-09-05 23:59 | disposition home or self-care (01) ==
LOC: INF 02:07
PROVIDERS: PCP Physician Assistant; Visit Provider Internal Medicine
DX: D83.9 Common variable immunodeficiency, unspecified (principal); G90.09 Other idiopathic peripheral autonomic neuropathy
CPT/HCPCS: 96365; 96366; J1459

== ENCOUNTER 2020-09-09 02:45 | Outpatient (RCR) | payer MEDICAID, SELFPAY ==
[2020-09-06 00:09] VITALS: BP 143/101; PULSE 67; RESP 18; TEMP 36
[2020-09-09] MEDS: Normal Saline Flush 10 ML SYR IVP (10:26)
[2020-09-09] MEDS: IMMUNE GLOBULIN 20 GM/200 ML BTL IV (10:26)
[2020-09-09 10:30] VITALS: BP 115/84; PULSE 74; RESP 18; TEMP 36.4; O2SAT 98
[2020-09-09 10:45] VITALS: BP 106/77; PULSE 77; RESP 16; TEMP 36.6; O2SAT 100
[2020-09-09 11:00] VITALS: BP 107/78; PULSE 73; RESP 16; TEMP 36.9; O2SAT 100
[2020-09-09 11:30] VITALS: BP 96/73; PULSE 75; RESP 12; TEMP 36.9; O2SAT 96
[2020-09-09] MEDS: IMMUNE GLOBULIN 40 GM/400 ML BTL IVPB (11:58)
[2020-09-09 12:00] VITALS: BP 114/89; PULSE 93; RESP 18; TEMP 36.9; O2SAT 98
[2020-09-09 12:30] VITALS: BP 105/73; PULSE 89; RESP 16; TEMP 36.9; O2SAT 99
== END 2020-10-06 23:59 | disposition home or self-care (01) ==
LOC: INF 02:45
PROVIDERS: PCP Physician Assistant; Visit Provider Internal Medicine
DX: G61.89 Other inflammatory polyneuropathies (principal)
CPT/HCPCS: 96365; 96366; J1459

== ENCOUNTER 2020-10-07 10:00 | Outpatient (RCR) | payer MEDICAID, SELFPAY ==
[2020-10-07] VITALS (7 sets, daily range): BP systolic 105–135; BP diastolic 73–94; PULSE 66–89; RESP 16–18; TEMP 36.2–36.9; O2SAT 97–100
[2020-10-07] MEDS: IMMUNE GLOBULIN 5 GM/50 ML BTL IV (10:44)
[2020-10-07] MEDS: Normal Saline Flush 10 ML SYR IVP (10:58)
[2020-10-07] MEDS: IMMUNE GLOBULIN 20 GM/200 ML BTL IV (11:17)
[2020-10-07] MEDS: IMMUNE GLOBULIN 40 GM/400 ML BTL IVPB (12:26)
[2020-10-07 16:45] LABS: CREATININE 0.9 mg/dL (0.70-1.30)
== END 2020-11-05 23:59 | disposition home or self-care (01) ==
LOC: INF 10:00
PROVIDERS: PCP Physician Assistant; Visit Provider Internal Medicine
DX: G61.81 Chronic inflammatory demyelinating polyneuritis (principal)
CPT/HCPCS: 36415; 96365; 96366; 82565; J1459

== ENCOUNTER 2020-11-18 13:30 | Outpatient (RCR) | payer MEDICAID, SELFPAY ==
[2020-11-06 00:04] VITALS: BP 121/83; PULSE 85; RESP 16; TEMP 36.9
[2020-11-17 13:10] VITALS: PULSE 56; RESP 18; TEMP 36.7; O2SAT 96
[2020-11-18] MEDS: Normal Saline Flush 10 ML SYR IVP (10:31)
[2020-11-18] MEDS: IMMUNE GLOBULIN 5 GM/50 ML BTL IV (10:31)
[2020-11-18 10:33] VITALS: BP 134/85; PULSE 50; RESP 18; TEMP 37.4; O2SAT 99
[2020-11-18 10:46] VITALS: BP 115/79; PULSE 61; RESP 19; TEMP 36.4; O2SAT 100
[2020-11-18 11:00] VITALS: BP 129/78; PULSE 55; RESP 19; TEMP 36.9; O2SAT 100
[2020-11-18] MEDS: IMMUNE GLOBULIN 20 GM/200 ML BTL IV (11:05)
[2020-11-18 11:36] VITALS: BP 128/80; PULSE 57; RESP 18; TEMP 36.6; O2SAT 100
[2020-11-18] MEDS: IMMUNE GLOBULIN 40 GM/400 ML BTL IVPB (12:11)
[2020-11-18 13:27] VITALS: BP 126/85; PULSE 68; RESP 18; TEMP 36.6; O2SAT 100
[2020-11-18 14:11] LABS: CREATININE 0.9 mg/dL (0.70-1.30)
== END 2020-12-06 23:59 | disposition home or self-care (01) ==
LOC: INF 13:30
PROVIDERS: Psychiatry & Neurology Neurology; PCP Physician Assistant; Visit Provider Internal Medicine
DX: Z79.899 Other long term (current) drug therapy (principal); G61.81 Chronic inflammatory demyelinating polyneuritis
CPT/HCPCS: 36415; 96365; 96366; 82565; J1459; J1561

== ENCOUNTER 2020-12-16 10:15 | Outpatient (RCR) | payer MEDICAID, SELFPAY ==
[2020-12-07 00:19] VITALS: BP 126/85; PULSE 68; RESP 18; TEMP 36.6
[2020-12-16 10:00] VITALS: BP 127/89; PULSE 76; RESP 18; TEMP 37.2; O2SAT 98
[2020-12-16] MEDS: IMMUNE GLOBULIN 5 GM/50 ML BTL IV (10:00)
[2020-12-16 10:20] VITALS: BP 125/90; PULSE 76; RESP 18; TEMP 37.2; O2SAT 100
[2020-12-16 10:35] VITALS: BP 107/84; PULSE 79; RESP 20; TEMP 36.5; O2SAT 99
[2020-12-16] MEDS: IMMUNE GLOBULIN 20 GM/200 ML BTL IV (10:39)
[2020-12-16 11:08] VITALS: BP 102/73; PULSE 81; RESP 19; TEMP 36.3; O2SAT 99
[2020-12-16 11:39] VITALS: BP 106/76; PULSE 78; RESP 18; TEMP 36.4; O2SAT 100
[2020-12-16] MEDS: IMMUNE GLOBULIN 40 GM/400 ML BTL IVPB (11:42)
[2020-12-16 12:10] VITALS: BP 116/75; PULSE 83; RESP 20; TEMP 37.3; O2SAT 98
[2020-12-16] MEDS: Normal Saline Flush 10 ML SYR IVP (13:15)
== END 2021-01-05 23:59 | disposition home or self-care (01) ==
LOC: INF 10:15
PROVIDERS: PCP Physician Assistant; Visit Provider Internal Medicine
DX: G61.81 Chronic inflammatory demyelinating polyneuritis (principal)
CPT/HCPCS: 36415; 96365; 96366; 82565; J1459

== ENCOUNTER 2021-01-13 10:00 | Outpatient (RCR) | payer MEDICAID, SELFPAY ==
[2021-01-06 00:05] VITALS: BP 116/75; PULSE 83; RESP 20; TEMP 37.3
[2021-01-13] VITALS (11 sets, daily range): BP systolic 127–158; BP diastolic 91–105; PULSE 82–89; RESP 17–20; TEMP 36.4–36.6; O2SAT 95–100
[2021-01-13 10:18] LABS: CREATININE 0.8 mg/dL (0.70-1.30)
[2021-01-13] MEDS: Normal Saline Flush 10 ML SYR IVP (10:26)
[2021-01-13] MEDS: IMMUNE GLOBULIN 5 GM/50 ML BTL IV (10:52)
[2021-01-13] MEDS: IMMUNE GLOBULIN 20 GM/200 ML BTL IV (11:39)
[2021-01-13] MEDS: IMMUNE GLOBULIN 40 GM/400 ML BTL IVPB (12:40)
== END 2021-02-05 23:59 | disposition home or self-care (01) ==
LOC: INF 10:00
PROVIDERS: PCP Physician Assistant; Visit Provider Internal Medicine
DX: G61.81 Chronic inflammatory demyelinating polyneuritis (principal)
CPT/HCPCS: 36415; 96365; 96366; 82565; J1459

== ENCOUNTER 2021-02-10 10:00 | Outpatient (RCR) | payer MEDICAID, SELFPAY ==
[2021-02-06 00:14] VITALS: BP 136/97; PULSE 88; RESP 17; TEMP 36.5
[2021-02-10] MEDS: IMMUNE GLOBULIN 5 GM/50 ML BTL IV (10:24)
[2021-02-10 10:30] VITALS: BP 119/84; PULSE 75; RESP 17; TEMP 36.7; O2SAT 96
[2021-02-10 10:52] LABS: CREATININE 0.9 mg/dL (0.70-1.30)
[2021-02-10 10:53] VITALS: BP 119/84; PULSE 74; RESP 17; TEMP 36.6; O2SAT 95
[2021-02-10 11:08] VITALS: BP 119/82; PULSE 73; RESP 17; TEMP 36.6; O2SAT 100
[2021-02-10] MEDS: IMMUNE GLOBULIN 20 GM/200 ML BTL IV (11:10)
[2021-02-10 11:40] VITALS: BP 119/88; PULSE 77; RESP 17; TEMP 36.3; O2SAT 98
[2021-02-10 12:12] VITALS: BP 127/85; PULSE 76; RESP 18; TEMP 36.4
[2021-02-10] MEDS: IMMUNE GLOBULIN 40 GM/400 ML BTL IVPB (12:19)
== END 2021-03-08 23:59 | disposition home or self-care (01) ==
LOC: INF 10:00
PROVIDERS: Psychiatry & Neurology Neurology; PCP Physician Assistant; Visit Provider Internal Medicine
DX: G61.81 Chronic inflammatory demyelinating polyneuritis (principal)
CPT/HCPCS: 36415; 96365; 96366; 99195; 82565; J1459

== ENCOUNTER 2021-03-10 10:00 | Outpatient (RCR) | payer MEDICAID, SELFPAY ==
[2021-03-09 00:18] VITALS: BP 127/85; PULSE 76; RESP 18; TEMP 36.4
[2021-03-10] VITALS (8 sets, daily range): BP systolic 105–130; BP diastolic 73–88; PULSE 74–86; RESP 17–18; TEMP 36–36.7; O2SAT 98–99
[2021-03-10] MEDS: IMMUNE GLOBULIN 5 GM/50 ML BTL IV (10:17)
[2021-03-10] MEDS: Normal Saline Flush 10 ML SYR IVP (10:18)
[2021-03-10 10:34] LABS: CREATININE 0.9 mg/dL (0.70-1.30)
[2021-03-10] MEDS: IMMUNE GLOBULIN 20 GM/200 ML BTL IV (11:04)
[2021-03-10] MEDS: IMMUNE GLOBULIN 40 GM/400 ML BTL IVPB (12:10)
== END 2021-04-05 23:59 | disposition home or self-care (01) ==
LOC: INF 10:00
PROVIDERS: Psychiatry & Neurology Neurology; PCP Physician Assistant; Visit Provider Internal Medicine
DX: G61.81 Chronic inflammatory demyelinating polyneuritis (principal)
CPT/HCPCS: 36415; 96365; 96366; 99195; 82565; J1459

== ENCOUNTER 2021-04-13 03:45 | Outpatient (RCR) | payer MEDICAID, SELFPAY ==
[2021-04-06 00:14] VITALS: BP 105/73; PULSE 85; RESP 17; TEMP 36.7
[2021-04-13] VITALS (7 sets, daily range): BP systolic 116–127; BP diastolic 70–90; PULSE 68–89; RESP 16–18; TEMP 36.4–36.8; O2SAT 98–100
[2021-04-13] MEDS: IMMUNE GLOBULIN 5 GM/50 ML BTL IV (10:14)
[2021-04-13] MEDS: Normal Saline Flush 10 ML SYR IVP (10:37)
[2021-04-13] MEDS: IMMUNE GLOBULIN 10 GM/100 ML BTL IVPB (10:48)
[2021-04-13 10:49] LABS: CREATININE 0.9 mg/dL (0.70-1.30)
[2021-04-13] MEDS: IMMUNE GLOBULIN 20 GM/200 ML BTL IV (11:26)
[2021-04-13] MEDS: IMMUNE GLOBULIN 40 GM/400 ML BTL IVPB (12:15)
== END 2021-05-06 23:59 | disposition home or self-care (01) ==
LOC: INF 03:45
PROVIDERS: Psychiatry & Neurology Neurology; PCP Physician Assistant; Visit Provider Internal Medicine
DX: G61.81 Chronic inflammatory demyelinating polyneuritis (principal)
CPT/HCPCS: 36415; 96365; 96366; 82565; J1459

== ENCOUNTER 2021-05-10 16:45 | Outpatient (CLI) | payer MEDICAID, SELFPAY ==
[2021-05-10 11:58] LABS: Abs Immature Grans 0.01 10^3/uL (0.0-0.06); Absolute Basophil Count 0.04 10^3/uL (0.0-0.2); Absolute Eosinophil Count 0.14 10^3/uL (0.0-0.7); Absolute Lymphocyte Count 1.43 10^3/uL (1.2-3.4); Basophils % 0.8; Eosinophils % 2.7; HCT 35.8 % (40.0-50.0); HGB 11.3 g/dL (13.5-17.5); Immature Grans % 0.2; Lymphocytes % 27.4; MCH 27.2 pg (27.0-33.0); MCHC 31.6 % (32.0-36.0); MCV 86.3 fL (80-95); MPV 9.2 fL (8.0-11.0); Monocytes % 9.6; Neutrophils % 59.3; Nucleated RBC 0 %; Platelet Count 255 10^3/uL (130-400); RBC 4.15 10^6/uL (4.36-5.78); RDW 14.4 % (11.8-14.1); RDW-SD 45.9 fL; WBC 5.22 10^3/uL (4.4-10.8)
[2021-05-10 12:15] LABS: ALT 23 U/L (16-63); AST 21 U/L (15-37); Albumin 3.5 g/dL (3.4-5.0); Alkaline Phosphatase 86 U/L (46-116); Anion Gap 8.7 mmol/L (3-11); BUN 14 mg/dL (7-18); Bilirubin, Total 0.2 mg/dL (0.2-1.0); CO2 24.3 mmol/L (21.0-32.0); Calcium 8.3 mg/dL (8.5-10.1); Chloride 104 mmol/L (98-107); Glucose 94 mg/dL (74-106); Potassium 4.7 mmol/L (3.5-5.1); Sodium 137 mmol/L (136-145); Total Protein 7.9 g/dL (6.4-8.2)
[2021-05-11 08:45] LABS: IgA 345 mg/dL (85-499); IgG 1573 mg/dL (610-1,616); IgM 181 mg/dL (35-242); Lambda Free Light Chain 1.63 mg/dL (0.57-2.63)
[2021-05-17 14:41] LABS: Albumin 51.6 % (55.8-66.1); Comment (See Note); Total Protein 7.7 g/dL (6.3-8.2)
== END 2021-05-10 16:46 | disposition home or self-care (01) ==
LOC: LBO 16:46
PROVIDERS: PCP Physician Assistant; Visit Provider Internal Medicine Hematology & Oncology
DX: D47.2 Monoclonal gammopathy (principal)
CPT/HCPCS: 36415; 80053; 82784; 83883; 84165; 85025

== ENCOUNTER 2021-05-12 01:53 | Outpatient (RCR) | payer MEDICAID, SELFPAY ==
[2021-05-07 00:05] VITALS: BP 122/84; PULSE 89; RESP 16; TEMP 36.5
[2021-05-12 09:35] VITALS: BP 138/85; PULSE 64; RESP 17; TEMP 36.1; O2SAT 99
[2021-05-12] MEDS: Normal Saline Flush 10 ML SYR IVP (09:45)
[2021-05-12] MEDS: IMMUNE GLOBULIN 5 GM/50 ML BTL IV (09:45)
[2021-05-12 10:02] VITALS: BP 131/87; PULSE 67; RESP 19; TEMP 36.1; O2SAT 99
[2021-05-12 10:18] VITALS: BP 117/86; PULSE 68; RESP 16; TEMP 36.8; O2SAT 99
[2021-05-12] MEDS: IMMUNE GLOBULIN 10 GM/100 ML BTL IVPB (10:22)
[2021-05-12 10:35] VITALS: BP 129/89; PULSE 66; RESP 17; TEMP 36.4; O2SAT 99
[2021-05-12] MEDS: IMMUNE GLOBULIN 20 GM/200 ML BTL IV (11:01)
[2021-05-12 11:05] VITALS: BP 120/84; PULSE 68; RESP 18; TEMP 36.1; O2SAT 99
[2021-05-12 11:35] VITALS: BP 116/82; PULSE 66; RESP 18; TEMP 35.8; O2SAT 98
[2021-05-12] MEDS: IMMUNE GLOBULIN 40 GM/400 ML BTL IVPB (11:50)
== END 2021-06-05 23:59 | disposition home or self-care (01) ==
LOC: INF 01:53
PROVIDERS: PCP Physician Assistant; Visit Provider Internal Medicine
DX: G61.81 Chronic inflammatory demyelinating polyneuritis (principal)
CPT/HCPCS: 96365; 96366; J1459

== ENCOUNTER 2021-06-09 01:06 | Outpatient (RCR) | payer MEDICAID, SELFPAY ==
[2021-06-06 00:03] VITALS: BP 116/82; PULSE 66; RESP 18; TEMP 35.8
[2021-06-09 10:05] VITALS: BP 121/89; PULSE 59; RESP 18; TEMP 36.4; O2SAT 100
[2021-06-09] MEDS: IMMUNE GLOBULIN 5 GM/50 ML BTL IV (10:07)
[2021-06-09] MEDS: Normal Saline Flush 10 ML SYR IVP (10:08)
[2021-06-09 10:22] LABS: CREATININE 0.9 mg/dL (0.70-1.30)
[2021-06-09 10:30] VITALS: BP 120/87; PULSE 60; RESP 17; TEMP 36.3; O2SAT 99
[2021-06-09 10:45] VITALS: BP 119/77; PULSE 59; RESP 17; TEMP 36.2; O2SAT 97
[2021-06-09] MEDS: IMMUNE GLOBULIN 10 GM/100 ML BTL IVPB (10:46)
[2021-06-09 11:15] VITALS: BP 121/83; PULSE 60; RESP 16; TEMP 36.3; O2SAT 98
[2021-06-09] MEDS: IMMUNE GLOBULIN 20 GM/200 ML BTL IV (11:24)
[2021-06-09 11:45] VITALS: BP 130/86; PULSE 66; RESP 17; TEMP 36.2; O2SAT 100
[2021-06-09] MEDS: IMMUNE GLOBULIN 40 GM/400 ML BTL IVPB (12:14)
[2021-06-09 12:15] VITALS: BP 123/92; PULSE 72; RESP 17; TEMP 35.6; O2SAT 100
== END 2021-07-06 23:59 | disposition home or self-care (01) ==
LOC: INF 01:06
PROVIDERS: Psychiatry & Neurology Neurology; PCP Physician Assistant; Visit Provider Internal Medicine
DX: G61.81 Chronic inflammatory demyelinating polyneuritis (principal)
CPT/HCPCS: 36415; 96365; 96366; 82565; J1459

== ENCOUNTER 2021-08-04 01:32 | Outpatient (RCR) | payer MEDICAID, SELFPAY ==
[2021-07-07 00:12] VITALS: BP 123/92; PULSE 72; RESP 17; TEMP 35.6
[2021-07-08] VITALS (8 sets, daily range): BP systolic 116–143; BP diastolic 80–98; PULSE 67–81; RESP 16–18; TEMP 36.4–36.9; O2SAT 98–100
[2021-07-08] MEDS: IMMUNE GLOBULIN 5 GM/50 ML BTL IV (10:01)
[2021-07-08] MEDS: Normal Saline Flush 10 ML SYR IVP (10:01)
[2021-07-08 10:26] LABS: CREATININE 0.8 mg/dL (0.70-1.30)
[2021-07-08] MEDS: IMMUNE GLOBULIN 10 GM/100 ML BTL IVPB (10:40)
[2021-07-08] MEDS: IMMUNE GLOBULIN 20 GM/200 ML BTL IV (11:12)
[2021-07-08] MEDS: IMMUNE GLOBULIN 40 GM/400 ML BTL IVPB (12:00)
[2021-08-04] VITALS (7 sets, daily range): BP systolic 111–135; BP diastolic 77–89; PULSE 65–76; RESP 16–18; TEMP 35.4–36.9; O2SAT 95–100
[2021-08-04] MEDS: IMMUNE GLOBULIN 5 GM/50 ML BTL IV (10:08)
[2021-08-04] MEDS: IMMUNE GLOBULIN 10 GM/100 ML BTL IVPB (10:54)
[2021-08-04] MEDS: IMMUNE GLOBULIN 20 GM/200 ML BTL IV (11:35)
[2021-08-04] MEDS: IMMUNE GLOBULIN 40 GM/400 ML BTL IVPB (12:32)
[2021-08-04] MEDS: Normal Saline Flush 10 ML SYR IVP (12:33)
== END 2021-08-05 23:59 | disposition home or self-care (01) ==
LOC: INF 01:32
PROVIDERS: Psychiatry & Neurology Neurology; PCP Physician Assistant; Visit Provider Internal Medicine
DX: G61.81 Chronic inflammatory demyelinating polyneuritis (principal)
CPT/HCPCS: 36415; 96365; 96366; 82565; J1459

== ENCOUNTER 2021-09-01 02:34 | Outpatient (RCR) | payer MEDICAID, SELFPAY ==
[2021-08-06 00:06] VITALS: BP 113/83; PULSE 76; RESP 16; TEMP 36.2
[2021-09-01] MEDS: Acetaminophen 500 MG TAB 1000 MG PO (10:03)
[2021-09-01] MEDS: Normal Saline Flush 10 ML SYR IVP (10:04)
[2021-09-01] MEDS: IMMUNE GLOBULIN 5 GM/50 ML BTL IV (10:06)
[2021-09-01 10:10] VITALS: BP 128/90; PULSE 64; RESP 17; TEMP 36.7; O2SAT 100
[2021-09-01 10:25] VITALS: BP 120/87; PULSE 61; RESP 18; TEMP 36.6; O2SAT 100
[2021-09-01 10:40] VITALS: BP 125/85; PULSE 59; RESP 17; TEMP 36.5; O2SAT 100
[2021-09-01] MEDS: IMMUNE GLOBULIN 10 GM/100 ML BTL IVPB (10:47)
[2021-09-01 11:10] VITALS: BP 126/88; PULSE 59; RESP 17; TEMP 36; O2SAT 100
[2021-09-01] MEDS: IMMUNE GLOBULIN 20 GM/200 ML BTL IV (11:19)
[2021-09-01 11:40] VITALS: BP 134/98; PULSE 57; RESP 17; TEMP 36; O2SAT 100
[2021-09-01] MEDS: IMMUNE GLOBULIN 40 GM/400 ML BTL IVPB (12:09)
[2021-09-01 12:10] VITALS: BP 136/98; PULSE 55; RESP 17; TEMP 36.3; O2SAT 100
== END 2021-09-05 23:59 | disposition home or self-care (01) ==
LOC: INF 02:34
PROVIDERS: Psychiatry & Neurology Neurology; PCP Physician Assistant; Visit Provider Internal Medicine
DX: G61.81 Chronic inflammatory demyelinating polyneuritis (principal)
CPT/HCPCS: 36415; 96365; 96366; 82565; J1459

== ENCOUNTER 2021-09-29 02:18 | Outpatient (RCR) | payer MEDICAID, SELFPAY ==
[2021-09-06 00:18] VITALS: BP 136/98; PULSE 55; RESP 17; TEMP 36.3
[2021-09-29] VITALS (8 sets, daily range): BP systolic 112–148; BP diastolic 83–96; PULSE 60–79; RESP 16–18; TEMP 36–36.5; O2SAT 98–100
[2021-09-29] MEDS: Normal Saline Flush 10 ML SYR IVP (10:16)
[2021-09-29] MEDS: IMMUNE GLOBULIN 5 GM/50 ML BTL 0.8 GM IVPB (10:18)
[2021-09-29] MEDS: Acetaminophen 500 MG TAB 1000 MG PO (10:30)
[2021-09-29] MEDS: IMMUNE GLOBULIN 10 GM/100 ML BTL IVPB (10:58)
[2021-09-29] MEDS: IMMUNE GLOBULIN 20 GM/200 ML BTL IVPB (11:38)
[2021-09-29] MEDS: IMMUNE GLOBULIN 40 GM/400 ML BTL IVPB (12:26)
== END 2021-10-06 23:59 | disposition home or self-care (01) ==
LOC: INF 02:18
PROVIDERS: PCP Physician Assistant; Visit Provider Internal Medicine
DX: G61.81 Chronic inflammatory demyelinating polyneuritis (principal)
CPT/HCPCS: 36415; 96365; 96366; 82565; J1459

== ENCOUNTER 2021-10-27 02:10 | Outpatient (RCR) | payer MEDICAID, SELFPAY ==
[2021-10-07 00:08] VITALS: BP 131/84; PULSE 64; RESP 16; TEMP 36.3
[2021-10-27] VITALS (7 sets, daily range): BP systolic 117–140; BP diastolic 82–97; PULSE 56–65; RESP 16–18; TEMP 35.9–36.6; O2SAT 98–100
[2021-10-27] MEDS: Acetaminophen 500 MG TAB (10:15)
[2021-10-27] MEDS: Normal Saline Flush 10 ML SYR IVP (10:18)
[2021-10-27] MEDS: IMMUNE GLOBULIN 5 GM/50 ML BTL IVPB (10:18)
[2021-10-27] MEDS: IMMUNE GLOBULIN 10 GM/100 ML BTL IVPB (10:52)
[2021-10-27] MEDS: IMMUNE GLOBULIN 20 GM/200 ML BTL IVPB (11:30)
[2021-10-27 11:48] LABS: CREATININE 1.1 mg/dL (0.70-1.30); Estimated GFR 79.77 (mL/min/1.73m2)
[2021-10-27] MEDS: IMMUNE GLOBULIN 40 GM/400 ML BTL IVPB (12:20)
== END 2021-11-05 23:59 | disposition home or self-care (01) ==
LOC: INF 02:10
PROVIDERS: Psychiatry & Neurology Neurology; PCP Physician Assistant; Visit Provider Internal Medicine
DX: G61.81 Chronic inflammatory demyelinating polyneuritis (principal)
CPT/HCPCS: 96365; 96366; 82565; J1459

== ENCOUNTER 2021-12-08 03:15 | Outpatient (RCR) | payer MEDICAID, SELFPAY ==
[2021-11-06 00:19] VITALS: BP 140/92; PULSE 65; RESP 17; TEMP 35.9
[2021-12-08] VITALS (7 sets, daily range): BP systolic 91–117; BP diastolic 71–80; PULSE 71–79; RESP 16–17; TEMP 35.9–36.8; O2SAT 97–100
[2021-12-08] MEDS: Acetaminophen 500 MG TAB (10:04)
[2021-12-08] MEDS: Normal Saline Flush 10 ML SYR IVP (10:05)
[2021-12-08] MEDS: IMMUNE GLOBULIN 5 GM/50 ML BTL IVPB (10:08)
[2021-12-08] MEDS: IMMUNE GLOBULIN 10 GM/100 ML BTL IVPB (10:41)
[2021-12-08 10:55] LABS: CREATININE 1.2 mg/dL (0.70-1.30); Estimated GFR 71.86 (mL/min/1.73m2)
[2021-12-08] MEDS: IMMUNE GLOBULIN 20 GM/200 ML BTL IVPB (11:21)
[2021-12-08] MEDS: IMMUNE GLOBULIN 40 GM/400 ML BTL IVPB (12:11)
== END 2022-01-05 23:59 | disposition home or self-care (01) ==
LOC: INF 03:15
PROVIDERS: PCP Physician Assistant; Visit Provider Internal Medicine
DX: G61.81 Chronic inflammatory demyelinating polyneuritis (principal)
CPT/HCPCS: 96365; 96366; 82565; J1459

== ENCOUNTER 2022-01-20 02:21 | Outpatient (RCR) | payer MEDICAID, SELFPAY ==
[2022-01-06 00:02] VITALS: BP 102/74; PULSE 71; RESP 17; TEMP 36
[2022-01-20] VITALS (7 sets, daily range): BP systolic 105–128; BP diastolic 72–91; PULSE 61–75; RESP 17–18; TEMP 35–36.9; O2SAT 97–100
[2022-01-20] MEDS: Normal Saline Flush 10 ML SYR IVP (09:42)
[2022-01-20] MEDS: Acetaminophen 500 MG TAB 1000 MG PO (09:42)
[2022-01-20] MEDS: IMMUNE GLOBULIN 5 GM/50 ML BTL IVPB (09:46)
[2022-01-20 10:04] LABS: Estimated GFR 89.44 (mL/min/1.73m2)
[2022-01-20] MEDS: IMMUNE GLOBULIN 10 GM/100 ML BTL 1.6 GM IVPB (10:24)
[2022-01-20] MEDS: IMMUNE GLOBULIN 20 GM/200 ML BTL 2.39 GM IVPB (11:03)
[2022-01-20] MEDS: IMMUNE GLOBULIN 40 GM/400 ML BTL IVPB (11:47)
== END 2022-02-05 23:59 | disposition home or self-care (01) ==
LOC: INF 02:21
PROVIDERS: Psychiatry & Neurology Neurology; PCP Physician Assistant; Visit Provider Internal Medicine
DX: G61.81 Chronic inflammatory demyelinating polyneuritis (principal)
CPT/HCPCS: 96365; 96366; 82565; J1459

== ENCOUNTER 2022-03-03 02:11 | Outpatient (RCR) | payer MEDICAID, SELFPAY ==
[2022-02-06 00:15] VITALS: BP 117/76; PULSE 70; RESP 18; TEMP 36.1
[2022-03-03] VITALS (7 sets, daily range): BP systolic 96–125; BP diastolic 69–87; PULSE 61–77; RESP 17–18; TEMP 36.6–37.7; O2SAT 98–99
[2022-03-03] MEDS: IMMUNE GLOBULIN 5 GM/50 ML BTL IVPB (10:05)
[2022-03-03] MEDS: Acetaminophen 500 MG TAB 1000 MG PO (10:08)
[2022-03-03 10:17] LABS: CREATININE 1.1 mg/dL (0.70-1.30); Estimated GFR 79.77 (mL/min/1.73m2)
[2022-03-03] MEDS: IMMUNE GLOBULIN 10 GM/100 ML BTL IVPB (10:41)
[2022-03-03] MEDS: IMMUNE GLOBULIN 20 GM/200 ML BTL 2.4 GM IVPB (11:24)
[2022-03-03] MEDS: IMMUNE GLOBULIN 40 GM/400 ML BTL IVPB (12:12)
== END 2022-03-08 23:59 | disposition home or self-care (01) ==
LOC: INF 02:11
PROVIDERS: Psychiatry & Neurology Neurology; PCP Physician Assistant; Visit Provider Internal Medicine
DX: G61.81 Chronic inflammatory demyelinating polyneuritis (principal)
CPT/HCPCS: 96365; 96366; 82565; J1459

== ENCOUNTER 2022-04-14 02:31 | Outpatient (RCR) | payer MEDICAID, SELFPAY ==
[2022-03-09 00:15] VITALS: BP 114/82; PULSE 77; RESP 18; TEMP 36.6
[2022-04-14] VITALS (8 sets, daily range): BP systolic 98–122; BP diastolic 73–83; PULSE 64–74; RESP 18; TEMP 36.5–36.8; O2SAT 97–99
[2022-04-14] MEDS: Acetaminophen 500 MG TAB 1000 MG PO (10:13)
[2022-04-14] MEDS: IMMUNE GLOBULIN 5 GM/50 ML BTL IVPB (10:16)
[2022-04-14 10:34] LABS: Estimated GFR 89.44 (mL/min/1.73m2)
[2022-04-14] MEDS: IMMUNE GLOBULIN 10 GM/100 ML BTL IVPB (10:56)
[2022-04-14] MEDS: IMMUNE GLOBULIN 20 GM/200 ML BTL IVPB (11:40)
[2022-04-14] MEDS: IMMUNE GLOBULIN 40 GM/400 ML BTL IVPB (12:31)
[2022-04-14] MEDS: Normal Saline Flush 10 ML SYR IVP (14:13)
== END 2022-05-06 23:59 | disposition home or self-care (01) ==
LOC: INF 02:31
PROVIDERS: Psychiatry & Neurology Neurology; PCP Physician Assistant; Visit Provider Internal Medicine
DX: G61.81 Chronic inflammatory demyelinating polyneuritis (principal)
CPT/HCPCS: 36415; 96365; 96366; 82565; J1459

== ENCOUNTER 2022-05-26 03:21 | Outpatient (RCR) | payer MEDICAID, SELFPAY ==
[2022-05-07 00:02] VITALS: BP 111/81; PULSE 64; RESP 18; TEMP 36.6
[2022-05-26] VITALS (7 sets, daily range): BP systolic 97–117; BP diastolic 71–84; PULSE 64–73; RESP 16–17; TEMP 36.3–36.8; O2SAT 98–99
[2022-05-26] MEDS: Acetaminophen 500 MG TAB 1000 MG PO (10:09)
[2022-05-26] MEDS: IMMUNE GLOBULIN 5 GM/50 ML BTL IVPB (10:21)
[2022-05-26] MEDS: Normal Saline Flush 10 ML SYR IVP (10:22)
[2022-05-26 10:33] LABS: CREATININE 1.1 mg/dL (0.70-1.30); Estimated GFR 79.28 (mL/min/1.73m2)
[2022-05-26] MEDS: IMMUNE GLOBULIN 10 GM/100 ML BTL IVPB (10:57)
[2022-05-26] MEDS: IMMUNE GLOBULIN 20 GM/200 ML BTL IVPB (11:35)
[2022-05-26] MEDS: IMMUNE GLOBULIN 40 GM/400 ML BTL IVPB (12:19)
== END 2022-06-05 23:59 | disposition home or self-care (01) ==
LOC: INF 03:21
PROVIDERS: PCP Physician Assistant; Visit Provider Internal Medicine
DX: G61.81 Chronic inflammatory demyelinating polyneuritis (principal)
CPT/HCPCS: 96365; 96366; 82565; J1459

== ENCOUNTER 2022-07-21 01:05 | Outpatient (RCR) | payer MEDICAID, SELFPAY ==
[2022-06-06 00:02] VITALS: BP 105/74; PULSE 69; RESP 16; TEMP 36.4
[2022-07-21] VITALS (7 sets, daily range): BP systolic 108–124; BP diastolic 78–89; PULSE 59–69; RESP 16–17; TEMP 36.3–36.5; O2SAT 97–99
[2022-07-21] MEDS: IMMUNE GLOBULIN 5 GM/50 ML BTL IVPB (10:20)
[2022-07-21] MEDS: IMMUNE GLOBULIN 10 GM/100 ML BTL IVPB (10:56)
[2022-07-21 11:08] LABS: CREATININE 1.1 mg/dL (0.70-1.30); Estimated GFR 79.28 (mL/min/1.73m2)
[2022-07-21] MEDS: IMMUNE GLOBULIN 20 GM/200 ML BTL IVPB (11:32)
[2022-07-21] MEDS: IMMUNE GLOBULIN 40 GM/400 ML BTL IVPB (12:17)
[2022-07-21] MEDS: Normal Saline Flush 10 ML SYR IVP (12:17)
== END 2022-08-05 23:59 | disposition home or self-care (01) ==
LOC: INF 01:05
PROVIDERS: PCP Physician Assistant; Visit Provider Psychiatry & Neurology Neurology
DX: G61.81 Chronic inflammatory demyelinating polyneuritis (principal)
CPT/HCPCS: 96365; 96366; 82565; J1459

== ENCOUNTER 2022-09-15 02:30 | Outpatient (RCR) | payer MEDICAID, SELFPAY ==
[2022-08-06 00:11] VITALS: BP 124/85; PULSE 66; RESP 17; TEMP 36.3
[2022-09-15] VITALS (7 sets, daily range): BP systolic 111–119; BP diastolic 77–88; PULSE 55–63; RESP 17–18; TEMP 36.2–36.5; O2SAT 96–99
[2022-09-15] MEDS: Acetaminophen 500 MG TAB 1000 MG PO (09:41)
[2022-09-15] MEDS: IMMUNE GLOBULIN 5 GM/50 ML BTL IVPB (09:52)
[2022-09-15] MEDS: Normal Saline Flush 10 ML SYR IVP (09:53)
[2022-09-15] MEDS: IMMUNE GLOBULIN 10 GM/100 ML BTL IVPB (10:33)
[2022-09-15] MEDS: IMMUNE GLOBULIN 20 GM/200 ML BTL IVPB (11:14)
[2022-09-15] MEDS: IMMUNE GLOBULIN 40 GM/400 ML BTL IVPB (11:53)
[2022-09-15 12:53] LABS: Estimated GFR 88.88 (mL/min/1.73m2)
== END 2022-10-06 23:59 | disposition home or self-care (01) ==
LOC: INF 02:30
PROVIDERS: PCP Physician Assistant; Visit Provider Psychiatry & Neurology Neurology
DX: G61.81 Chronic inflammatory demyelinating polyneuritis (principal)
CPT/HCPCS: 80053; 96365; 96366; 82565; J1459

== ENCOUNTER 2022-11-10 03:54 | Outpatient (RCR) | payer MEDICAID, SELFPAY ==
[2022-10-07 00:01] VITALS: BP 113/79; PULSE 58; RESP 17; TEMP 36.5
[2022-11-10] VITALS (7 sets, daily range): BP systolic 110–130; BP diastolic 79–88; PULSE 61–67; RESP 16–17; TEMP 36.6–36.9; O2SAT 98–100
[2022-11-10] MEDS: Acetaminophen 500 MG TAB 1000 MG PO (09:49)
[2022-11-10] MEDS: IMMUNE GLOBULIN 5 GM/50 ML BTL IVPB (10:10)
[2022-11-10 10:29] LABS: Estimated GFR 88.88 (mL/min/1.73m2)
[2022-11-10] MEDS: IMMUNE GLOBULIN 10 GM/100 ML BTL IVPB (10:40)
[2022-11-10] MEDS: IMMUNE GLOBULIN 20 GM/200 ML BTL IVPB (11:19)
[2022-11-10] MEDS: IMMUNE GLOBULIN 40 GM/400 ML BTL IVPB (12:08)
[2022-11-10] MEDS: Normal Saline Flush 10 ML SYR IVP (13:15)
== END 2022-12-06 23:59 | disposition home or self-care (01) ==
LOC: INF 03:54
PROVIDERS: PCP Physician Assistant; Visit Provider Psychiatry & Neurology Neurology
DX: G61.81 Chronic inflammatory demyelinating polyneuritis (principal)
CPT/HCPCS: 36415; 96365; 96366; 82565; J1459

== ENCOUNTER 2023-01-18 04:10 | Outpatient (RCR) | payer MEDICAID, SELFPAY ==
[2022-12-07 00:14] VITALS: BP 113/79; PULSE 58; RESP 17; TEMP 36.5
[2023-01-18] VITALS (8 sets, daily range): BP systolic 97–124; BP diastolic 71–86; PULSE 58–71; RESP 16–18; TEMP 35.6–36.4; O2SAT 98–99
[2023-01-18] MEDS: Acetaminophen 500 MG TAB 1000 MG PO (10:08)
[2023-01-18] MEDS: IMMUNE GLOBULIN 5 GM/50 ML BTL IVPB (10:10)
[2023-01-18] MEDS: IMMUNE GLOBULIN 10 GM/100 ML BTL IVPB (10:56)
[2023-01-18] MEDS: IMMUNE GLOBULIN 20 GM/200 ML BTL IVPB (11:27)
[2023-01-18 11:28] LABS: Estimated GFR 88.88 (mL/min/1.73m2)
[2023-01-18] MEDS: IMMUNE GLOBULIN 40 GM/400 ML BTL IVPB (12:14)
== END 2023-02-05 23:59 | disposition home or self-care (01) ==
LOC: INF 04:10
PROVIDERS: PCP Physician Assistant; Visit Provider Psychiatry & Neurology Neurology
DX: G61.81 Chronic inflammatory demyelinating polyneuritis (principal)
CPT/HCPCS: 36415; 96365; 96366; 82565; J1459

== ENCOUNTER 2023-03-29 01:20 | Outpatient (RCR) | payer MEDICAID, SELFPAY ==
[2023-02-06 00:01] VITALS: BP 113/79; PULSE 58; RESP 17; TEMP 36.5
[2023-03-29] VITALS (9 sets, daily range): BP systolic 101–117; BP diastolic 68–83; PULSE 70–78; RESP 17–18; TEMP 36.4–36.7; O2SAT 93–100
[2023-03-29] MEDS: Normal Saline Flush 10 ML SYR IVP (10:44)
[2023-03-29] MEDS: IMMUNE GLOBULIN 5 GM/50 ML BTL IVPB (11:00)
[2023-03-29] MEDS: Acetaminophen 500 MG TAB 1000 MG PO (11:00)
[2023-03-29] MEDS: IMMUNE GLOBULIN 10 GM/100 ML BTL IVPB (11:28)
[2023-03-29 11:32] LABS: CREATININE 0.9 mg/dL (0.70-1.30); Estimated GFR 100.86 (mL/min/1.73m2)
[2023-03-29] MEDS: IMMUNE GLOBULIN 20 GM/200 ML BTL IVPB (12:12)
[2023-03-29] MEDS: IMMUNE GLOBULIN 40 GM/400 ML BTL IVPB (13:09)
== END 2023-04-06 23:59 | disposition home or self-care (01) ==
LOC: INF 01:20
PROVIDERS: PCP Physician Assistant; Visit Provider Psychiatry & Neurology Neurology
DX: G61.81 Chronic inflammatory demyelinating polyneuritis (principal); Z79.899 Other long term (current) drug therapy
CPT/HCPCS: 36415; 96365; 96366; 82565; J1459

== ENCOUNTER 2023-06-07 04:49 | Outpatient (RCR) | payer MEDICAID, SELFPAY ==
[2023-04-07 00:14] VITALS: BP 113/79; PULSE 58; RESP 17; TEMP 36.5
[2023-06-07] VITALS (8 sets, daily range): BP systolic 106–120; BP diastolic 62–79; PULSE 53–73; RESP 16–17; TEMP 35.8–37.3; O2SAT 96–99
[2023-06-07] MEDS: IMMUNE GLOBULIN 5 GM/50 ML BTL IVPB (09:15)
[2023-06-07] MEDS: Acetaminophen 500 MG TAB 1000 MG PO (09:51)
[2023-06-07] MEDS: Normal Saline Flush 10 ML SYR IVP (09:52)
[2023-06-07 10:18] LABS: CREATININE 0.9 mg/dL (0.70-1.30); Estimated GFR 100.24 (mL/min/1.73m2)
[2023-06-07] MEDS: IMMUNE GLOBULIN 10 GM/100 ML BTL IVPB (10:26)
[2023-06-07] MEDS: IMMUNE GLOBULIN 20 GM/200 ML BTL IVPB (11:02)
[2023-06-07] MEDS: IMMUNE GLOBULIN 40 GM/400 ML BTL IVPB (11:52)
== END 2023-07-07 23:59 | disposition home or self-care (01) ==
LOC: INF 04:49
PROVIDERS: PCP Physician Assistant; Visit Provider Psychiatry & Neurology Neurology
DX: G61.81 Chronic inflammatory demyelinating polyneuritis (principal)
CPT/HCPCS: 96365; 96366; 82565; J1459

== ENCOUNTER 2023-08-30 01:59 | Outpatient (RCR) | payer MEDICAID, SELFPAY ==
[2023-07-08 00:01] VITALS: BP 113/79; PULSE 58; RESP 17; TEMP 36.5
[2023-08-30] VITALS (8 sets, daily range): BP systolic 86–108; BP diastolic 60–72; PULSE 56–71; RESP 17; TEMP 36–36.4; O2SAT 97–100
[2023-08-30] MEDS: Acetaminophen 500 MG TAB 1000 MG PO (10:03)
[2023-08-30] MEDS: Normal Saline Flush 10 ML SYR IVP (10:04)
[2023-08-30] MEDS: IMMUNE GLOBULIN 40 GM/400 ML BTL IVPB (10:06)
[2023-08-30 10:20] LABS: CREATININE 1.2 mg/dL (0.70-1.30); Estimated GFR 70.98 (mL/min/1.73m2)
[2023-08-30] MEDS: IMMUNE GLOBULIN 20 GM/200 ML BTL IVPB (12:16)
[2023-08-30] MEDS: IMMUNE GLOBULIN 10 GM/100 ML BTL IVPB (13:03)
[2023-08-30] MEDS: IMMUNE GLOBULIN 5 GM/50 ML BTL IVPB (13:29)
== END 2023-09-06 23:59 | disposition home or self-care (01) ==
LOC: INF 01:59
PROVIDERS: PCP Physician Assistant; Visit Provider Psychiatry & Neurology Neurology
DX: G61.81 Chronic inflammatory demyelinating polyneuritis (principal)
CPT/HCPCS: 36415; 96365; 96366; 82565; J1459

== ENCOUNTER 2023-11-22 03:13 | Outpatient (RCR) | payer MEDICAID, SELFPAY ==
[2023-09-07 00:23] VITALS: BP 113/79; PULSE 58; RESP 17; TEMP 36.5
[2023-11-22] VITALS (8 sets, daily range): BP systolic 101–123; BP diastolic 72–84; PULSE 55–71; RESP 16–17; TEMP 36.1–37; O2SAT 97–100
[2023-11-22] MEDS: Acetaminophen 500 MG TAB 1000 MG PO (09:37)
[2023-11-22] MEDS: Normal Saline Flush 10 ML SYR IVP (09:37)
[2023-11-22] MEDS: IMMUNE GLOBULIN 5 GM/50 ML BTL IVPB (10:00)
[2023-11-22] MEDS: IMMUNE GLOBULIN 10 GM/100 ML BTL IVPB (10:37)
[2023-11-22 11:02] LABS: CREATININE 1.1 mg/dL (0.70-1.30); Estimated GFR 78.79 (mL/min/1.73m2)
[2023-11-22] MEDS: IMMUNE GLOBULIN 20 GM/200 ML BTL IVPB (11:08)
[2023-11-22] MEDS: IMMUNE GLOBULIN 40 GM/400 ML BTL IVPB (11:59)
== END 2023-12-07 23:59 | disposition home or self-care (01) ==
LOC: INF 03:13
PROVIDERS: PCP Physician Assistant; Visit Provider Psychiatry & Neurology Neurology
DX: G61.81 Chronic inflammatory demyelinating polyneuritis (principal)
CPT/HCPCS: 36415; 96365; 96366; 82565; J1459

== ENCOUNTER 2024-02-08 19:02 | Outpatient (REF) | payer MEDICAID, SELFPAY ==
[2024-02-08 19:26] LABS: Abs Immature Grans 0.01 10^3/uL (0.0-0.06); Absolute Basophil Count 0.03 10^3/uL (0.0-0.2); Absolute Eosinophil Count 0.16 10^3/uL (0.0-0.7); Absolute Lymphocyte Count 1.54 10^3/uL (1.2-3.4); Absolute Neutrophil Count 3.49 10^3/uL (1.2-6.7); Basophils % 0.5 %; Eosinophils % 2.8 %; HCT 33.3 % (40.0-50.0); HGB 10.8 g/dL (13.5-17.5); Immature Grans % 0.2 %; Lymphocytes % 26.9 %; MCH 29.3 pg (27.0-33.0); MCHC 32.4 % (32.0-36.0); MCV 90 fL (80-95); MPV 10.3 fL (8.0-11.0); Monocytes % 8.7 %; Neutrophils % 60.9 %; Platelet Count 266 10^3/uL (130-400); RBC 3.69 10^6/uL (4.36-5.78); RDW 12.8 % (11.8-14.1); RDW-SD 42.5 fL; WBC 5.73 10^3/uL (4.4-10.8)
[2024-02-08 19:35] LABS: Iron 321 ug/dL (65-175); Total Iron Binding Capacity 379 ug/dL (250-450)
[2024-02-08 19:39] LABS: ALT 37 U/L (16-63); AST 32 U/L (15-37); Albumin 3.5 g/dL (3.4-5.0); Alkaline Phosphatase 61 U/L (46-116); Anion Gap 7.3 mmol/L (3-11); BUN 15 mg/dL (7-18); Bilirubin, Total 0.25 mg/dL (0.2-1.0); CO2 26.7 mmol/L (21.0-32.0); Calcium 8.5 mg/dL (8.5-10.1); Chloride 103 mmol/L (98-107); Estimated GFR 88.33 (mL/min/1.73m2); Glucose 94 mg/dL (74-106); Magnesium 2.5 mg/dL (1.8-2.4); Potassium 4.5 mmol/L (3.5-5.1); Sodium 137 mmol/L (136-145); Total Protein 8.1 g/dL (6.4-8.2)
[2024-02-08 20:37] LABS: Ferritin 39 ng/mL (26-388)
== END 2024-02-08 19:03 | disposition home or self-care (01) ==
LOC: NCHCN 19:02
PROVIDERS: PCP Physician Assistant; Visit Provider Physician Assistant
DX: I10 Essential (primary) hypertension (principal); D64.9 Anemia, unspecified; E83.42 Hypomagnesemia
CPT/HCPCS: 80053; 82728; 83540; 83550; 83735; 85025

== ENCOUNTER 2024-02-14 03:46 | Outpatient (RCR) | payer MEDICAID, SELFPAY ==
[2023-12-08 00:21] VITALS: BP 113/79; PULSE 58; RESP 17; TEMP 36.5
[2024-02-14] VITALS (7 sets, daily range): BP systolic 100–113; BP diastolic 65–81; PULSE 63–77; RESP 17; TEMP 36.1–37.1; O2SAT 98–99
[2024-02-14] MEDS: Acetaminophen 500 MG TAB 1000 MG PO (10:19)
[2024-02-14] MEDS: IMMUNE GLOBULIN 5 GM/50 ML BTL IVPB (10:24)
[2024-02-14] MEDS: IMMUNE GLOBULIN 10 GM/100 ML BTL IVPB (11:01)
[2024-02-14 11:10] LABS: CREATININE 0.9 mg/dL (0.70-1.30); Estimated GFR 100.24 (mL/min/1.73m2)
[2024-02-14] MEDS: IMMUNE GLOBULIN 20 GM/200 ML BTL IVPB (11:43)
[2024-02-14] MEDS: IMMUNE GLOBULIN 40 GM/400 ML BTL IVPB (12:27)
== END 2024-03-08 23:59 | disposition home or self-care (01) ==
LOC: INF 03:46
PROVIDERS: PCP Physician Assistant; Visit Provider Psychiatry & Neurology Neurology
DX: G61.81 Chronic inflammatory demyelinating polyneuritis (principal)
CPT/HCPCS: 36415; 96365; 96366; 82565; J1459

== ENCOUNTER 2024-05-09 01:35 | Outpatient (RCR) | payer MEDICAID, SELFPAY ==
[2024-05-09 10:24] VITALS: BP 107/78; PULSE 74; RESP 18; TEMP 36.9; O2SAT 97
[2024-05-09] MEDS: Acetaminophen 500 MG TAB 1000 MG PO (10:27)
[2024-05-09] MEDS: Normal Saline Flush 5 ML SYR IVP (10:27)
[2024-05-09] MEDS: IMMUNE GLOBULIN 5 GM/50 ML BTL IVPB (10:29)
[2024-05-09 10:55] VITALS: BP 108/69; PULSE 80; RESP 19; TEMP 36.7; O2SAT 97
[2024-05-09] MEDS: IMMUNE GLOBULIN 10 GM/100 ML BTL IVPB (11:00)
[2024-05-09 11:12] VITALS: BP 104/73; PULSE 71; RESP 20; TEMP 36.8; O2SAT 97
[2024-05-09] MEDS: IMMUNE GLOBULIN 20 GM/200 ML BTL IVPB (11:39)
[2024-05-09 11:45] VITALS: BP 95/67; PULSE 66; RESP 20; TEMP 36.5; O2SAT 98
[2024-05-09 11:50] LABS: CREATININE 1.1 mg/dL (0.70-1.30)
[2024-05-09 12:17] VITALS: BP 100/74; PULSE 76; RESP 19; TEMP 36.7; O2SAT 100
[2024-05-09] MEDS: IMMUNE GLOBULIN 40 GM/400 ML BTL IVPB (12:26)
[2024-05-09 12:47] VITALS: BP 108/74; PULSE 64; RESP 17; TEMP 36.8; O2SAT 98
[2024-05-13 15:37] LABS: Albumin 46.3 % (55.8-66.1); Albumin g/dL 3.8 g/dL (3.6-5.2); Comment (See Note); Monoclonal Spike 11.6 % (None Seen); Total Protein 8.2 g/dL (6.3-8.2)
[2024-06-24 08:13] LABS: Immunotyping, Serum (See Note)
== END 2024-06-05 23:59 | disposition home or self-care (01) ==
LOC: INF 01:35
PROVIDERS: PCP Physician Assistant; Visit Provider Psychiatry & Neurology Neurology
DX: G61.81 Chronic inflammatory demyelinating polyneuritis (principal)
CPT/HCPCS: 36415; 96365; 96366; 82565; 84165; 86320; J1459

== ENCOUNTER 2024-08-01 00:55 | Outpatient (RCR) | payer MEDICAID, SELFPAY ==
[2024-08-01 09:31] VITALS: BP 101/74; PULSE 66; RESP 18; TEMP 36; O2SAT 98
[2024-08-01] MEDS: Acetaminophen 500 MG TAB 1000 MG PO (09:31)
[2024-08-01] MEDS: Normal Saline Flush 10 ML SYR IVP (09:34)
[2024-08-01] MEDS: IMMUNE GLOBULIN 40 GM/400 ML BTL IVPB ×2 (09:34→11:32)
[2024-08-01 09:58] VITALS: BP 96/73; PULSE 64; RESP 19; TEMP 36; O2SAT 97
[2024-08-01 10:15] VITALS: BP 94/68; PULSE 66; RESP 18; TEMP 35.8; O2SAT 98
[2024-08-01 10:23] LABS: CREATININE 1.2 mg/dL (0.70-1.30); Estimated GFR 70.53 (mL/min/1.73m2)
[2024-08-01 10:45] VITALS: BP 91/68; PULSE 66; RESP 19; TEMP 36; O2SAT 98
[2024-08-01 11:15] VITALS: BP 92/70; PULSE 57; RESP 19; TEMP 35.9; O2SAT 100
== END 2024-08-05 23:59 | disposition home or self-care (01) ==
LOC: INF 00:55
PROVIDERS: PCP Physician Assistant; Visit Provider Psychiatry & Neurology Neurology
DX: G61.81 Chronic inflammatory demyelinating polyneuritis (principal)
CPT/HCPCS: 36415; 96365; 96366; 82565; J1459

== ENCOUNTER 2024-10-24 00:22 | Outpatient (RCR) | payer MEDICAID, SELFPAY ==
[2024-10-24] MEDS: Acetaminophen 500 MG TAB (10:11)
[2024-10-24] MEDS: Normal Saline Flush 10 ML SYR IVP (10:12)
[2024-10-24 10:13] VITALS: BP 100/63; PULSE 66; RESP 18; TEMP 37; O2SAT 96
[2024-10-24] MEDS: IMMUNE GLOBULIN 40 GM/400 ML BTL IVPB ×2 (10:42→12:44)
[2024-10-24 11:05] VITALS: BP 102/69; PULSE 65; RESP 18; TEMP 36.6; O2SAT 98
[2024-10-24 11:08] LABS: Estimated GFR 87.78 (mL/min/1.73m2)
[2024-10-24 11:20] VITALS: BP 99/69; PULSE 63; RESP 18; TEMP 36.3; O2SAT 98
[2024-10-24 11:55] VITALS: BP 98/66; PULSE 58; RESP 18; TEMP 36.6; O2SAT 98
[2024-10-24 12:29] VITALS: BP 101/71; PULSE 63; RESP 18; TEMP 36.7; O2SAT 98
== END 2024-11-05 23:59 | disposition home or self-care (01) ==
LOC: INF 00:22
PROVIDERS: PCP Physician Assistant; Visit Provider Psychiatry & Neurology Neurology
DX: G61.81 Chronic inflammatory demyelinating polyneuritis (principal)
CPT/HCPCS: 82565; J1459

== ENCOUNTER 2025-01-16 01:24 | Outpatient (RCR) | payer MEDICAID, SELFPAY ==
[2025-01-16 10:35] VITALS: BP 122/81; PULSE 58; RESP 18; O2SAT 99
[2025-01-16] MEDS: Immune Globulin-Privigen 40 GM/400 ML BTL IVPB ×2 (10:42→12:58)
[2025-01-16 11:09] VITALS: BP 119/82; PULSE 65; RESP 18; TEMP 37; O2SAT 99
[2025-01-16 11:26] VITALS: BP 118/79; PULSE 59; RESP 18; O2SAT 96
[2025-01-16 11:56] VITALS: BP 129/77; PULSE 54; RESP 18; O2SAT 99
[2025-01-16 12:26] VITALS: BP 124/84; PULSE 58; RESP 18; O2SAT 100
[2025-01-16] MEDS: Normal Saline Flush 10 ML SYR IVP (12:59)
== END 2025-02-05 23:59 | disposition home or self-care (01) ==
LOC: INF 01:24
PROVIDERS: PCP Physician Assistant; Visit Provider Psychiatry & Neurology Neurology
DX: G61.81 Chronic inflammatory demyelinating polyneuritis (principal)
CPT/HCPCS: 36415; 96365; 96366; 82565; J1459